=== PATIENT | female | born 1925 | race Caucasian/White ===

== ENCOUNTER 2016-08-31 22:40 | Inpatient (IN) | payer OTHER ==
--- NOTE | 2016-08-31 22:54 | PDOC ---
History of Present Illness - History of Present Illness Initial Comments: 08/31/16 23:36 Patient is an 89 year old female with significant medical hx of HTN who is presenting to the ED with garbled speech and transient confusion this evening. Patient was last known well at 9:45PM tonight when she suddenly began having garbled speech and became disoriented. This was witnessed by her who brought her into the ED, where she was seen by physician at 10:47PM. Upon arrival, the patient had difficulty with word search with some slight confusion which resolved a short while afterwards. Denies any headache, loss of consciousness, facial droop, weakness, numbness, or tingling. PMD: Kingsley Garcia MD Surgical Hx: Hysterectomy, laminectomy x 2 Sample Grader: Luisito Fuller MD <Jackie Hernández - Last Filed: 08/31/16 23:44> <Yuli Dockery - Last Filed: 09/01/16 02:21> - General Chief Complaint: CVA/TIA Stated Complaint: WEAKNESS Past History <Jackie Hernández - Last Filed: 08/31/16 23:44> - Past Medical History Cardiac Disorders: Yes HTN: Yes - Psycho/Social/Smoking Cessation Hx Suicidal Ideation: No Smoking History: Never smoked <Yuli Dockery - Last Filed: 09/01/16 02:21> - Past Medical History Allergies/Adverse Reactions: Allergies Allergy/AdvReac Type Severity Reaction Status Date / Time No Known Allergies Allergy Verified 08/31/16 22:43 Home Medications: Ambulatory Orders Aspirin [ASA -] 81 mg PO DAILY 08/31/16 Celecoxib [Celebrex] 200 mg PO DAILY 08/31/16 Cholecalciferol (Vitamin D3) [Vitamin D3] 50,000 unit PO WEEKLY 08/31/16 Diazepam [Valium] 10 mg PO HS PRN 08/31/16 Esomeprazole Magnesium [Nexium 24Hr] 40 mg PO ASDIR 08/31/16 Metoprolol Succinate [Toprol Xl -] 50 mg PO ASDIR 08/31/16 Metoprolol Succinate [Toprol Xl] 100 mg PO AM 08/31/16 Olmesartan/Amlodipin/Hcthiazid [Tribenzor 40-10-25 mg Tablet] 1 each PO DAILY Sennosides/Docusate Sodium [Senna Plus Tablet] 1 each PO HS 08/31/16 Simvastatin [Zocor -] 40 mg PO HS 08/31/16 Review of Systems - Review of Systems Comments:: 08/31/16 23:39 CONSTITUTIONAL: Absent: fever, chills, diaphoresis, generalized weakness, malaise, loss of appetite HEENT: Absent: rhinorrhea, nasal congestion, throat pain, throat swelling, difficulty swallowing, mouth swelling, ear pain, eye pain, visual changes CARDIOVASCULAR: Absent: chest pain, syncope, palpitations, irregular heart rate, lightheadedness , peripheral edema RESPIRATORY: Absent: cough, shortness of breath, dyspnea with exertion, orthopnea, wheezing, stridor, hemoptysis GASTROINTESTINAL: Absent: abdominal pain, abdominal distension, nausea, vomiting, diarrhea, constipation, melena, hematochezia GENITOURINARY: Absent: dysuria, frequency, urgency, hesitancy, hematuria, flank pain, genital pain MUSCULOSKELETAL: Absent: myalgia, arthralgia, joint swelling SKIN: Absent: rash, itching, pallor HEMATOLOGIC/IMMUNOLOGIC: Absent: easy bleeding, easy bruising, lymphadenopathy, frequent infections ENDOCRINE: Absent: unexplained weight gain, unexplained weight loss, heat intolerance, cold intolerance NEUROLOGIC: Present: confusion, garbled speech Absent: headache, focal weakness or paresthesia, dizziness, unsteady gait, seizure, bladder or bowel incontinence. PSYCHIATRIC: Absent: anxiety, depression, suicidal or homicidal ideation, hallucinations <Betty,Jackie - Last Filed: 08/31/16 23:44> *Physical Exam - Vital Signs Last Vital Signs Temp Pulse Resp BP Pulse Ox 98.4 F 114 H 20 127/71 95 08/31/16 22:44 08/31/16 22:44 08/31/16 22:44 08/31/16 22:44 08/31/16 22:44 - Physical Exam Comments: 08/31/16 23:40 GENERAL: Well developed, well nourished. Awake and alert. No acute distress. HEENT: Normocephalic, atraumatic. PERRLA, EOMI. No conjunctival pallor. Sclera are non- icteric. Moist mucous membranes. Oropharynx is clear. NECK: Supple. Full ROM. No JVD. Carotid pulses 2+ and symmetric, without bruits. No thyromegaly. No lymphadenopathy. CARDIOVASCULAR: Regular rate and rhythm. No murmurs, rubs, or gallops. Distal pulses are 2+ and symmetric. PULMONARY: No evidence of respiratory distress. Lungs clear to auscultation bilaterally. No wheezing, rales or rhonchi. ABDOMINAL: Soft. Non-tender. Non-distended. No rebound or guarding. No organomegaly. Normoactive bowel sounds. MUSCULOSKELETAL: Significant toes and fingers deformity due to advanced arthritis. No tenderness. No CVA tenderness. EXTREMITIES: No cyanosis. No clubbing. No edema. No calf tenderness. SKIN: Warm and dry. Normal capillary refill. No rashes. No jaundice. NEUROLOGICAL: AAOx3. Upon arrival, patient had difficulty with word search and slight confusion, all resolved now. No extremity weakness. No confusion at this time. Sensation is intact. No visual defects. PSYCHIATRIC: Cooperative. Good eye contact. Appropriate mood and affect. <Jackie Hernández - Last Filed: 08/31/16 23:44> - Vital Signs Last Vital Signs Temp Pulse Resp BP Pulse Ox 98.4 F 114 H 20 127/71 95 08/31/16 22:44 08/31/16 22:44 08/31/16 22:44 08/31/16 22:44 08/31/16 22:44 <Yuli Dockery - Last Filed: 09/01/16 02:21> NIH Stroke Scale - Last Known Well Date/Time & Onset Date Last Known Well: 08/31/16 Time Last Known Well: 21:45 - Initial Evaluation Level of consciousness: Alert Ask patient the month and their age: Answers both correctly Ask patient to open & close eyes; make fist and let go: Obeys both correctly Best gaze (horizontal eye movement): Normal Visual field testing: No visual field loss Facial paresis (Show teeth/raise eyebrows/close eyes tight): Normal symmetrical movement Motor Function: Left Arm: Normal Motor Function: Right Arm: Normal (extends arm 90 (or 45) degrees for 10 seconds without drift Motor Function: Left Leg: Normal (extends leg 30 degrees for 5 seconds without drift) Motor Function: Right Leg: Normal (extends leg 30 degrees for 5 seconds without drift) Limb Ataxia: No ataxia Sensory(Use pinprick test arms,legs,trunk,face/side to side): Normal Best language (Describe picture, name items, read sentences): No Aphasia Dysarthria (read several words): Normal articulation Extinction and Inattention: No abnormality - Total Score NIH Stroke Scale Score: 0 <Yuli Dockery - Last Filed: 09/01/16 02:21> tPA Exclusion Checklist 0-3hr - Time Elapsed Date last known well: 08/31/16 Time last known well: 21:45 Elaspsed time: Day(s) and 4 Hour(s) and 35 Minutes - Thrombolytic Therapy Candidate Is the patient eligible for Thrombolytic Therapy?: No - Exclusion Criteria 0-3hr SBP greater than 185 or DBP greater than 110mmHg despite tx: No Recent IC/spinal surgery,head trauma or stroke w/in last 3mo: No Hx of previous IC hemorrhage, IC neoplasm, AVM or aneurysm: No Active internal bleeding: No Blding diathesis(low plt ct, inc PTT,INR>1.7 or use of NOAC): No Symptoms suggest subarachnoid hemorrhage: No CT demonstrates multilobar infarct(>1/3 cerebral hemiphere): No Arterial puncture at noncompressible site in previous 7 days: No Blood glucose concentration less than 50mg/dL (2.7mmol/L): No - Relative Exclusion Criteria 0-3h Life expectancy <1yr/severe co-morbid illness/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: No : No Patient/family refused: No Rapid improvement: Yes Stroke severity too mild: Yes Recent acute VA (w/in previous 3 months): No Seizure at onset with postictal residual neuro impairments: No Major surgery or serious trauma w/in previous 14 days: No Recent GI or hemorrhage (w/in previous 21 days): No - Ineligibility reason(s) Reasons No tPA given: See reason(s) noted above (no symptoms currently) <Yuli Dockery - Last Filed: 09/01/16 02:21> Heart Score/ECG Review #1 08/31/16 23:41 Normal sinus rhythm at 63 bpm Cannot rule out Anterior infarct, age undetermined Abnormal ECG <Jackie Hernández - Last Filed: 08/31/16 23:44> Critical Care Time/MDM Note - Medical Decision Making Note: 08/31/16 22:55 89 yo female arrives stating that 1 hour ago she had confusion and difficulty speaking -pt is axox3 -moving all extremities -initially she had some confusion and "word salad' and this seemed to resolve NIHSS was zero PMH HTN PSH TAHSBO,laminectomy ct scan of brain negative for any acute intracranial pathology. Case discussed w neurology, Dr Wong and pt given 325mg aspirin. Pt admitted to telemetry 09/01/16 00:20 the pt has had some recurrent problems with her speech,using nonsensical words then her speech clears and she makes sense and is able to articulate words 09/01/16 02:20 <Yuli Dockery - Last Filed: 09/01/16 02:21> Discharge Disposition <BettyJackie - Last Filed: 08/31/16 23:44> - Discharge Dispostion Admit: Yes <Yuli Dockery - Last Filed: 09/01/16 02:21> - Diagnosis TIA (transient ischemic attack) Qualifiers: Transient cerebral ischemia type: unspecified Qualified Code(s): G45.9 - Transient cerebral ischemic attack, unspecified - Referrals ED Treatment Course - LABORATORY CBC & Chemistry Diagram: 08/31/16 22:50 08/31/16 22:50 - ADDITIONAL ORDERS Additional order review: Laboratory Results 08/31/16 22:50 Sodium Cancelled Potassium Cancelled Chloride Cancelled Carbon Dioxide Cancelled Anion Gap Cancelled BUN Cancelled Creatinine Cancelled Creat Clearance w eGFR Cancelled Random Glucose Cancelled Calcium Cancelled Total Bilirubin Cancelled AST Cancelled ALT Cancelled Alkaline Phosphatase Cancelled Creatine Kinase Cancelled Troponin I Cancelled Total Protein Cancelled Albumin Cancelled Triglycerides Cancelled Cholesterol Cancelled Total LDL Cholesterol Cancelled HDL Cholesterol Cancelled 08/31/16 22:50 RBC 4.23 MCV 93.1 MCHC 33.1 RDW 13.9 MPV 7.1 L Neutrophils % 53.3 Lymphocytes % 36.7 Monocytes % 7.1 Eosinophils % 1.9 Basophils % 1.0 - RADIOLOGY Radiograph Interpretation: 08/31/16 23:10 Siebel Architect: ([email or web address]) Report Date: 08/31/2016 22:57:00 Report Status: Preliminary Begin of Report Content Referring Physician: Yuli Dockery Patient Name: Maribell Hinojosa THIS IS A PRELIMINARYREPORT FROM [facility] SUPERVIS[facility] EXAM: CT brain without contrast IMAGES: 71 EXAM DATE AND TIME: 2016-08-31 22:57:45.0 REASON FOR EXAM: Slurred speech COMPARISON: No FINDINGS: The suspected infarct is not visible on CT at this time (infarcts less than 6 hours old main not be detectable on CT). No hemorrhage. No mass. No focus of edema, shift, or herniation. Osseous structures are intact. THIS DOCUMENT HAS BEEN ELECTRONICALLY SIGNED Chase Jain MD 08/31/2016 23:07 DENZEL MSean. Please call [facility] [phone] ([phone]) with questions. End of Report Content <Jackie Hernández - Last Filed: 08/31/16 23:44> - LABORATORY CBC & Chemistry Diagram: 08/31/16 22:50 08/31/16 23:15 <Yuli Dockery - Last Filed: 09/01/16 02:21> Attestations - Attestations 08/31/16 23:43 Documentation prepared by Jackie Hernández, acting as medical delivery driver for Yuli Dockery MD. <Jackie Hernández - Last Filed: 08/31/16 23:44>
[2016-08-31 23:03] LABS: EOSINOPHIL 1.9 % (0-4.5); MCH 30.8 pg (25.7-33.7); MCHC 33.1 g/dl (32.0-36.0); MEAN CELL VOLUME 93.1 fl (80-96); MEAN PLT VOLUME 7.1 fl (7.5-11.1); NEUTROPHILS 53.3 % (42.8-82.8); PLATELET COUNT 278 K/MM3 (134-434); RDW 13.9 % (11.6-15.6); WHITE BLOOD COUNT 8.8 K/mm3 (4.0-10.0)
[2016-08-31 23:09] LABS: INR 0.96 (0.82-1.09); PROTHROMBIN TIME (PATIENT) 10.5 SEC (9.98-11.88)
[2016-08-31] MEDS ORDERED: ASPIRIN 81 MG CHEWABLE TABLETS PO ONE (23:33)
[2016-08-31] MEDS: SODIUM CHLORIDE 1,000 ML IV SCH (23:40)
[2016-08-31 23:58] LABS: ALBUMIN 3.8 g/dl (3.4-5.0); ANION GAP 13 (8-16); BILIRUBIN,TOTAL 0.5 mg/dL (0.2-1.0); CALCIUM 9.4 mg/dL (8.5-10.1); CHOLESTEROL 198 mg/dL (50-200); CO2 25 mmol/L (21-32); COCKROFT - GAULT 43.3075; CREATININE 0.9 mg/dL (0.55-1.02); GLUCOSE,RANDOM 114 mg/dL (74-106); SGOT/AST 14 U/L (15-37); SGPT/ALT 22 U/L (12-78); TOT PROT 6.8 g/dl (6.4-8.2)
[2016-09-01 00:01] LABS: ALK PHOS 63 U/L (45-117); TROPONIN I < 0.02 ng/ml (0.00-0.05)
[2016-09-01] MEDS ORDERED: ASPIRIN 325 MG TABLET ONE (00:25)
--- NOTE | 2016-09-01 01:19 | HP ---
Admitting History and Physical - Primary Care Physician PCP: Kingsley Garcia - Admission Chief Complaint: garbled speech and confusion History of Present Illness: Mrs. Hinojosa is an 89 y/o lady with h/o HTN, HLP, GERD, and arthritis who who was brought by her due to episode of confusion and abnormal speech . was not at bed side and history was taken from her and ER MD. she was watching TV this evening , when she was noted to have abnormal speech and confusion . She denied any change in her vision , weakness, numbness, tingling, difficulty swallowing, or dizziness. she was brought to ER and upon arrival she had Nl speech , and NL neuro exam. later in ER, MD went to see her and she had a brief episode ( < 1 min ) of word salad and slight confusion, which resolved spontaneously . This never happened to her before. She denied palpitations, but she mentioned that her pulse was in 130s 2 days ago. she also mentioned she was going to get an echo as out pt . Her senior advisor is Dr. Fuller. she denies any fever or chills, CP ro SOB. She uses a walker to ambulate after her laminectomy , years ago. History Source: Patient - Past Medical History Cardiovascular: Yes: HTN, Hyperlipdemia Musculoskeletal: Yes: Osteoarthritis - Past Surgical History Past Surgical History: Yes: Laminectomy - Smoking History Smoking history: Never smoked - Alcohol/Substance Use Hx Alcohol Use: No History of Substance Use: reports: None - Social History ADL: Family Assistance Home Medications - Allergies Allergies/Adverse Reactions: Allergies Allergy/AdvReac Type Severity Reaction Status Date / Time No Known Allergies Allergy Verified 08/31/16 22:43 - Home Medications Home Medications: Ambulatory Orders Aspirin [ASA -] 81 mg PO DAILY 08/31/16 Celecoxib [Celebrex] 200 mg PO DAILY 08/31/16 Cholecalciferol (Vitamin D3) [Vitamin D3] 50,000 unit PO WEEKLY 08/31/16 Diazepam [Valium] 10 mg PO HS PRN 08/31/16 Esomeprazole Magnesium [Nexium 24Hr] 40 mg PO ASDIR 08/31/16 Metoprolol Succinate [Toprol Xl -] 50 mg PO ASDIR 08/31/16 Metoprolol Succinate [Toprol Xl] 100 mg PO AM 08/31/16 Olmesartan/Amlodipin/Hcthiazid [Tribenzor 40-10-25 mg Tablet] 1 each PO DAILY Sennosides/Docusate Sodium [Senna Plus Tablet] 1 each PO HS 08/31/16 Simvastatin [Zocor -] 40 mg PO HS 08/31/16 Family Disease History - Family Disease History Family History: Unable to Obtain Review of Systems - Review of Systems Constitutional: denies: Chills, Diaphoresis, Fever, Lethargy, Loss of Appetite, Malaise, Night Sweats Eyes: denies: Blind Spots, Blurred Vision, Double Vision, Eye Pain HENT: denies: Difficult Swallowing, Ear Discharge, Ear Pain Neck: denies: Decreased ROM, Lumps, Pain on Movement, Stiffness Cardiovascular: reports: Other (reported pulse of 130s 2 days ago). denies: Chest Pain, Edema, Palpitations Respiratory: denies: Cough, Hemoptysis, Orthopnea, Snoring, SOB, Wheezing Gastrointestinal: denies: Abdominal Pain, Bloating, Constipation, Diarrhea, Indigestion, Melena, Nausea Genitourinary: denies: Burning, Discharge, Dysuria, Flank Pain, Frequency, Incontinence Musculoskeletal: reports: Joint Pain. denies: Back Pain, Muscle Cramps, Muscle Weakness Neurological: reports: Change in Speech, Confusion. denies: Dizziness, Headache , Incoordination, Numbness, Parasthesia, Seizure, Syncope, Tremors Endocrine: denies: Excessive Sweating, Flushing, Increased Thirst Hematology/Lymphatic: denies: Easily Bruised, Excessive Bleeding Psychiatric: denies: Anxiety, Depression, Hallucinations, Panic Physical Examination Vital Signs: Vital Signs Temperature 98.4 F 08/31/16 22:44 Pulse Rate 56 L 09/01/16 00:32 Respiratory Rate 19 09/01/16 00:32 Blood Pressure 108/62 09/01/16 00:32 O2 Sat by Pulse Oximetry (%) 99 09/01/16 00:32 Constitutional: Yes: Well Nourished, No Distress, Calm. No: Anxious, Mild Distress Eyes: Yes: Conjunctiva Clear, EOM Intact, PERRL. No: Diplopia, Ptosis HENT: Yes: Atraumatic, Normocephalic. No: Drooling, Epistaxis, Hoarseness, Nasal Congestion, Pharyngeal Erythema, Rhinnorhea, Thrush Neck: Yes: Supple, Trachea Midline. No: Lymphadenopathy, Rigid, Tenderness Cardiovascular: Yes: Regular Rate and Rhythm, S1, S2. No: JVD, Gallop, Murmur, Rub Respiratory: Yes: Regular, CTA Bilaterally. No: Cough, Diminished, Poor Air Entry, Rales, Rhonchi Gastrointestinal: Yes: Normal Bowel Sounds, Soft. No: Distention, Hypoactive Bowel Sounds, Tenderness, Tenderness, Epigastrium, Tenderness, Rebound ...Rectal Exam: Yes: Deferred Renal/: No: Anuria, Bladder Distention, Javier Present Musculoskeletal: Yes: Other (ulnar deviation , both hands. hypertrophy and deformity of interphalangeal joints) Peripheral Pulses: Left Doralis Pedis: 1+, Right Dorsalis Pedis: 1+ Integumentary: No: Body Piercing Neurological: Yes: Alert, Oriented (AAOx3), Other (gait unobserved). No: Aphasia, Asterixis, Confusion (no facial droop, EOMI, round equal pupils , reactive to light . no nystagmus, nl facial sensation . tongue and uvula at mid line . Nl speech. strength 5/5 in upper and lower ext proximally and distally ( limited exam in hands due to joint deformity and pain ) reflexes 2+ knee jerk , and biceps , 1+ ankle jerk b/l. Nose to finger NL .), Facial Droop, Lethargy , Loss of Sensation Imaging - Results X-ray: Image Reviewed (poor inspiration , likely causing R hilar congestion . read is pending) Cat Scan: Report Reviewed (imaging talent development consultant report with no acute infarct) EKG: Image Reviewed (sinus rhythm,no ST or TW changes. possible L axis deviation ) Assessment/Plan Mrs. Hinojosa is an 89 y/o lady with h/o HTN, HLP, GERD, and arthritis who who was brought by her due to episode of confusion and abnormal speech . 1- Abnormal speech and transient confusion: likely due to TIA as her sx resolved. Her neuro exam is nL now. NIH score 0 . EKG with nl sinus rhythm, but she mentioned tachycardia to 130s 2 days ago. ? arrhythmias she has no signs of infection , or other metabolic causes to explain her presentation - check MRI of brain. - carotid US . - tele to r/o PAfib - received 325 of ASA in ER. - cont home ASA - order Echo - Neuro consult - check lipids ( goal LDL < 70). - hold home valium to avoid confusion 2- HTN: BP on lower side. hold BP meds , in case there is an infarct . can resume soon 3- Arthritis : with ulnar deviation and hands deformities. ? RA . OUt pt f/u dispo : PT eval observe Visit type - Emergency Visit Emergency Visit: Yes ED Registration Date: 08/31/16 Care time: The patient presented to the Emergency Department on the above date and was hospitalized for further evaluation of their emergent condition. - New Patient This patient is new to me today: Yes Date on this admission: 09/01/16 - Critical Care Critical Care patient: No
[2016-09-01] MEDS ORDERED: ACETAMINOPHEN 325 MG TABLET (FP) PO PRN (01:46)
[2016-09-01 03:11] LABS: LDL CHOLESTEROL (ONLY SJRH) 115 mg/dL (5-100)
[2016-09-01 05:33] VITALS: BMI 30.7
[2016-09-01] MEDS: HEPARIN NA (PORCINE) 5,000 UNITS/ML 1ML VIAL SQ SCH ×3 (06:46→21:35)
--- NOTE | 2016-09-01 07:52 | CON.NEURO ---
Consult Consult Specialty:: Neurology - History of Present Illness History of Present Illness: 89 year old female with significant medical hx of HTN who is presenting to the ED with garbled speech and transient confusion 08/31/16. Patient was last known well at 9:45PM when she suddenly began having garbled speech and became disoriented. This was witnessed by her who brought her into the ED, where she was seen by physician at 10:47PM. As per ER eval she imporved on arrival; did not qualify for TPA given NIH 0. CT HD no acute pathology. THis AM noted to have mixed aphasia and unable to elaborate further HX-- follows some basic steps, though receptive > expressive aphasia. - History Source History Provided By: Medical Record Limitations to Obtaining History: Other (aphasia) - Past Medical History Cardio/Vascular: Yes: HTN, Hyperlipdemia ...: No Musculoskeletal: Yes: Osteoarthritis - Past Surgical History Past Surgical History: Yes: Laminectomy - Alcohol/Substance Use Hx Alcohol Use: Yes (occaisional social drink) History of Substance Use: reports: None - Smoking History Smoking history: Never smoked Have you smoked in the past 12 months: No - Social History ADL: Family Assistance Home Medications - Allergies Allergies/Adverse Reactions: Allergies Allergy/AdvReac Type Severity Reaction Status Date / Time No Known Allergies Allergy Verified 08/31/16 22:43 - Home Medications Home Medications: Ambulatory Orders Aspirin [ASA -] 243 mg PO DAILY 08/31/16 Celecoxib [Celebrex] 200 mg PO DAILY 08/31/16 Cholecalciferol (Vitamin D3) [Vitamin D3] 50,000 unit PO WEEKLY 08/31/16 Diazepam [Valium] 5 mg PO HS PRN 08/31/16 Esomeprazole Magnesium [Nexium 24Hr] 40 mg PO ASDIR 08/31/16 Metoprolol Succinate [Toprol Xl -] 50 mg PO ASDIR 08/31/16 Metoprolol Succinate [Toprol Xl] 100 mg PO AM 08/31/16 Olmesartan/Amlodipin/Hcthiazid [Tribenzor 40-10-25 mg Tablet] 1 each PO DAILY Sennosides/Docusate Sodium [Senna Plus Tablet] 1 each PO HS 08/31/16 Simvastatin [Zocor -] 40 mg PO HS 08/31/16 Acetaminophen [Tylenol] 650 mg PO PRN MDD 650 mg 09/01/16 Docusate Sodium [Colace -] 100 mg PO HS 09/01/16 Review of Systems Unable to obtain ROS, reason: unable Physical Exam-Neuro Vital Signs: Vital Signs Temperature 97.7 F 09/01/16 05:50 Pulse Rate 58 L 09/01/16 05:50 Respiratory Rate 20 09/01/16 05:50 Blood Pressure 119/70 09/01/16 05:50 O2 Sat by Pulse Oximetry (%) 99 09/01/16 01:50 Constitutional: Yes: No Distress Neck: Yes: Supple Cardiovascular: Yes: Regular Rate and Rhythm Respiratory: Yes: CTA Bilaterally Gastrointestinal: Yes: Normal Bowel Sounds Labs: INR, PTT INR 0.96 (0.82-1.09) 08/31/16 22:50 CBCD WBC 8.8 K/mm3 (4.0-10.0) 08/31/16 22:50 RBC 4.23 M/mm3 (3.60-5.2) 08/31/16 22:50 Hgb 13.0 GM/dL (10.7-15.3) 08/31/16 22:50 Hct 39.3 % (32.4-45.2) 08/31/16 22:50 MCV 93.1 fl (80-96) 08/31/16 22:50 MCHC 33.1 g/dl (32.0-36.0) 08/31/16 22:50 RDW 13.9 % (11.6-15.6) 08/31/16 22:50 Plt Count 278 K/MM3 (134-434) 08/31/16 22:50 MPV 7.1 fl (7.5-11.1) L 08/31/16 22:50 CMP Sodium 139 mmol/L (136-145) 08/31/16 23:15 Potassium 4.0 mmol/L (3.5-5.1) 08/31/16 23:15 Chloride 101 mmol/L (98-107) 08/31/16 23:15 Carbon Dioxide 25 mmol/L (21-32) 08/31/16 23:15 Anion Gap 13 (8-16) 08/31/16 23:15 BUN 31 mg/dL (7-18) H 08/31/16 23:15 Creatinine 0.9 mg/dL (0.55-1.02) 08/31/16 23:15 Creat Clearance w eGFR 59.09 (>60) 08/31/16 23:15 Random Glucose 114 mg/dL (74-106) H 08/31/16 23:15 Calcium 9.4 mg/dL (8.5-10.1) 08/31/16 23:15 Total Bilirubin 0.5 mg/dL (0.2-1.0) 08/31/16 23:15 AST 14 U/L (15-37) L 08/31/16 23:15 ALT 22 U/L (12-78) 08/31/16 23:15 Alkaline Phosphatase 63 U/L (45-117) 08/31/16 23:15 Total Protein 6.8 g/dl (6.4-8.2) 08/31/16 23:15 Albumin 3.8 g/dl (3.4-5.0) 08/31/16 23:15 CARDIAC ENZYMES Creatine Kinase 106 IU/L (26-192) 08/31/16 23:15 Troponin I < 0.02 ng/ml (0.00-0.05) 08/31/16 23:15 - Neuro Exam Level Of Consciousness: Yes: Alert Eyes: Yes: DENG (awake and alert, though she has receptive aphasia> expressive aphasia, can close eyes, follows one steps, no naming, no repeat, language nonsensical, motor: no focal weakness, no facial, no clear drift, reflexes symmetric , planatrs down ) NIH Stroke Scale - Last Known Well Date/Time & Onset Symptom Onset Date: 08/31/16 Symptom Onset Time: 21:00 Date Last Known Well: 08/31/16 - Initial Evaluation Level of consciousness: Alert Ask patient the month & their age: Both Incorrect Ask Patient to open & close eyes; make fist and let go.: Obeys Both Correctly Best gaze (horizontal eye movement): Normal Visual Field Testing: No Visual Loss Facial Palsy(Show teeth or raise eyebrows & close eyes: Normal Symmetrical Movements. Motor Function - Left Arm: No Drift;extends limb 90 (or siting 45) degress & hold full 10 seconds Motor Function - Right Arm: No Drift;extends limb 90 (or siting 45) degress & hold full 10 seconds Motor Function - Left Leg: No Drift; leg holds 30 degree position for full 5 seconds. Motor Function - Right Leg: No Drift; leg holds 30 degree position for full 5 seconds. Limb Ataxia: Absent (also used for the pt who does not understand or paralyzed) Sensory (arms, legs, trunk, face): Normal; no sensory loss Best Language: Severe aphasia;all communication is through fragmentary expression Dysarthria/Articulation: Normal Extinction and Inattention: No abnormality - Total Score NIH Stroke Scale Score: 2 Imaging - Results Cat Scan: Image Reviewed (no acute pathology) Problem List - Problems (1) CVA (cerebral vascular accident) Code(s): I63.9 - CEREBRAL INFARCTION, UNSPECIFIED (2) Aphasia Code(s): R47.01 - APHASIA Assessment/Plan 89 year old female with significant medical hx of HTN who is presenting to the ED with garbled speech and transient confusion on 08/31/16--did not qualify for TPA as her symptoms noted to be resolving while in ED. Upon evaluation this AM she is noted to have a receptive > expressive aphasia which may have evolved since yesterday; suspect L acute temporal/parietal infarct-embolic. MRI BRAIN Dopplers ECHO HOLTER STATIN , ASAon board B12, TSH, A1c BP maintenance , keep between 140-160. REHAB /[facility] [place] Dr Baker [phone]
--- NOTE | 2016-09-01 09:52 | CONSULT ---
Admitting History and Physical - Primary Care Physician PCP: Krishna Nunez - Admission History of Present Illness: Per EMR: H and P: "Chief Complaint: garbled speech and confusion History of Present Illness: Mrs. Hinojosa is an 89 y/o lady with h/o HTN, HLP, GERD, and arthritis who who was brought by her due to episode of confusion and abnormal speech . was not at bed side and history was taken from her and ER MD. she was watching TV this evening , when she was noted to have abnormal speech and confusion . She denied any change in her vision , weakness, numbness, tingling, difficulty swallowing, or dizziness. she was brought to ER and upon arrival she had Nl speech , and NL neuro exam. later in ER, MD went to see her and she had a brief episode ( < 1 min ) of word salad and slight confusion, which resolved spontaneously . 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) - Past Medical History Cardiovascular: Yes: HTN, Hyperlipdemia ...: No Musculoskeletal: Yes: Osteoarthritis - Past Surgical History Past Surgical History: Yes: Laminectomy - Smoking History Smoking history: Never smoked Have you smoked in the past 12 months: No - Alcohol/Substance Use Hx Alcohol Use: Yes (occaisional social drink) History of Substance Use: reports: None - Social History ADL: Family Assistance History - Admission Reason For Visit: TIA - Diagnostics X-ray: Report Reviewed CT Scan: Report Reviewed - General Mental Status: Alert and Oriented (grossly suspected, although responses were inconsistent and unreliable secondary to language deficits.Pt was aware of h/o laminectomy, but could not retrieve the word.), Awake and Alert Attention: Intact Ability to Follow Directions: Poor (inconsistent on 1 stage command level. Benefits from pairing verbalizations with gesture.) Head/Neck Control: WFL - Hearing Hearing: Impaired Hearing Aide: No ([place]- has no hearing aides) Speech Evaluation - Communication Primary Language: [place] Communication: Yes: Aphasia Oral Expression Ability: Yes: Moderate Impairment, Severe Impairment - Speech Production Apraxia: No Able to Make Needs Known: Yes: Moderately Impaired, Severely Impaired - Speech Characteristics Voice Loudness: Normal Voice Pitch: Yes: Normal Voice Phonatory-based Quality: Yes: Normal Speech Pattern: Impaired Speech Clarity: < 25% Nasal Resonance: Normal Articulation: Yes: Precise Rate of Speech: Intact - Language/Auditory Comprehension Observation: Able to respond to yes/no queries: Yes (inconsistent), Yes/No Confusion: Yes (inconsistent and unreliable), Comprehends Conversational Speech : Yes (on very simple level), Benefits from Slow Speech: Yes, Benefits from Repetiton: Yes, Benefits from Increased Volume of Speech: Yes - Language/Verbal Expression Aphasia: Yes: Anomia, Impaired Repetition, Paraphrasic Errors, Neologisms, Sound Errors, Grammatic Errors Able to Respond to Simple Queries: Yes: Moderately Impaired, Severely Impaired Able to Communicate Wants and Needs: Yes: Moderately Impaired, Severely Impaired Functional Communication Status: Yes: Moderately Impaired, Severely Impaired Use of Gestures: No - Memory/Perception jail Memory: Yes: WNL (suspected to be intact) Short Term Memory: Yes: WNL (suspected to be intact) - Swallow Evaluation/Bedside Assessment Current Nutritional Intake: Regular, Thin Liquids Oral Secretions: Yes: WFL Dentition: Yes: Adequate Facial Symmetry at Rest: Symmetrical Facial Symmetry on Retraction: Symmetrical Facial Movement: Controlled Sensation: Normal Against Resistance Opening: Normal Against Resistance Closing: Normal Pucker Lips: Normal Smile: Normal Lingual Movement: Normal, Symmetric Lingual Speed of Movement: Normal Lingual Movement Strgth Against Opposition: Normal Lingual Movement Characteristics: Normal Velopharyngeal Movement: Normal Laryngeal Elevation: WFL Laryngeal Movement: Able to Palpate Rate of Intake: WFL Bolus Size: WFL Labial Seal: WFL Chewing: WFL Oral Prep Time: WFL A-P Transit: WFL Pocketing: None Timing of Swallow: WFL Coughing/Throat Clear: No Change in Voice: No Recommendations - Speech Evaluation, Impression/Plan Impression: Moderate to severe expressive Aphasia with Moderate receptive aphasia characterized by yes/no confusion, inconsistent ability to follow 1 stage commands,seems to comprehend more than she can demonstrate, becoming more aware of expressive aphasia/language errors. She does attempt to correct errors at times, often unsuccessfully, with continued running speech that is mod- severely limited in expressing content. Frequent neologisms and paraphasic errors in propositional speech, repetition and confrontation naming tasks. She seems oriented, but testing is limited due to Aphasia. Suspected to be a good historian. No dysarthria/dysphagia. Recommended Frequency for Therapy: 3-5 x Week - Disposition [facility] to: [facility] ([facility]LLENT candidate[facility] - Dysphagia Impressions/Plan Swallowing Skills: WFL Dysphagia Impressions: No Impairment *Silent aspiration: cannot be R/O at bedside - Recommendations Diet Consistency: Regular Medication Administration: Whole with water Liquids: Thin Liquids
[2016-09-01 10:15] LABS: URINE APPEARANCE CLEAR; URINE BILIRUBIN NEGATIVE (NEGATIVE); URINE BLOOD NEGATIVE (NEGATIVE); URINE COLOR STRAW; URINE GLUCOSE (UA) NEGATIVE (NEGATIVE); URINE KETONE NEGATIVE (NEGATIVE); URINE LEUK ESTERASE NEGATIVE (NEGATIVE); URINE NITRITE NEGATIVE (NEGATIVE); URINE PROTEIN NEGATIVE (NEGATIVE); URINE UROBILINOGEN NEGATIVE E.U./dl (0.2-1.0)
--- NOTE | 2016-09-01 10:16 | EKG ---
Test Reason : Blood Pressure : / mmHG Vent. Rate : 063 BPM Atrial Rate : 063 BPM P-R Int : 184 ms QRS Dur : 090 ms QT Int : 444 ms P-R-T Axes : 016 -01 026 degrees QTc Int : 454 ms NORMAL SINUS RHYTHM CANNOT RULE OUT ANTERIOR INFARCT , AGE UNDETERMINED ABNORMAL ECG WHEN COMPARED WITH ECG OF 25-APR-2008 14:03, NO SIGNIFICANT CHANGE WAS FOUND Confirmed by RIC TILLMAN MD ([id number]) on 09/01/2016 10:15:44 AM Referred By: Confirmed By:RIC TILLMAN MD
[2016-09-01] MEDS: ASPIRIN COATED 81 MG TABLET.EC PO SCH (10:24)
[2016-09-01] MEDS: DOCUSATE SODIUM 100 MG CAPSULE (FP) PO SCH ×2 (10:25→21:29)
--- NOTE | 2016-09-01 10:27 | PN ---
Teaching Attending Note Name of Resident: Heri Donahue ATTENDING PHYSICIAN STATEMENT I saw and evaluated the patient. I reviewed the resident's note and discussed the case with the resident. I agree with the resident's findings and plan as documented. SUBJECTIVE: She continues to have aphasia and is frustrated. She denies extremity and weakness. OBJECTIVE: Vitals noted Aphasia continues ASSESSMENT AND PLAN: Clinical signs of ischemic CVA Inpatient admission MRI, TTE, Carotid dobblers ASA Appreciate Neuro consult Full details per resident note
--- NOTE | 2016-09-01 10:51 | PN ---
Physical Exam: SUBJECTIVE: Patient seen and examined at bedside. Continues to have aphasia. Frustrated and nervous about clinical condition. No new complaints. Denies CP, MOSS, SOB, palpitations, N/V. OBJECTIVE: Vital Signs Period Temp Pulse Resp BP Sys/Mcwilliams Pulse Ox Last 24 Hr 97.7 F-98.9 F 58-65 16-20 108-140/57-72 99 GENERAL: The patient is awake, alert, and fully oriented, in no acute distress. HEAD: Normal with no signs of trauma. EYES: PERRL, extraocular movements intact, sclera anicteric, conjunctiva clear. No ptosis. ENT: Ears normal, nares patent, moist mucous membranes. NECK: Trachea midline, full range of motion, supple. LUNGS: Breath sounds equal, clear to auscultation bilaterally, no wheezes, no crackles, no accessory muscle use. HEART: Regular rate and rhythm, S1, S2 without murmur, rub or gallop. ABDOMEN: Soft, nontender, nondistended, normoactive bowel sounds, no guarding, no rebound, no hepatosplenomegaly, no masses. EXTREMITIES: 2+ pulses, warm, well-perfused, no edema. ulnar deviation , both hands. hypertrophy and deformity of interphalangeal joints. NEUROLOGICAL: Cranial nerves II through XII grossly intact. aphasic speech, gait not observed. PSYCH: anxious SKIN: Warm, dry, normal turgor, no rashes or lesions noted Laboratory Results - last 24 hr 09/01/16 08:00 Urine Color Straw Urine Appearance Clear Urine pH 6.0 Ur Specific [place] 1.010 Urine Protein Negative Urine Glucose (UA) Negative Urine Ketones Negative Urine Blood Negative Urine Nitrite Negative Urine Bilirubin Negative Urine Urobilinogen Negative Ur Leukocyte Esterase Negative Active Medications Generic Name Dose Route Start Last Admin Trade Name Freq PRN Reason Stop Dose Admin Acetaminophen 650 mg 09/01/16 01:46 Tylenol - PO Q6H PRN FEVER OR PAIN Aspirin 81 mg 09/01/16 10:00 09/01/16 10:24 Ecotrin - PO 81 mg DAILY DEVANTE Administration Atorvastatin Calcium 40 mg 09/01/16 22:00 Lipitor - PO HS DEVANTE Docusate Sodium 100 mg 09/01/16 10:00 09/01/16 10:25 Colace - PO 100 mg BID DEVANTE Administration Heparin Sodium (Porcine) 5,000 unit 09/01/16 06:00 09/01/16 06:46 Heparin - SQ 5,000 unit TID DEVANTE Administration Sodium Chloride 1,000 mls @ 42 mls/hr 08/31/16 23:00 08/31/16 23:40 Normal Saline - IV 42 mls/hr ASDIR DEVANTE Administration Senna 2 tab 09/01/16 22:00 Senna - PO HS DEVANTE IMAGING: * MRI/BRAIN MRI W/O CONTRAST Clinical history: Confusion speech abnormalities. 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 Ischemic changes in the norma and in the white matter of both cerebral hemispheres sequela most probably to long-standing hypertension or small vessel atherosclerosis. No evidence otherwise of midline shift. No evidence of hydrocephalus.. The cerebellopontine angles unremarkable. Reported By: Eligio Bradford MD 09/01/16 [id number] * ECHOCARDIOGRAPHY- normal LV size and function, no regional wall motion abnormal. mild LAE, mild MAC, mild MR, mod TR, RVSP 30-40, mod Pulm HTN_ ASSESSMENT/PLAN: 89 y/o F with PMHx of HTN, HLP, GERD, and arthritis who who was brought by her due to episode of confusion and abnormal speech. Most likely TIA. 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 * Speech and swallow eval. * No events of Afib on Tele- will continue to monitor * ASA and Heparin for anticoagulation. * Echo-results as above. * LDL- 115; will start Lipitor 40mg (goal <70) * Valium held to avoid confusion (2) HTN (hypertension) Assessment/Plan: * Permissive HTN do to possibility of ischemic stroke. * BP WNL - meds held for now * Will restart once appropriate. (3) Arthritis Assessment/Plan: * r/o RA as outpt. Visit type - Emergency Visit Emergency Visit: Yes ED Registration Date: 09/01/16 Care time: The patient presented to the Emergency Department on the above date and was hospitalized for further evaluation of their emergent condition. - New Patient This patient is new to me today: Yes Date on this admission: 09/01/16 - Critical Care Critical Care patient: No
[2016-09-01] MEDS ORDERED: ATORVASTATIN CA 40 MG TABLET (FP) PO ONE (10:57)
[2016-09-01] MEDS: SODIUM CHLORIDE 1,000 ML IV SCH ×2 (21:37→23:00)
[2016-09-01] MEDS ORDERED: ATORVASTATIN CA 40 MG TABLET (FP) PO SCH (22:00)
[2016-09-01] MEDS ORDERED: SENNOSIDES 8.6MG TABLET (FP) PO SCH (22:00)
[2016-09-02] MEDS: HEPARIN NA (PORCINE) 5,000 UNITS/ML 1ML VIAL SQ SCH (06:46)
[2016-09-02 08:11] LABS: THYROID STIMULATING HORMONE 1.87 uIU/ml (0.358-3.74); TROPONIN I < 0.02 ng/ml (0.00-0.05)
--- NOTE | 2016-09-02 09:24 | PN ---
Teaching Attending Note Name of Resident: Jan Markham ATTENDING PHYSICIAN STATEMENT I saw and evaluated the patient. I reviewed the resident's note and discussed the case with the resident. I agree with the resident's findings and plan as documented. SUBJECTIVE: Patient is no longer aphasic OBJECTIVE: Vital Signs Temperature 98.2 F 09/02/16 06:20 Pulse Rate 62 09/02/16 06:20 Respiratory Rate 18 09/02/16 06:20 Blood Pressure 116/60 09/02/16 06:20 O2 Sat by Pulse Oximetry (%) 95 09/01/16 22:00 CBCD WBC 8.8 K/mm3 (4.0-10.0) 08/31/16 22:50 RBC 4.23 M/mm3 (3.60-5.2) 08/31/16 22:50 Hgb 13.0 GM/dL (10.7-15.3) 08/31/16 22:50 Hct 39.3 % (32.4-45.2) 08/31/16 22:50 MCV 93.1 fl (80-96) 08/31/16 22:50 MCHC 33.1 g/dl (32.0-36.0) 08/31/16 22:50 RDW 13.9 % (11.6-15.6) 08/31/16 22:50 Plt Count 278 K/MM3 (134-434) 08/31/16 22:50 MPV 7.1 fl (7.5-11.1) L 08/31/16 22:50 CMP Sodium 139 mmol/L (136-145) 08/31/16 23:15 Potassium 4.0 mmol/L (3.5-5.1) 08/31/16 23:15 Chloride 101 mmol/L (98-107) 08/31/16 23:15 Carbon Dioxide 25 mmol/L (21-32) 08/31/16 23:15 Anion Gap 13 (8-16) 08/31/16 23:15 BUN 31 mg/dL (7-18) H 08/31/16 23:15 Creatinine 0.9 mg/dL (0.55-1.02) 08/31/16 23:15 Creat Clearance w eGFR 59.09 (>60) 08/31/16 23:15 Random Glucose 114 mg/dL (74-106) H 08/31/16 23:15 Calcium 9.4 mg/dL (8.5-10.1) 08/31/16 23:15 Total Bilirubin 0.5 mg/dL (0.2-1.0) 08/31/16 23:15 AST 14 U/L (15-37) L 08/31/16 23:15 ALT 22 U/L (12-78) 08/31/16 23:15 Alkaline Phosphatase 63 U/L (45-117) 08/31/16 23:15 Total Protein 6.8 g/dl (6.4-8.2) 08/31/16 23:15 Albumin 3.8 g/dl (3.4-5.0) 08/31/16 23:15 CARDIAC ENZYMES Creatine Kinase 106 IU/L (26-192) 08/31/16 23:15 Troponin I < 0.02 ng/ml (0.00-0.05) 09/02/16 05:35 Current Medications Generic Name Dose Route Start Last Admin Trade Name Freq PRN Reason Stop Dose Admin Acetaminophen 650 mg 09/01/16 01:46 Tylenol - PO Q6H PRN FEVER OR PAIN Aspirin 81 mg 09/01/16 10:00 09/01/16 10:24 Ecotrin - PO 81 mg DAILY [facility] Administration Atorvastatin Calcium 40 mg 09/01/16 22:00 09/01/16 21:36 Lipitor - PO Not Given HS [facility] Docusate Sodium 100 mg 09/01/16 10:00 09/01/16 21:29 Colace - PO 100 mg BID DEVANTE Administration Heparin Sodium (Porcine) 5,000 unit 09/01/16 06:00 09/02/16 06:46 Heparin - SQ 5,000 unit TID DEVANTE Administration Sodium Chloride 1,000 mls @ 42 mls/hr 08/31/16 23:00 09/01/16 23:00 Normal Saline - IV Not Given ASDIR DEVANTE Senna 2 tab 09/01/16 22:00 09/01/16 21:29 Senna - PO 2 tab HS [facility] Administration Home Medications Medication Instructions Recorded Celecoxib [Celebrex] 200 mg PO DAILY 08/31/16 Cholecalciferol (Vitamin D3) 50,000 unit PO WEEKLY 08/31/16 [Vitamin D3] Diazepam [Valium] 5 mg PO HS PRN 08/31/16 Esomeprazole Magnesium [Nexium 40 mg PO ASDIR 08/31/16 24Hr] Metoprolol Succinate [Toprol XL -] 50 mg PO bid 08/31/16 Metoprolol Succinate [Toprol Xl] 100 mg PO AM 08/31/16 Olmesartan/Amlodipin/Hcthiazid 1 each PO DAILY 08/31/16 [Tribenzor 40-10-25 mg Tablet] Sennosides/Docusate Sodium [Senna 1 each PO HS 08/31/16 Plus Tablet] Simvastatin [Zocor -] 40 mg PO HS 08/31/16 Acetaminophen [Tylenol] 650 mg PO PRN MDD 650 mg 09/01/16 Docusate Sodium [Colace -] 100 mg PO HS 09/01/16 Clopidogrel Bisulfate [Plavix -] 75 mg PO DAILY #30 tablet 09/02/16 Discharge plan: Patient had Left sided parietal stroke as per MRI, S/S completely resolved , patient is back to her baseline; Aspirin changed to Plavix 75mg daily since patient had stroke on Aspirin ;as per Neuro continue STatins, VNS, Appreciate Neuro consult TTE: Moderate tricuspid regurg. Left ventricles systolic function is normal Carotid dobblers: no acute pathology Full details per resident note
[2016-09-02] MEDS: ASPIRIN COATED 81 MG TABLET.EC PO SCH (10:05)
[2016-09-02] MEDS: DOCUSATE SODIUM 100 MG CAPSULE (FP) PO SCH (10:05)
[2016-09-02 10:06] VITALS: BP 125/66; PULSE 64; TEMP 97.9
--- NOTE | 2016-09-02 10:54 | PN ---
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 Pt is now able to produce propositional speech, without errors, giving me a recipe for Lasagne with good language organization, accurate word retrieval, etc. Pt following complex commands. Pt's feels she is back to baseline. Pt is tolerating diet well. MRI- (+) CVA IMP: Spontaneous recovery of Moderate to Severe Aphasia to good functional language status. Reviewed with Nursing/PT/CCC regarding d/c plan. Rehab placement still indicated for ambulation?
--- NOTE | 2016-09-02 11:01 | PN ---
Progress Note (short form) - Note Progress Note: HPI 09/01/16 89 year old female with significant medical hx of HTN who is presenting to the ED with garbled speech and transient confusion 08/31/16. Patient was last known well at 9:45PM when she suddenly began having garbled speech and became disoriented. This was witnessed by her who brought her into the ED, where she was seen by physician at 10:47PM. As per ER eval she imporved on arrival; did not qualify for TPA given NIH 0. CT HD no acute pathology. THis AM noted to have mixed aphasia and unable to elaborate further HX-- follows some basic steps, though receptive > expressive aphasia. FU : this AM, doing much better and aphasia has improved no new c/o, able to name and slight difficulty with repeating though able to communicate MRI reviewed DOppler (-) - History Source History Provided By: Medical Record Limitations to Obtaining History: Other (aphasia) - Past Medical History Cardio/Vascular: Yes: HTN, Hyperlipdemia ...: No Musculoskeletal: Yes: Osteoarthritis - Past Surgical History Past Surgical History: Yes: Laminectomy - Alcohol/Substance Use Hx Alcohol Use: Yes (occaisional social drink) History of Substance Use: reports: None - Smoking History Smoking history: Never smoked Have you smoked in the past 12 months: No - Social History ADL: Family Assistance Home Medications - Allergies Allergies/Adverse Reactions: Allergies Allergy/AdvReac Type Severity Reaction Status Date / Time No Known Allergies Allergy Verified 08/31/16 22:43 - Home Medications Home Medications: Ambulatory Orders Aspirin [ASA -] 243 mg PO DAILY 08/31/16 Celecoxib [Celebrex] 200 mg PO DAILY 08/31/16 Cholecalciferol (Vitamin D3) [Vitamin D3] 50,000 unit PO WEEKLY 08/31/16 Diazepam [Valium] 5 mg PO HS PRN 08/31/16 Esomeprazole Magnesium [Nexium 24Hr] 40 mg PO ASDIR 08/31/16 Metoprolol Succinate [Toprol Xl -] 50 mg PO ASDIR 08/31/16 Metoprolol Succinate [Toprol Xl] 100 mg PO AM 08/31/16 Olmesartan/Amlodipin/Hcthiazid [Tribenzor 40-10-25 mg Tablet] 1 each PO DAILY Sennosides/Docusate Sodium [Senna Plus Tablet] 1 each PO HS 08/31/16 Simvastatin [Zocor -] 40 mg PO HS 08/31/16 Acetaminophen [Tylenol] 650 mg PO PRN MDD 650 mg 09/01/16 Docusate Sodium [Colace -] 100 mg PO HS 09/01/16 Review of Systems Unable to obtain ROS, reason: unable Physical Exam-Neuro Vital Signs: Vital Signs Temperature 97.9 F 09/02/16 10:05 Pulse Rate 64 09/02/16 10:05 Respiratory Rate 20 09/02/16 10:05 Blood Pressure 125/66 09/02/16 10:05 O2 Sat by Pulse Oximetry (%) 95 09/01/16 22:00 Constitutional: Yes: No Distress Neck: Yes: Supple Cardiovascular: Yes: Regular Rate and Rhythm Respiratory: Yes: CTA Bilaterally Gastrointestinal: Yes: Normal Bowel Sounds Labs: CBCD WBC 8.8 K/mm3 (4.0-10.0) 08/31/16 22:50 RBC 4.23 M/mm3 (3.60-5.2) 08/31/16 22:50 Hgb 13.0 GM/dL (10.7-15.3) 08/31/16 22:50 Hct 39.3 % (32.4-45.2) 08/31/16 22:50 MCV 93.1 fl (80-96) 08/31/16 22:50 MCHC 33.1 g/dl (32.0-36.0) 08/31/16 22:50 RDW 13.9 % (11.6-15.6) 08/31/16 22:50 Plt Count 278 K/MM3 (134-434) 08/31/16 22:50 MPV 7.1 fl (7.5-11.1) L 08/31/16 22:50 CMP Sodium 139 mmol/L (136-145) 08/31/16 23:15 Potassium 4.0 mmol/L (3.5-5.1) 08/31/16 23:15 Chloride 101 mmol/L (98-107) 08/31/16 23:15 Carbon Dioxide 25 mmol/L (21-32) 08/31/16 23:15 Anion Gap 13 (8-16) 08/31/16 23:15 BUN 31 mg/dL (7-18) H 08/31/16 23:15 Creatinine 0.9 mg/dL (0.55-1.02) 08/31/16 23:15 Creat Clearance w eGFR 59.09 (>60) 08/31/16 23:15 Random Glucose 114 mg/dL (74-106) H 08/31/16 23:15 Calcium 9.4 mg/dL (8.5-10.1) 08/31/16 23:15 Total Bilirubin 0.5 mg/dL (0.2-1.0) 08/31/16 23:15 AST 14 U/L (15-37) L 08/31/16 23:15 ALT 22 U/L (12-78) 08/31/16 23:15 Alkaline Phosphatase 63 U/L (45-117) 08/31/16 23:15 Total Protein 6.8 g/dl (6.4-8.2) 08/31/16 23:15 Albumin 3.8 g/dl (3.4-5.0) 08/31/16 23:15 CARDIAC ENZYMES Creatine Kinase 106 IU/L (26-192) 08/31/16 23:15 Troponin I < 0.02 ng/ml (0.00-0.05) 09/02/16 05:35 - Neuro Exam Level Of Consciousness: Yes: Alert Eyes: 09/01/16 (awake and alert, though she has receptive aphasia> expressive aphasia, can close eyes, follows one steps, no naming, no repeat, language nonsensical, motor: no focal weakness, no facial, no clear drift, reflexes symmetric , planatrs down ) 09/02/16 -- awake and oriented , + naming and slight issue repeating, follows 3 steps, no focal weakness NIH Stroke Scale - Last Known Well Date/Time & Onset Symptom Onset Date: 08/31/16 Symptom Onset Time: 21:00 Date Last Known Well: 08/31/16 - Initial Evaluation Level of consciousness: Alert Ask patient the month & their age: Both Incorrect Ask Patient to open & close eyes; make fist and let go.: Obeys Both Correctly Best gaze (horizontal eye movement): Normal Visual Field Testing: No Visual Loss Facial Palsy(Show teeth or raise eyebrows & close eyes: Normal Symmetrical Movements. Motor Function - Left Arm: No Drift;extends limb 90 (or siting 45) degress & hold full 10 seconds Motor Function - Right Arm: No Drift;extends limb 90 (or siting 45) degress & hold full 10 seconds Motor Function - Left Leg: No Drift; leg holds 30 degree position for full 5 seconds. Motor Function - Right Leg: No Drift; leg holds 30 degree position for full 5 seconds. Limb Ataxia: Absent (also used for the pt who does not understand or paralyzed) Sensory (arms, legs, trunk, face): Normal; no sensory loss Best Language: Severe aphasia;all communication is through fragmentary expression Dysarthria/Articulation: Normal Extinction and Inattention: No abnormality - Total Score NIH Stroke Scale Score: 2 Imaging - Results Cat Scan: Image Reviewed (no acute pathology) Problem List - Problems (1) CVA (cerebral vascular accident) Code(s): I63.9 - CEREBRAL INFARCTION, UNSPECIFIED (2) Aphasia Code(s): R47.01 - APHASIA Assessment/Plan 89 year old female with significant medical hx of HTN who is presenting to the ED with garbled speech and transient confusion on 08/31/16--did not qualify for TPA as her symptoms noted to be resolving while in ED. Upon evaluation this AM she is noted to have a receptive > expressive aphasia which may have evolved since yesterday;+ L acute parietal infarct-suspect embolic. She has improved over the last 24 hours --and is close to baseline (stroke evolution) spoke to team, can change ASA to plavix, statin , BP control FU ECHO results would get prolonged [facility] and consider [facility] rehab though may not be necessary neuro stable Dr Baker [phone] Problem List - Problems (1) CVA (cerebral vascular accident) Code(s): I63.9 - CEREBRAL INFARCTION, UNSPECIFIED (2) Aphasia Code(s): R47.01 - APHASIA
[2016-09-02] MEDS ORDERED: CLOPIDOGREL BISULFATE 75 MG TABLET (FP) PO SCH (11:15)
--- NOTE | 2016-09-02 12:17 | DS ---
Physical Exam: SUBJECTIVE: Patient seen and examined at bedside no issues overnight no events on telemetry saphasia resolved OBJECTIVE: Vital Signs Period Temp Pulse Resp BP Sys/Mcwilliams Pulse Ox Last 24 Hr 97.5 F-98.2 F 59-64 16-20 107-127/49-66 95-99 PHYSICAL EXAM GENERAL: The patient is awake, alert, and fully oriented, in no acute distress. HEAD: Normal with no signs of trauma. EYES: PERRL, extraocular movements intact, sclera anicteric, conjunctiva clear. No ptosis. ENT: Ears normal, nares patent, moist mucous membranes. NECK: Trachea midline, full range of motion, supple. LUNGS: Breath sounds equal, clear to auscultation bilaterally, no wheezes, no crackles, no accessory muscle use. HEART: Regular rate and rhythm, S1, S2 without murmur, rub or gallop. ABDOMEN: Soft, nontender, nondistended, normoactive bowel sounds, no guarding, no rebound, no hepatosplenomegaly, no masses. EXTREMITIES: 2+ pulses, warm, well-perfused, no edema. ulnar deviation , both hands. hypertrophy and deformity of interphalangeal joints. NEUROLOGICAL: Cranial nerves II through XII grossly intact. RUE 4/5 strength otherwise global muscle strength 5/5 speech WNL LABS Laboratory Results - last 24 hr 09/02/16 09/02/16 05:35 05:35 Hemoglobin A1c % 5.8 Troponin I < 0.02 TSH 1.87 HOSPITAL COURSE: Date of Admission:09/01/16 Date of Discharge: 09/02/16 89F with history of HTN HLD on aspirin presents to the ED with aphasia had a head CT which was negative. admitted to telemetry which did not reveal any abnormalities. She then had an MRI which showed a left sided parietal stroke. patient seen by neurology and aspirin was stopped and patient was started on plavix since she had a stroke on aspirin. Seen by PT and patient will be discharged with VNS and home PT. Minutes to complete discharge: 45 Discharge Summary Reason For Visit: TIA Current Active Problems Aphasia (Acute) Arthritis (Acute) CVA (cerebral vascular accident) (Acute) HTN (hypertension) (Chronic) Condition: Stable - Instructions Diet, Activity, Other Instructions: eat a low sodium diet take all your medications as prescribed if you have symptoms like you did again go to the nearest emergency room check your blood pressure every day and before taking your medications. do not take your medications if your blood pressure is lower than 90/50 stop taking the aspirin you will now be taking plavix. follow up with the neurologist follow up with the bulk truck driver so you can have a holter monitor placed to evaluate your heart toll ticket clerk for any irregularities follow up with your primary care doctor it was a pleasure taking care of you Good [place] Referrals: Luisito Fuller MD [Staff Physician] - 1 Week Ovidio Baker DO [Staff Physician] - 1 Week Kingsley Garcia MD [Primary Care Provider] - 1 Week Disposition: VNS/HOME HEALTH CARE - Home Medications Comprehensive Discharge Medication List: Ambulatory Orders Celecoxib [Celebrex] 200 mg PO DAILY 08/31/16 Cholecalciferol (Vitamin D3) [Vitamin D3] 50,000 unit PO WEEKLY 08/31/16 Diazepam [Valium] 5 mg PO HS PRN 08/31/16 Esomeprazole Magnesium [Nexium 24Hr] 40 mg PO ASDIR 08/31/16 Metoprolol Succinate [Toprol XL -] 50 mg PO ASDIR 08/31/16 Metoprolol Succinate [Toprol Xl] 100 mg PO AM 08/31/16 Olmesartan/Amlodipin/Hcthiazid [Tribenzor 40-10-25 mg Tablet] 1 each PO DAILY Sennosides/Docusate Sodium [Senna Plus Tablet] 1 each PO HS 08/31/16 Simvastatin [Zocor -] 40 mg PO HS 08/31/16 Acetaminophen [Tylenol] 650 mg PO PRN MDD 650 mg 09/01/16 Docusate Sodium [Colace -] 100 mg PO HS 09/01/16 Clopidogrel Bisulfate [Plavix -] 75 mg PO DAILY #30 tablet 09/02/16 This patient is new to me today: Yes Date on this admission: 09/02/16 Emergency Visit: Yes ED Registration Date: 09/01/16 Care time: The patient presented to the Emergency Department on the above date and was hospitalized for further evaluation of their emergent condition. Critical Care patient: No - Discharge Referral Referred to [facility] Med P.C.: No
== END 2016-09-02 13:35 | disposition home or self-care (01) | DRG 66 ==
LOC: JER 22:40 → JERBED 23:33 → UNDOADMOB 23:33 → INTOOBSV 23:33 → J4S 09-01 01:44 → JERBED 09-01 01:44 → J4S 09-01 01:46 → JERBED 09-01 01:46 → OBSVTOIN 09-01 10:49
PROVIDERS: ADMIT Internal Medicine; ATTEND Internal Medicine
DX: I63.9 Cerebral infarction, unspecified (principal); R47.01 Aphasia; I10 Essential (primary) hypertension; E78.5 Hyperlipidemia, unspecified; M19.90 Unspecified osteoarthritis, unspecified site; R29.702 NIHSS score 2; K21.9 Gastro-esophageal reflux disease without esophagitis
CPT/HCPCS: 36415; 70450-TC; 70551-TC; 71010-TC; 80053; 81003; 82465; 82550; 83036; 83718; 83721; 84443; 84478; 84484; 85025; 85610; 86850; 86900; 86901; 93005; 93010; 93306-TC; 93880-TC; 97116-GP; 97161-GP; 99285-25; G0378; J1644

== ENCOUNTER 2016-10-13 23:33 | Inpatient (IN) | payer OTHER ==
[2016-10-14] MEDS ORDERED: LIDOCAINE HCL 1%, 10 MG/ML (20ML VIAL) IJ ONE
--- NOTE | 2016-10-14 00:20 | PDOC ---
History of Present Illness - General History Source: Patient Exam Limitations: No Limitations - History of Present Illness Initial Comments: 10/14/16 00:39 The patient is a 89 year old female with significant past medical history of hypertension, hyperlipidemia, and arthritis who presents to the ED for left leg pain prior to arrival. Patient reports she was walking up the stairs without any assistance (i.e walker or cane) when she suddenly developed pain from below the left knee to the top of the left foot. Patient states she normally uses assistance of some sort to ambulate. Denies any trauma to the area or falling. Denies lightheadedness, diaphoresis, chest pain, palpitations, or SOB. States her symptoms have improved since she has been in the ER. The patient denies fever, chills, and cough. The patient denies abdominal pain, nausea, vomiting, and diarrhea. Allergies: NKDA Social History: No alcohol, tobacco, or drug use reported. Past Surgical History: Laminectomy, hysterectomy PCP: Dr. Ez Lopez Cardiology: Dr. Luisito Fuller <Ingrid Roblero - Last Filed: 10/14/16 04:01> - General History Source: Patient <Antonio Pierson - Last Filed: 10/14/16 19:26> - General Stated Complaint: LEFT LEG PAIN Time Seen by Provider: 10/14/16 00:15 Past History <Ingrid Roblero - Last Filed: 10/14/16 04:01> - Past Medical History Cardiac Disorders: Yes HTN: Yes Hypercholesterolemia: Yes - Psycho/Social/Smoking Cessation Hx Suicidal Ideation: No Smoking History: Never smoked Have you smoked in the past 12 months: No Hx Alcohol Use: Yes (occaisional social drink) Drug/Substance Use Hx: No Substance Use Type: Alcohol Hx Substance Use Treatment: No <Antonio Pierson - Last Filed: 10/14/16 19:26> - Past Medical History Allergies/Adverse Reactions: Allergies Allergy/AdvReac Type Severity Reaction Status Date / Time No Known Allergies Allergy Verified 10/14/16 00:25 Home Medications: Ambulatory Orders Celecoxib [Celebrex] 200 mg PO DAILY 08/31/16 Cholecalciferol (Vitamin D3) [Vitamin D3] 50,000 unit PO WEEKLY 08/31/16 Diazepam [Valium] 5 mg PO HS PRN 08/31/16 Esomeprazole Magnesium [Nexium 24Hr] 40 mg PO ASDIR 08/31/16 Metoprolol Succinate [Toprol XL -] 50 mg PO ASDIR 08/31/16 Metoprolol Succinate [Toprol Xl] 100 mg PO AM 08/31/16 Olmesartan/Amlodipin/Hcthiazid [Tribenzor 40-10-25 mg Tablet] 1 each PO DAILY Sennosides/Docusate Sodium [Senna Plus Tablet] 1 each PO HS 08/31/16 Simvastatin [Zocor -] 40 mg PO HS 08/31/16 Acetaminophen [Tylenol] 650 mg PO PRN MDD 650 mg 09/01/16 Docusate Sodium [Colace -] 100 mg PO HS 09/01/16 Clopidogrel Bisulfate [Plavix -] 75 mg PO DAILY #30 tablet 09/02/16 Review of Systems - Review of Systems Able to Perform ROS?: Yes Comments:: 10/14/16 00:40 CONSTITUTIONAL: Absent: fever, no chills, no fatigue EYES: Absent: visual changes ENT: Absent: ear pain, no sore throat CARDIOVASCULAR: Absent: chest pain, no palpitations RESPIRATORY: Absent: cough, no SOB GI: Absent: abdominal pain, no nausea, no vomiting, no constipation, no diarrhea GENITOURINARY: Absent: dysuria, no frequency, no hematuria MUSCULOSKELETAL: +left leg pain Absent: back pain SKIN: Absent: rash NEURO: Absent: headache <Bharrat,Ingrid - Last Filed: 10/14/16 04:01> *Physical Exam - Vital Signs Last Vital Signs Temp Pulse Resp BP Pulse Ox 97.9 F 101 H 16 107/67 95 10/14/16 00:26 10/14/16 00:26 10/14/16 00:26 10/14/16 00:26 10/14/16 00:26 - Physical Exam Comments: 10/14/16 00:40 GENERAL: Well-appearing, well-nourished. No apparent distress. HEENT: Normocephalic, atraumatic. PERRL, EOM intact. CARDIOVASCULAR: Normal S1, S2. Regular rate and rhythm. PULMONARY: Clear to auscultation bilaterally. ABDOMEN: Soft, non-distended, non-tender. EXTREMITIES: Good ROM. No bony tenderness. No deformities. No calf tenderness SKIN: Warm, dry. No rash NEUROLOGICAL: No focal neurological deficits. <Ingrid Roblero - Last Filed: 10/14/16 04:01> Heart Score/ECG Review - ECG Impressions Comment:: 10/14/16 02:56 Atrial fibrillation with variable AV block @94bpm Cannot r/o anterior infarct, age undetermined Abnormal ECG <Ingrid Roblero - Last Filed: 10/14/16 04:01> ED Treatment Course - LABORATORY CBC & Chemistry Diagram: 10/14/16 02:43 10/14/16 02:43 - RADIOLOGY Radiograph Interpretation: 10/14/16 01:46 EXAM: VENOUS DUPLEX UNILATERAL Reviewed by Imaging forestry conservation worker: No evidence for DVT left lower extremity. EXAM: Arterial Duplex lower extremity, unilateral Reviewed by Imaging forestry conservation worker: No arterial flow detected in left lower extremity from common femoral artery through lower leg arteries, compatible with arterial occlusion. <Ingrid Roblero - Last Filed: 10/14/16 04:01> - LABORATORY CBC & Chemistry Diagram: 10/14/16 06:50 10/14/16 11:59 <Antonio Pierson - Last Filed: 10/14/16 19:26> Medical Decision Making - Medical Decision Making 10/14/16 01:[address] Al Durham (via answering service) who is covering for Dr. Ez Lopez at 1:47 and patient's case was discussed. Dr. Durham states patient has not been seen by Jessica yet and thus request that hospitalist takes the patient' s case for admission. 10/14/16 03:[address] Landen Bermudez (via answering service) at 3:57 Awaiting call back 10/14/16 03:59 Patient's case discussed with Dr. Bermudez (at 3:59) who agree to evaluate and see patient in the morning. <Ingrid Roblero - Last Filed: 10/14/16 04:01> - Medical Decision Making 10/14/16 19:26 Dr. Pierson: The scribe's documentation has been prepared under my direction and personally reviewed by me in its entirery. I confirm that the note above accurately reflects all work, treatment, procedures, and medical decision making performed by me. <Antonio Pierson - Last Filed: 10/14/16 19:26> *DC/Admit/Observation/Transfer - Attestations Scribe Attestion: 10/14/16 00:40 Documentation prepared by Ingrid Roblero, acting as emergency medical technician for Antonio Pierson MD/DO. <Ingrid Roblero - Last Filed: 10/14/16 04:01> - Discharge Dispostion Admit: Yes <Antonio Pierson - Last Filed: 10/14/16 19:26> Diagnosis at time of Disposition: Arterial occlusion, lower extremity - Referrals
[2016-10-14] MEDS ORDERED: HEPARIN NA (PORCINE) 5,000 UNITS/ML 1ML VIAL IVPUSH PRN ×6 (01:52→20:25)
[2016-10-14] MEDS ORDERED: HEPARIN - 25,000 UNIT in SODIUM CHLORIDE 495 ML IV SCH (02:00)
[2016-10-14] MEDS ORDERED: HEPARIN INFUSION - 500 ML IVPB ONE (02:24)
[2016-10-14 02:56] LABS: BASOPHIL 0.9 % (0-2.0); MCH 30.1 pg (25.7-33.7); MCHC 33.3 g/dl (32.0-36.0); MEAN CELL VOLUME 90.5 fl (80-96); MEAN PLT VOLUME 7.1 fl (7.5-11.1); NEUTROPHILS 72.5 % (42.8-82.8); PLATELET COUNT 305 K/MM3 (134-434); RDW 13.6 % (11.6-15.6); WHITE BLOOD COUNT 10.6 K/mm3 (4.0-10.0)
[2016-10-14 03:16] LABS: INR 0.95 (0.82-1.09); PROTHROMBIN TIME (PATIENT) 10.4 SEC (9.98-11.88)
[2016-10-14 03:29] LABS: ALBUMIN 3.5 g/dl (3.4-5.0); CALCIUM 8.9 mg/dL (8.5-10.1); COCKROFT - GAULT 22.9245; CREATININE 1.7 mg/dL (0.55-1.02)
[2016-10-14 03:31] LABS: BILIRUBIN,TOTAL 0.2 mg/dL (0.2-1.0); TOT PROT 6.8 g/dl (6.4-8.2)
--- NOTE | 2016-10-14 03:40 | PN ---
<Rylie Toure - Last Filed: 10/14/16 03:40> Teaching Attending Note Name of Resident: Kd Lilly ATTENDING PHYSICIAN STATEMENT I saw and evaluated the patient. I reviewed the resident's note and discussed the case with the resident. I agree with the resident's findings and plan as documented. SUBJECTIVE: OBJECTIVE: ASSESSMENT AND PLAN: <Cara Stuart - Last Filed: 10/14/16 04:13> Teaching Attending Note ATTENDING PHYSICIAN STATEMENT I saw and evaluated the patient. I reviewed the resident's note and discussed the case with the resident. I agree with the resident's findings and plan as documented. SUBJECTIVE: 89 yo F with a PMHx of HTN, HLD, GERD, arthritis who presents with L leg pain. Notes she was walking up the stairs when she suddenly felt L knee pain all the way from the knee to the top of the L foot. Pt was recently admitted in September for L parietal stroke. Patient rates the pain a 10/10 and describes it as pressure like. She notes the pain subsided after 1 hour s/p taking 2 tylenol. OBJECTIVE: Last Vital Signs Temp Pulse Resp BP Pulse Ox 97.9 F 101 H 16 107/67 95 10/14/16 00:26 10/14/16 00:26 10/14/16 00:26 10/14/16 00:26 10/14/16 00:26 GENERAL: Awake, alert, and fully oriented, in no acute distress HEENT: Atraumatic. PERRLA, EOMI. Moist mucosa. No JVD LUNGS: No distress, speaks full sentences, clear to auscultation bilaterally HEART: Tachycardia. normal S1 and S2, no murmurs, rubs or gallops, peripheral pulses normal and equal bilaterally. ABDOMEN: Soft, nontender, normoactive bowel sounds. No guarding, no rebound. No masses EXTREMITIES: Cool LLE DP pulse absent, no edema. No clubbing or Cyanosis. NEUROLOGICAL: Cranial nerves II through XII grossly intact. Normal speech, gait not assessed, no focal sensorimotor deficits SKIN: Warm, Dry, normal turgor, no rashes or lesions noted. CBCD WBC 10.6 K/mm3 (4.0-10.0) H 10/14/16 02:43 RBC 3.80 M/mm3 (3.60-5.2) 10/14/16 02:43 Hgb 11.5 GM/dL (10.7-15.3) D 10/14/16 02:43 Hct 34.4 % (32.4-45.2) 10/14/16 02:43 MCV 90.5 fl (80-96) 10/14/16 02:43 MCHC 33.3 g/dl (32.0-36.0) 10/14/16 02:43 RDW 13.6 % (11.6-15.6) 10/14/16 02:43 Plt Count 305 K/MM3 (134-434) 10/14/16 02:43 MPV 7.1 fl (7.5-11.1) L 10/14/16 02:43 CMP Sodium 138 mmol/L (136-145) 10/14/16 02:43 Potassium 4.5 mmol/L (3.5-5.1) 10/14/16 02:43 Chloride 105 mmol/L (98-107) 10/14/16 02:43 Carbon Dioxide 21 mmol/L (21-32) 10/14/16 02:43 Anion Gap 12 (8-16) 10/14/16 02:43 BUN 41 mg/dL (7-18) H D 10/14/16 02:43 Creatinine 1.7 mg/dL (0.55-1.02) H D 10/14/16 02:43 Creat Clearance w eGFR 28.36 (>60) 10/14/16 02:43 Calcium 8.9 mg/dL (8.5-10.1) 10/14/16 02:43 Total Bilirubin 0.2 mg/dL (0.2-1.0) D 10/14/16 02:43 AST 14 U/L (15-37) L 10/14/16 02:43 ALT 16 U/L (12-78) D 10/14/16 02:43 Alkaline Phosphatase 68 U/L (45-117) 10/14/16 02:43 Total Protein 6.8 g/dl (6.4-8.2) 10/14/16 02:43 Albumin 3.5 g/dl (3.4-5.0) 10/14/16 02:43 Echo 09/2016 EF of 72.5 Moderate TR Moderate pulmonary hypertension ECG Aflutter with variable AV block QTC 472 Vascular Surgery consulted and spoken to. 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 1.) L leg arterial occlusion -Heparin GTT -Vascular surgery consult -Coags and CBC -Type and screen -NPO -Echo done in September. Consider FREDERICK 2.) Atrial Flutter -Continue with beta chyao -CHADS2 VASC7 -Continue with Heparin -Cardiology consult -Trend troponin/ECG 3.) Acute Renal Failure -IVF -Urine lytes 4.) HLD -Continue home meds 5.) HTN -Continue home meds DVT ppx -Heparin GTT Place in Telemetry Documentation is prepared by Cara Stuart acting as medical transcription radiology for Rylie Toure D.O.
[2016-10-14] MEDS ORDERED: ACETAMINOPHEN 325 MG TABLET (FP) PO PRN ×2 (03:41→20:25)
[2016-10-14] MEDS ORDERED: ALPRAZolam 0.25 MG TABLET PO PRN (03:41)
[2016-10-14] MEDS ORDERED: SODIUM CHLORIDE 1,000 ML IV SCH ×2 (03:45→20:25)
[2016-10-14] MEDS ORDERED: morphine CARPU-JECT 2 MG/1 ML DISP.SYRIN IVPUSH ONE (03:52)
[2016-10-14] MEDS ORDERED: morphine CARPU-JECT 2 MG/1 ML DISP.SYRIN ONE (04:07)
[2016-10-14] MEDS ORDERED: ACETAMINOPHEN 325 MG TABLET (FP) PO SCH (04:30)
[2016-10-14] MEDS ORDERED: METOPROLOL SUCCINATE 50 MG TAB.SR.24H (FP) PO SCH ×3 (04:30→10:00)
--- NOTE | 2016-10-14 04:36 | HP ---
CHIEF COMPLAINT: PCP: Dr Lopez HISTORY OF PRESENT ILLNESS: Mrs. Hinojosa is an 89 y/o lady with h/o TIA 09/01/16, HTN, HLP, GERD, and arthritis who prests to ED for lower left leg pain. patient was in her normal state of health when walking up 41 steps when she suddenly felt a sharp pain in her lower left leg, from her knee down, pain was 10/10 constant, pressure like. pain lasted an hour than subsided after taking 2 Tylenol. Patient reports leg paresthesias, was unable to walk, unable to put wait on the leg, patient denies any she has had a recent admission for TIA 43days ago here at [facility]. The patient denies fever, chills, chest pain, palpiations, cough, hemoptysis, diaphoresis, shortness of breath, headache. The patient denies jaw/ back pain lower extremity pain/swelling. The patient denies recent travel, recent surgery , recent immobilization. this has never happened before. ER course was notable for: (1)Paged Dr. Landen Bermudez (via answering service) (2)EKG atreal flutter (3)left lower extremity from common femoral artery through lower leg arteries, compatible with arterial occlusion. Recent Travel: no - Past Medical History Cardiovascular: Yes: HTN, Hyperlipdemia Musculoskeletal: Yes: Osteoarthritis - Past Surgical History Past Surgical History: Yes: Laminectomy - Smoking History Smoking history: Never smoked - Alcohol/Substance Use Hx Alcohol Use: No History of Substance Use: reports: None - Social History ADL: Family Assistance Family History: Allergies No Known Allergies Allergy (Verified 10/14/16 00:25) HOME MEDICATIONS: Home Medications Medication Instructions Recorded Celecoxib [Celebrex] 200 mg PO DAILY 08/31/16 Cholecalciferol (Vitamin D3) 50,000 unit PO WEEKLY 08/31/16 [Vitamin D3] Diazepam [Valium] 5 mg PO HS PRN 08/31/16 Esomeprazole Magnesium [Nexium 40 mg PO ASDIR 08/31/16 24Hr] Metoprolol Succinate [Toprol XL -] 50 mg PO ASDIR 08/31/16 Metoprolol Succinate [Toprol Xl] 50 mg PO AM 08/31/16 Olmesartan/Amlodipin/Hcthiazid 1 each PO DAILY 08/31/16 [Tribenzor 40-10-25 mg Tablet] Sennosides/Docusate Sodium [Senna 1 each PO HS 08/31/16 Plus Tablet] Simvastatin [Zocor -] 40 mg PO HS 08/31/16 Acetaminophen [Tylenol] 650 mg PO PRN MDD 650 mg 09/01/16 Docusate Sodium [Colace -] 100 mg PO HS 09/01/16 Clopidogrel Bisulfate [Plavix -] 75 mg PO DAILY #30 tablet 09/02/16 REVIEW OF SYSTEMS CONSTITUTIONAL: Absent: fever, chills, diaphoresis, generalized weakness, malaise, loss of appetite, weight change HEENT: Absent: rhinorrhea, nasal congestion, throat pain, throat swelling, difficulty swallowing, mouth swelling, ear pain, eye pain, visual changes CARDIOVASCULAR: Absent: chest pain, syncope, palpitations, irregular heart rate, lightheadedness , peripheral edema RESPIRATORY: Absent: cough, shortness of breath, dyspnea with exertion, orthopnea, wheezing, stridor, hemoptysis GASTROINTESTINAL: Absent: abdominal pain, abdominal distension, nausea, vomiting, diarrhea, constipation, melena, hematochezia GENITOURINARY: Absent: dysuria, frequency, urgency, hesitancy, hematuria, flank pain, genital pain MUSCULOSKELETAL: Absent: myalgia, arthralgia, joint swelling, back pain, neck pain SKIN: Absent: rash, itching, pallor HEMATOLOGIC/IMMUNOLOGIC: Absent: easy bleeding, easy bruising, lymphadenopathy, frequent infections ENDOCRINE: Absent: unexplained weight gain, unexplained weight loss, heat intolerance, cold intolerance NEUROLOGIC: LLE paresthesias, Absent: headache, focal weakness or dizziness, unsteady gait, seizure, mental status changes, bladder or bowel incontinence PSYCHIATRIC: anxiety, Absent: depression, suicidal or homicidal ideation, hallucinations. PHYSICAL EXAMINATION GENERAL: Awake, alert, and fully oriented, in no acute distress. HEAD: Normal with no signs of trauma. EYES: Pupils equal, round and reactive to light, extraocular movements intact, sclera anicteric, conjunctiva clear. No lid lag. EARS, NOSE, THROAT: Ears normal, nares patent, oropharynx clear without exudates. Moist mucous membranes. NECK: Normal range of motion, supple without lymphadenopathy, JVD, or masses. LUNGS: Breath sounds equal, clear to auscultation bilaterally. No wheezes, and no crackles. No accessory muscle use. HEART: irregular irregular, normal S1 and S2 without murmur, rub or gallop. ABDOMEN: Soft, nontender, not distended, normoactive bowel sounds, no guarding, no rebound, no masses. No hepatomegaly or splenomegaly. MUSCULOSKELETAL: Normal range of motion at all joints. No bony deformities or tenderness. No CVA tenderness. LOWER EXTREMITIES: RLE :+ Pulse, warm to to touch nontender, well perused, sensation intact . LLE: no pedal pulse, pale cold to touch from middle thigh to foot, non tender, poor perused, sensation intact. No calf tenderness. No peripheral edema. same size of legs bilaterally NEUROLOGICAL: Cranial nerves II-XII intact. Normal speech. PSYCHIATRIC: Cooperative. Good eye contact. Appropriate mood and affect. SKIN: Warm, dry, normal turgor, no rashes or lesions noted, normal capillary refill. Laboratory Results - last 24 hr 10/14/16 10/14/16 10/14/16 02:43 02:43 02:43 WBC 10.6 H RBC 3.80 Hgb 11.5 D Hct 34.4 MCV 90.5 MCHC 33.3 RDW 13.6 Plt Count 305 MPV 7.1 L Neutrophils % 72.5 D Lymphocytes % 20.6 D Monocytes % 5.0 Eosinophils % 1.0 Basophils % 0.9 INR 0.95 Sodium 138 Potassium 4.5 Chloride 105 Carbon Dioxide 21 Anion Gap 12 BUN 41 H D Creatinine 1.7 H D Creat Clearance w eGFR 28.36 Random Glucose 150 H D Calcium 8.9 Total Bilirubin 0.2 D AST 14 L ALT 16 D Alkaline Phosphatase 68 Total Protein 6.8 Albumin 3.5 Active Medications Generic Name Dose Route Start Last Admin Trade Name Freq PRN Reason Stop Dose Admin Acetaminophen 650 mg 10/14/16 03:41 Tylenol - PO Q6H PRN FEVER OR PAIN Alprazolam 0.25 mg 10/14/16 03:41 Xanax - PO Q8H PRN ANXIETY Celecoxib 200 mg 10/14/16 10:00 Celebrex - PO DAILY DEVANTE Docusate Sodium 100 mg 10/14/16 22:00 Colace - PO HS DEVANTE Heparin Sodium (Porcine) 1,000 unit 10/14/16 01:52 Heparin - IVPUSH PRN PRN Heparin Heparin Sodium (Porcine) 5,000 unit 10/14/16 01:52 Heparin - IVPUSH PRN PRN Heparin Heparin Sodium (Porcine) 25, 500 mls @ 16 mls/hr 10/14/16 02:00 10/14/16 02:47 000 unit/ Sodium Chloride IV 16 mls/hr TITR DEVANTE Administration Protocol 800 UNIT/HR Sodium Chloride 1,000 mls @ 50 mls/hr 10/14/16 03:45 Normal Saline - IV 10/15/16 03:48 ASDIR DEVANTE Metoprolol Succinate 50 mg 10/14/16 07:00 Toprol Xl - PO AM DEVANTE Metoprolol Succinate 50 mg 10/14/16 04:30 Toprol Xl - PO ASDIR DEVANTE Non-Formulary Medication 50,000 unit 10/14/16 04:30 Cholecalciferol (Vitamin D3) [Vitamin D3] PO WEEKLY DEVANTE Non-Formulary Medication 1 each 10/14/16 10:00 Olmesartan/Amlodipin/Hcthiazid [Tribenzor 40-10-25 Mg Tablet] PO DAILY DEVANTE Non-Formulary Medication 80 mg 10/14/16 22:00 Simvastatin PO HS DEVANTE Senna/Docusate Sodium 1 tablet 10/14/16 22:00 Pericolace - PO HS DEVANTE Echo 09/2016 EF of 72.5 Moderate TR Moderate pulmonary hypertension ECG Aflutter with variable AV block QTC 472 Vascular Surgery consulted and spoken to. - RADIOLOGY Radiograph Interpretation: 10/14/16 01:46 EXAM: VENOUS DUPLEX UNILATERAL Reviewed by Imaging ornamental ironworker: No evidence for DVT left lower extremity. EXAM: Arterial Duplex lower extremity, unilateral Reviewed by Imaging ornamental ironworker: No arterial flow detected in left lower extremity from common femoral artery through lower leg arteries, compatible with arterial occlusion. <Ingrid Roblero - Last Filed: 10/14/16 04:03> ASSESSMENT/PLAN: 89 y/o lady with h/o TIA 09/01/16, HTN, HLP, GERD, and arthritis who prests to ED for lower left leg pain found to have a L arterial occlusion. L leg arterial occlusion -Echo done in September, Consider FREDERICK as patient has had recent TTE and history of recent clotts/TIA. Possibly Progressive atherosclerotic narrowing of the artery, with resultant low flow, stasis, and eventual thrombosis. r/o for thrombophilic conditions such as the malignancy and less likely antiphospholipid antibody syndrome. Vascular surgery Dr Bermudez consulted -Coags and CBC -Type and screen -NPO -Heparin GTT new onset Atrial Flutter-CHADS2 VASC7 -Continue with home Continue home Metoprolol Succinate -Continue with Heparin gtt -Cardiology consult Dr. William -Trend troponin/ECG - TSH Acute Renal Failure: 1.7 (base line 0.7) -IVF -Urine lytes -consider kidney U/S if not improve with hydration HLD -increased home Simvastatin to 80mg daily HTN -Continue home Olmesartan/Amlodipin/Hcthiazid DVT ppx -Heparin GTT No GI ppx indicated at thsi time FEN IV NS 75cc/hr replete electrolytes as needed NPO as patient may go for vascular surgery Dispo: admit to Telemetry Visit type - Emergency Visit Emergency Visit: Yes ED Registration Date: 10/14/16 Care time: The patient presented to the Emergency Department on the above date and was hospitalized for further evaluation of their emergent condition. - New Patient This patient is new to me today: Yes Date on this admission: 10/14/16 - Critical Care Critical Care patient: No
--- NOTE | 2016-10-14 06:08 | CONSULT ---
Consult Consult Specialty:: Vascular Surgery - History of Present Illness History of Present Illness: 89 year old female with recent left CVA with transient aphasia, HTN, arthritis developed sudden onset of left leg numbness while walking up stairs last night. This progressed to pain and she came to ER. Duplex scan showed no flow in left femoral artery and EKG has new Afib. SHe was started on IV Heparin. She states pain has resolved and she has sensation and movement in foot. No prior history of vascular disease. She uses walker or cane to walk due to spine disease. - History Source History Provided By: Patient Limitations to Obtaining History: No Limitations - Past Medical History Cardio/Vascular: Yes: HTN, Hyperlipdemia Musculoskeletal: Yes: Osteoarthritis - Past Surgical History Past Surgical History: Yes: Laminectomy - Alcohol/Substance Use Hx Alcohol Use: Yes (occaisional social drink) History of Substance Use: reports: None - Smoking History Smoking history: Never smoked Have you smoked in the past 12 months: No - Social History ADL: Family Assistance Home Medications - Allergies Allergies/Adverse Reactions: Allergies Allergy/AdvReac Type Severity Reaction Status Date / Time No Known Allergies Allergy Verified 10/14/16 00:25 - Home Medications Home Medications: Ambulatory Orders Celecoxib [Celebrex] 200 mg PO DAILY 08/31/16 Cholecalciferol (Vitamin D3) [Vitamin D3] 50,000 unit PO WEEKLY 08/31/16 Diazepam [Valium] 5 mg PO HS PRN 08/31/16 Esomeprazole Magnesium [Nexium 24Hr] 40 mg PO ASDIR 08/31/16 Metoprolol Succinate [Toprol XL -] 50 mg PO ASDIR 08/31/16 Metoprolol Succinate [Toprol Xl] 100 mg PO AM 08/31/16 Olmesartan/Amlodipin/Hcthiazid [Tribenzor 40-10-25 mg Tablet] 1 each PO DAILY Sennosides/Docusate Sodium [Senna Plus Tablet] 1 each PO HS 08/31/16 Simvastatin [Zocor -] 40 mg PO HS 08/31/16 Acetaminophen [Tylenol] 650 mg PO PRN MDD 650 mg 09/01/16 Docusate Sodium [Colace -] 100 mg PO HS 09/01/16 Clopidogrel Bisulfate [Plavix -] 75 mg PO DAILY #30 tablet 09/02/16 Physical Exam Vital Signs: Vital Signs Temperature 97.9 F 10/14/16 00:26 Pulse Rate 101 H 10/14/16 00:26 Respiratory Rate 16 10/14/16 00:26 Blood Pressure 107/67 10/14/16 00:26 O2 Sat by Pulse Oximetry (%) 96 10/14/16 01:10 Constitutional: Yes: No Distress Eyes: Yes: WNL HENT: Yes: WNL Neck: Yes: Supple Cardiovascular: Yes: Pulse Irregular Respiratory: Yes: CTA Bilaterally Gastrointestinal: Yes: Soft, Distention Extremities: Yes: Cold (Left foot), Pallor (Left foot) Edema: No Peripheral Pulses WNL: No (No palpable pulse left femoral or distal. 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 Currently there is normal motor and sensory exam and no pain in left foot. Elevated BUN and Cr will make it difficult to get any additional imaging. Continue Heparin drip. Cardiology evaluation pending. If medically stable I will proceed with femoral embolectomy this afternoon. Code(s): I74.3 - EMBOLISM AND THROMBOSIS OF ARTERIES OF THE LOWER EXTREMITIES (2) Atrial fibrillation Code(s): I48.91 - UNSPECIFIED ATRIAL FIBRILLATION
[2016-10-14 07:34] LABS: BASOPHIL 0.4 % (0-2.0); EOSINOPHIL 0.8 % (0-4.5); MCH 30.9 pg (25.7-33.7); MCHC 34.1 g/dl (32.0-36.0); MEAN CELL VOLUME 90.4 fl (80-96); MEAN PLT VOLUME 6.9 fl (7.5-11.1); NEUTROPHILS 72.3 % (42.8-82.8); PLATELET COUNT 289 K/MM3 (134-434); RDW 13.3 % (11.6-15.6); WHITE BLOOD COUNT 9.3 K/mm3 (4.0-10.0)
[2016-10-14 07:55] LABS: ALBUMIN 3.4 g/dl (3.4-5.0); CALCIUM 9.2 mg/dL (8.5-10.1); COCKROFT - GAULT 27.8375; CREATININE 1.4 mg/dL (0.55-1.02); MAGNESIUM 2.2 mg/dL (1.8-2.4); TOT PROT 6.5 g/dl (6.4-8.2)
[2016-10-14 07:59] LABS: BILIRUBIN,TOTAL 0.4 mg/dL (0.2-1.0)
--- NOTE | 2016-10-14 08:38 | HP ---
Admitting History and Physical - Admission History of Present Illness: 89 y/o lady with h/o TIA 09/01/16, HTN, HLP, GERD, and arthritis who prests to ED for lower left leg pain. patient was in her normal state of health when walking up 41 steps when she suddenly felt a sharp pain in her lower left leg, from her knee down, pain was 10/10 constant, pressure like. pain lasted an hour than subsided after taking 2 Tylenol. Patient reports leg paresthesias, was unable to walk, unable to put wait on the leg, patient denies any she has had a recent admission for TIA here at [facility]. PATIENT NOTED WITH ISCHEMIA OF LEFT LEG FOR VASCULARIZATION NO CP OR SOB - Past Medical History Cardiovascular: Yes: AFIB (new onset), HTN, Hyperlipdemia Musculoskeletal: Yes: Chronic low back pain (LAMINECTOMY), Osteoarthritis - Past Surgical History Past Surgical History: Yes: Laminectomy - Smoking History Smoking history: Never smoked Have you smoked in the past 12 months: No - Alcohol/Substance Use Hx Alcohol Use: Yes (occaisional social drink) History of Substance Use: reports: None - Social History ADL: Family Assistance Home Medications - Allergies Allergies/Adverse Reactions: Allergies Allergy/AdvReac Type Severity Reaction Status Date / Time No Known Allergies Allergy Verified 10/14/16 00:25 - Home Medications Home Medications: Ambulatory Orders Celecoxib [Celebrex] 200 mg PO DAILY 08/31/16 Cholecalciferol (Vitamin D3) [Vitamin D3] 50,000 unit PO WEEKLY 08/31/16 Diazepam [Valium] 5 mg PO HS PRN 08/31/16 Esomeprazole Magnesium [Nexium 24Hr] 40 mg PO ASDIR 08/31/16 Metoprolol Succinate [Toprol XL -] 50 mg PO ASDIR 08/31/16 Metoprolol Succinate [Toprol Xl] 100 mg PO AM 08/31/16 Olmesartan/Amlodipin/Hcthiazid [Tribenzor 40-10-25 mg Tablet] 1 each PO DAILY Sennosides/Docusate Sodium [Senna Plus Tablet] 1 each PO HS 08/31/16 Simvastatin [Zocor -] 40 mg PO HS 08/31/16 Acetaminophen [Tylenol] 650 mg PO PRN MDD 650 mg 09/01/16 Docusate Sodium [Colace -] 100 mg PO HS 09/01/16 Clopidogrel Bisulfate [Plavix -] 75 mg PO DAILY #30 tablet 09/02/16 Review of Systems - Review of Systems Cardiovascular: denies: Chest Pain Respiratory: denies: Orthopnea, SOB Gastrointestinal: denies: Abdominal Pain Musculoskeletal: reports: Extremity Pain (LEFT LEG) Physical Examination Vital Signs: Vital Signs Temperature 98.0 F 10/14/16 05:10 Pulse Rate 105 H 10/14/16 05:10 Respiratory Rate 16 10/14/16 05:10 Blood Pressure 111/60 10/14/16 05:10 O2 Sat by Pulse Oximetry (%) 100 10/14/16 05:10 Cardiovascular: Yes: Pulse Irregular, Murmur, S1, S2 Respiratory: Yes: Regular, CTA Bilaterally Gastrointestinal: Yes: Normal Bowel Sounds, Soft Extremities: Yes: Cool (LEFT LEG) Edema: LLE: Trace Peripheral Pulses WNL: No (DIMINISHED LEFT LEG) Labs: CBC, BMP 10/14/16 06:50 10/14/16 06:50 Problem List - Problems (1) Arterial occlusion, lower extremity Assessment/Plan: ON HEPARIN VASCULAR OB BOARD Code(s): I74.3 - EMBOLISM AND THROMBOSIS OF ARTERIES OF THE LOWER EXTREMITIES (2) Atrial fibrillation Assessment/Plan: ON HEPARIN WILL NEED MANAGER OF LOSS PREVENTION OPERATIONS AC Code(s): I48.91 - UNSPECIFIED ATRIAL FIBRILLATION Qualifiers: Atrial fibrillation type: persistent Qualified Code(s): I48.1 - Persistent atrial fibrillation (3) HTN (hypertension) Assessment/Plan: MONITOR ON CURRENT MEDS Code(s): I10 - ESSENTIAL (PRIMARY) HYPERTENSION Qualifiers: Hypertension type: essential hypertension Qualified Code(s): I10 - Essential (primary) hypertension
--- NOTE | 2016-10-14 09:26 | CON.CARD ---
Consult Consult Specialty:: Cardiology Referred by:: Dr. Durham Reason for Consultation:: Preop for LE embolectomy - History of Present Illness Chief Complaint: Left leg pain History of Present Illness: 89F HTN, Hyperlipidemia, history of PE 10 years ago, CVA early September 2016 here at [facility]. Inpatient work up was unremarkable showing normal LV fxn and mild carotid dz. No AF was detected while hospitalized. She was switched from ASA to Plavix. I saw her in the office about 2-3 weeks ago at which time her ECG showed AF, new to patient. Discussed AC at length with her and her , and decision made to continue Plavix because she reported unsteady gait with "30 falls" over the last 2-3 years. Now she presents to ER with pain in the LLE found to have an acutely ischemic LLE with no flow on Arterial Sono. Seen by Vascular surgery, started on Heparin. This AM she is comfortable with pain almost completely resolved. LLE is warm on my exam. She denies CP, SOB, palps, syncope. - History Source History Provided By: Patient, Medical Record - Past Medical History Cardio/Vascular: Yes: AFIB (new onset), HTN, Hyperlipdemia Musculoskeletal: Yes: Osteoarthritis - Past Surgical History Past Surgical History: Yes: Laminectomy - Alcohol/Substance Use Hx Alcohol Use: Yes (occaisional social drink) History of Substance Use: reports: None - Smoking History Smoking history: Never smoked Have you smoked in the past 12 months: No - Social History ADL: Family Assistance Home Medications - Allergies Allergies/Adverse Reactions: Allergies Allergy/AdvReac Type Severity Reaction Status Date / Time No Known Allergies Allergy Verified 10/14/16 00:25 - Home Medications Home Medications: Ambulatory Orders Celecoxib [Celebrex] 200 mg PO DAILY 08/31/16 Cholecalciferol (Vitamin D3) [Vitamin D3] 50,000 unit PO WEEKLY 08/31/16 Diazepam [Valium] 5 mg PO HS PRN 08/31/16 Esomeprazole Magnesium [Nexium 24Hr] 40 mg PO ASDIR 08/31/16 Metoprolol Succinate [Toprol XL -] 50 mg PO ASDIR 08/31/16 Metoprolol Succinate [Toprol Xl] 100 mg PO AM 08/31/16 Olmesartan/Amlodipin/Hcthiazid [Tribenzor 40-10-25 mg Tablet] 1 each PO DAILY Sennosides/Docusate Sodium [Senna Plus Tablet] 1 each PO HS 08/31/16 Simvastatin [Zocor -] 40 mg PO HS 08/31/16 Acetaminophen [Tylenol] 650 mg PO PRN MDD 650 mg 09/01/16 Docusate Sodium [Colace -] 100 mg PO HS 09/01/16 Clopidogrel Bisulfate [Plavix -] 75 mg PO DAILY #30 tablet 09/02/16 Family Disease History - Family Disease History Family History: Unremarkable (not pertinent to this presentation) Review of Systems Findings/Remarks: SEE HPI - Review of Systems Constitutional: reports: No Symptoms Cardiovascular: reports: No Symptoms Respiratory: reports: No Symptoms Gastrointestinal: reports: No Symptoms Genitourinary: reports: No Symptoms Breasts: reports: No Symptoms Reported Musculoskeletal: reports: Other (LLE Pain) - Risk Factors Known Risk Factors: Yes: Hypercholesterolemia, Hypertension, Prior DC /Emb Stroke Vital Signs: Vital Signs Temperature 98.0 F 10/14/16 05:10 Pulse Rate 105 H 10/14/16 05:10 Respiratory Rate 16 10/14/16 05:10 Blood Pressure 111/60 10/14/16 05:10 O2 Sat by Pulse Oximetry (%) 100 10/14/16 05:10 Constitutional: Yes: No Distress Eyes: Yes: Conjunctiva Clear Respiratory: Yes: CTA Bilaterally Gastrointestinal: Yes: Soft Cardiovascular: Yes: Pulse Irregular JVD: No Carotid Bruit: No PMI: Non-Displaced Heart Sounds: Yes: S1, S2 (irregular, no murmurs) Edema: No Peripheral Pulses WNL: No (L DP diminished) Neurological: Yes: Alert, Oriented ...Motor Strength: WNL - Other Data Labs, Other Data: CBC, BMP 10/14/16 06:50 10/14/16 06:50 INR, PTT INR 0.95 (0.82-1.09) 10/14/16 02:43 Laboratory Tests 10/14/16 10/14/16 10/14/16 02:43 06:50 06:50 WBC 9.3 Hgb 11.3 Plt Count 289 INR 0.95 Sodium 139 Potassium 4.2 BUN 35 H Creatinine 1.4 H Total Bilirubin 0.4 D AST 12 L ALT 15 Cholesterol 155 D Total LDL Cholesterol 80 Atrial flutter at 94bpm Echo: Report Reviewed Ejection Fraction %: LVEF > or = 40 % Imaging - Results Chest X-ray: Report Reviewed EKG: Image Reviewed Problem List - Problems (1) Arterial occlusion, lower extremity Code(s): I74.3 - EMBOLISM AND THROMBOSIS OF ARTERIES OF THE LOWER EXTREMITIES (2) Atrial fibrillation Code(s): I48.91 - UNSPECIFIED ATRIAL FIBRILLATION Qualifiers: Atrial fibrillation type: persistent Qualified Code(s): I48.1 - Persistent atrial fibrillation (3) CVA (cerebral vascular accident) Code(s): I63.9 - CEREBRAL INFARCTION, UNSPECIFIED Qualifiers: CVA mechanism: embolism Laterality of affected vessel: unspecified Assessment/Plan IMP: Acute ischemia LLE AF History of CVA REC: D/ W Dr. Bermudez. To continue heparin gtts. No cardiac contraindication to angiography and embolectomy, considered urgent. Discussed with patient- she will need AC moving forward. Although she has reported frequent falls, all efforts should be attempted to prevent further emboli. Should have PT evaluation prior to discharge to determine in short term SNF would be appropriate prior to discharge home.
[2016-10-14] MEDS ORDERED: VALSARTAN 160 MG TABLET (UD) PO SCH (10:00)
[2016-10-14] MEDS ORDERED: DOCUSATE SODIUM 100 MG CAPSULE (FP) PO SCH ×2 (10:00→22:00)
[2016-10-14] MEDS ORDERED: CELECOXIB 200 MG CAPSULE PO SCH (10:00)
[2016-10-14] MEDS ORDERED: PATIENT'S OWN MEDICATION (NON-FORMULARY) (Olmesartan/Amlodipin/Hcthiazid [Tribenzor 40-10- PO SCH (10:00)
[2016-10-14] MEDS ORDERED: amLODIPine BESYLATE 10 MG TABLET (FP) PO SCH (10:00)
[2016-10-14] MEDS ORDERED: HYDROCHLOROTHIAZIDE 25 MG TABLET (FP) PO SCH (10:00)
--- NOTE | 2016-10-14 10:50 | EKG ---
Test Reason : Blood Pressure : / mmHG Vent. Rate : 094 BPM Atrial Rate : 256 BPM P-R Int : 000 ms QRS Dur : 078 ms QT Int : 378 ms P-R-T Axes : 000 009 007 degrees QTc Int : 472 ms UNDETERMINED RHYTHM POSSIBLE ATRIAL FIBRILLATION VS. ATRIAL FLUTTER ANTERIOR INFARCT (CITED ON OR BEFORE 31-AUG-2016) LOW VOLTAGE QRS ABNORMAL ECG WHEN COMPARED WITH ECG OF 31-AUG-2016 23:21, POSSIBLE RHYTHM CHANGE VENT. RATE HAS INCREASED BY 31 BPM T WAVE VARIATION Confirmed by REGULO DICK MD ([id number]) on 10/14/2016 10:50:06 AM Referred By: Confirmed By:REGULO DICK MD
[2016-10-14 12:00] LABS: THYROID STIMULATING HORMONE 1.9 uIU/ml (0.358-3.74)
[2016-10-14 12:31] LABS: CALCIUM 8.7 mg/dL (8.5-10.1); COCKROFT - GAULT 29.9795; CREATININE 1.3 mg/dL (0.55-1.02)
--- NOTE | 2016-10-14 14:01 | PN ---
Progress Note (short form) - Note Progress Note: Patient resting comfortably with at bedside. States that the pain in her left foot almost completely resolved. Cardiology consult appreciated. Denies rest pain, pain with movement, CP or SOB. INR, PTT INR 0.95 (0.82-1.09) 10/14/16 02:43 PE: Gen: nad RLE unremarkable LLE: zone of transition begins around distal calf. Slightly cool to touch ( compared to right which is warm). No dopplerable PT or DP Problem List - Problems (1) Arterial occlusion, lower extremity Assessment/Plan: Repeat arterial duplex and compare to previous study (ordered) Cont Heparin drip Cardio cleared patient for embolectomy COnt npo / ivf GI ppx medical optimization Code(s): I74.3 - EMBOLISM AND THROMBOSIS OF ARTERIES OF THE LOWER EXTREMITIES (2) Atrial fibrillation Code(s): I48.91 - UNSPECIFIED ATRIAL FIBRILLATION Qualifiers: Atrial fibrillation type: persistent Qualified Code(s): I48.1 - Persistent atrial fibrillation
[2016-10-14] MEDS ORDERED: LIDOCAINE HCL 1%, 10 MG/ML (20ML VIAL) ONE (16:56)
[2016-10-14] MEDS ORDERED: HEPARIN NA (PORCINE) 5,000 UNITS/ML 1ML VIAL ONE (16:56)
[2016-10-14] MEDS ORDERED: MIDAZOLAM HCL 2 MG/2 ML SINGLE DOSE VIAL ONE (17:27)
[2016-10-14] MEDS ORDERED: PROPOFOL 20 ML ONE ×2 (17:29→19:29)
[2016-10-14] MEDS ORDERED: DEXAMETHASONE SOD PHOSPHATE 4 MG/1 ML VIAL ONE (17:42)
[2016-10-14] MEDS ORDERED: ceFAZolin SODIUM 1 GM VIAL IVPB ONE (17:50)
[2016-10-14] MEDS ORDERED: ceFAZolin SODIUM 1 GM VIAL ONE (17:51)
[2016-10-14] MEDS ORDERED: PHENYLEPHRINE HCL 10 MG/1 ML SINGLE DOSE VIAL ONE (17:53)
[2016-10-14] MEDS ORDERED: DESFLURANE GAS 240 ML BOTTLE IH ONE (18:20)
[2016-10-14] MEDS ORDERED: POVIDONE-IODINE OINTMENT 10% - 28.4 GM TUBE TP ONE (19:30)
[2016-10-14] MEDS ORDERED: POVIDONE-IODINE OINTMENT 10% - 28.4 GM TUBE ONE (19:38)
--- NOTE | 2016-10-14 19:45 | OP ---
Operative Note - Note: Operative Date: 10/14/16 Pre-Operative Diagnosis: Embolic occlusion left femoral artery Operation: Left femoral embolaectomy. Exploration left popliteal artery. 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 Post-Operative Diagnosis: Same as Pre-op Surgeon: Landen Bermudez Silver Brazer: Florence Niño Anesthesiologist/AGRONOMY [employer]: Toby Chris Anesthesia: General Specimens Removed: Thrombus Estimated Blood Loss (mls): 100
[2016-10-14] MEDS ORDERED: PROMETHAZINE HCL 25 MG/1 ML VIAL IVPUSH PRN (20:04)
[2016-10-14] MEDS ORDERED: ACETAMINOPHEN 1000 MG/100 ML VIAL (NON FORMULARY) IVPB ONE (20:04)
[2016-10-14] MEDS ORDERED: LACTATED RINGERS SOLUTION 1,000 ML IV SCH (20:15)
[2016-10-14] MEDS ORDERED: ATORVASTATIN CA 80 MG TABLET (FP) PO SCH (22:00)
[2016-10-14] MEDS ORDERED: ATORVASTATIN CA 40 MG TABLET (FP) PO SCH (22:00)
[2016-10-14] MEDS ORDERED: SENNOSIDES/DOCUSATE COMBO (SENNA PLUS) TABLET (UD) PO SCH (22:00)
[2016-10-15 00:12] VITALS: BMI 30.4
[2016-10-15] MEDS ORDERED: HEPARIN INFUSION - 500 ML IVPB ONE (00:14)
[2016-10-15] MEDS: DOCUSATE SODIUM 100 MG CAPSULE (FP) PO SCH ×2 (00:20→21:14)
[2016-10-15] MEDS: SENNOSIDES/DOCUSATE COMBO (SENNA PLUS) TABLET (UD) PO SCH ×2 (00:21→21:16)
[2016-10-15] MEDS: ATORVASTATIN CA 40 MG TABLET (FP) PO SCH ×2 (00:21→21:14)
--- NOTE | 2016-10-15 00:45 | CONSULT ---
Consult Consult Specialty:: Pulmonary/Critical Care Reason for Consultation:: s/p left femoral embolectomy - History of Present Illness Chief Complaint: "I had left leg pain suddenly when walking up the stairs." History of Present Illness: This is an 89-year-old female with a past medical history of HTN, HLD, arthritis , and left parietal stroke who presented to the ED today with left leg pain. Patient reports that as she was walking up the stairs she suddenly developed severe left leg pain that radiated from her knee through her foot. She took 2 tylenol and the pain subsided about an hour later. She denied any trauma or fall. She presented to the ED and arterial duplex was significant for lack of flow from the left common femoral artery through the lower leg. Vascular surgery was consulted. She was also found to be in new Afib/Flutter in the ED with a controlled rate for which Cardiology was consulted. Also of note, Cr in the ED 1.7 (baseline 0.9) which has since downtrended on repeat labs. She is now admitted to the ICU s/p left femoral embolectomy for further monitoring with plans for initiation of Heparin gtt. - History Source History Provided By: Patient, Medical Record Limitations to Obtaining History: No Limitations - Past Medical History KILN CLEANER: Yes: CVA, TIA Cardio/Vascular: Yes: AFIB (new onset), HTN, Hyperlipdemia Musculoskeletal: Yes: Chronic low back pain (LAMINECTOMY), Osteoarthritis - Past Surgical History Past Surgical History: Yes: Laminectomy - Alcohol/Substance Use Hx Alcohol Use: Yes (occasional social drink) History of Substance Use: reports: None - Smoking History Smoking history: Never smoked Have you smoked in the past 12 months: No - Social History ADL: Family Assistance Home Medications - Allergies Allergies/Adverse Reactions: Allergies Allergy/AdvReac Type Severity Reaction Status Date / Time No Known Allergies Allergy Verified 10/14/16 00:25 - Home Medications Home Medications: Ambulatory Orders Celecoxib [Celebrex] 200 mg PO DAILY 08/31/16 Cholecalciferol (Vitamin D3) [Vitamin D3] 50,000 unit PO WEEKLY 08/31/16 Diazepam [Valium] 5 mg PO HS PRN 08/31/16 Esomeprazole Magnesium [Nexium 24Hr] 40 mg PO ASDIR 08/31/16 Metoprolol Succinate [Toprol XL -] 50 mg PO ASDIR 08/31/16 Metoprolol Succinate [Toprol Xl] 100 mg PO AM 08/31/16 Olmesartan/Amlodipin/Hcthiazid [Tribenzor 40-10-25 mg Tablet] 1 each PO DAILY Sennosides/Docusate Sodium [Senna Plus Tablet] 1 each PO HS 08/31/16 Simvastatin [Zocor -] 40 mg PO HS 08/31/16 Acetaminophen [Tylenol] 650 mg PO PRN MDD 650 mg 09/01/16 Docusate Sodium [Colace -] 100 mg PO HS 09/01/16 Clopidogrel Bisulfate [Plavix -] 75 mg PO DAILY #30 tablet 09/02/16 Review of Systems - Review of Systems Constitutional: reports: No Symptoms. denies: Chills, Diaphoresis, Fever, Lethargy, Loss of Appetite, Malaise, Night Sweats, Unintentional Wgt. Loss, Weakness, Other Eyes: reports: No Symptoms. denies: Blind Spots, Blurred Vision, Double Vision , Eye Pain, Floaters, Photophobia, Recent Change in Vision, Other HENT: reports: No Symptoms. denies: Difficult Swallowing, Ear Discharge, Ear Pain, Epistaxis, Gingival Bleeding, Hearing Loss, Mouth Swelling, Nasal Congestion, Ocular Prosthesis, Throat Pain, Toothache, Ringing in Ears, Other Neck: reports: No Symptoms. denies: Decreased ROM, Lumps, Pain on Movement, Stiffness, Swollen Glands, Tenderness, Other Cardiovascular: denies: Chest Pain, Edema, Palpitations, Shortness of Breath Respiratory: denies: Cough, SOB, Wheezing Gastrointestinal: denies: Abdominal Pain, Constipation Genitourinary: reports: No Symptoms Musculoskeletal: reports: Extremity Pain (Mild left leg pain) Neurological: reports: No Symptoms Physical Exam Vital Signs: Vital Signs Temperature 97.8 F 10/14/16 23:25 Pulse Rate 85 10/14/16 23:25 Respiratory Rate 18 10/14/16 23:25 Blood Pressure 94/75 10/14/16 23:25 O2 Sat by Pulse Oximetry (%) 98 10/14/16 23:25 Home Medication List Medication Instructions Recorded Confirmed Type Celecoxib [Celebrex] 200 mg PO DAILY 08/31/16 10/14/16 History Cholecalciferol (Vitamin D3) 50,000 unit PO WEEKLY 08/31/16 10/14/16 History [Vitamin D3] Diazepam [Valium] 5 mg PO HS PRN 08/31/16 10/14/16 History Esomeprazole Magnesium [Nexium 40 mg PO ASDIR 08/31/16 10/14/16 History 24Hr] Metoprolol Succinate [Toprol XL -] 50 mg PO ASDIR 08/31/16 10/14/16 History Metoprolol Succinate [Toprol Xl] 100 mg PO AM 08/31/16 10/14/16 History Olmesartan/Amlodipin/Hcthiazid 1 each PO DAILY 08/31/16 10/14/16 History [Tribenzor 40-10-25 mg Tablet] Sennosides/Docusate Sodium [Senna 1 each PO HS 08/31/16 10/14/16 History Plus Tablet] Simvastatin [Zocor -] 40 mg PO HS 08/31/16 10/14/16 History Acetaminophen [Tylenol] 650 mg PO PRN MDD 650 mg 09/01/16 10/14/16 History Docusate Sodium [Colace -] 100 mg PO HS 09/01/16 10/14/16 History Active Medications Generic Name Dose Route Start Last Admin Trade Name Freq PRN Reason Stop Dose Admin Acetaminophen 650 mg 10/14/16 20:25 Tylenol - PO Q6H PRN FEVER OR PAIN Alprazolam 0.25 mg 10/14/16 20:25 Xanax - PO Q8H PRN ANXIETY Amlodipine Besylate 10 mg 10/15/16 10:00 Norvasc - PO DAILY [facility] Atorvastatin Calcium 40 mg 10/14/16 22:00 10/15/16 00:21 Lipitor - PO Not Given HS [facility] Celecoxib 200 mg 10/15/16 10:00 Celebrex - PO DAILY [facility] Docusate Sodium 100 mg 10/14/16 22:00 10/15/16 00:20 Colace - PO Not Given HS [facility] Ergocalciferol 50,000 unit 10/16/16 10:00 Drisdol - PO Th@10 DEVANTE Fentanyl 25 mcg 10/14/16 20:04 10/14/16 22:05 Sublimaze Injection - IVPUSH 10/17/16 20:05 25 mcg [id number] PRN Administration PAIN Heparin Sodium (Porcine) 1,000 unit 10/14/16 20:25 Heparin - IVPUSH PRN PRN Heparin Heparin Sodium (Porcine) 5,000 unit 10/14/16 20:25 Heparin - IVPUSH PRN PRN Heparin Hydrochlorothiazide 25 mg 10/15/16 10:00 Hctz - PO DAILY [facility] Heparin Sodium (Porcine) 25, 500 mls @ 16 mls/hr 10/14/16 20:25 10/15/16 00:00 000 unit/ Sodium Chloride IV 16 mls/hr TITR DEVANTE Administration Protocol 800 UNIT/HR Sodium Chloride 1,000 mls @ 50 mls/hr 10/14/16 20:25 10/14/16 23:30 Normal Saline - IV 10/15/16 03:48 50 mls/hr ASDIR [facility] Administration Metoprolol Succinate 50 mg 10/15/16 07:00 Toprol Xl - PO AM [facility] Morphine Sulfate 2 mg 10/14/16 20:03 Morphine Injection - IVPUSH Q4H PRN PAIN LEVEL 6-10 Oxycodone HCl 5 mg 10/14/16 20:03 Roxicodone - PO Q4H PRN PAIN LEVEL 1-5 Promethazine HCl 12.5 mg 10/14/16 20:04 Phenergan Injection - IVPUSH 10/15/16 02:05 Q6H PRN NAUSEA Senna/Docusate Sodium 1 tablet 10/14/16 22:00 10/15/16 00:21 Pericolace - PO Not Given [facility] Valsartan 320 mg 10/15/16 10:00 Diovan - PO DAILY [facility] Constitutional: Yes: Well Nourished, No Distress, Calm Eyes: Yes: Conjunctiva Clear, EOM Intact, PERRL HENT: Yes: Atraumatic, Normocephalic Neck: Yes: Supple, Trachea Midline Cardiovascular: Yes: WNL, Regular Rate and Rhythm Respiratory: Yes: Regular, CTA Bilaterally Gastrointestinal: Yes: Normal Bowel Sounds, Soft Extremities: Yes: Other (Left lower extremity warm with dopllerable pulses. Dressing C/D/I. No bleeding. No hematoma. RLE WWP.) Edema: No Wound/Incision: Yes: Clean/Dry Neurological: Yes: WNL, Alert, Oriented ...Motor Strength: WNL Labs: CBC, BMP 10/14/16 06:50 10/14/16 11:59 Imaging - Results Chest X-ray: Report Reviewed, Image Reviewed Ultrasound: Report Reviewed EKG: Pending Problem List - Problems (1) Arterial occlusion, lower extremity Code(s): I74.3 - EMBOLISM AND THROMBOSIS OF ARTERIES OF THE LOWER EXTREMITIES (2) HTN (hypertension) Code(s): I10 - ESSENTIAL (PRIMARY) HYPERTENSION Qualifiers: Hypertension type: essential hypertension Qualified Code(s): I10 - Essential (primary) hypertension (3) Atrial fibrillation Code(s): I48.91 - UNSPECIFIED ATRIAL FIBRILLATION Qualifiers: Atrial fibrillation type: persistent Qualified Code(s): I48.1 - Persistent atrial fibrillation Assessment/Plan A/P: This is an 89-year-old female with a past medical history of HTN, HLD, arthritis, L parietal stroke who presented to the ED with left leg pain found to have occlusion of the left femoral artery with course also c/b new onset AFib /AFlutter and KAIDEN now s/p L femoral embolectomy being admitted to the ICU for further monitoring. -Vascular surgery following -Cardiology following -Heparin gtt for AC -Q1 hour neurovascular checks of left LE -Trend Trop/ECG -Repeat arterial duplex pending -Continue beta chayo -Continue home anti-HTNs -Percocet for pain PRN -Trend Cr and urine output, check urine lytes if creatinine rising -Consider TTE FULL CODE YULIANA Castillo Total CC Time: 35 mins
[2016-10-15] MEDS: morphine CARPU-JECT 2 MG/1 ML DISP.SYRIN IVPUSH PRN ×3 (05:49→14:49)
--- NOTE | 2016-10-15 07:14 | PN ---
Physical Exam: SUBJECTIVE: Patient seen and examined. c/o constipation, has not had a bowel movement in several days has poor appetite today. she is feeling down due to brother's today and recent loss of brother-in -law last week, crying the bed. denies chest pain, sob, abdominal pain, headache, pain in lower leg OBJECTIVE: Vital Signs Period Temp Pulse Resp BP Sys/Mcwilliams Pulse Ox Last 24 Hr 97.6 F-98.3 F 75-98 11-21 87-125/56-86 97-100 GENERAL: The patient is awake, alert, and fully oriented, in no acute distress. HEAD: Normal with no signs of trauma. EYES: PERRL, extraocular movements intact, sclera anicteric, conjunctiva clear. No ptosis. ENT: oropharynx clear without exudates, dry mucous membranes. NECK: Trachea midline, full range of motion, supple. LUNGS: Breath sounds equal, clear to auscultation bilaterally, no wheezes, no crackles, no accessory muscle use. HEART: afib, S1, S2 without murmur, rub or gallop. ABDOMEN: Soft, nontender, nondistended, normoactive bowel sounds, no guarding EXTREMITIES: Upper: 2+ b/l radial pulses, warm, well-perfused, no edema. Lower: 1+ b/l dp and pt pulses, warm , well-perfused, no calf tenderness, dressing in place CDI. NEUROLOGICAL: Cranial nerves II through XII grossly intact. Normal speech. facial symmetry, 4/5 hand physical therapist technician strength, 4/5 at biceps and triceps extension/ flexion. Laboratory Results - last 24 hr 10/14/16 10/14/16 10/14/16 06:50 06:50 06:50 WBC 9.3 RBC 3.67 Hgb 11.3 Hct 33.2 MCV 90.4 MCHC 34.1 RDW 13.3 Plt Count 289 MPV 6.9 L Neutrophils % 72.3 Lymphocytes % 21.5 Monocytes % 5.0 Eosinophils % 0.8 Basophils % 0.4 PTT (Actin FS) Sodium 139 Potassium 4.2 Chloride 105 Carbon Dioxide 23 Anion Gap 11 BUN 35 H Creatinine 1.4 H Creat Clearance w eGFR 35.49 Random Glucose 124 H Hemoglobin A1c % 6.8 H D Calcium 9.2 Phosphorus 4.0 Magnesium 2.2 Total Bilirubin 0.4 D AST 12 L ALT 15 Alkaline Phosphatase 66 Total Protein 6.5 Albumin 3.4 Triglycerides 66 D Cholesterol 155 D Total LDL Cholesterol 80 HDL Cholesterol 58 TSH 1.90 D 10/14/16 10/14/16 10/14/16 06:50 11:59 11:59 WBC RBC Hgb Hct MCV MCHC RDW Plt Count MPV Neutrophils % Lymphocytes % Monocytes % Eosinophils % Basophils % PTT (Actin FS) 49.1 H Sodium 139 Potassium 4.1 Chloride 105 Carbon Dioxide 23 Anion Gap 11 BUN 32 H Creatinine 1.3 H Creat Clearance w eGFR Random Glucose 107 H Hemoglobin A1c % Calcium 8.7 Phosphorus Magnesium Total Bilirubin AST ALT Alkaline Phosphatase Total Protein Albumin Triglycerides Cholesterol Total LDL Cholesterol HDL Cholesterol TSH Cancelled 10/15/16 05:15 WBC RBC Hgb Hct MCV MCHC RDW Plt Count MPV Neutrophils % Lymphocytes % Monocytes % Eosinophils % Basophils % PTT (Actin FS) 65.3 H D Sodium Potassium Chloride Carbon Dioxide Anion Gap BUN Creatinine Creat Clearance w eGFR Random Glucose Hemoglobin A1c % Calcium Phosphorus Magnesium Total Bilirubin AST ALT Alkaline Phosphatase Total Protein Albumin Triglycerides Cholesterol Total LDL Cholesterol HDL Cholesterol TSH Active Medications Active Medications Acetaminophen (Tylenol -) 650 mg PO Q6H PRN PRN Reason: FEVER OR PAIN Alprazolam (Xanax -) 0.25 mg PO Q8H PRN PRN Reason: ANXIETY Last Admin: 10/15/16 09:48 Dose: 0.25 mg Amlodipine Besylate (Norvasc -) 10 mg PO DAILY [facility] Last Admin: 10/15/16 09:36 Dose: 10 mg Atorvastatin Calcium (Lipitor -) 40 mg PO HS [facility] Last Admin: 10/15/16 00:21 Dose: Not Given Celecoxib (Celebrex -) 200 mg PO DAILY [facility] Last Admin: 10/15/16 13:36 Dose: 200 mg Docusate Sodium (Colace -) 100 mg PO HS [facility] Last Admin: 10/15/16 00:20 Dose: Not Given Ergocalciferol (Drisdol -) 50,000 unit PO Th@10 [facility] Fentanyl (Sublimaze Injection -) 25 mcg IVPUSH [id number] PRN PRN Reason: PAIN Stop: 10/17/16 20:05 Last Admin: 10/14/16 22:05 Dose: 25 mcg Heparin Sodium (Porcine) (Heparin -) 1,000 unit IVPUSH PRN PRN PRN Reason: Heparin Heparin Sodium (Porcine) (Heparin -) 5,000 unit IVPUSH PRN PRN PRN Reason: Heparin Hydrochlorothiazide (Hctz -) 25 mg PO DAILY [facility] Last Admin: 10/15/16 09:36 Dose: 25 mg Heparin Sodium (Porcine) 25, (000 unit/ Sodium Chloride) 500 mls @ 16 mls/hr IV TITR DEVANTE; 800 UNIT/HR PRN Reason: Protocol Last Admin: 10/15/16 07:30 Dose: 16 mls/hr Sodium Chloride (Normal Saline -) 1,000 mls @ 50 mls/hr IV ASDIR [facility] Stop: 10/16/16 10:55 Last Admin: 10/15/16 11:00 Dose: 50 mls/hr Metoprolol Succinate (Toprol Xl -) 50 mg PO AM [facility] Last Admin: 10/15/16 08:00 Dose: 50 mg Morphine Sulfate (Morphine Injection -) 2 mg IVPUSH Q4H PRN PRN Reason: PAIN LEVEL 6-10 Last Admin: 10/15/16 11:03 Dose: 2 mg Oxycodone HCl (Roxicodone -) 5 mg PO Q4H PRN PRN Reason: PAIN LEVEL 1-5 Last Admin: 10/15/16 14:05 Dose: 5 mg Senna/Docusate Sodium (Pericolace -) 1 tablet PO HS [facility] Last Admin: 10/15/16 00:21 Dose: Not Given Valsartan (Diovan -) 320 mg PO DAILY [facility] Last Admin: 10/15/16 09:36 Dose: 320 mg ASSESSMENT/PLAN: 89 yr old woman with recent TIA (43 days ago) HTN, HLD, GERD, admitted to ICU s/ p open thrombectomy of left femoral artery, found to be in Afib. Cardiovascular POD #1 from open thrombectomy (thrombus in left external iliac, common, deep/ superficial femoral artery) - pulse monitoring, continous bedrest for today pain control with morphine/oxycodone/tylenol/celebrex - heparin drip protocol, goal PTT 50-70 - consult Dr. Espino Afib - new onset, rate controlled with toprol - heparin drip, continue until discussed with dr. espino for transition to oral cardiology note appreciated, Dr. Ginelli, plan for warfarin when able as pt has a hx of falls HTN - controlled diovan 320 mg po daily metoprolol XL 50mg po daily norvasc 10mg po daily HCTZ 25 mg po daily CAD - lipitor po 40mg po HS GI constipation pericolace, will consider adding miralax tomorrow if pt does not have BM Renal KAIDEN, elevated Cr and BUN, in setting of diuretic use and likely poor po intake in elderly woman in pain - improving with IVF NS @50ml/hr - continue fluid until taking adequate po hydration Psych likely grieving, pt has xanax prn for anxiety, support provided by nursing and my self. Pulmonary encourage incentive spirometry while continuous bedrest DVT; pt on heparin drip Diet: diabetic low sodium diet Visit type - Emergency Visit Emergency Visit: No - New Patient This patient is new to me today: Yes Date on this admission: 10/15/16 - Critical Care Critical Care patient: Yes Total Critical Care Time (in minutes): 37 Critical Care Statement: The care of this patient involved high complexity decision making to prevent further life threatening deterioration of the patient 's condition and/or to evalute & treat vital organ system(s) failure or risk of failure.
[2016-10-15] MEDS: HEPARIN - 25,000 UNIT in SODIUM CHLORIDE 495 ML IV SCH ×2 (07:30)
--- NOTE | 2016-10-15 07:56 | PN ---
Progress Note, Physician History of Present Illness: FEELS BETTER NO PAIN - Current Medication List Current Medications: Active Medications Acetaminophen (Tylenol -) 650 mg PO Q6H PRN PRN Reason: FEVER OR PAIN Alprazolam (Xanax -) 0.25 mg PO Q8H PRN PRN Reason: ANXIETY Amlodipine Besylate (Norvasc -) 10 mg PO DAILY [facility] Atorvastatin Calcium (Lipitor -) 40 mg PO HS [facility] Last Admin: 10/15/16 00:21 Dose: Not Given Celecoxib (Celebrex -) 200 mg PO DAILY [facility] Docusate Sodium (Colace -) 100 mg PO HS [facility] Last Admin: 10/15/16 00:20 Dose: Not Given Ergocalciferol (Drisdol -) 50,000 unit PO Th@10 [facility] Fentanyl (Sublimaze Injection -) 25 mcg IVPUSH [id number] PRN PRN Reason: PAIN Stop: 10/17/16 20:05 Last Admin: 10/14/16 22:05 Dose: 25 mcg Heparin Sodium (Porcine) (Heparin -) 1,000 unit IVPUSH PRN PRN PRN Reason: Heparin Heparin Sodium (Porcine) (Heparin -) 5,000 unit IVPUSH PRN PRN PRN Reason: Heparin Hydrochlorothiazide (Hctz -) 25 mg PO DAILY [facility] Heparin Sodium (Porcine) 25, (000 unit/ Sodium Chloride) 500 mls @ 16 mls/hr IV TITR DEVANTE; 800 UNIT/HR PRN Reason: Protocol Last Admin: 10/15/16 00:00 Dose: 16 mls/hr Metoprolol Succinate (Toprol Xl -) 50 mg PO AM [facility] Morphine Sulfate (Morphine Injection -) 2 mg IVPUSH Q4H PRN PRN Reason: PAIN LEVEL 6-10 Last Admin: 10/15/16 05:49 Dose: 2 mg Oxycodone HCl (Roxicodone -) 5 mg PO Q4H PRN PRN Reason: PAIN LEVEL 1-5 Senna/Docusate Sodium (Pericolace -) 1 tablet PO HS [facility] Last Admin: 10/15/16 00:21 Dose: Not Given Valsartan (Diovan -) 320 mg PO DAILY [facility] - Objective Vital Signs: Vital Signs Temperature 98 F 10/15/16 06:00 Pulse Rate 92 H 10/15/16 06:00 Respiratory Rate 14 10/15/16 06:00 Blood Pressure 104/86 10/15/16 06:00 O2 Sat by Pulse Oximetry (%) 97 10/14/16 23:30 Cardiovascular: Yes: Regular Rate and Rhythm Respiratory: Yes: Regular, CTA Bilaterally Gastrointestinal: Yes: Normal Bowel Sounds, Soft Extremities: Yes: Other (WARM PULSES +) Peripheral Pulses WNL: No Labs: CBC, BMP 10/14/16 06:50 10/14/16 11:59 INR, PTT INR 0.95 (0.82-1.09) 10/14/16 02:43 Problem List - Problems (1) Arterial occlusion, lower extremity Assessment/Plan: ON HEPARIN VASCULAR OB BOARD Operative Date: 10/14/16 Pre-Operative Diagnosis: Embolic occlusion left femoral artery Operation: Left femoral embolaectomy. Exploration left popliteal artery. 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 Code(s): I74.3 - EMBOLISM AND THROMBOSIS OF ARTERIES OF THE LOWER EXTREMITIES (2) Atrial fibrillation Assessment/Plan: ON HEPARIN WILL NEED PENITENTIARY AC Code(s): I48.91 - UNSPECIFIED ATRIAL FIBRILLATION Qualifiers: Atrial fibrillation type: persistent Qualified Code(s): I48.1 - Persistent atrial fibrillation (3) HTN (hypertension) Assessment/Plan: MONITOR ON CURRENT MEDS Code(s): I10 - ESSENTIAL (PRIMARY) HYPERTENSION Qualifiers: Hypertension type: essential hypertension Qualified Code(s): I10 - Essential (primary) hypertension
[2016-10-15] MEDS: METOPROLOL SUCCINATE 50 MG TAB.SR.24H (FP) PO SCH (08:00)
[2016-10-15 08:14] LABS: MCH 30.4 pg (25.7-33.7); MCHC 33.2 g/dl (32.0-36.0); MEAN CELL VOLUME 91.6 fl (80-96); MEAN PLT VOLUME 6.8 fl (7.5-11.1); PLATELET COUNT 251 K/MM3 (134-434); RDW 13.3 % (11.6-15.6); WHITE BLOOD COUNT 12.1 K/mm3 (4.0-10.0)
[2016-10-15 08:38] LABS: CALCIUM 8.3 mg/dL (8.5-10.1); COCKROFT - GAULT 30.175; CREATININE 1.3 mg/dL (0.55-1.02); PHOSPHOROUS 4.1 mg/dL (2.5-4.9)
--- NOTE | 2016-10-15 08:59 | PN ---
Progress Note, Physician Chief Complaint: awake and alert in ICU s/p L. femoral embolectomy On tele: rate controlled AF - Current Medication List Current Medications: Active Medications Acetaminophen (Tylenol -) 650 mg PO Q6H PRN PRN Reason: FEVER OR PAIN Alprazolam (Xanax -) 0.25 mg PO Q8H PRN PRN Reason: ANXIETY Amlodipine Besylate (Norvasc -) 10 mg PO DAILY [facility] Atorvastatin Calcium (Lipitor -) 40 mg PO HS [facility] Last Admin: 10/15/16 00:21 Dose: Not Given Celecoxib (Celebrex -) 200 mg PO DAILY [facility] Docusate Sodium (Colace -) 100 mg PO HS [facility] Last Admin: 10/15/16 00:20 Dose: Not Given Ergocalciferol (Drisdol -) 50,000 unit PO Th@10 [facility] Fentanyl (Sublimaze Injection -) 25 mcg IVPUSH [id number] PRN PRN Reason: PAIN Stop: 10/17/16 20:05 Last Admin: 10/14/16 22:05 Dose: 25 mcg Heparin Sodium (Porcine) (Heparin -) 1,000 unit IVPUSH PRN PRN PRN Reason: Heparin Heparin Sodium (Porcine) (Heparin -) 5,000 unit IVPUSH PRN PRN PRN Reason: Heparin Hydrochlorothiazide (Hctz -) 25 mg PO DAILY [facility] Heparin Sodium (Porcine) 25, (000 unit/ Sodium Chloride) 500 mls @ 16 mls/hr IV TITR DEVANTE; 800 UNIT/HR PRN Reason: Protocol Last Admin: 10/15/16 00:00 Dose: 16 mls/hr Metoprolol Succinate (Toprol Xl -) 50 mg PO AM [facility] Last Admin: 10/15/16 08:00 Dose: 50 mg Morphine Sulfate (Morphine Injection -) 2 mg IVPUSH Q4H PRN PRN Reason: PAIN LEVEL 6-10 Last Admin: 10/15/16 05:49 Dose: 2 mg Oxycodone HCl (Roxicodone -) 5 mg PO Q4H PRN PRN Reason: PAIN LEVEL 1-5 Senna/Docusate Sodium (Pericolace -) 1 tablet PO HS [facility] Last Admin: 10/15/16 00:21 Dose: Not Given Valsartan (Diovan -) 320 mg PO DAILY [facility] - Objective Vital Signs: Vital Signs Temperature 98.7 F 06/14/17 08:00 Pulse Rate 98 H 10/15/16 08:00 Respiratory Rate 18 10/15/16 08:00 Blood Pressure 114/71 10/15/16 08:00 O2 Sat by Pulse Oximetry (%) 97 10/14/16 23:30 Constitutional: Yes: Calm Cardiovascular: Yes: Pulse Irregular Respiratory: Yes: CTA Bilaterally Gastrointestinal: Yes: Soft Edema: No Peripheral Pulses: Left Doralis Pedis: 1+ (warm), Right Dorsalis Pedis: 2+ Neurological: Yes: Alert, Oriented Labs: CBC, BMP 10/15/16 07:55 10/15/16 07:55 INR, PTT INR 0.95 (0.82-1.09) 10/14/16 02:43 Laboratory Tests 10/15/16 10/15/16 10/15/16 05:15 07:55 07:55 WBC 12.1 H D Hgb 9.4 L D Plt Count 251 PTT (Actin FS) 65.3 H D Sodium 137 Potassium 4.5 Creatinine 1.3 H Magnesium 2.0 - ....Imaging EKG: Image Reviewed Problem List - Problems (1) Arterial occlusion, lower extremity Code(s): I74.3 - EMBOLISM AND THROMBOSIS OF ARTERIES OF THE LOWER EXTREMITIES (2) Atrial fibrillation Code(s): I48.91 - UNSPECIFIED ATRIAL FIBRILLATION Qualifiers: Atrial fibrillation type: persistent Qualified Code(s): I48.1 - Persistent atrial fibrillation (3) CVA (cerebral vascular accident) Code(s): I63.9 - CEREBRAL INFARCTION, UNSPECIFIED Qualifiers: CVA mechanism: embolism Laterality of affected vessel: unspecified Assessment/Plan IMP: Acute ischemia LLE s/p left femoral embolectomy Permanent AF History of CVA REC: Continue heparin gtts for now, would transition to oral AC when ok with vascular surgery. In light of her prior history of falls, coumadin would probably be best choice as it can be monitored and easily reversed if need be. If she tolerates coumadin well for a period of time, can then consider transition to NOAC. Rates are well controlled on current dose of Toprol.
[2016-10-15 09:01] LABS: URINE APPEARANCE CLEAR; URINE BILIRUBIN NEGATIVE (NEGATIVE); URINE BLOOD NEGATIVE (NEGATIVE); URINE COLOR LTYELLOW; URINE GLUCOSE (UA) NEGATIVE (NEGATIVE); URINE KETONE NEGATIVE (NEGATIVE); URINE LEUK ESTERASE NEGATIVE (NEGATIVE); URINE NITRITE NEGATIVE (NEGATIVE); URINE PROTEIN NEGATIVE (NEGATIVE); URINE UROBILINOGEN NEGATIVE E.U./dl (0.2-1.0)
--- NOTE | 2016-10-15 09:20 | PN ---
Progress Note (short form) - Note Progress Note: POD #1 Alert. resting comfortably. States she fells much better. Significant improvement compared to when I met patient yesterday in ER. Prior to surgery last night, patient's DP and PT pulses were absent and her foot was cool to touch. On heparin gtt. Denies n/v/f/c, CP, SOB, rest pain, pain with movement of her toes. Last Vital Signs Temp Pulse Resp BP Pulse Ox 98.7 F 98 H 18 114/71 98 10/15/16 08:00 10/15/16 08:00 10/15/16 08:00 10/15/16 08:00 10/15/16 08:00 CBC, BMP 10/15/16 07:55 10/15/16 07:55 Blood Type Blood Type A POSITIVE 10/14/16 02:43 Gen: alert. LLE: groin and calf incisions intact. No hematoma. Foot warm. Dopplerable PT and DP. RLE: unremarkable. Problem List - Problems (1) Arterial occlusion, lower extremity Assessment/Plan: POD #1 s/p Left femoral embolaectomy. Exploration left popliteal artery. Angiogram left leg Cont heparin gtt Monitor INR/PT/PTT Dressing change in AM Diet as tolerated OOB to chair Downgrade to floor at ICU discretion Code(s): I74.3 - EMBOLISM AND THROMBOSIS OF ARTERIES OF THE LOWER EXTREMITIES (2) Atrial fibrillation Assessment/Plan: Cardio following patient Will need AC as out-patient Code(s): I48.91 - UNSPECIFIED ATRIAL FIBRILLATION Qualifiers: Atrial fibrillation type: persistent Qualified Code(s): I48.1 - Persistent atrial fibrillation
[2016-10-15] MEDS ORDERED: PT OWN MED DRAWER 7, Y5N ONE (09:34)
[2016-10-15] MEDS: amLODIPine BESYLATE 10 MG TABLET (FP) PO SCH (09:36)
[2016-10-15] MEDS: VALSARTAN 160 MG TABLET (UD) PO SCH (09:36)
[2016-10-15] MEDS: HYDROCHLOROTHIAZIDE 25 MG TABLET (FP) PO SCH (09:36)
[2016-10-15] MEDS: ALPRAZolam 0.25 MG TABLET PO PRN (09:48)
--- NOTE | 2016-10-15 10:15 | PN ---
Progress Note (short form) - Note Progress Note: ANESTHESIOLOGY POST-OP CHECK 89F s/p LLE femoral embolectomy and exploration of popliteal aneurysm under general anesthesia, POD #1. No acutec omplaints. Denies pain, N/V. Not yet OOB, mejia in place. Tolerating PO. Vital Signs Temperature 98.6 F 10/15/16 10:00 Pulse Rate 96 H 10/15/16 10:00 Respiratory Rate 18 10/15/16 10:00 Blood Pressure 112/75 10/15/16 10:00 O2 Sat by Pulse Oximetry (%) 98 10/15/16 08:00 Active Medications Acetaminophen (Tylenol -) 650 mg PO Q6H PRN PRN Reason: FEVER OR PAIN Alprazolam (Xanax -) 0.25 mg PO Q8H PRN PRN Reason: ANXIETY Last Admin: 10/15/16 09:48 Dose: 0.25 mg Amlodipine Besylate (Norvasc -) 10 mg PO DAILY [facility] Last Admin: 10/15/16 09:36 Dose: 10 mg Atorvastatin Calcium (Lipitor -) 40 mg PO HS [facility] Last Admin: 10/15/16 00:21 Dose: Not Given Celecoxib (Celebrex -) 200 mg PO DAILY [facility] Docusate Sodium (Colace -) 100 mg PO HS [facility] Last Admin: 10/15/16 00:20 Dose: Not Given Ergocalciferol (Drisdol -) 50,000 unit PO Th@10 [facility] Fentanyl (Sublimaze Injection -) 25 mcg IVPUSH [id number] PRN PRN Reason: PAIN Stop: 10/17/16 20:05 Last Admin: 10/14/16 22:05 Dose: 25 mcg Heparin Sodium (Porcine) (Heparin -) 1,000 unit IVPUSH PRN PRN PRN Reason: Heparin Heparin Sodium (Porcine) (Heparin -) 5,000 unit IVPUSH PRN PRN PRN Reason: Heparin Hydrochlorothiazide (Hctz -) 25 mg PO DAILY [facility] Last Admin: 10/15/16 09:36 Dose: 25 mg Heparin Sodium (Porcine) 25, (000 unit/ Sodium Chloride) 500 mls @ 16 mls/hr IV TITR DEVANTE; 800 UNIT/HR PRN Reason: Protocol Last Admin: 10/15/16 07:30 Dose: 16 mls/hr Metoprolol Succinate (Toprol Xl -) 50 mg PO AM [facility] Last Admin: 10/15/16 08:00 Dose: 50 mg Morphine Sulfate (Morphine Injection -) 2 mg IVPUSH Q4H PRN PRN Reason: PAIN LEVEL 6-10 Last Admin: 10/15/16 05:49 Dose: 2 mg Oxycodone HCl (Roxicodone -) 5 mg PO Q4H PRN PRN Reason: PAIN LEVEL 1-5 Senna/Docusate Sodium (Pericolace -) 1 tablet PO HS [facility] Last Admin: 10/15/16 00:21 Dose: Not Given Valsartan (Diovan -) 320 mg PO DAILY [facility] Last Admin: 10/15/16 09:36 Dose: 320 mg Gen; Awake, alert No apprent anesthesia complications. Pain well controlled. Continue management as per primary team
[2016-10-15] MEDS: SODIUM CHLORIDE 1,000 ML IV SCH (11:00)
[2016-10-15] MEDS: CELECOXIB 200 MG CAPSULE PO SCH (13:36)
[2016-10-15] MEDS: oxyCODONE HCL 5 MG TABLET PO PRN ×2 (14:05→19:56)
[2016-10-15] MEDS ORDERED: BACLOFEN 10 MG TABLET (FP) PO ONE (16:41)
--- NOTE | 2016-10-15 19:43 | PN ---
Progress Note (short form) - Note Progress Note: Complaining of left lower leg spasms with severe pain. Left foot is warm with doppler DP and PT. Calf wound is dry but there is moderate swelling which is not tense. Groin wound dry. I would hold Heparin for 12 hours in case there is bleeding into calf. Leg is elevated. Ice packs. Problem List - Problems (1) Arterial occlusion, lower extremity Code(s): I74.3 - EMBOLISM AND THROMBOSIS OF ARTERIES OF THE LOWER EXTREMITIES (2) Atrial fibrillation Code(s): I48.91 - UNSPECIFIED ATRIAL FIBRILLATION Qualifiers: Atrial fibrillation type: persistent Qualified Code(s): I48.1 - Persistent atrial fibrillation
[2016-10-16] MEDS ORDERED: SODIUM CHLORIDE 1,000 ML IV STA (04:30)
[2016-10-16] MEDS: SODIUM CHLORIDE 1,000 ML IV SCH (06:19)
[2016-10-16] MEDS: METOPROLOL SUCCINATE 50 MG TAB.SR.24H (FP) PO SCH (06:19)
[2016-10-16 06:39] LABS: MCH 30.2 pg (25.7-33.7); MCHC 33.2 g/dl (32.0-36.0); MEAN CELL VOLUME 90.9 fl (80-96); PLATELET COUNT 235 K/MM3 (134-434); RDW 13.4 % (11.6-15.6); WHITE BLOOD COUNT 9.3 K/mm3 (4.0-10.0)
--- NOTE | 2016-10-16 07:08 | PN ---
Physical Exam: SUBJECTIVE: Patient seen and examined. feeling better, no repeat episodes of muscle spasms. denies chest pain, sob, palpitations. concerned that she has not had a bowel movement in few days. OBJECTIVE: Vital Signs Period Temp Pulse Resp BP Sys/Mcwilliams Pulse Ox Last 24 Hr 96.8 F-98.9 F 65-106 10-18 76-125/51-81 98-98 GENERAL: The patient is awake, alert, and fully oriented, in no acute distress. EYES: PERRL, extraocular movements intact ENT: oropharynx clear without exudates, moist mucous membranes. LUNGS: Breath sounds equal, clear to auscultation bilaterally, no wheezes, no crackles, no accessory muscle use. HEART: afib, S1, S2 without murmur, rub or gallop. ABDOMEN: Soft, nontender, nondistended, normoactive bowel sounds, no guarding EXTREMITIES: Upper: 2+ b/l radial pulses, warm, well-perfused, no edema. Lower: 1+ b/l dp and pt pulses, warm , well-perfused, no calf tenderness, dressing in place CDI on medial left thigh, dressing in left groin with some dried blood, no surrounding erythema around sites. NEUROLOGICAL: extension and flexion intact at hip/knees/ankles b/l, sensation intact throughout legs. Laboratory Results - last 24 hr 10/15/16 10/15/16 10/15/16 02:00 02:00 07:55 WBC 12.1 H D RBC 3.10 L Hgb 9.4 L D Hct 28.3 L MCV 91.6 MCHC 33.2 RDW 13.3 Plt Count 251 MPV 6.8 L PTT (Actin FS) Sodium Potassium Chloride Carbon Dioxide Anion Gap BUN Creatinine Random Glucose Calcium Phosphorus Magnesium Urine Color Ltyellow Urine Appearance Clear Urine pH 5.0 Ur Specific [place] 1.020 Urine Protein Negative Urine Glucose (UA) Negative Urine Ketones Negative Urine Blood Negative Urine Nitrite Negative Urine Bilirubin Negative Urine Urobilinogen Negative Ur Leukocyte Esterase Negative Ur Random Sodium 96 Ur Random Potassium 45.5 Ur Random Chloride 132 10/15/16 10/16/16 10/16/16 07:55 05:45 05:45 WBC 9.3 RBC 2.64 L Hgb 8.0 L D Hct 24.0 L D MCV 90.9 MCHC 33.2 RDW 13.4 Plt Count 235 MPV 7.0 L PTT (Actin FS) 24.4 L D Sodium 137 Potassium 4.5 Chloride 105 Carbon Dioxide 21 Anion Gap 11 BUN 28 H Creatinine 1.3 H Random Glucose 144 H D Calcium 8.3 L Phosphorus 4.1 Magnesium 2.0 Urine Color Urine Appearance Urine pH Ur Specific [place] Urine Protein Urine Glucose (UA) Urine Ketones Urine Blood Urine Nitrite Urine Bilirubin Urine Urobilinogen Ur Leukocyte Esterase Ur Random Sodium Ur Random Potassium Ur Random Chloride Active Medications Generic Name Dose Route Start Last Admin Trade Name Freq PRN Reason Stop Dose Admin Acetaminophen 650 mg 10/14/16 20:25 Tylenol - PO Q6H PRN FEVER OR PAIN Alprazolam 0.25 mg 10/14/16 20:25 10/15/16 09:48 Xanax - PO 0.25 mg Q8H PRN Administration ANXIETY Amlodipine Besylate 10 mg 10/15/16 10:00 10/15/16 09:36 Norvasc - PO 10 mg DAILY DEVANTE Administration Atorvastatin Calcium 40 mg 10/14/16 22:00 10/15/16 21:14 Lipitor - PO 40 mg HS DEVANTE Administration Celecoxib 200 mg 10/15/16 10:00 10/15/16 13:36 Celebrex - PO 200 mg DAILY DEVANTE Administration Docusate Sodium 100 mg 10/14/16 22:00 10/15/16 21:14 Colace - PO 100 mg HS DEVANTE Administration Ergocalciferol 50,000 unit 10/16/16 10:00 Drisdol - PO Th@10 DEVANTE Fentanyl 25 mcg 10/14/16 20:04 10/14/16 22:05 Sublimaze Injection - IVPUSH 10/17/16 20:05 25 mcg [id number] PRN Administration PAIN Heparin Sodium (Porcine) 1,000 unit 10/14/16 20:25 Heparin - IVPUSH PRN PRN Heparin Heparin Sodium (Porcine) 5,000 unit 10/14/16 20:25 Heparin - IVPUSH PRN PRN Heparin Hydrochlorothiazide 25 mg 10/15/16 10:00 10/15/16 09:36 Hctz - PO 25 mg DAILY DEVANTE Administration Heparin Sodium (Porcine) 25, 500 mls @ 16 mls/hr 10/14/16 20:25 10/15/16 07:30 000 unit/ Sodium Chloride IV 16 mls/hr TITR DEVANTE Administration Protocol 800 UNIT/HR Sodium Chloride 1,000 mls @ 50 mls/hr 10/15/16 11:00 10/16/16 06:19 Normal Saline - IV 10/16/16 10:55 50 mls/hr ASDIR DEVANTE Administration Metoprolol Succinate 50 mg 10/15/16 07:00 10/16/16 06:19 Toprol Xl - PO 50 mg AM DEVANTE Administration Morphine Sulfate 2 mg 10/14/16 20:03 10/15/16 14:49 Morphine Injection - IVPUSH 2 mg Q4H PRN Administration PAIN LEVEL 6-10 Oxycodone HCl 5 mg 10/14/16 20:03 10/15/16 19:56 Roxicodone - PO 5 mg Q4H PRN Administration PAIN LEVEL 1-5 Senna/Docusate Sodium 1 tablet 10/14/16 22:00 10/15/16 21:16 Pericolace - PO 1 tablet HS DEVANTE Administration Valsartan 320 mg 10/15/16 10:00 10/15/16 09:36 Diovan - PO 320 mg DAILY DEVANTE Administration ASSESSMENT/PLAN: 89 yr old woman with recent TIA (43 days ago) HTN, HLD, GERD, admitted to ICU s/ p open thrombectomy of left femoral artery, found to be in Afib. Cardiovascular POD #from open thrombectomy (thrombus in left external iliac, common, deep/ superficial femoral artery) - pulse monitoring, OOB to chair today pain control with morphine/oxycodone/tylenol/celebrex, pain controlled, required 1 dose of baclofen yesterday due to muscle spasms last evening. - heparin drip protocol, goal PTT 50-70, was held for 12 hours due to concern for bleeding into calf due to pain - consult Dr. Espino Afib - new onset, rate controlled with toprol - heparin drip, eliquis to be started tomorrow morning HTN - controlled diovan 320 mg po daily metoprolol XL 50mg po daily norvasc 10mg po daily HCTZ 25 mg po daily CAD - lipitor po 40mg po HS GI constipation pericolace + miralax BID Renal KAIDEN, elevated Cr and BUN, in setting of diuretic use and likely poor po intake in elderly woman in pain - improving with IVF NS @50ml/hr - continue fluid until taking adequate po hydration Psych mood improved today Pulmonary encourage incentive spirometry DVT; pt on heparin drip Diet: diabetic low sodium diet Dispo: patient can be monitored on Telemetry. Visit type - Emergency Visit Emergency Visit: No - New Patient This patient is new to me today: No - Critical Care Critical Care patient: Yes Total Critical Care Time (in minutes): 37 Critical Care Statement: The care of this patient involved high complexity decision making to prevent further life threatening deterioration of the patient 's condition and/or to evalute & treat vital organ system(s) failure or risk of failure.
[2016-10-16 07:17] LABS: CALCIUM 7.9 mg/dL (8.5-10.1); COCKROFT - GAULT 30.175; CREATININE 1.3 mg/dL (0.55-1.02); MAGNESIUM 1.9 mg/dL (1.8-2.4); PHOSPHOROUS 2.9 mg/dL (2.5-4.9)
--- NOTE | 2016-10-16 07:59 | PN ---
Progress Note, Physician History of Present Illness: FEELS BETTER NO PAIN - Current Medication List Current Medications: Active Medications Acetaminophen (Tylenol -) 650 mg PO Q6H PRN PRN Reason: FEVER OR PAIN Alprazolam (Xanax -) 0.25 mg PO Q8H PRN PRN Reason: ANXIETY Last Admin: 10/15/16 09:48 Dose: 0.25 mg Amlodipine Besylate (Norvasc -) 10 mg PO DAILY [facility] Last Admin: 10/15/16 09:36 Dose: 10 mg Atorvastatin Calcium (Lipitor -) 40 mg PO HS [facility] Last Admin: 10/15/16 21:14 Dose: 40 mg Celecoxib (Celebrex -) 200 mg PO DAILY [facility] Last Admin: 10/15/16 13:36 Dose: 200 mg Docusate Sodium (Colace -) 100 mg PO HS [facility] Last Admin: 10/15/16 21:14 Dose: 100 mg Ergocalciferol (Drisdol -) 50,000 unit PO Th@10 DEVANTE Fentanyl (Sublimaze Injection -) 25 mcg IVPUSH [id number] PRN PRN Reason: PAIN Stop: 10/17/16 20:05 Last Admin: 10/14/16 22:05 Dose: 25 mcg Heparin Sodium (Porcine) (Heparin -) 1,000 unit IVPUSH PRN PRN PRN Reason: Heparin Heparin Sodium (Porcine) (Heparin -) 5,000 unit IVPUSH PRN PRN PRN Reason: Heparin Hydrochlorothiazide (Hctz -) 25 mg PO DAILY [facility] Last Admin: 10/15/16 09:36 Dose: 25 mg Heparin Sodium (Porcine) 25, (000 unit/ Sodium Chloride) 500 mls @ 16 mls/hr IV TITR DEVANTE; 800 UNIT/HR PRN Reason: Protocol Last Admin: 10/15/16 07:30 Dose: 16 mls/hr Sodium Chloride (Normal Saline -) 1,000 mls @ 50 mls/hr IV ASDIR [facility] Stop: 10/16/16 10:55 Last Admin: 10/16/16 06:19 Dose: 50 mls/hr Metoprolol Succinate (Toprol Xl -) 50 mg PO AM [facility] Last Admin: 10/16/16 06:19 Dose: 50 mg Morphine Sulfate (Morphine Injection -) 2 mg IVPUSH Q4H PRN PRN Reason: PAIN LEVEL 6-10 Last Admin: 10/15/16 14:49 Dose: 2 mg Oxycodone HCl (Roxicodone -) 5 mg PO Q4H PRN PRN Reason: PAIN LEVEL 1-5 Last Admin: 10/15/16 19:56 Dose: 5 mg Polyethylene Glycol (Miralax (For Daily Use) -) 17 gm PO BID [facility] Senna/Docusate Sodium (Pericolace -) 1 tablet PO HS [facility] Last Admin: 10/15/16 21:16 Dose: 1 tablet Valsartan (Diovan -) 320 mg PO DAILY [facility] Last Admin: 10/15/16 09:36 Dose: 320 mg - Objective Vital Signs: Vital Signs Temperature 98.9 F 10/16/16 06:00 Pulse Rate 91 H 10/16/16 06:00 Respiratory Rate 15 10/16/16 06:00 Blood Pressure 102/79 10/16/16 06:00 O2 Sat by Pulse Oximetry (%) 98 10/15/16 22:00 Cardiovascular: Yes: S1, S2 Respiratory: Yes: Regular, CTA Bilaterally Gastrointestinal: Yes: Normal Bowel Sounds, Soft Extremities: Yes: Other (LEFT FOOT WARM) Edema: Yes (LEFT THIGH SWOLLEN ) Neurological: Yes: Alert, Oriented Labs: CBC, BMP 10/16/16 05:45 10/16/16 05:45 INR, PTT INR 0.95 (0.82-1.09) 10/14/16 02:43 Problem List - Problems (1) Arterial occlusion, lower extremity Assessment/Plan: HEPARIN PER VASULar VASCULAR OB BOARD Operative Date: 10/14/16 Pre-Operative Diagnosis: Embolic occlusion left femoral artery Operation: Left femoral embolaectomy. Exploration left popliteal artery. 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 Code(s): I74.3 - EMBOLISM AND THROMBOSIS OF ARTERIES OF THE LOWER EXTREMITIES (2) Atrial fibrillation Assessment/Plan: ON HEPARIN WILL NEED ALF AC Code(s): I48.91 - UNSPECIFIED ATRIAL FIBRILLATION Qualifiers: Atrial fibrillation type: persistent Qualified Code(s): I48.1 - Persistent atrial fibrillation (3) HTN (hypertension) Assessment/Plan: MONITOR ON CURRENT MEDS Code(s): I10 - ESSENTIAL (PRIMARY) HYPERTENSION Qualifiers: Hypertension type: essential hypertension Qualified Code(s): I10 - Essential (primary) hypertension (4) Edema Assessment/Plan: per vascular Code(s): R60.9 - EDEMA, UNSPECIFIED
--- NOTE | 2016-10-16 08:26 | PN ---
Progress Note, Physician Chief Complaint: alert and oriented TELE: AF rate controlled History of Present Illness: Vascular input noted, heparin was held for 12 hours. To be resumed this AM - Current Medication List Current Medications: Active Medications Acetaminophen (Tylenol -) 650 mg PO Q6H PRN PRN Reason: FEVER OR PAIN Alprazolam (Xanax -) 0.25 mg PO Q8H PRN PRN Reason: ANXIETY Last Admin: 10/15/16 09:48 Dose: 0.25 mg Amlodipine Besylate (Norvasc -) 10 mg PO DAILY [facility] Last Admin: 10/15/16 09:36 Dose: 10 mg Atorvastatin Calcium (Lipitor -) 40 mg PO HS [facility] Last Admin: 10/15/16 21:14 Dose: 40 mg Celecoxib (Celebrex -) 200 mg PO DAILY [facility] Last Admin: 10/15/16 13:36 Dose: 200 mg Docusate Sodium (Colace -) 100 mg PO HS [facility] Last Admin: 10/15/16 21:14 Dose: 100 mg Ergocalciferol (Drisdol -) 50,000 unit PO Th@10 [facility] Fentanyl (Sublimaze Injection -) 25 mcg IVPUSH [id number] PRN PRN Reason: PAIN Stop: 10/17/16 20:05 Last Admin: 10/14/16 22:05 Dose: 25 mcg Heparin Sodium (Porcine) (Heparin -) 1,000 unit IVPUSH PRN PRN PRN Reason: Heparin Heparin Sodium (Porcine) (Heparin -) 5,000 unit IVPUSH PRN PRN PRN Reason: Heparin Hydrochlorothiazide (Hctz -) 25 mg PO DAILY [facility] Last Admin: 10/15/16 09:36 Dose: 25 mg Heparin Sodium (Porcine) 25, (000 unit/ Sodium Chloride) 500 mls @ 16 mls/hr IV TITR DEVANTE; 800 UNIT/HR PRN Reason: Protocol Last Admin: 10/15/16 07:30 Dose: 16 mls/hr Sodium Chloride (Normal Saline -) 1,000 mls @ 50 mls/hr IV ASDIR [facility] Stop: 10/16/16 10:55 Last Admin: 10/16/16 06:19 Dose: 50 mls/hr Metoprolol Succinate (Toprol Xl -) 50 mg PO AM [facility] Last Admin: 10/16/16 06:19 Dose: 50 mg Morphine Sulfate (Morphine Injection -) 2 mg IVPUSH Q4H PRN PRN Reason: PAIN LEVEL 6-10 Last Admin: 10/15/16 14:49 Dose: 2 mg Oxycodone HCl (Roxicodone -) 5 mg PO Q4H PRN PRN Reason: PAIN LEVEL 1-5 Last Admin: 10/15/16 19:56 Dose: 5 mg Polyethylene Glycol (Miralax (For Daily Use) -) 17 gm PO BID [facility] Senna/Docusate Sodium (Pericolace -) 1 tablet PO HS [facility] Last Admin: 10/15/16 21:16 Dose: 1 tablet Valsartan (Diovan -) 320 mg PO DAILY [facility] Last Admin: 10/15/16 09:36 Dose: 320 mg - Objective Vital Signs: Vital Signs Temperature 98.9 F 10/16/16 06:00 Pulse Rate 91 H 10/16/16 06:00 Respiratory Rate 15 10/16/16 06:00 Blood Pressure 102/79 10/16/16 06:00 O2 Sat by Pulse Oximetry (%) 98 10/15/16 22:00 Constitutional: Yes: No Distress Eyes: Yes: Conjunctiva Clear Cardiovascular: Yes: Pulse Irregular Respiratory: Yes: CTA Bilaterally Gastrointestinal: Yes: Soft (nontender) Edema: No Peripheral Pulses: Left Doralis Pedis: 1+ (left leg warm), Right Dorsalis Pedis : 2+ Neurological: Yes: Alert Labs: CBC, BMP 10/16/16 05:45 10/16/16 05:45 INR, PTT INR 0.95 (0.82-1.09) 10/14/16 02:43 Laboratory Tests 10/15/16 10/16/16 10/16/16 05:15 05:45 05:45 WBC 9.3 Hgb 8.0 L D Plt Count 235 PTT (Actin FS) 65.3 H D 24.4 L D Sodium Potassium BUN Creatinine Magnesium 10/16/16 05:45 WBC Hgb Plt Count PTT (Actin FS) Sodium 139 Potassium 4.4 BUN 29 H Creatinine 1.3 H Magnesium 1.9 - ....Imaging EKG: Image Reviewed Problem List - Problems (1) Arterial occlusion, lower extremity Code(s): I74.3 - EMBOLISM AND THROMBOSIS OF ARTERIES OF THE LOWER EXTREMITIES (2) Atrial fibrillation Code(s): I48.91 - UNSPECIFIED ATRIAL FIBRILLATION Qualifiers: Atrial fibrillation type: persistent Qualified Code(s): I48.1 - Persistent atrial fibrillation (3) CVA (cerebral vascular accident) Code(s): I63.9 - CEREBRAL INFARCTION, UNSPECIFIED Qualifiers: CVA mechanism: embolism Laterality of affected vessel: unspecified Assessment/Plan Assessment/Plan IMP: Acute ischemia LLE s/p left femoral embolectomy Permanent AF History of CVA REC: Resume heparin gtts. Transition to oral AC when ok with vascular surgery. In light of her prior history of falls, coumadin would probably be best choice as it can be monitored and easily reversed if need be. If she tolerates coumadin well for a period of time, can then consider transition to NOAC. Rates remain well controlled on current dose of Metoprolol.
[2016-10-16] MEDS ORDERED: PT OWN MED DRAWER 7, Y5N ONE (09:13)
[2016-10-16] MEDS: amLODIPine BESYLATE 10 MG TABLET (FP) PO SCH (09:19)
[2016-10-16] MEDS: HYDROCHLOROTHIAZIDE 25 MG TABLET (FP) PO SCH (09:19)
[2016-10-16] MEDS: VALSARTAN 160 MG TABLET (UD) PO SCH (09:19)
[2016-10-16] MEDS: CELECOXIB 200 MG CAPSULE PO SCH (09:19)
[2016-10-16] MEDS: POLYETHYLENE GLYCOL 3350 119 GM BTL PO SCH ×3 (09:20→21:42)
[2016-10-16] MEDS ORDERED: ERGOCALCIFEROL (VITAMIN D2) 50,000 UNIT CAPSULE (FP) PO SCH ×2 (10:00)
[2016-10-16] MEDS: ALPRAZolam 0.25 MG TABLET PO PRN (10:57)
--- NOTE | 2016-10-16 11:58 | PN ---
Teaching Attending Note Name of Resident: Lian Manriquez ATTENDING PHYSICIAN STATEMENT I saw and evaluated the patient. I reviewed the resident's note and discussed the case with the resident. I agree with the resident's findings and plan as documented. SUBJECTIVE: Pt seen and examined in the ICU. Events yesterday reviewed. Now without leg pain. Pulses intact. Denies shortness of breath or chest pain. OBJECTIVE: Last Vital Signs Temp Pulse Resp BP Pulse Ox 98.3 F 75 12 111/75 98 10/16/16 10:00 10/16/16 10:00 10/16/16 10:00 10/16/16 10:00 10/16/16 09:00 Intake & Output 10/13/16 10/14/16 10/15/16 10/16/16 23:59 23:59 23:59 23:59 Intake Total 1700 2054 1040 Output Total 800 600 100 Balance 900 1454 940 Weight 140 lb 14.4 oz Gen: NAD at rest Heart: irregular Lung: decreased breath sounds at the bases Abd: soft, nontender Ext: dressings dry, +distal pulses CBC, BMP 10/16/16 05:45 10/16/16 05:45 Active Medications Acetaminophen (Tylenol -) 650 mg PO Q6H PRN PRN Reason: FEVER OR PAIN Alprazolam (Xanax -) 0.25 mg PO Q8H PRN PRN Reason: ANXIETY Last Admin: 10/16/16 10:57 Dose: 0.25 mg Amlodipine Besylate (Norvasc -) 10 mg PO DAILY [facility] Last Admin: 10/16/16 09:19 Dose: 10 mg Atorvastatin Calcium (Lipitor -) 40 mg PO HS [facility] Last Admin: 10/15/16 21:14 Dose: 40 mg Celecoxib (Celebrex -) 200 mg PO DAILY [facility] Last Admin: 10/16/16 09:19 Dose: 200 mg Docusate Sodium (Colace -) 100 mg PO HS [facility] Last Admin: 10/15/16 21:14 Dose: 100 mg Ergocalciferol (Drisdol -) 50,000 unit PO Th@10 [facility] Last Admin: 10/16/16 09:19 Dose: 50,000 unit Fentanyl (Sublimaze Injection -) 25 mcg IVPUSH [id number] PRN PRN Reason: PAIN Stop: 10/17/16 20:05 Last Admin: 10/14/16 22:05 Dose: 25 mcg Heparin Sodium (Porcine) (Heparin -) 1,000 unit IVPUSH PRN PRN PRN Reason: Heparin Heparin Sodium (Porcine) (Heparin -) 5,000 unit IVPUSH PRN PRN PRN Reason: Heparin Hydrochlorothiazide (Hctz -) 25 mg PO DAILY [facility] Last Admin: 10/16/16 09:19 Dose: 25 mg Heparin Sodium (Porcine) 25, (000 unit/ Sodium Chloride) 500 mls @ 16 mls/hr IV TITR DEVANTE; 800 UNIT/HR PRN Reason: Protocol Last Admin: 10/15/16 07:30 Dose: 16 mls/hr Metoprolol Succinate (Toprol Xl -) 50 mg PO AM [facility] Last Admin: 10/16/16 06:19 Dose: 50 mg Morphine Sulfate (Morphine Injection -) 2 mg IVPUSH Q4H PRN PRN Reason: PAIN LEVEL 6-10 Last Admin: 10/15/16 14:49 Dose: 2 mg Oxycodone HCl (Roxicodone -) 5 mg PO Q4H PRN PRN Reason: PAIN LEVEL 1-5 Last Admin: 10/15/16 19:56 Dose: 5 mg Polyethylene Glycol (Miralax (For Daily Use) -) 17 gm PO BID [facility] Last Admin: 10/16/16 09:21 Dose: 17 gm Senna/Docusate Sodium (Pericolace -) 1 tablet PO HS [facility] Last Admin: 10/15/16 21:16 Dose: 1 tablet Valsartan (Diovan -) 320 mg PO DAILY [facility] Last Admin: 10/16/16 09:19 Dose: 320 mg ASSESSMENT AND PLAN: Left Iliac/Femoral Artery Occlusion s/p Left femoral embolectomy/angiogram New onset Atrial Fibrillation Acute Kidney Injury h/o CVA HTN Hyperlipidemia - pulse checks - pain control - monitor H/H - monitor urine output, creatinine - continue anticoagulation - rate controlled - OOB when ok with surgery - can monitor on telemetry when ok with surgery
--- NOTE | 2016-10-16 12:37 | EKG ---
Test Reason : Blood Pressure : / mmHG Vent. Rate : 094 BPM Atrial Rate : 115 BPM P-R Int : 000 ms QRS Dur : 084 ms QT Int : 386 ms P-R-T Axes : 000 006 038 degrees QTc Int : 482 ms ATRIAL FIBRILLATION WITH PREMATURE VENTRICULAR OR ABERRANTLY CONDUCTED COMPLEXES LOW VOLTAGE QRS ABNORMAL ECG WHEN COMPARED WITH ECG OF 14-OCT-2016 02:16, PREVIOUS ECG HAS UNDETERMINED RHYTHM, NEEDS REVIEW NONSPECIFIC T WAVE ABNORMALITY NO LONGER EVIDENT IN INFERIOR LEADS NONSPECIFIC T WAVE ABNORMALITY NO LONGER EVIDENT IN ANTERIOR LEADS Confirmed by ENA BETANCOURT MD ([id number]) on 10/16/2016 12:37:27 PM Referred By: Emerald AVALOS Confirmed By:ENA BETANCOURT MD
[2016-10-16 14:07] LABS: MCH 30.5 pg (25.7-33.7); MCHC 33.5 g/dl (32.0-36.0); MEAN CELL VOLUME 91.1 fl (80-96); MEAN PLT VOLUME 6.7 fl (7.5-11.1); PLATELET COUNT 220 K/MM3 (134-434); RDW 13.5 % (11.6-15.6); WHITE BLOOD COUNT 10.1 K/mm3 (4.0-10.0)
[2016-10-16] MEDS: oxyCODONE HCL 5 MG TABLET PO PRN (14:59)
[2016-10-16] MEDS ORDERED: HEPARIN INFUSION - 500 ML IVPB ONE (17:36)
[2016-10-16] MEDS: HEPARIN - 25,000 UNIT in SODIUM CHLORIDE 495 ML IV SCH (20:00)
[2016-10-16] MEDS: SENNOSIDES/DOCUSATE COMBO (SENNA PLUS) TABLET (UD) PO SCH (21:41)
[2016-10-16] MEDS: ATORVASTATIN CA 40 MG TABLET (FP) PO SCH (21:41)
[2016-10-16] MEDS: DOCUSATE SODIUM 100 MG CAPSULE (FP) PO SCH (21:41)
[2016-10-17] MEDS: METOPROLOL SUCCINATE 50 MG TAB.SR.24H (FP) PO SCH ×2 (06:18→21:37)
[2016-10-17 06:34] LABS: MCH 30.2 pg (25.7-33.7); MEAN CELL VOLUME 91.5 fl (80-96); MEAN PLT VOLUME 7.2 fl (7.5-11.1); PLATELET COUNT 217 K/MM3 (134-434); RDW 13.5 % (11.6-15.6); WHITE BLOOD COUNT 9.6 K/mm3 (4.0-10.0)
--- NOTE | 2016-10-17 08:10 | PN ---
Progress Note, Physician - Current Medication List Current Medications: Active Medications Acetaminophen (Tylenol -) 650 mg PO Q6H PRN PRN Reason: FEVER OR PAIN Alprazolam (Xanax -) 0.25 mg PO Q8H PRN PRN Reason: ANXIETY Last Admin: 10/16/16 10:57 Dose: 0.25 mg Amlodipine Besylate (Norvasc -) 10 mg PO DAILY [facility] [place] Last Admin: 10/16/16 09:19 Dose: 10 mg Apixaban (Eliquis -) 5 mg PO BID [facility] [place] Atorvastatin Calcium (Lipitor -) 40 mg PO HS [facility] [place] Last Admin: 10/16/16 21:41 Dose: 40 mg Celecoxib (Celebrex -) 200 mg PO DAILY [facility] [place] Last Admin: 10/16/16 09:19 Dose: 200 mg Docusate Sodium (Colace -) 100 mg PO HS [facility] [place] Last Admin: 10/16/16 21:41 Dose: 100 mg Ergocalciferol (Drisdol -) 50,000 unit PO Th@10 [facility] [place] Last Admin: 10/16/16 09:19 Dose: 50,000 unit Fentanyl (Sublimaze Injection -) 25 mcg IVPUSH [id number] PRN PRN Reason: PAIN Stop: 10/17/16 20:05 Last Admin: 10/14/16 22:05 Dose: 25 mcg Heparin Sodium (Porcine) (Heparin -) 1,000 unit IVPUSH PRN PRN PRN Reason: Heparin Heparin Sodium (Porcine) (Heparin -) 5,000 unit IVPUSH PRN PRN PRN Reason: Heparin Hydrochlorothiazide (Hctz -) 25 mg PO DAILY [facility] [place] Last Admin: 10/16/16 09:19 Dose: 25 mg Heparin Sodium (Porcine) 25, (000 unit/ Sodium Chloride) 500 mls @ 16 mls/hr IV TITR DEVANTE; 800 UNIT/HR PRN Reason: Protocol Stop: 10/17/16 12:00 Last Admin: 10/16/16 20:00 Dose: 20 mls/hr Metoprolol Succinate (Toprol Xl -) 50 mg PO AM [facility] [place] Last Admin: 10/17/16 06:18 Dose: Not Given Morphine Sulfate (Morphine Injection -) 2 mg IVPUSH Q4H PRN PRN Reason: PAIN LEVEL 6-10 Last Admin: 10/15/16 14:49 Dose: 2 mg Oxycodone HCl (Roxicodone -) 5 mg PO Q4H PRN PRN Reason: PAIN LEVEL 1-5 Last Admin: 10/16/16 14:59 Dose: 5 mg Polyethylene Glycol (Miralax (For Daily Use) -) 17 gm PO BID [facility] [place] Last Admin: 10/16/16 21:42 Dose: 17 gm Senna/Docusate Sodium (Pericolace -) 1 tablet PO HS [facility] Last Admin: 10/16/16 21:41 Dose: 1 tablet Valsartan (Diovan -) 320 mg PO DAILY [facility] [place] Last Admin: 10/16/16 09:19 Dose: 320 mg - Objective Vital Signs: Vital Signs Temperature 97.7 F 10/17/16 04:00 Pulse Rate 73 10/17/16 06:00 Respiratory Rate 13 10/17/16 06:00 Blood Pressure 109/73 10/17/16 06:00 O2 Sat by Pulse Oximetry (%) 96 10/16/16 20:00 Labs: CBC, BMP 10/17/16 05:10 10/16/16 05:45 INR, PTT INR 0.95 (0.82-1.09) 10/14/16 02:43 Problem List - Problems (1) Arterial occlusion, lower extremity Code(s): I74.3 - EMBOLISM AND THROMBOSIS OF ARTERIES OF THE LOWER EXTREMITIES (2) Atrial fibrillation Code(s): I48.91 - UNSPECIFIED ATRIAL FIBRILLATION Qualifiers: Qualified Code(s): I48.1 - Persistent atrial fibrillation (3) HTN (hypertension) Code(s): I10 - ESSENTIAL (PRIMARY) HYPERTENSION Qualifiers: Qualified Code(s): I10 - Essential (primary) hypertension (4) Edema Code(s): R60.9 - EDEMA, UNSPECIFIED
--- NOTE | 2016-10-17 08:20 | PN ---
Progress Note, Physician Chief Complaint: no complaints Hb drifting - Current Medication List Current Medications: Active Medications Acetaminophen (Tylenol -) 650 mg PO Q6H PRN PRN Reason: FEVER OR PAIN Alprazolam (Xanax -) 0.25 mg PO Q8H PRN PRN Reason: ANXIETY Last Admin: 10/16/16 10:57 Dose: 0.25 mg Amlodipine Besylate (Norvasc -) 10 mg PO DAILY [facility] Last Admin: 10/16/16 09:19 Dose: 10 mg Apixaban (Eliquis -) 5 mg PO BID [facility] Atorvastatin Calcium (Lipitor -) 40 mg PO HS [facility] Last Admin: 10/16/16 21:41 Dose: 40 mg Celecoxib (Celebrex -) 200 mg PO DAILY [facility] Last Admin: 10/16/16 09:19 Dose: 200 mg Docusate Sodium (Colace -) 100 mg PO HS [facility] Last Admin: 10/16/16 21:41 Dose: 100 mg Ergocalciferol (Drisdol -) 50,000 unit PO Th@10 [facility] Last Admin: 10/16/16 09:19 Dose: 50,000 unit Fentanyl (Sublimaze Injection -) 25 mcg IVPUSH [id number] PRN PRN Reason: PAIN Stop: 10/17/16 20:05 Last Admin: 10/14/16 22:05 Dose: 25 mcg Heparin Sodium (Porcine) (Heparin -) 1,000 unit IVPUSH PRN PRN PRN Reason: Heparin Heparin Sodium (Porcine) (Heparin -) 5,000 unit IVPUSH PRN PRN PRN Reason: Heparin Hydrochlorothiazide (Hctz -) 25 mg PO DAILY [facility] Last Admin: 10/16/16 09:19 Dose: 25 mg Heparin Sodium (Porcine) 25, (000 unit/ Sodium Chloride) 500 mls @ 16 mls/hr IV TITR DEVANTE; 800 UNIT/HR PRN Reason: Protocol Stop: 10/17/16 12:00 Last Admin: 10/16/16 20:00 Dose: 20 mls/hr Metoprolol Succinate (Toprol Xl -) 50 mg PO AM [facility] Last Admin: 10/17/16 06:18 Dose: Not Given Morphine Sulfate (Morphine Injection -) 2 mg IVPUSH Q4H PRN PRN Reason: PAIN LEVEL 6-10 Last Admin: 10/15/16 14:49 Dose: 2 mg Oxycodone HCl (Roxicodone -) 5 mg PO Q4H PRN PRN Reason: PAIN LEVEL 1-5 Last Admin: 10/16/16 14:59 Dose: 5 mg Polyethylene Glycol (Miralax (For Daily Use) -) 17 gm PO BID [facility] Last Admin: 10/16/16 21:42 Dose: 17 gm Senna/Docusate Sodium (Pericolace -) 1 tablet PO HS [facility] Last Admin: 10/16/16 21:41 Dose: 1 tablet Valsartan (Diovan -) 320 mg PO DAILY [facility] Last Admin: 10/16/16 09:19 Dose: 320 mg - Objective Vital Signs: Vital Signs Temperature 97.7 F 10/17/16 04:00 Pulse Rate 73 10/17/16 06:00 Respiratory Rate 13 10/17/16 06:00 Blood Pressure 109/73 10/17/16 06:00 O2 Sat by Pulse Oximetry (%) 96 10/16/16 20:00 Constitutional: Yes: Calm Cardiovascular: Yes: Pulse Irregular Respiratory: Yes: CTA Bilaterally Gastrointestinal: Yes: Soft Labs: CBC, BMP 10/17/16 05:10 10/16/16 05:45 INR, PTT INR 0.95 (0.82-1.09) 10/14/16 02:43 Laboratory Tests 10/16/16 10/17/16 10/17/16 05:45 05:10 05:10 WBC 9.6 Hgb 7.5 L Plt Count 217 PTT (Actin FS) 75.7 H D Potassium 4.4 Creatinine 1.3 H Magnesium 1.9 - ....Imaging EKG: Image Reviewed (TELE: AF in 100-115) Problem List - Problems (1) Arterial occlusion, lower extremity Code(s): I74.3 - EMBOLISM AND THROMBOSIS OF ARTERIES OF THE LOWER EXTREMITIES (2) Atrial fibrillation Code(s): I48.91 - UNSPECIFIED ATRIAL FIBRILLATION Qualifiers: Qualified Code(s): I48.1 - Persistent atrial fibrillation (3) CVA (cerebral vascular accident) Code(s): I63.9 - CEREBRAL INFARCTION, UNSPECIFIED Assessment/Plan IMP: Acute ischemia LLE s/p left femoral embolectomy Permanent AF History of CVA REC: H/H drifting. Will transfuse, hold Eliquis. Continue heparin. No obvious source of blood loss. Will follow H/H.
[2016-10-17] MEDS ORDERED: PT OWN MED DRAWER 7, Y5N ONE (08:50)
--- NOTE | 2016-10-17 08:56 | PN ---
Progress Note (short form) - Note Progress Note: No pain VSS Left foot is warm with doppler DP and PT. Calf wound is dry but there is moderate swelling which is not tense. Groin wound dry. Hgb 7.5 Transfuse 1U PRBC OOB PT Continue Heparin, hold ELiquis until tomorrow. Problem List - Problems (1) Arterial occlusion, lower extremity Code(s): I74.3 - EMBOLISM AND THROMBOSIS OF ARTERIES OF THE LOWER EXTREMITIES (2) Atrial fibrillation Code(s): I48.91 - UNSPECIFIED ATRIAL FIBRILLATION Qualifiers: Qualified Code(s): I48.1 - Persistent atrial fibrillation
[2016-10-17] MEDS ORDERED: APIXABAN 5 MG TABLET PO SCH (10:00)
[2016-10-17] MEDS: ALPRAZolam 0.25 MG TABLET PO PRN (10:45)
[2016-10-17] MEDS: HYDROCHLOROTHIAZIDE 25 MG TABLET (FP) PO SCH (10:50)
[2016-10-17] MEDS: VALSARTAN 160 MG TABLET (UD) PO SCH (10:50)
[2016-10-17] MEDS: amLODIPine BESYLATE 10 MG TABLET (FP) PO SCH (10:50)
[2016-10-17] MEDS: POLYETHYLENE GLYCOL 3350 119 GM BTL PO SCH ×2 (10:51→21:52)
--- NOTE | 2016-10-17 14:15 | PN ---
Teaching Attending Note Name of Resident: Lian Manriquez ATTENDING PHYSICIAN STATEMENT I saw and evaluated the patient. I reviewed the resident's note and discussed the case with the resident. I agree with the resident's findings and plan as documented. SUBJECTIVE: Patient seen and examined in the ICU. Awake and alert. Denies pain in the LLE. Pulses intact. Denies shortness of breath or chest pain. OBJECTIVE: Intake & Output 10/14/16 10/15/16 10/16/16 10/17/16 23:59 23:59 23:59 23:59 Intake Total 1700 2054 3070 796 Output Total 117 931 5935 400 Balance 900 1454 1570 396 Weight 140 lb 14.4 oz Last Vital Signs Temp Pulse Resp BP Pulse Ox 97.9 F 108 H 20 99/67 96 10/17/16 10:00 10/17/16 10:00 10/17/16 10:00 10/17/16 10:00 10/16/16 20:00 Active Medications Acetaminophen (Tylenol -) 650 mg PO Q6H PRN PRN Reason: FEVER OR PAIN Alprazolam (Xanax -) 0.25 mg PO Q8H PRN PRN Reason: ANXIETY Last Admin: 10/17/16 10:45 Dose: 0.25 mg Amlodipine Besylate (Norvasc -) 10 mg PO DAILY [facility] Last Admin: 10/17/16 10:50 Dose: 10 mg Atorvastatin Calcium (Lipitor -) 40 mg PO HS [facility] Last Admin: 10/16/16 21:41 Dose: 40 mg Docusate Sodium (Colace -) 100 mg PO [facility] Last Admin: 10/16/16 21:41 Dose: 100 mg Ergocalciferol (Drisdol -) 50,000 unit PO Th@10 [facility] Last Admin: 10/16/16 09:19 Dose: 50,000 unit Fentanyl (Sublimaze Injection -) 25 mcg IVPUSH [id number] PRN PRN Reason: PAIN Stop: 10/17/16 20:05 Last Admin: 10/14/16 22:05 Dose: 25 mcg Heparin Sodium (Porcine) (Heparin -) 1,000 unit IVPUSH PRN PRN PRN Reason: Heparin Heparin Sodium (Porcine) (Heparin -) 5,000 unit IVPUSH PRN PRN PRN Reason: Heparin Hydrochlorothiazide (Hctz -) 25 mg PO DAILY [facility] Last Admin: 10/17/16 10:50 Dose: 25 mg Metoprolol Succinate (Toprol Xl -) 50 mg PO AM [facility] Last Admin: 10/17/16 06:18 Dose: Not Given Morphine Sulfate (Morphine Injection -) 2 mg IVPUSH Q4H PRN PRN Reason: PAIN LEVEL 6-10 Last Admin: 10/15/16 14:49 Dose: 2 mg Oxycodone HCl (Roxicodone -) 5 mg PO Q4H PRN PRN Reason: PAIN LEVEL 1-5 Last Admin: 10/16/16 14:59 Dose: 5 mg Polyethylene Glycol (Miralax (For Daily Use) -) 17 gm PO BID [facility] Last Admin: 10/17/16 10:51 Dose: 17 gm Senna/Docusate Sodium (Pericolace -) 1 tablet PO HS [facility] Last Admin: 10/16/16 21:41 Dose: 1 tablet Valsartan (Diovan -) 320 mg PO DAILY [facility] Last Admin: 10/17/16 10:50 Dose: 320 mg Gen: NAD at rest Heart: irregular Lung: decreased breath sounds at the bases Abd: soft, nontender Ext: dressings dry, +distal pulses Laboratory Results - last 24 hr 10/16/16 10/16/16 10/17/16 13:45 13:45 05:10 WBC 10.1 H 9.6 RBC 2.72 L 2.49 L Hgb 8.3 L 7.5 L Hct 24.8 L 22.7 L MCV 91.1 91.5 MCHC 33.5 33.0 RDW 13.5 13.5 Plt Count 220 217 MPV 6.7 L 7.2 L PTT (Actin FS) 52.4 H D Blood Type Antibody Screen Crossmatch 10/17/16 10/17/16 05:10 09:12 WBC RBC Hgb Hct MCV MCHC RDW Plt Count MPV PTT (Actin FS) 75.7 H D Blood Type A POSITIVE Antibody Screen Negative Crossmatch See Detail ASSESSMENT AND PLAN: Left Iliac/Femoral Artery Occlusion s/p Left femoral embolectomy/angiogram New onset Atrial Fibrillation Acute Kidney Injury h/o CVA HTN Hyperlipidemia - pulse checks - pain control - monitor H/H : normal transfusion thresholds - monitor urine output, creatinine - IV Heparin : NOAC when OK with surgery - rate controlled - OOB to chair - Incentive Spirometry Dr Layton critical care time spent in reviewing chart, evaluating patient and formulating plan 40 min
[2016-10-17] MEDS ORDERED: HEPARIN NA (PORCINE) 5,000 UNITS/ML 1ML VIAL IVPUSH PRN ×2 (18:42)
[2016-10-17] MEDS ORDERED: HEPARIN - 25,000 UNIT in SODIUM CHLORIDE 495 ML IV SCH (18:45)
[2016-10-17 19:04] LABS: MCHC 33.5 g/dl (32.0-36.0); MEAN CELL VOLUME 89.5 fl (80-96); MEAN PLT VOLUME 7.1 fl (7.5-11.1); PLATELET COUNT 224 K/MM3 (134-434); RDW 13.8 % (11.6-15.6)
--- NOTE | 2016-10-17 20:49 | PN ---
Physical Exam: SUBJECTIVE: Patient seen and examined denies chest pain, sob, abdominal pain. had a nonbloody bowel movement this afternoon. tolerated OOB well. OBJECTIVE: Vital Signs Period Temp Pulse Resp BP Sys/Mcwilliams Pulse Ox Last 24 Hr 97.7 F-99.3 F 73-115 13-24 74-115/53-78 94-95 GENERAL: The patient is awake, alert, and fully oriented, in no acute distress. EYES: PERRL, extraocular movements intact ENT: oropharynx clear without exudates, moist mucous membranes. LUNGS: CTAB, no wheezes, no crackles, no accessory muscle use. HEART: afib, S1, S2 without murmur, rub or gallop. ABDOMEN: Soft, nontender, nondistended, normoactive bowel sounds, no guarding EXTREMITIES: Upper: 2+ b/l radial pulses, warm, well-perfused, no edema. Lower: 1+ b/l dp and pt pulses, warm , well-perfused, no calf tenderness, dressing in place CDI on medial left thigh with nontense-nonpitting swelling Laboratory Results - last 24 hr 10/17/16 10/17/16 10/17/16 05:10 05:10 09:12 WBC 9.6 RBC 2.49 L Hgb 7.5 L Hct 22.7 L MCV 91.5 MCHC 33.0 RDW 13.5 Plt Count 217 MPV 7.2 L PTT (Actin FS) 75.7 H D Stool Occult Blood Blood Type A POSITIVE Antibody Screen Negative Crossmatch See Detail 10/17/16 10/17/16 18:54 18:55 WBC 12.0 H RBC 3.18 L D Hgb 9.5 L D Hct 28.5 L D MCV 89.5 MCHC 33.5 RDW 13.8 Plt Count 224 MPV 7.1 L PTT (Actin FS) Stool Occult Blood Negative Blood Type Antibody Screen Crossmatch Active Medications Generic Name Dose Route Start Last Admin Trade Name Freq PRN Reason Stop Dose Admin Acetaminophen 650 mg 10/14/16 20:25 Tylenol - PO Q6H PRN FEVER OR PAIN Amlodipine Besylate 10 mg 10/15/16 10:00 10/17/16 10:50 Norvasc - PO 10 mg DAILY DEVANTE Administration Atorvastatin Calcium 40 mg 10/14/16 22:00 10/16/16 21:41 Lipitor - PO 40 mg HS DEVANTE Administration Docusate Sodium 100 mg 10/14/16 22:00 10/16/16 21:41 Colace - PO 100 mg HS DEVANTE Administration Ergocalciferol 50,000 unit 10/16/16 10:00 10/16/16 09:19 Drisdol - PO 50,000 unit Th@10 DEVANTE Administration Heparin Sodium (Porcine) 1,000 unit 10/17/16 18:42 Heparin - IVPUSH PRN PRN Heparin Heparin Sodium (Porcine) 5,000 unit 10/17/16 18:42 Heparin - IVPUSH PRN PRN Heparin Hydrochlorothiazide 25 mg 10/15/16 10:00 10/17/16 10:50 Hctz - PO 25 mg DAILY DEVANTE Administration Heparin Sodium (Porcine) 25, 500 mls @ 16 mls/hr 10/17/16 18:45 10/17/16 20:01 000 unit/ Sodium Chloride IV 10/18/16 10:00 Not Given TITR DEVANTE Protocol 800 UNIT/HR Metoprolol Succinate 50 mg 10/15/16 07:00 10/17/16 06:18 Toprol Xl - PO Not Given AM DEVANTE Polyethylene Glycol 17 gm 10/16/16 08:00 10/17/16 10:51 Miralax (For Daily Use) - PO 17 gm BID DEVANTE Administration Senna/Docusate Sodium 1 tablet 10/14/16 22:00 10/16/16 21:41 Pericolace - PO 1 tablet HS DEVANTE Administration Valsartan 320 mg 10/15/16 10:00 10/17/16 10:50 Diovan - PO 320 mg DAILY DEVANTE Administration ASSESSMENT/PLAN: 89 yr old woman with recent TIA (43 days ago) HTN, HLD, GERD, admitted to ICU s/ p open thrombectomy of left femoral artery, found to be in Afib. Hematological drop in h/h - stool occult neg, unlikely she had GIB. concern that patient may have bleed into calf, no bleeding at incision site. she was transfused this morning with adequate response, trend H/H. - continue heparin drip and start eliquis in the morning as per Dr. Espino Cardiovascular POD #3 from open thrombectomy (thrombus in left external iliac, common, deep/ superficial femoral artery) - pulse monitoring, OOB to chair today - pain control - heparin drip protocol, continued until tomorrow, will start NOAC in the morning - consult Dr. Espino, Dr. Fuller Afib - new onset, rate controlled with toprol - heparin drip, eliquis to be started tomorrow morning HTN - controlled diovan 320 mg po daily metoprolol XL 50mg po daily norvasc 10mg po daily HCTZ 25 mg po daily CAD - lipitor po 40mg po HS GI constipation pericolace + miralax BID Renal KAIDEN, elevated Cr and BUN, in setting of diuretic use and likely poor po intake in elderly woman in pain - improving with IVF NS @50ml/hr - continue fluid until taking adequate po hydration Psych mood improved today Pulmonary encourage incentive spirometry DVT; pt on heparin drip Diet: diabetic low sodium diet Dispo: patient can be monitored on Telemetry. Visit type - Emergency Visit Emergency Visit: No - New Patient This patient is new to me today: No - Critical Care Critical Care patient: Yes Total Critical Care Time (in minutes): 37 Critical Care Statement: The care of this patient involved high complexity decision making to prevent further life threatening deterioration of the patient 's condition and/or to evalute & treat vital organ system(s) failure or risk of failure.
[2016-10-17] MEDS: DOCUSATE SODIUM 100 MG CAPSULE (FP) PO SCH (21:52)
[2016-10-17] MEDS: SENNOSIDES/DOCUSATE COMBO (SENNA PLUS) TABLET (UD) PO SCH (21:52)
[2016-10-17] MEDS: ATORVASTATIN CA 40 MG TABLET (FP) PO SCH (21:53)
[2016-10-18 07:30] LABS: ALBUMIN 2.6 g/dl (3.4-5.0); ANION GAP 11 (8-16); CALCIUM 8.4 mg/dL (8.5-10.1); CO2 22 mmol/L (21-32); GLUCOSE,RANDOM 108 mg/dL (74-106); SGOT/AST 9 U/L (15-37); SGPT/ALT 11 U/L (12-78)
[2016-10-18 07:31] LABS: ALK PHOS 58 U/L (45-117)
--- NOTE | 2016-10-18 09:11 | PN ---
Progress Note, Physician Chief Complaint: no distress Hb bumped nicely after one unit PRBCs TELE: AF overall rate controlled She has no complaints. - Current Medication List Current Medications: Active Medications Acetaminophen (Tylenol -) 650 mg PO Q6H PRN PRN Reason: FEVER OR PAIN Amlodipine Besylate (Norvasc -) 10 mg PO DAILY [facility] Atorvastatin Calcium (Lipitor -) 40 mg PO HS DEVANTE Docusate Sodium (Colace -) 100 mg PO HS [facility] Ergocalciferol (Drisdol -) 50,000 unit PO Th@10 [facility]AN[facility] Heparin Sodium (Porcine) (Heparin -) 1,000 unit IVPUSH PRN PRN PRN Reason: Heparin Heparin Sodium (Porcine) (Heparin -) 5,000 unit IVPUSH PRN PRN PRN Reason: Heparin Hydrochlorothiazide (Hctz -) 25 mg PO DAILY [facility] Heparin Sodium (Porcine) 25, (000 unit/ Sodium Chloride) 500 mls @ 16 mls/hr IV TITR DEVANTE; 800 UNIT/HR PRN Reason: Protocol Stop: 10/18/16 10:00 Last Admin: 10/17/16 20:01 Dose: Not Given Metoprolol Succinate (Toprol Xl -) 50 mg PO AM [facility] Polyethylene Glycol (Miralax (For Daily Use) -) 17 gm PO BID [facility] Senna/Docusate Sodium (Pericolace -) 1 tablet PO HS [facility] Valsartan (Diovan -) 320 mg PO DAILY [facility] - Objective Vital Signs: Vital Signs Temperature 97.9 F 10/18/16 08:08 Pulse Rate 95 H 10/18/16 08:08 Respiratory Rate 20 10/18/16 08:08 Blood Pressure 119/79 10/18/16 08:08 O2 Sat by Pulse Oximetry (%) 95 10/17/16 20:49 Constitutional: Yes: No Distress Eyes: Yes: Conjunctiva Clear Cardiovascular: Yes: Pulse Irregular Respiratory: Yes: Other (bibasilar rales 1/3 left with mild expiratory wheezing) Gastrointestinal: Yes: Soft Edema: No Neurological: Yes: Alert, Oriented Labs: CBC, BMP 10/17/16 18:54 10/18/16 05:20 INR, PTT INR 0.95 (0.82-1.09) 10/14/16 02:43 Laboratory Tests 10/17/16 10/18/16 18:54 05:20 WBC 12.0 H Hgb 9.5 L D Plt Count 224 Potassium 4.3 BUN 19 H D Creatinine 1.0 D - ....Imaging EKG: Image Reviewed Problem List - Problems (1) Arterial occlusion, lower extremity Code(s): I74.3 - EMBOLISM AND THROMBOSIS OF ARTERIES OF THE LOWER EXTREMITIES (2) Atrial fibrillation Code(s): I48.91 - UNSPECIFIED ATRIAL FIBRILLATION Qualifiers: Qualified Code(s): I48.1 - Persistent atrial fibrillation (3) CVA (cerebral vascular accident) Code(s): I63.9 - CEREBRAL INFARCTION, UNSPECIFIED Assessment/Plan Assessment/Plan IMP: Acute ischemia LLE s/p left femoral embolectomy Permanent AF History of CVA REC: Hold Eliquis. Continue heparin gtts and can try resume oral AC when Hb stable No obvious source of blood loss. Will follow H/H daily Lasix 40mg PO daily, for several days. Mild volume overload after transfusion.
[2016-10-18] MEDS: VALSARTAN 160 MG TABLET (UD) PO SCH (09:34)
[2016-10-18] MEDS: FUROSEMIDE 40 MG TABLET (FP) PO SCH (09:35)
[2016-10-18] MEDS: amLODIPine BESYLATE 10 MG TABLET (FP) PO SCH (09:35)
[2016-10-18] MEDS: METOPROLOL SUCCINATE 50 MG TAB.SR.24H (FP) PO SCH (09:36)
[2016-10-18] MEDS: POLYETHYLENE GLYCOL 3350 119 GM BTL PO SCH ×2 (09:36→21:24)
[2016-10-18] MEDS ORDERED: HYDROCHLOROTHIAZIDE 25 MG TABLET (FP) PO SCH (10:00)
--- NOTE | 2016-10-18 13:15 | PN ---
Progress Note (short form) - Note Progress Note: No pain VSS Left foot is warm with doppler DP and PT. Calf wound has a small amount of serous drainage, less swelling. Groin wound dry. Hgb 9 Doing well. OOB PT Anticoagulation as per Dr. Fuller Problem List - Problems (1) Arterial occlusion, lower extremity Code(s): I74.3 - EMBOLISM AND THROMBOSIS OF ARTERIES OF THE LOWER EXTREMITIES (2) Atrial fibrillation Code(s): I48.91 - UNSPECIFIED ATRIAL FIBRILLATION Qualifiers: Qualified Code(s): I48.1 - Persistent atrial fibrillation
--- NOTE | 2016-10-18 14:25 | OP ---
DATE OF OPERATION: 10/14/2016 SURGEON: Landen Bermudez MD TURNSTILE COLLECTOR: BRIDGET Gastelum PROCEDURE: 1. Left femoral embolectomy. 2. Exploration of left popliteal artery 3. Angiogram, left leg. PREOPERATIVE DIAGNOSIS: Embolic occlusion of left femoral artery. POSTOPERATIVE DIAGNOSIS: Embolic occlusion of left femoral artery. ANESTHESIA: General. ANESTHESIOLOGIST: Toby Chris MD OPERATIVE FINDINGS: There was thrombus and embolic material within the left external iliac common and deep femoral arteries. There was clot in the superficial femoral artery. Angiography revealed occlusion of the popliteal artery. 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 Completion angiogram showed reconstitution of flow in the tibial arteries with runoff to the foot. OPERATIVE PROCEDURE: Following routine patient identification, a side and site verification, general anesthesia was induced. The left leg and groin were prepped with ChloraPrep. A skin incision was made in the left groin and carried down to subcutaneous tissues. Cautery was used for hemostasis. Crossing vessels were ligated and divided with silk ties. The common femoral artery was identified and was mobilized from the inguinal ligament to its bifurcation. Common, deep, and superficial femoral branches were secured with vessel loops. Small side branches were ligated and divided. The patient was given a bolus of heparin. A transverse incision was then made in the common femoral artery just proximal to the bifurcation. A No. 4 Ernesto catheter was passed proximally and withdrawn with removal of thrombus and gnosticism of arterial inflow. The proximal femoral artery was filled with heparin solution, was occluded with a vascular clamp. Thrombectomy at the deep femoral artery removed a small amount of thrombus and restored arterial back-bleeding. The vessel was flushed with heparin saline solution, was occluded with the vessel loop. Thrombectomy of the superficial femoral artery returned moderate amounts of thrombus and restored arterial back-bleeding. A 7-Tajik sheath was placed into the superficial femoral artery and angiography was performed with the above noted findings. A No. 3 Ernesto catheter was then passed distally and withdrawn with additional small amounts of thrombus. Another pass with the 3-mm balloon was complicated by inability to remove the balloon even after deflation. It appeared to be in a small branch near the skin of the upper calf. Due to inability to clear the popliteal artery, incision was made to explore the vessel. A skin incision was made along the anterior border of the tibia and carried down to subcutaneous tissues into the popliteal fossa. The popliteal artery was identified. It had no pulse. It was somewhat small and thickened. The artery was mobilized and secured proximally and distally with vessel loops. A transverse incision was made in the vessel, and no lumen was identified. On the embolectomy balloon, I allowed it to be freed and removed from the femoral arteriotomy. Due to the chronic occlusion of the popliteal artery, no further thrombectomy was necessary. Therefore, the femoral incision and the artery were closed with a running suture of 6-0 Prolene. The flow was then restored down the superficial femoral artery. The incision in the popliteal artery was closed with running sutures of 6-0 Prolene. An 18-gauge Angiocath was then placed into the common femoral artery, and a completion angiogram performed showing flow down the superficial femoral artery and reconstitution of the tibial vessels with runoff to the foot. The catheter was removed and bleeding controlled with a pursestring suture of 6-0 Prolene. Surgicel was applied to the suture lines, and then the wounds were irrigated and closed with interrupted suture of 3-0 Vicryl on subcutaneous tissues, and skin felipe on the skin. Sterile dressings were applied, and the patient was taken to the recovery room in stable condition. Roni [id number]
[2016-10-18] MEDS ORDERED: APIXABAN 5 MG TABLET PO ONE (17:42)
[2016-10-18] MEDS ORDERED: METOPROLOL TARTRATE 25 MG TABLET (FP) PO ONE (18:30)
--- NOTE | 2016-10-18 20:18 | PN ---
Progress Note, Physician Chief Complaint: DVT LLE History of Present Illness: COMFORTABLE IN BED, NAD, IN MILD PAIN, WAS TAKING CELEBREX OUTPATIENT. - Current Medication List Current Medications: Active Medications Acetaminophen (Tylenol -) 650 mg PO Q6H PRN PRN Reason: FEVER OR PAIN Amlodipine Besylate (Norvasc -) 10 mg PO DAILY [facility] Last Admin: 10/18/16 09:35 Dose: 10 mg Apixaban (Eliquis -) 5 mg PO BID [facility] Atorvastatin Calcium (Lipitor -) 40 mg PO HS [facility]ANTE Docusate Sodium (Colace -) 100 mg PO HS [facility] Ergocalciferol (Drisdol -) 50,000 unit PO Th@10 [facility] Furosemide (Lasix -) 40 mg PO DAILY [facility] Last Admin: 10/18/16 09:35 Dose: 40 mg Metoprolol Succinate (Toprol Xl -) 50 mg PO AM [facility] Last Admin: 10/18/16 09:36 Dose: Not Given Polyethylene Glycol (Miralax (For Daily Use) -) 17 gm PO BID [facility] Last Admin: 10/18/16 09:36 Dose: Not Given Senna/Docusate Sodium (Pericolace -) 1 tablet PO HS [facility] Valsartan (Diovan -) 320 mg PO DAILY [facility] Last Admin: 10/18/16 09:34 Dose: 320 mg - Objective Vital Signs: Vital Signs Temperature 98.4 F 10/18/16 18:00 Pulse Rate 118 H 10/18/16 18:00 Respiratory Rate 20 10/18/16 18:00 Blood Pressure 118/75 10/18/16 18:00 O2 Sat by Pulse Oximetry (%) 97 10/18/16 09:00 Constitutional: Yes: Well Nourished, No Distress, Calm Cardiovascular: Yes: Regular Rate and Rhythm Respiratory: Yes: Regular Musculoskeletal: Yes: Muscle Pain (LLE) Extremities: Yes: Other (LLE WARM TO TOUCH) Edema: Yes Edema: LLE: Trace Peripheral Pulses WNL: Yes Neurological: Yes: Alert, Oriented Labs: CBC, BMP 10/17/16 18:54 10/18/16 05:20 INR, PTT INR 0.95 (0.82-1.09) 10/14/16 02:43 Assessment/Plan MONITOR H/H ON ELIQUIS WBC HIGH, RESPONSE TO PROCEDURE, [id number], MONITOR FOR NOW.
[2016-10-18] MEDS: DOCUSATE SODIUM 100 MG CAPSULE (FP) PO SCH (21:20)
[2016-10-18] MEDS: ATORVASTATIN CA 40 MG TABLET (FP) PO SCH (21:21)
[2016-10-18] MEDS: SENNOSIDES/DOCUSATE COMBO (SENNA PLUS) TABLET (UD) PO SCH (21:21)
[2016-10-18] MEDS: ACETAMINOPHEN 325 MG TABLET (FP) PO PRN (21:21)
[2016-10-18] MEDS: diazePAM 5 MG TABLET PO PRN (21:22)
[2016-10-19] MEDS: METOPROLOL SUCCINATE 50 MG TAB.SR.24H (FP) PO SCH (06:13)
[2016-10-19 07:48] LABS: ALBUMIN 2.7 g/dl (3.4-5.0); ANION GAP 8 (8-16); CALCIUM 8.5 mg/dL (8.5-10.1); CO2 28 mmol/L (21-32); CREATININE 1.1 mg/dL (0.55-1.02); GLUCOSE,RANDOM 94 mg/dL (74-106); SGOT/AST 11 U/L (15-37); SGPT/ALT 13 U/L (12-78)
[2016-10-19 07:50] LABS: ALK PHOS 71 U/L (45-117); BILIRUBIN,TOTAL 1.1 mg/dL (0.2-1.0); TOT PROT 5.6 g/dl (6.4-8.2)
[2016-10-19 08:05] LABS: BASOPHIL 0.6 % (0-2.0); EOSINOPHIL 2.1 % (0-4.5); MCH 30.8 pg (25.7-33.7); MCHC 34.3 g/dl (32.0-36.0); MEAN CELL VOLUME 89.8 fl (80-96); MEAN PLT VOLUME 7.2 fl (7.5-11.1); NEUTROPHILS 63.9 % (42.8-82.8); PLATELET COUNT 257 K/MM3 (134-434); RDW 13.5 % (11.6-15.6); WHITE BLOOD COUNT 8.9 K/mm3 (4.0-10.0)
[2016-10-19] MEDS: FUROSEMIDE 40 MG TABLET (FP) PO SCH (09:23)
[2016-10-19] MEDS: APIXABAN 5 MG TABLET PO SCH ×2 (09:23→21:20)
[2016-10-19] MEDS: POLYETHYLENE GLYCOL 3350 119 GM BTL PO SCH ×2 (09:28→21:20)
--- NOTE | 2016-10-19 09:31 | PN ---
Progress Note, Physician Chief Complaint: Slightly tachy yesterday afternoon, required extra dose metoprolol tartrate This AM feels well TELE reviewed: AF with no pauses. History of Present Illness: BP running on low end, gave verbal to hold Diovan and Norvasc - Current Medication List Current Medications: Active Medications Acetaminophen (Tylenol -) 650 mg PO Q6H PRN PRN Reason: FEVER OR PAIN Last Admin: 10/18/16 21:21 Dose: 650 mg Amlodipine Besylate (Norvasc -) 10 mg PO DAILY [facility] Last Admin: 10/18/16 09:35 Dose: 10 mg Apixaban (Eliquis -) 5 mg PO BID [facility] Last Admin: 10/19/16 09:23 Dose: 5 mg Atorvastatin Calcium (Lipitor -) 40 mg PO HS [facility] Last Admin: 10/18/16 21:21 Dose: 40 mg Diazepam (Valium -) 5 mg PO HS PRN PRN Reason: ANXIETY Last Admin: 10/18/16 21:22 Dose: 5 mg Docusate Sodium (Colace -) 100 mg PO HS [facility] Last Admin: 10/18/16 21:20 Dose: 100 mg Ergocalciferol (Drisdol -) 50,000 unit PO Th@10 [facility] Furosemide (Lasix -) 40 mg PO DAILY [facility] Last Admin: 10/19/16 09:23 Dose: 40 mg Metoprolol Succinate (Toprol Xl -) 50 mg PO AM [facility] Last Admin: 10/19/16 06:13 Dose: 50 mg Polyethylene Glycol (Miralax (For Daily Use) -) 17 gm PO BID [facility] Last Admin: 10/19/16 09:28 Dose: 17 gm Senna/Docusate Sodium (Pericolace -) 1 tablet PO HS [facility] Last Admin: 10/18/16 21:21 Dose: 1 tablet Valsartan (Diovan -) 320 mg PO DAILY [facility] Last Admin: 10/18/16 09:34 Dose: 320 mg - Objective Vital Signs: Vital Signs Temperature 97.7 F 10/19/16 05:00 Pulse Rate 103 H 10/19/16 05:00 Respiratory Rate 20 10/19/16 05:00 Blood Pressure 131/85 10/19/16 05:00 O2 Sat by Pulse Oximetry (%) 97 10/18/16 21:00 Constitutional: Yes: Calm Cardiovascular: Yes: Pulse Irregular Respiratory: Yes: Other (rales left base.) Gastrointestinal: Yes: Soft Edema: No (legs are warm) Neurological: Yes: Alert, Oriented Labs: CBC, BMP 10/19/16 05:35 10/19/16 05:35 INR, PTT INR 0.95 (0.82-1.09) 10/14/16 02:43 Laboratory Tests 10/19/16 10/19/16 05:35 05:35 WBC 8.9 Hgb 10.4 L Plt Count 257 Sodium 138 Potassium 4.2 - ....Imaging EKG: Image Reviewed Problem List - Problems (1) Arterial occlusion, lower extremity Code(s): I74.3 - EMBOLISM AND THROMBOSIS OF ARTERIES OF THE LOWER EXTREMITIES (2) Atrial fibrillation Code(s): I48.91 - UNSPECIFIED ATRIAL FIBRILLATION Qualifiers: Qualified Code(s): I48.1 - Persistent atrial fibrillation (3) CVA (cerebral vascular accident) Code(s): I63.9 - CEREBRAL INFARCTION, UNSPECIFIED Assessment/Plan IMP: Acute ischemia LLE s/p left femoral embolectomy Permanent AF History of CVA REC: Back on Eliquis. Continue PO Lasix. Continue Toprol 50, if rates are elevated again this afternoon will need to increase standing dose to 75mg daily. Hold Amlodipine and Valsartan today- reassess need for these agents over next 24 -48 hours.
[2016-10-19] MEDS: diazePAM 5 MG TABLET PO PRN (15:31)
[2016-10-19] MEDS: ATORVASTATIN CA 40 MG TABLET (FP) PO SCH (21:20)
[2016-10-19] MEDS: DOCUSATE SODIUM 100 MG CAPSULE (FP) PO SCH (21:20)
[2016-10-19] MEDS: SENNOSIDES/DOCUSATE COMBO (SENNA PLUS) TABLET (UD) PO SCH (21:21)
--- NOTE | 2016-10-19 22:39 | PN ---
Progress Note, Physician Chief Complaint: DVT LLE History of Present Illness: COMFORTABLE IN BED, NAD, IN MILD PAIN, WAS TAKING CELEBREX OUTPATIENT. VALSARTAN AND AMLODIPINE HELD FOR LOW BP - Current Medication List Current Medications: Active Medications Acetaminophen (Tylenol -) 650 mg PO Q6H PRN PRN Reason: FEVER OR PAIN Last Admin: 10/18/16 21:21 Dose: 650 mg Amlodipine Besylate (Norvasc -) 10 mg PO DAILY [facility] Last Admin: 10/18/16 09:35 Dose: 10 mg Apixaban (Eliquis -) 5 mg PO BID [facility] Last Admin: 10/19/16 21:20 Dose: 5 mg Atorvastatin Calcium (Lipitor -) 40 mg PO HS [facility] Last Admin: 10/19/16 21:20 Dose: 40 mg Diazepam (Valium -) 5 mg PO HS PRN PRN Reason: ANXIETY Last Admin: 10/19/16 15:31 Dose: 5 mg Docusate Sodium (Colace -) 100 mg PO HS [facility] Last Admin: 10/19/16 21:20 Dose: 100 mg Ergocalciferol (Drisdol -) 50,000 unit PO Th@10 [facility] Furosemide (Lasix -) 40 mg PO DAILY [facility] Last Admin: 10/19/16 09:23 Dose: 40 mg Metoprolol Succinate (Toprol Xl -) 50 mg PO AM [facility] Last Admin: 10/19/16 06:13 Dose: 50 mg Polyethylene Glycol (Miralax (For Daily Use) -) 17 gm PO BID [facility] Last Admin: 10/19/16 21:20 Dose: Not Given Senna/Docusate Sodium (Pericolace -) 1 tablet PO HS [facility] Last Admin: 10/19/16 21:21 Dose: 1 tablet Valsartan (Diovan -) 320 mg PO DAILY [facility] Last Admin: 10/18/16 09:34 Dose: 320 mg - Objective Vital Signs: Vital Signs Temperature 98.2 F 10/19/16 20:01 Pulse Rate 100 H 10/19/16 20:01 Respiratory Rate 18 10/19/16 21:00 Blood Pressure 114/70 10/19/16 20:01 O2 Sat by Pulse Oximetry (%) 99 10/19/16 21:00 Constitutional: Yes: Well Nourished, No Distress, Calm Cardiovascular: Yes: Regular Rate and Rhythm Respiratory: Yes: Regular Gastrointestinal: Yes: Normal Bowel Sounds Extremities: Yes: Calf Tenderness (LEFT), Other (LLE WARM TO TOUCH) Edema: No Peripheral Pulses WNL: Yes Neurological: Yes: Alert Labs: CBC, BMP 10/19/16 05:35 10/19/16 05:35 INR, PTT INR 0.95 (0.82-1.09) 10/14/16 02:43 Assessment/Plan PROBLEMS: 1. LEFT LOWER EXTREMITY ARTERIAL OCCLUSION 2. HTN 3. ATRIAL FIB ASSESSMENT/PLAN: LLE SWELLING MONITOR H/H ON ELIQUIS WBC HIGH, RESPONSE TO PROCEDURE, AFEBRILW, MONITOR FOR NOW.
[2016-10-20] MEDS: METOPROLOL SUCCINATE 50 MG TAB.SR.24H (FP) PO SCH (06:13)
[2016-10-20 07:42] LABS: BASOPHIL 0.3 % (0-2.0); EOSINOPHIL 1.5 % (0-4.5); MCH 30.7 pg (25.7-33.7); MCHC 34.2 g/dl (32.0-36.0); MEAN CELL VOLUME 89.7 fl (80-96); MEAN PLT VOLUME 6.9 fl (7.5-11.1); NEUTROPHILS 72.5 % (42.8-82.8); PLATELET COUNT 293 K/MM3 (134-434); RDW 13.6 % (11.6-15.6); WHITE BLOOD COUNT 11.8 K/mm3 (4.0-10.0)
[2016-10-20 08:02] LABS: ALBUMIN 2.8 g/dl (3.4-5.0); ANION GAP 10 (8-16); CALCIUM 8.8 mg/dL (8.5-10.1); CO2 28 mmol/L (21-32); CREATININE 1.1 mg/dL (0.55-1.02); GLUCOSE,RANDOM 106 mg/dL (74-106); SGOT/AST 10 U/L (15-37); SGPT/ALT 14 U/L (12-78)
[2016-10-20 08:04] LABS: ALK PHOS 75 U/L (45-117); BILIRUBIN,TOTAL 1.2 mg/dL (0.2-1.0); TOT PROT 5.8 g/dl (6.4-8.2)
[2016-10-20] MEDS: FUROSEMIDE 40 MG TABLET (FP) PO SCH (09:33)
[2016-10-20] MEDS: POLYETHYLENE GLYCOL 3350 119 GM BTL PO SCH ×2 (09:33→21:52)
[2016-10-20] MEDS: APIXABAN 5 MG TABLET PO SCH ×2 (09:33→21:50)
--- NOTE | 2016-10-20 09:38 | PN ---
Progress Note, Physician History of Present Illness: seen and examined today in nad. no overnight events. no new complaints. - Current Medication List Current Medications: Active Medications Acetaminophen (Tylenol -) 650 mg PO Q6H PRN PRN Reason: FEVER OR PAIN Last Admin: 10/18/16 21:21 Dose: 650 mg Amlodipine Besylate (Norvasc -) 10 mg PO DAILY [facility] Last Admin: 10/18/16 09:35 Dose: 10 mg Apixaban (Eliquis -) 5 mg PO BID [facility] Last Admin: 10/19/16 21:20 Dose: 5 mg Atorvastatin Calcium (Lipitor -) 40 mg PO HS [facility] Last Admin: 10/19/16 21:20 Dose: 40 mg Diazepam (Valium -) 5 mg PO HS PRN PRN Reason: ANXIETY Last Admin: 10/19/16 15:31 Dose: 5 mg Docusate Sodium (Colace -) 100 mg PO HS [facility] Last Admin: 10/19/16 21:20 Dose: 100 mg Ergocalciferol (Drisdol -) 50,000 unit PO Th@10 [facility] Furosemide (Lasix -) 40 mg PO DAILY [facility] Last Admin: 10/19/16 09:23 Dose: 40 mg Metoprolol Succinate (Toprol Xl -) 50 mg PO AM [facility] Last Admin: 10/20/16 06:13 Dose: 50 mg Polyethylene Glycol (Miralax (For Daily Use) -) 17 gm PO BID [facility] Last Admin: 10/19/16 21:20 Dose: Not Given Senna/Docusate Sodium (Pericolace -) 1 tablet PO HS [facility] Last Admin: 10/19/16 21:21 Dose: 1 tablet Valsartan (Diovan -) 320 mg PO DAILY [facility] Last Admin: 10/18/16 09:34 Dose: 320 mg - Objective Vital Signs: Vital Signs Temperature 97.5 F L 10/20/16 06:00 Pulse Rate 101 H 10/20/16 06:00 Respiratory Rate 20 10/20/16 06:00 Blood Pressure 116/69 10/20/16 06:00 O2 Sat by Pulse Oximetry (%) 99 10/19/16 21:00 Constitutional: Yes: Well Nourished, No Distress, Calm Eyes: Yes: WNL, Conjunctiva Clear, EOM Intact, PERRL HENT: Yes: WNL, Atraumatic, Normocephalic Neck: Yes: WNL, Supple, Trachea Midline Cardiovascular: Yes: Pulse Irregular, S1, S2. No: Regular Rate and Rhythm, Bradycardia, Tachycardia, Bruit, JVD, Gallop, Murmur, Rub, S3, S4, Varicosities Respiratory: Yes: Regular, On Nasal O2, Rales, Rhonchi. No: SOB, Wheezes Gastrointestinal: Yes: Normal Bowel Sounds, Soft. No: Distention, Tenderness Extremities: Yes: WNL Edema: No Peripheral Pulses WNL: No Neurological: Yes: Alert, Oriented Psychiatric: Yes: Alert, Oriented Labs: CBC, BMP 10/20/16 05:35 10/20/16 05:35 INR, PTT INR 0.95 (0.82-1.09) 10/14/16 02:43 - ....Imaging Chest X-ray: Report Reviewed, Image Reviewed EKG: Report Reviewed, Image Reviewed Other: Report Reviewed, Image Reviewed (tele-AFib, HR currently controlled but above goal at times, occ PVC) Assessment/Plan IMP: Acute ischemia LLE s/p left femoral embolectomy Permanent AF History of CVA REC: Eliquis resumed yesterday, cont at current dose HR trend is still overall above goal, currently adequate Agree with holding norvasc and diovan to allow sufficient BP room for uptitration of Toprol as needed for additional rate control Increase Toprol XL to 75mg daily today and monitor BP trend, will consider splitting Toprol to BID dosing B/l Rhonchi/rales on exam, Cxr 10/18 read as clear Will repeat Cxr today Cont Lasix 40mg po daily for now, if pulm edema seen on Cxr will uptitrate lasix
[2016-10-20] MEDS ORDERED: METOPROLOL SUCCINATE 25 MG TAB.SR.24H (FP) PO SCH (09:39)
--- NOTE | 2016-10-20 12:48 | PN ---
Progress Note (short form) - Note Progress Note: No pain VSS On Eliquis Left foot is warm with doppler DP and PT. Calf and groin wounds dry. Hgb 10 Doing well. OOB PT Transfer to Rehab? Problem List - Problems (1) Arterial occlusion, lower extremity Code(s): I74.3 - EMBOLISM AND THROMBOSIS OF ARTERIES OF THE LOWER EXTREMITIES (2) Atrial fibrillation Code(s): I48.91 - UNSPECIFIED ATRIAL FIBRILLATION Qualifiers: Qualified Code(s): I48.1 - Persistent atrial fibrillation
--- NOTE | 2016-10-20 18:53 | PN ---
Progress Note, Physician Chief Complaint: AWAKE ALERT BEDSIDE NAD - Current Medication List Current Medications: Active Medications Acetaminophen (Tylenol -) 650 mg PO Q6H PRN PRN Reason: FEVER OR PAIN Last Admin: 10/18/16 21:21 Dose: 650 mg Amlodipine Besylate (Norvasc -) 10 mg PO DAILY [facility] Last Admin: 10/18/16 09:35 Dose: 10 mg Apixaban (Eliquis -) 5 mg PO BID [facility] Last Admin: 10/20/16 09:33 Dose: 5 mg Atorvastatin Calcium (Lipitor -) 40 mg PO HS [facility] Last Admin: 10/19/16 21:20 Dose: 40 mg Diazepam (Valium -) 5 mg PO HS PRN PRN Reason: ANXIETY Last Admin: 10/19/16 15:31 Dose: 5 mg Docusate Sodium (Colace -) 100 mg PO HS [facility] Last Admin: 10/19/16 21:20 Dose: 100 mg Ergocalciferol (Drisdol -) 50,000 unit PO Th@10 [facility] Furosemide (Lasix -) 40 mg PO DAILY [facility] Last Admin: 10/20/16 09:33 Dose: 40 mg Metoprolol Succinate (Toprol Xl -) 75 mg PO AM [facility] Polyethylene Glycol (Miralax (For Daily Use) -) 17 gm PO BID [facility] Last Admin: 10/20/16 09:33 Dose: 17 gm Senna/Docusate Sodium (Pericolace -) 1 tablet PO [facility] Last Admin: 10/19/16 21:21 Dose: 1 tablet Valsartan (Diovan -) 320 mg PO DAILY [facility] Last Admin: 10/18/16 09:34 Dose: 320 mg - Objective Vital Signs: Vital Signs Temperature 98.6 F 10/20/16 14:55 Pulse Rate 98 H 10/20/16 14:55 Respiratory Rate 18 10/20/16 14:55 Blood Pressure 108/61 10/20/16 14:55 O2 Sat by Pulse Oximetry (%) 99 10/20/16 09:00 Constitutional: Yes: No Distress Eyes: Yes: WNL HENT: Yes: WNL Neck: Yes: WNL Cardiovascular: Yes: WNL Respiratory: Yes: WNL Gastrointestinal: Yes: WNL Musculoskeletal: Yes: WNL Extremities: Yes: WNL Edema: No Peripheral Pulses WNL: Yes Integumentary: Yes: WNL Wound/Incision: Yes: Clean/Dry Neurological: Yes: WNL ...Motor Strength: WNL Psychiatric: Yes: WNL Labs: CBC, BMP 10/20/16 05:35 10/20/16 05:35 INR, PTT INR 0.95 (0.82-1.09) 10/14/16 02:43 Assessment/Plan MONITORING ON TELEMETRY TACHYCARDIA AT 104/MIN HEPARIN IV PER VASC SX CARIO F/U PT EVAL SNF
[2016-10-20] MEDS: DOCUSATE SODIUM 100 MG CAPSULE (FP) PO SCH (21:49)
[2016-10-20] MEDS: ATORVASTATIN CA 40 MG TABLET (FP) PO SCH (21:50)
[2016-10-20] MEDS: SENNOSIDES/DOCUSATE COMBO (SENNA PLUS) TABLET (UD) PO SCH (21:50)
[2016-10-20] MEDS: diazePAM 5 MG TABLET PO PRN (21:51)
[2016-10-20] MEDS: ACETAMINOPHEN 325 MG TABLET (FP) PO PRN (21:51)
[2016-10-21] MEDS: ACETAMINOPHEN 325 MG TABLET (FP) PO PRN ×2 (06:40→22:33)
[2016-10-21 07:43] LABS: MCH 30.5 pg (25.7-33.7); MCHC 33.9 g/dl (32.0-36.0); MEAN CELL VOLUME 89.7 fl (80-96); MEAN PLT VOLUME 6.8 fl (7.5-11.1); PLATELET COUNT 295 K/MM3 (134-434); RDW 13.7 % (11.6-15.6); WHITE BLOOD COUNT 10.6 K/mm3 (4.0-10.0)
--- NOTE | 2016-10-21 08:56 | PN ---
Progress Note, Physician History of Present Illness: seen and examined today in nad. states she is feeling much better today. states her sob is improved. no overnight events. no new complaints. - Current Medication List Current Medications: Active Medications Acetaminophen (Tylenol -) 650 mg PO Q6H PRN PRN Reason: FEVER OR PAIN Last Admin: 10/21/16 06:40 Dose: 650 mg Amlodipine Besylate (Norvasc -) 10 mg PO DAILY [facility] Last Admin: 10/18/16 09:35 Dose: 10 mg Apixaban (Eliquis -) 5 mg PO BID [facility] Last Admin: 10/20/16 21:50 Dose: 5 mg Atorvastatin Calcium (Lipitor -) 40 mg PO HS [facility] Last Admin: 10/20/16 21:50 Dose: 40 mg Diazepam (Valium -) 5 mg PO HS PRN PRN Reason: ANXIETY Last Admin: 10/20/16 21:51 Dose: 5 mg Docusate Sodium (Colace -) 100 mg PO HS [facility] Last Admin: 10/20/16 21:49 Dose: 100 mg Ergocalciferol (Drisdol -) 50,000 unit PO Th@10 [facility] Furosemide (Lasix -) 40 mg PO DAILY [facility] Last Admin: 10/20/16 09:33 Dose: 40 mg Metoprolol Succinate (Toprol Xl -) 75 mg PO AM [facility] Last Admin: 10/21/16 06:40 Dose: 75 mg Polyethylene Glycol (Miralax (For Daily Use) -) 17 gm PO BID [facility] Last Admin: 10/20/16 21:52 Dose: Not Given Senna/Docusate Sodium (Pericolace -) 1 tablet PO HS [facility] Last Admin: 10/20/16 21:50 Dose: 1 tablet Valsartan (Diovan -) 320 mg PO DAILY [facility] Last Admin: 10/18/16 09:34 Dose: 320 mg - Objective Vital Signs: Vital Signs Temperature 97.4 F L 10/21/16 05:39 Pulse Rate 114 H 10/21/16 05:39 Respiratory Rate 20 10/21/16 05:39 Blood Pressure 118/67 10/21/16 05:39 O2 Sat by Pulse Oximetry (%) 100 10/20/16 21:00 Constitutional: Yes: Well Nourished, No Distress, Calm Eyes: Yes: WNL, Conjunctiva Clear, EOM Intact, PERRL HENT: Yes: WNL, Atraumatic, Normocephalic Neck: Yes: WNL, Supple, Trachea Midline Cardiovascular: Yes: Pulse Irregular, S1, S2. No: Bradycardia, Tachycardia, Bruit, JVD, Gallop, Murmur, Rub, S3, S4, Varicosities Respiratory: Yes: Regular, Rhonchi. No: Rales, SOB, Wheezes Gastrointestinal: Yes: Normal Bowel Sounds, Soft. No: Distention, Tenderness Musculoskeletal: Yes: WNL Extremities: Yes: WNL Edema: No Peripheral Pulses WNL: No Neurological: Yes: Alert, Oriented, Cran Nerves II-XII Intact Psychiatric: Yes: Alert, Oriented Labs: CBC, BMP 10/21/16 05:40 10/20/16 05:35 INR, PTT INR 0.95 (0.82-1.09) 10/14/16 02:43 - ....Imaging Chest X-ray: Report Reviewed, Image Reviewed EKG: Report Reviewed, Image Reviewed Other: Report Reviewed, Image Reviewed (tele-afib, HR currently adequately controlled, trend is above goal) Assessment/Plan IMP: Acute ischemia LLE s/p left femoral embolectomy Permanent AF History of CVA REC: Cont eliquis Re-evaluate HR control on increased dose of Toprol Xl 75mg daily if still above goal uptitrate to bid Toprol Hold norvasc and diovan to allow sufficient BP room for uptitration of Toprol as needed for additional rate control Mild B/l Rhonchi/rales on exam, Cxr 10/18 and 10/20 read as clear Cont Lasix 40mg po daily If HR is adequately controlled today, pt would be acceptable for discharge from a cardiac standpoint with a plan for close outpatient follow up to ensure HR remains adequately controlled
[2016-10-21] MEDS: VALSARTAN 160 MG TABLET (UD) PO SCH (09:56)
[2016-10-21] MEDS: FUROSEMIDE 40 MG TABLET (FP) PO SCH (09:56)
[2016-10-21] MEDS: POLYETHYLENE GLYCOL 3350 119 GM BTL PO SCH ×2 (09:57→22:29)
[2016-10-21] MEDS: amLODIPine BESYLATE 10 MG TABLET (FP) PO SCH (09:57)
[2016-10-21] MEDS: APIXABAN 5 MG TABLET PO SCH ×2 (09:57→22:33)
--- NOTE | 2016-10-21 14:22 | SURG ---
Surgery Gore Inserter Note Gore Inserter: Florence Niño PA-C Date of Service: 10/14/16 Diagnosis: Embolic occlusion left femoral artery Procedure: Left femoral embolectomy. Exploration left popliteal artery. Angiogram left leg I was present for the entirety of the operative procedure. For further detail, please refer to operative report. Visit type - Case Type Case Type: ED Admission - Emergency Emergency Visit: Yes ED Registration Date: 10/14/16 Care time: The patient presented to the Emergency Department on the above date and was hospitalized for further evaluation of their emergent condition. - New patient This patient is new to me today: Yes Date on this admission: 10/14/16 - Critical Care Critical Care patient: No
--- NOTE | 2016-10-21 16:36 | DS ---
Physical Examination Vital Signs: Vital Signs Temperature 98 F 10/21/16 14:44 Pulse Rate 102 H 10/21/16 14:44 Respiratory Rate 18 10/21/16 14:44 Blood Pressure 92/69 10/21/16 14:44 O2 Sat by Pulse Oximetry (%) 100 10/20/16 21:00 Constitutional: Yes: No Distress Eyes: Yes: WNL HENT: Yes: WNL Neck: Yes: WNL Cardiovascular: Yes: WNL Respiratory: Yes: WNL Gastrointestinal: Yes: WNL Renal/: Yes: WNL Musculoskeletal: Yes: Muscle Weakness Extremities: Yes: Other Edema: Yes Edema: LLE: Trace, RLE: Trace Peripheral Pulses WNL: Yes Integumentary: Yes: Bruising Wound/Incision: Yes: Dressing Dry and Intact Neurological: Yes: Pre-Existing Deficit, Unsteady Gait, Weakness ...Motor Strength: LLE, RLE Psychiatric: Yes: WNL Labs: CBC, BMP 10/21/16 05:40 10/20/16 05:35 Discharge Summary Reason For Visit: ARTERIAL OCCLUSION LOWER EXTREMITY Current Active Problems Aphasia (Acute) Arterial occlusion, lower extremity (Acute) Arthritis (Acute) Atrial fibrillation (Acute) CVA (cerebral vascular accident) (Acute) Edema (Acute) HTN (hypertension) (Chronic) Procedures: Principal: ANGIO LOWER EXTREMITY Other Procedures: LABS Hospital Course: ADMITTED PAD LOWER EXTREMITY OCCLUSION/LEG PAIN, ANGIO DONE BY VASDomingo FLORES, ON ELIQUIS NOW CAN DC TO SNF F/U OUTPATIENT Condition: Improved - Instructions Diet, Activity, Other Instructions: SEE DR VENITA ATWOOD AFTER DISCHARGE FROM REHAB LOW SALT Referrals: Ez Lopez MD [Primary Care Provider] - Disposition: LONGTERM FACILITY - Home Medications Comprehensive Discharge Medication List: Ambulatory Orders Cholecalciferol (Vitamin D3) [Vitamin D3] 50,000 unit PO WEEKLY 08/31/16 Diazepam [Valium] 5 mg PO HS PRN 08/31/16 Esomeprazole Magnesium [Nexium 24Hr] 40 mg PO ASDIR 08/31/16 Sennosides/Docusate Sodium [Senna Plus Tablet] 1 each PO HS 08/31/16 Simvastatin [Zocor -] 40 mg PO HS 08/31/16 Acetaminophen [Tylenol] 650 mg PO PRN MDD 650 mg 09/01/16 Docusate Sodium [Colace -] 100 mg PO HS 09/01/16 Acetaminophen [Tylenol .Regular Strength -] 650 mg PO Q6H PRN #0 tablet Apixaban [Eliquis -] 5 mg PO BID tablet 10/21/16 Diazepam [Valium] 5 mg PO HS PRN #0 tablet MDD 1 10/21/16 Furosemide [Lasix -] 40 mg PO DAILY tablet 10/21/16 Metoprolol Succinate [Toprol XL -] 50 mg PO BID tab 10/21/16
[2016-10-21] MEDS: DOCUSATE SODIUM 100 MG CAPSULE (FP) PO SCH (22:29)
[2016-10-21] MEDS: SENNOSIDES/DOCUSATE COMBO (SENNA PLUS) TABLET (UD) PO SCH (22:29)
[2016-10-21] MEDS: ATORVASTATIN CA 40 MG TABLET (FP) PO SCH (22:33)
[2016-10-21] MEDS: diazePAM 5 MG TABLET PO PRN (22:33)
[2016-10-22 07:31] LABS: MCH 30.9 pg (25.7-33.7); MCHC 34.4 g/dl (32.0-36.0); MEAN PLT VOLUME 6.9 fl (7.5-11.1); PLATELET COUNT 342 K/MM3 (134-434); RDW 13.5 % (11.6-15.6); WHITE BLOOD COUNT 10.1 K/mm3 (4.0-10.0)
--- NOTE | 2016-10-22 08:49 | PN ---
Progress Note, Physician History of Present Illness: seen and examined today in [facility]. no overnight events. no new complaints. states she is feeling better overall. - Current Medication List Current Medications: Active Medications Acetaminophen (Tylenol -) 650 mg PO Q6H PRN PRN Reason: FEVER OR PAIN Last Admin: 10/21/16 22:33 Dose: 650 mg Apixaban (Eliquis -) 5 mg PO BID [facility]S [facility] Last Admin: 10/21/16 22:33 Dose: 5 mg Atorvastatin Calcium (Lipitor -) 40 mg PO HS [facility] 234 BEDS [facility] Last Admin: 10/21/16 22:33 Dose: 40 mg Diazepam (Valium -) 5 mg PO HS PRN PRN Reason: ANXIETY Last Admin: 10/21/16 22:33 Dose: 5 mg Digoxin (Lanoxin -) 0.25 mg PO Q4H [facility]S [facility]CLUDE 234 BEDS AT [facility] Stop: 10/22/16 12:46 Digoxin (Lanoxin -) 0.125 mg PO DAILY [facility] 234 BEDS AT [facility] Docusate Sodium (Colace -) 100 mg PO HS [facility] 234 B[facility]S [facility] Last Admin: 10/21/16 22:29 Dose: Not Given Ergocalciferol (Drisdol -) 50,000 unit PO Th@10 [facility] 234 BEDS AT [facility] Furosemide (Lasix -) 40 mg PO DAILY [facility] 234 [facility]S [facility] Last Admin: 10/21/16 09:56 Dose: 40 mg Metoprolol Succinate (Toprol Xl -) 50 mg PO BID [facility] 234 BEDS AT [facility] Polyethylene Glycol (Miralax (For Daily Use) -) 17 gm PO BID [facility] 234 BEDS [facility] Last Admin: 10/21/16 22:29 Dose: Not Given Senna/Docusate Sodium (Pericolace -) 1 tablet PO [facility] Last Admin: 10/21/16 22:29 Dose: Not Given - Objective Vital Signs: Vital Signs Temperature 97.8 F 10/22/16 05:36 Pulse Rate 112 H 10/22/16 05:36 Respiratory Rate 20 10/22/16 05:36 Blood Pressure 106/56 10/22/16 05:36 O2 Sat by Pulse Oximetry (%) 93 L 10/21/16 20:12 Constitutional: Yes: Well Nourished, No Distress, Calm Eyes: Yes: Conjunctiva Clear, EOM Intact HENT: Yes: Atraumatic, Normocephalic Neck: Yes: Supple, Trachea Midline Cardiovascular: Yes: Pulse Irregular, S1, S2. No: Bradycardia, Tachycardia, Bruit, JVD, Gallop, Murmur, Rub, S3, S4, Varicosities Respiratory: Yes: Regular, Diminished, Rhonchi. No: Rales, SOB, Wheezes Gastrointestinal: Yes: Normal Bowel Sounds, Soft. No: Distention, Tenderness Edema: No Peripheral Pulses WNL: No Neurological: Yes: Alert, Oriented Psychiatric: Yes: Alert, Oriented Labs: CBC, BMP 10/22/16 05:45 10/20/16 05:35 INR, PTT INR 0.95 (0.82-1.09) 10/14/16 02:43 - ....Imaging Chest X-ray: Report Reviewed, Image Reviewed EKG: Report Reviewed, Image Reviewed Other: Report Reviewed, Image Reviewed (tele-Afib, Hr currently controlled, but still trend is above goal overall) Assessment/Plan IMP: Acute ischemia LLE s/p left femoral embolectomy Permanent AF History of CVA REC: Cont eliquis Stopped norvasc and diovan to allow sufficient BP room for uptitration of Toprol as needed for additional rate control Cont toprol XL 50mg po bid Add digoxin for additional HR control given BP not tolerating further uptitration of toprol Cont Lasix 40mg po daily Further adjustment of HR control meds can be done as outpatient Outpatient follow up in the office after discharge from rehab
--- NOTE | 2016-10-22 08:58 | PN ---
Progress Note (short form) - Note Progress Note: AWAKE ALERT NAD PAPERWORK COMPLETED DC TO [facility]
[2016-10-22] MEDS: DIGOXIN 0.25 MG TABLET (FP) PO SCH ×2 (09:28→13:08)
[2016-10-22] MEDS: FUROSEMIDE 40 MG TABLET (FP) PO SCH (09:29)
[2016-10-22] MEDS: APIXABAN 5 MG TABLET PO SCH (09:29)
[2016-10-22] MEDS: POLYETHYLENE GLYCOL 3350 119 GM BTL PO SCH (09:29)
[2016-10-22] MEDS: ACETAMINOPHEN 325 MG TABLET (FP) PO PRN (09:33)
[2016-10-22] MEDS ORDERED: METOPROLOL SUCCINATE 50 MG TAB.SR.24H (FP) PO SCH (10:00)
[2016-10-22 11:57] VITALS: BP 110/58; TEMP 97.9
[2016-10-22 13:46] VITALS: PULSE 75
[2016-10-23] MEDS ORDERED: ERGOCALCIFEROL (VITAMIN D2) 50,000 UNIT CAPSULE (FP) PO SCH (10:00)
[2016-10-23] MEDS ORDERED: DIGOXIN 0.125 MG TABLET (FP) PO SCH (10:00)
== END 2016-10-22 14:29 | DRG 253 ==
LOC: JER 23:33 → JERBED 10-14 01:49 → JICU 10-14 23:43 → J4W 10-18 08:00
PROVIDERS: ADMIT Family Medicine; ATTEND Family Medicine
PROC: 04JY0ZZ Inspection of Lower Artery, Open Approach (ICD-10-PCS; 2016-10-14)
PROC: 3E030GC Introduction of Other Therapeutic Substance into Peripheral Vein, Open Approach (ICD-10-PCS; 2016-10-14)
PROC: B40G1ZZ Plain Radiography of Left Lower Extremity Arteries using Low Osmolar Contrast (ICD-10-PCS; 2016-10-14)
PROC: 04CL0ZZ Extirpation of Matter from Left Femoral Artery, Open Approach (ICD-10-PCS; principal; 2016-10-14 18:00)
PROC: 30233N1 Transfusion of Nonautologous Red Blood Cells into Peripheral Vein, Percutaneous Approach (ICD-10-PCS; 2016-10-17)
DX: I74.3 Embolism and thrombosis of arteries of the lower extremities (principal); N17.9 Acute kidney failure, unspecified; R20.9 Unspecified disturbances of skin sensation; I74.8 Embolism and thrombosis of other arteries; R71.0 Precipitous drop in hematocrit; Z86.73 Personal history of transient ischemic attack (TIA), and cerebral infarction without residual deficits; M47.9 Spondylosis, unspecified; M54.5 Low back pain; K59.00 Constipation, unspecified; R00.0 Tachycardia, unspecified
CPT/HCPCS: 36415; 36430; 36511; 71010-TC; 76000-TC; 80048; 80053; 80061; 81003; 82272; 82436; 83036; 83721; 83735; 84100; 84133; 84300; 84443; 85025; 85027; 85610; 85730; 86850; 86900; 86901; 86922; 93005; 93010; 93926-TC; 93971-TC; 94760; 97116-GP; 97161-GP; 99285-25; J0475; J1644; P9038; P9058

== ENCOUNTER 2016-12-30 13:01 | Inpatient (IN) | payer OTHER ==
[2016-12-30] MEDS ORDERED: ASPIRIN 81 MG CHEWABLE TABLETS PO ONE (13:48)
--- NOTE | 2016-12-30 13:49 | PDOC ---
History of Present Illness <Leopoldo Valencia - Last Filed: 12/30/16 15:46> - General History Source: Patient Exam Limitations: No Limitations - History of Present Illness Initial Comments: 12/30/16 13:59 The patient is a 89 year old female, with significant past medical history of Afib, hypertension, hyperlipidemia, TIA (approximately 3 months ago), left femoral embolectomy, who presents to the emergency department via ambulance complaining of a couple of days of dyspnea on exertion, and 1 episode of chest pain that began this morning and lasted approximately half an hour. She explains that she became lightheaded in the bathroom today after urinating. She walked to her bedroom to lay down, but the pain would not resolve. She describes the chest pain as a pressure across her chest that radiates between her shoulder blades. She notes that over the past week she has been feeling more short of breath when walking. She does not have any chest pain at this moment. She notes that her left leg has been more swollen than the right leg since the femoral embolectomy on 10/17/16. Denies palpitations. Denies fever, chills, nausea, vomiting. Denies LOC. Allergies: none reported PCP: Dr. Durham Dollyman: Dr. Fuller <Jessa Mead - Last Filed: 12/30/16 16:05> - General Chief Complaint: Chest Pain Stated Complaint: CHEST PAIN Time Seen by Provider: 12/30/16 13:07 Past History - Past Medical History Cardiac Disorders: Yes (DVT: 12/2016) HTN: Yes Hypercholesterolemia: Yes Other medical history: ARTHRITIS. - Surgical History Orthopedic Surgery: (laminectomy) - Psycho/Social/Smoking Cessation Hx Anxiety: No Suicidal Ideation: No Smoking History: Never smoked Have you smoked in the past 12 months: No Hx Alcohol Use: No Drug/Substance Use Hx: No Substance Use Type: None Hx Substance Use Treatment: No <Leopoldo Valencia - Last Filed: 12/30/16 15:46> <Jessa Mead - Last Filed: 12/30/16 16:05> - Past Medical History Allergies/Adverse Reactions: Allergies Allergy/AdvReac Type Severity Reaction Status Date / Time No Known Allergies Allergy Verified 12/30/16 13:06 Home Medications: Ambulatory Orders Cholecalciferol (Vitamin D3) [Vitamin D3] 50,000 unit PO WEEKLY 08/31/16 Sennosides/Docusate Sodium [Senna Plus Tablet] 1 each PO HS 08/31/16 Simvastatin [Zocor -] 40 mg PO HS 08/31/16 Acetaminophen [Tylenol] 650 mg PO PRN MDD 650 mg 09/01/16 Docusate Sodium [Colace -] 100 mg PO HS 09/01/16 Apixaban [Eliquis -] 5 mg PO BID tablet 10/21/16 Metoprolol Succinate [Toprol XL -] 50 mg PO BID tab 10/21/16 Digoxin [Lanoxin -] 0.125 mg PO DAILY #30 tablet 10/22/16 Cetirizine HCl [Zyrtec -] 10 mg PO DAILY 12/30/16 Furosemide [Lasix -] 20 mg PO DAILY 12/30/16 Review of Systems - Review of Systems Constitutional: No: Chills, Fever Respiratory: Yes: Shortness of Breath, SOB with Exertion. No: Cough Cardiac (ROS): Yes: Chest Pain, Lightheadedness. No: Edema, Syncope ABD/GI: No: Nausea, Vomiting Neurological: No: Headache All Other Systems: Reviewed and Negative <Leopoldo Valencia - Last Filed: 12/30/16 15:46> *Physical Exam - Vital Signs Last Vital Signs Temp Pulse Resp BP Pulse Ox 98.3 F 78 18 177/95 96 12/30/16 13:06 12/30/16 13:06 12/30/16 13:06 12/30/16 13:06 12/30/16 13:06 <Leopoldo Valencia - Last Filed: 12/30/16 15:46> - Vital Signs Last Vital Signs Temp Pulse Resp BP Pulse Ox 98.3 F 78 18 177/95 96 12/30/16 13:06 12/30/16 13:06 12/30/16 13:06 12/30/16 13:06 12/30/16 13:06 - Physical Exam Comments: 12/30/16 13:59 GENERAL: The patient is awake, alert, and fully oriented, in no acute distress. HEAD: Normal with no signs of trauma. EYES: Pupils equal, round and reactive to light, extraocular movements intact, sclera anicteric, conjunctiva clear with no pallor. LUNGS: +slight crackles at the right base otherwise clear. HEART: +irregular bradycardia. normal S1 and S2 without murmur or rub. ABDOMEN: Soft/nontender/nondistended. BS wnl. No guarding or rebound. No palpable masses. No hepatosplenomegaly. EXTREMITIES: +healed surgical scar on the left lower extremity. The left lower extremity is larger than the right. There is pitting edema to the left ankle. Good perfusion distally. NEUROLOGICAL: Cranial nerves II through XII grossly intact. Normal speech, normal gait. PSYCH: Normal mood, normal affect. SKIN: Warm, Dry, normal turgor, no rashes or lesions noted. <Jessa Mead - Last Filed: 12/30/16 16:05> Heart Score/ECG Review - History History: Moderately suspicious - Electrocardiogram EKG: Non specific repolarization disturbance - Age Age: >/= 65 - Risk Factors Based on the list above the patient has:: 1-2 risk factors - Troponin Troponin: </= normal limit - Score Heart Score - Total: 5 #1 ECG reviewed & interpreted by me at: 13:49 12/30/16 13:55 afib at 68. nonspecific T wave flattening, no ST changes. qtc 391 <Leopoldo Valencia - Last Filed: 12/30/16 15:46> #1 Compared to previous ECG there are: No significant change <Jessa Mead - Last Filed: 12/30/16 16:05> ED Treatment Course - LABORATORY CBC & Chemistry Diagram: 12/30/16 14:12 12/30/16 14:12 - RADIOLOGY Radiology Studies Ordered: Category Date Time Status CHEST X-RAY PORTABLE* [RAD] Stat Radiology 12/30/16 13:48 Ordered DUPLEX VASCUL US-1 LEG [US] Stat Ultrasound 12/30/16 13:48 Ordered <Leopoldo Valencia - Last Filed: 12/30/16 15:46> - LABORATORY CBC & Chemistry Diagram: 12/30/16 14:12 12/30/16 14:12 - RADIOLOGY Radiograph Interpretation: 12/30/16 16:04 EXAM#: TYPE/EXAM: RESULT: [id number] US/DUPLEX VASCUL US-1 LEG Left leg pain. Rule out DVT Left leg Doppler ultrasound. Grayscale, pulsed Doppler and color Doppler interrogation of the left lower extremity deep venous system was performed. The left common femoral vein, superficial femoral vein, popliteal and posterior tibial vein were identified with a normal phasic wave form, adequate compressibility and adequate response to augmentation. Visualized portion of the greater saphenous and deep femoral vein are patent. No Lovett's cyst is identified within the popliteal fossa Impression: There is no evidence of deep venous thrombosis in the left lower extremity. Reported By: Suly Garcia MD 12/30/16 1559 12/30/16 16:05 EXAM#: TYPE/EXAM: RESULT: [id number] RAD/CHEST X-RAY PORTABLE* Chest pain. Rule out infiltrate. Single portable chest x-ray. Comparison study October 20, 2016. Cardiomegaly. Uncoiled thoracic aorta. No evidence of pneumonia, CHF, pleural effusion or pneumothorax. Status post anterior fusion lower cervical, upper thoracic spine Impression. No evidence of active pulmonary disease. Reported By: Karthik Covarrubias MD 12/30/16 1429 <Jessa Mead - Last Filed: 12/30/16 16:05> Medical Decision Making - Medical Decision Making 12/30/16 13:51 A portion of this note was documented by scribe services under my direction. I have reviewed the details of the note, within reason, and agree with the documentation with the following case summary and management plan written by me. 89-year-old female with history of atrial fibrillation, hypertension, high cholesterol, peripheral vascular disease status post left lower extremity revascularization procedure currently on Eliquis presents with a few days of worsening shortness of breath on exertion and today chest pressure with lightheadedness that lasted about 30 minutes. Currently asymptomatic, no history of chest pain. Last stress test was years ago. Vital signs as noted and within normal limits. Well-appearing Exam as noted with slight right basilar crackles, slightly larger left lower extremity, otherwise Norvasc intact 89-year-old female with atrial fibrillation and ACS risk factors with a few days of dyspnea on exertion and now chest pain with lightheadedness, resolved. Presentation is most concerning for ACS, question rapid intrafibrillation, PE is also on the differential given recent surgery/LLE swelling/CP+SOB. labs, ua ekg, cxr LLE doppler, consider CTA chest Admission 12/30/16 15:02 CBC within normal limits, chemistries are also within normal limits with creatinine at baseline of 1.2, negative troponin, elevated BNP but no baseline available. CXR negative. Remains chest pain free, currently at Doppler. Accepted for inpatient telemetry by Dr. Durham. Dr. Fuller, patient's primary consulting psychologist, consulted. <Leopoldo Valencia - Last Filed: 12/30/16 15:46> *DC/Admit/Observation/Transfer - Discharge Dispostion Admit: Yes <Leopoldo Valencia - Last Filed: 12/30/16 15:46> - Attestations Scribe Attestion: 12/30/16 13:59 Documentation prepared by ARAVIND Larson, acting as medical coordinator pesticide use for Leopoldo Valencia MD. <Jessa Mead - Last Filed: 12/30/16 16:05> Diagnosis at time of Disposition: Precordial chest pain Atrial fibrillation Qualifiers: Atrial fibrillation type: chronic Qualified Code(s): I48.2 - Chronic atrial fibrillation - Discharge Dispostion Condition at time of disposition: Fair - Referrals
[2016-12-30] MEDS ORDERED: ASPIRIN 81 MG CHEWABLE TABLETS ONE (14:10)
[2016-12-30 14:25] LABS: BASOPHIL 0.7 % (0-2.0); EOSINOPHIL 0.6 % (0-4.5); MCH 30.3 pg (25.7-33.7); MEAN CELL VOLUME 91.9 fl (80-96); MEAN PLT VOLUME 7.1 fl (7.5-11.1); NEUTROPHILS 74.9 % (42.8-82.8); PLATELET COUNT 292 K/MM3 (134-434); RDW 15.4 % (11.6-15.6); WHITE BLOOD COUNT 10.1 K/mm3 (4.0-10.0)
[2016-12-30 14:26] LABS: URINE APPEARANCE CLEAR; URINE BILIRUBIN NEGATIVE (NEGATIVE); URINE BLOOD 1+ (NEGATIVE); URINE COLOR STRAW; URINE GLUCOSE (UA) NEGATIVE (NEGATIVE); URINE KETONE NEGATIVE (NEGATIVE); URINE LEUK ESTERASE NEGATIVE (NEGATIVE); URINE NITRITE NEGATIVE (NEGATIVE); URINE UROBILINOGEN NEGATIVE mg/dL (0.2-1.0)
[2016-12-30 14:29] LABS: URINE PROTEIN 1+ (NEGATIVE)
[2016-12-30 14:48] LABS: ALBUMIN 3.8 g/dl (3.4-5.0); ANION GAP 8 (8-16); BILIRUBIN,TOTAL 0.9 mg/dL (0.2-1.0); CALCIUM 8.7 mg/dL (8.5-10.1); CO2 28 mmol/L (21-32); CREATININE 1.2 mg/dL (0.55-1.02); GLUCOSE,RANDOM 113 mg/dL (74-106); MAGNESIUM 2.1 mg/dL (1.8-2.4); SGOT/AST 18 U/L (15-37); SGPT/ALT 27 U/L (12-78); TOT PROT 6.9 g/dl (6.4-8.2)
[2016-12-30 14:51] LABS: ALK PHOS 94 U/L (45-117); CPK 63 IU/L (26-192); TROPONIN I 0.02 ng/ml (0.00-0.05)
[2016-12-30 14:54] LABS: URINE MUCUS RARE; URINE RBC 3 /hpf (0-3); URINE WBC <1 /hpf (3-5)
[2016-12-30 14:59] LABS: PROTHROMBIN TIME (PATIENT) 22.3 SEC (9.98-11.88)
[2016-12-30] MEDS ORDERED: ENALAPRILAT DIHYDRATE 1.25 MG/1 ML VIAL IVPB ONE (15:13)
[2016-12-30] MEDS ORDERED: ENALAPRILAT DIHYDRATE 2.5 MG/2 ML VIAL IVPB ONE (15:16)
--- NOTE | 2016-12-30 16:48 | EKG ---
Test Reason : Blood Pressure : / mmHG Vent. Rate : 068 BPM Atrial Rate : 234 BPM P-R Int : 000 ms QRS Dur : 086 ms QT Int : 368 ms P-R-T Axes : 000 015 -59 degrees QTc Int : 391 ms ATRIAL FIBRILLATION WITH MODERATE VENTRICULAR RESPONSE NONSPECIFIC T WAVE ABNORMALITY INCOMPLETE RBBB. ABNORMAL ECG WHEN COMPARED WITH ECG OF 15-OCT-2016 15:11, NONSPECIFIC T WAVE ABNORMALITY NOW EVIDENT IN INFERIOR LEADS NONSPECIFIC T WAVE ABNORMALITY NOW EVIDENT IN ANTEROLATERAL LEADS QT HAS SHORTENED REPEAT EKG IF CLINICALLY INDICATED Confirmed by TAZ STRATTON MD ([id number]) on 12/30/2016 4:47:32 PM Referred By: Confirmed By:TAZ STRATTON MD
[2016-12-30] MEDS: FUROSEMIDE 40 MG/4 ML INJECTABLE VIAL IVPUSH SCH (17:35)
--- NOTE | 2016-12-30 17:47 | HP ---
Admitting History and Physical - Primary Care Physician PCP: Al Durham - Admission Chief Complaint: SYNCOPE/SHORTNESS OF BREATH History of Present Illness: The patient is a 89 year old female, with significant past medical history of Afib, hypertension, hyperlipidemia, TIA (approximately 3 months ago), left femoral embolectomy, who presents to the emergency department via ambulance complaining of a couple of days of dyspnea on exertion, and 1 episode of chest pain that began this morning and lasted approximately half an hour. She explains that she became lightheaded in the bathroom today after urinating. She walked to her bedroom to lay down, but the pain would not resolve. She describes the chest pain as a pressure across her chest that radiates between her shoulder blades. She notes that over the past week she has been feeling more short of breath when walking. She does not have any chest pain at this moment. She notes that her left leg has been more swollen than the right leg since the femoral embolectomy on 10/17/16. 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 Cardiovascular: Yes: AFIB (new onset), HTN, Hyperlipdemia Musculoskeletal: Yes: Chronic low back pain (LAMINECTOMY), Osteoarthritis - Past Surgical History Past Surgical History: Yes: Laminectomy - Smoking History Smoking history: Never smoked Have you smoked in the past 12 months: No - Alcohol/Substance Use Hx Alcohol Use: No History of Substance Use: reports: None - Social History ADL: Family Assistance Home Medications - Allergies Allergies/Adverse Reactions: Allergies Allergy/AdvReac Type Severity Reaction Status Date / Time No Known Allergies Allergy Verified 12/30/16 13:06 - Home Medications Home Medications: Ambulatory Orders Cholecalciferol (Vitamin D3) [Vitamin D3] 50,000 unit PO WEEKLY 08/31/16 Sennosides/Docusate Sodium [Senna Plus Tablet] 1 each PO HS 08/31/16 Simvastatin [Zocor -] 40 mg PO HS 08/31/16 Acetaminophen [Tylenol] 650 mg PO PRN MDD 650 mg 09/01/16 Docusate Sodium [Colace -] 100 mg PO HS 09/01/16 Apixaban [Eliquis -] 5 mg PO BID tablet 10/21/16 Metoprolol Succinate [Toprol XL -] 50 mg PO BID tab 10/21/16 Digoxin [Lanoxin -] 0.125 mg PO DAILY #30 tablet 10/22/16 Cetirizine HCl [Zyrtec -] 10 mg PO DAILY 12/30/16 Furosemide [Lasix -] 20 mg PO DAILY 12/30/16 Review of Systems - Review of Systems Constitutional: reports: Loss of Appetite, Weakness Eyes: reports: No Symptoms HENT: reports: No Symptoms Neck: reports: No Symptoms Cardiovascular: reports: Shortness of Breath Respiratory: reports: SOB Gastrointestinal: reports: No Symptoms Genitourinary: reports: Incontinence Musculoskeletal: reports: Joint Pain, Muscle Weakness Integumentary: reports: No Symptoms Neurological: reports: Pre-Existing Deficit Endocrine: reports: No Symptoms Hematology/Lymphatic: reports: No Symptoms Psychiatric: reports: No Symptoms Physical Examination Vital Signs: Vital Signs Temperature 98.3 F 12/30/16 13:06 Pulse Rate 78 12/30/16 13:06 Respiratory Rate 18 12/30/16 13:06 Blood Pressure 177/95 12/30/16 13:06 O2 Sat by Pulse Oximetry (%) 95 12/30/16 14:12 Constitutional: Yes: Mild Distress Eyes: Yes: WNL HENT: Yes: WNL, Thrush Cardiovascular: Yes: Pulse Irregular, Murmur Respiratory: Yes: Diminished, On Nasal O2 Gastrointestinal: Yes: WNL Renal/: Yes: WNL Musculoskeletal: Yes: Muscle Weakness Extremities: Yes: WNL Edema: Yes Edema: LLE: 2+, RLE: 2+ Peripheral Pulses WNL: Yes Integumentary: Yes: WNL Wound/Incision: Yes: Clean/Dry Neurological: Yes: Pre-Existing Deficit ...Motor Strength: LLE, RLE Psychiatric: Yes: WNL Imaging - Results Chest X-ray: Report Reviewed Problem List - Problems (1) Arthritis Code(s): M19.90 - UNSPECIFIED OSTEOARTHRITIS, UNSPECIFIED SITE (2) Atrial fibrillation Code(s): I48.91 - UNSPECIFIED ATRIAL FIBRILLATION Qualifiers: Atrial fibrillation type: chronic Qualified Code(s): I48.2 - Chronic atrial fibrillation (3) CVA (cerebral vascular accident) Code(s): I63.9 - CEREBRAL INFARCTION, UNSPECIFIED (4) HTN (hypertension) Code(s): I10 - ESSENTIAL (PRIMARY) HYPERTENSION Qualifiers: (5) TIA (transient ischemic attack) Code(s): G45.9 - TRANSIENT CEREBRAL ISCHEMIC ATTACK, UNSPECIFIED (6) Edema Code(s): R60.9 - EDEMA, UNSPECIFIED (7) Syncope Code(s): R55 - SYNCOPE AND COLLAPSE Assessment/Plan IV LASIX NEBS 02 SUPPORT CARDIO AND PULM EVAL CRI, RENAL EVAL PT EVAL FALL PRECAUTIONS MONITOR ON TELEMETRY
[2016-12-30 21:06] LABS: TROPONIN I 0.03 ng/ml (0.00-0.05)
[2016-12-30] MEDS: ATORVASTATIN CA 10 MG TABLET (FP) PO SCH (22:41)
[2016-12-30] MEDS: METOPROLOL SUCCINATE 50 MG TAB.SR.24H (FP) PO SCH (22:41)
[2016-12-30] MEDS: APIXABAN 5 MG TABLET PO SCH (22:41)
[2016-12-30] MEDS: ARFORMOTEROL TARTRATE 15 MCG/2 ML VIAL NEB SCH (23:10)
[2016-12-31 06:55] LABS: ANION GAP 11 (8-16); CALCIUM 8.1 mg/dL (8.5-10.1); CO2 30 mmol/L (21-32); CREATININE 1.1 mg/dL (0.55-1.02); GLUCOSE,RANDOM 93 mg/dL (74-106)
--- NOTE | 2016-12-31 08:02 | PN ---
Progress Note (short form) - Note Progress Note: IMP: Acute on chronic diastolic CHF Permanent AF PAD s/p LE embolectomy REC: IV Lasix and supplimental O2 with daily electrolyte panel Echo Continue AC, heart rate is well controlled averaging 60 bpm on telemetry.
--- NOTE | 2016-12-31 08:22 | CONS ---
DATE OF CONSULTATION: 12/31/2016 REQUESTING PHYSICIAN: Al Durham MD REASON FOR CONSULTATION: Congestive heart failure. HISTORY OF PRESENT ILLNESS: The patient is an 89-year-old female with permanent atrial fibrillation on anticoagulation, history of lower extremity embolism, status post embolectomy, chronic hypertension, who presented to the emergency room yesterday with mild shortness of breath, generalized weakness, and lightheadedness. She was found to have a markedly elevated BNP consistent with decompensated congestive heart failure. She denies chest pain, syncope. She has had some difficulty lying flat at night. She denies fevers, chills, or cough. PAST MEDICAL HISTORY: As outlined above and also includes hyperlipidemia, seasonal allergies. MEDICATIONS: Currently include Tylenol 650 p.o. q.6 p.r.n., Eliquis 5 mg p.o. b.i.d. which she is also on at home, Brovana, Lipitor 10 mg at bedtime, digoxin 0.125 mg daily, Colace 100 mg p.o. b.i.d. p.r.n., Lasix 40 mg IV daily (at home was on 20 mg p.o. daily), and Toprol XL 50 mg p.o. b.i.d. ALLERGIES: None. FAMILY HISTORY: Noncontributory. SOCIAL HISTORY: Lives at home with her . Nonsmoker. Primarily relegated to a wheelchair now but has been participating in rehabilitation. PHYSICAL EXAMINATION: General: Seen and examined in the ICU. In no acute distress. Vital Signs: Afebrile, temperature 97.2. Telemetry shows atrial fibrillation with an average rate of 60 beats per minute. Blood pressure 150/74. Of note, blood pressure on admission 177/95. O2 saturation 96% on 2 L. HEENT: She is anicteric. Neck: There is elevation of the jugular venous pulsation to about 9 cm. Heart: S1, 2 irregular. No murmurs. Chest: Bibasilar rales [address] Abdomen: Soft. Extremities: No edema. ELECTROCARDIOGRAM: EKG showed atrial fibrillation at 68 beats per minute with nonspecific ST changes, possibly secondary to digoxin effect. LABORATORIES: CBC: White count 10.1, hematocrit 36.7, platelets 292. Sodium 141, potassium 3.2, creatinine 1.1. BNP 1388. CK and troponin are negative x2 sets. ASSESSMENT: 1. Acute on chronic decompensated diastolic congestive heart failure, likely secondary to hypertension. 2. Permanent atrial fibrillation, on anticoagulation. 3. Peripheral arterial disease, status post embolectomy. PLAN: 1. Telemetry. 2. IV Lasix daily with daily electrolyte panel to follow potassium, magnesium, and renal function. 3. Repeat echocardiogram. 4. Check digoxin level. 5. Continue anticoagulation, continue home rate control medications as heart rate is well controlled, averaging 60 beats per minute on telemetry. Thank you for the consultation. MIGUEL A WALLACE M.D. [id number]
[2016-12-31 09:39] LABS: DIGOXIN LEVEL 1.2407 ng/ml (0.8-2.0)
[2016-12-31] MEDS: KCL 10 MEQ IVPB 100 ML IVPB SCH ×2 (10:10→11:32)
[2016-12-31] MEDS: ARFORMOTEROL TARTRATE 15 MCG/2 ML VIAL NEB SCH ×2 (10:32→22:52)
[2016-12-31] MEDS ORDERED: PT OWN MED DRAWER 7, Y5N ONE ×3 (10:33→13:46)
[2016-12-31] MEDS: METOPROLOL SUCCINATE 50 MG TAB.SR.24H (FP) PO SCH ×2 (10:36→22:54)
[2016-12-31] MEDS: FUROSEMIDE 40 MG/4 ML INJECTABLE VIAL IVPUSH SCH (10:36)
--- NOTE | 2016-12-31 11:03 | PN ---
Progress Note, Physician Chief Complaint: AWAKE ALERT FEELS TIRED STILL SOB - Current Medication List Current Medications: Active Medications Acetaminophen (Tylenol -) 650 mg PO Q6H PRN PRN Reason: FEVER OR PAIN Apixaban (Eliquis -) 5 mg PO BID [facility] Last Admin: 12/30/16 22:41 Dose: 5 mg Arformoterol Tartrate (Brovana (Restricted To Pulmonology/Resp) -) 1 amp NEB BID [facility] Last Admin: 12/31/16 10:32 Dose: 1 amp Atorvastatin Calcium (Lipitor -) 10 mg PO HS [facility] Last Admin: 12/30/16 22:41 Dose: 10 mg Digoxin (Lanoxin -) 0.125 mg PO DAILY [facility] Docusate Sodium (Colace -) 100 mg PO BID PRN PRN Reason: CONSTIPATION Furosemide (Lasix Injection -) 40 mg IVPUSH DAILY [facility] Last Admin: 12/31/16 10:36 Dose: 40 mg Metoprolol Succinate (Toprol Xl -) 50 mg PO BID [facility] Last Admin: 12/31/16 10:36 Dose: 50 mg Potassium Chloride (Potassium Chloride Oral Liquid) 20 meq PO DAILY [facility] - Objective Vital Signs: Vital Signs Temperature 97.9 F 12/31/16 08:00 Pulse Rate 53 L 12/31/16 08:00 Respiratory Rate 19 12/31/16 08:00 Blood Pressure 157/68 12/31/16 08:00 O2 Sat by Pulse Oximetry (%) 96 12/30/16 23:03 Constitutional: Yes: Mild Distress Eyes: Yes: WNL HENT: Yes: WNL Neck: Yes: WNL Cardiovascular: Yes: Pulse Irregular Respiratory: Yes: On Nasal O2, SOB, Other Gastrointestinal: Yes: WNL Genitourinary: Yes: WNL Musculoskeletal: Yes: Muscle Weakness Extremities: Yes: Erythema, Other Edema: Yes Edema: LLE: 1+, RLE: 1+ Peripheral Pulses WNL: Yes Integumentary: Yes: Erythema Wound/Incision: Yes: Dressing Dry and Intact Neurological: Yes: Pre-Existing Deficit, Unsteady Gait, Weakness ...Motor Strength: LLE, RLE Psychiatric: Yes: WNL Labs: CBC, BMP 12/31/16 05:20 INR, PTT INR 2.00 (0.82-1.09) H D 12/30/16 14:12 Problem List - Problems (1) Arthritis Code(s): M19.90 - UNSPECIFIED OSTEOARTHRITIS, UNSPECIFIED SITE (2) Atrial fibrillation Code(s): I48.91 - UNSPECIFIED ATRIAL FIBRILLATION Qualifiers: Atrial fibrillation type: chronic Qualified Code(s): I48.2 - Chronic atrial fibrillation (3) CVA (cerebral vascular accident) Code(s): I63.9 - CEREBRAL INFARCTION, UNSPECIFIED (4) HTN (hypertension) Code(s): I10 - ESSENTIAL (PRIMARY) HYPERTENSION Qualifiers: (5) TIA (transient ischemic attack) Code(s): G45.9 - TRANSIENT CEREBRAL ISCHEMIC ATTACK, UNSPECIFIED (6) Edema Code(s): R60.9 - EDEMA, UNSPECIFIED (7) Syncope Code(s): R55 - SYNCOPE AND COLLAPSE (8) Acute on chronic diastolic (congestive) heart failure Code(s): I50.33 - ACUTE ON CHRONIC DIASTOLIC (CONGESTIVE) HEART FAILURE Assessment/Plan IV LASIX IV KCL REPLETED LM GUY PULDestin CONSULT LABS REVIEWED PT EDITH
[2016-12-31] MEDS: DIGOXIN 0.125 MG TABLET (FP) PO SCH (11:30)
--- NOTE | 2016-12-31 12:41 | CON.PULM ---
Consult Consult Specialty:: PULMONARY Referred by:: Dr. Durham Reason for Consultation:: shortness of breath - History of Present Illness Chief Complaint: shortness of breath History of Present Illness: 89yo female with h/o HTN, hyperlipidemia, atrial fibrillation, h/o TIA, recent left femoral embolectomy who was admitted with worsening shortness of breath x 3 -4 days. Does report some chest discomfort across her chest and to the back. Reports some nonproductive cough and wheezing as well. No fevers, chills or sweats. Reports increased left leg swelling that started since her embolectomy. Sleeps on 1 pillow. Denies awaking at night short of breath. Denies history of asthma or COPD. 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 Cardio/Vascular: Yes: AFIB (new onset), HTN, Hyperlipdemia Musculoskeletal: Yes: Chronic low back pain (LAMINECTOMY), Osteoarthritis - Past Surgical History Past Surgical History: Yes: Laminectomy - Alcohol/Substance Use Hx Alcohol Use: No History of Substance Use: reports: None - Smoking History Smoking history: Never smoked Have you smoked in the past 12 months: No - Social History ADL: Family Assistance Home Medications - Allergies Allergies/Adverse Reactions: Allergies Allergy/AdvReac Type Severity Reaction Status Date / Time No Known Allergies Allergy Verified 12/30/16 13:06 - Home Medications Home Medications: Ambulatory Orders Cholecalciferol (Vitamin D3) [Vitamin D3] 50,000 unit PO WEEKLY 08/31/16 Sennosides/Docusate Sodium [Senna Plus Tablet] 1 each PO HS 08/31/16 Simvastatin [Zocor -] 40 mg PO HS 08/31/16 Acetaminophen [Tylenol] 650 mg PO PRN MDD 650 mg 09/01/16 Docusate Sodium [Colace -] 100 mg PO HS 09/01/16 Apixaban [Eliquis -] 5 mg PO BID tablet 10/21/16 Metoprolol Succinate [Toprol XL -] 50 mg PO BID tab 10/21/16 Digoxin [Lanoxin -] 0.125 mg PO DAILY #30 tablet 10/22/16 Cetirizine HCl [Zyrtec -] 10 mg PO DAILY 12/30/16 Furosemide [Lasix -] 20 mg PO DAILY 12/30/16 Review of Systems - Review of Systems Constitutional: denies: Chills, Fever Eyes: denies: Recent Change in Vision HENT: denies: Nasal Congestion, Throat Pain Neck: denies: Stiffness, Tenderness Cardiovascular: reports: Chest Pain, Edema, Shortness of Breath. denies: Palpitations Respiratory: reports: Cough, Exercise Intolerance, SOB on Exertion, Wheezing. denies: Hemoptysis Gastrointestinal: denies: Abdominal Pain, Nausea, Vomiting Genitourinary: denies: Dysuria, Hematuria Neurological: reports: Dizziness. denies: Headache Physical Exam Vital Sings: Vital Signs Temperature 97.9 F 12/31/16 08:00 Pulse Rate 66 12/31/16 11:30 Respiratory Rate 19 12/31/16 08:00 Blood Pressure 157/68 12/31/16 08:00 O2 Sat by Pulse Oximetry (%) 96 12/30/16 23:03 Constitutional: Yes: Calm Eyes: Yes: Conjunctiva Clear, EOM Intact HENT: Yes: Atraumatic, Normocephalic Neck: Yes: Supple, Trachea Midline Cardiovascular: Yes: Pulse Irregular Respiratory: Yes: Diminished (decreased breath sounds at the bases) ...Clubbing: No Gastrointestinal: Yes: Normal Bowel Sounds, Soft. No: Tenderness Edema: Yes Neurological: Yes: Alert, Oriented Labs: CBC, BMP 12/31/16 05:20 Imaging - Results Chest X-ray: Report Reviewed, Image Reviewed (no infiltrates) Problem List - Problems (1) Acute on chronic diastolic (congestive) heart failure Code(s): I50.33 - ACUTE ON CHRONIC DIASTOLIC (CONGESTIVE) HEART FAILURE (2) Mitral regurgitation Code(s): I34.0 - NONRHEUMATIC MITRAL (VALVE) INSUFFICIENCY (3) Pulmonary hypertension Code(s): I27.2 - OTHER SECONDARY PULMONARY HYPERTENSION (4) Tricuspid regurgitation Code(s): I07.1 - RHEUMATIC TRICUSPID INSUFFICIENCY Qualifiers: Cardiac valve disease etiology: nonrheumatic Qualified Code(s): I36.1 - Nonrheumatic tricuspid (valve) insufficiency (5) Atrial fibrillation Code(s): I48.91 - UNSPECIFIED ATRIAL FIBRILLATION Qualifiers: Atrial fibrillation type: chronic Qualified Code(s): I48.2 - Chronic atrial fibrillation (6) HTN (hypertension) Code(s): I10 - ESSENTIAL (PRIMARY) HYPERTENSION Qualifiers: Assessment/Plan Acute on Chronic Diastolic Heart Failure Mod-Severe Mitral Regurgitatioon Pulmonary HTN/Tricuspid Regurgitation Atrial Fibrillation HTN Hyperlipidemia - continue IV lasix - monitor urine output, creatinine - replete lytes - beta chayo - YAKELIN-I/ARB - O2 to keep SpO2 >90% - inhaled bronchodilators as needed - rate controlled - continue anticoagulation Thank you for this consult Armando Cartagena MD
[2016-12-31] MEDS: APIXABAN 5 MG TABLET PO SCH ×2 (14:41→22:53)
--- NOTE | 2016-12-31 18:24 | CONSULT ---
Consult Consult Specialty:: Nephrology Reason for Consultation:: CKD and hypokalemia - History of Present Illness Chief Complaint: shortness of breath History of Present Illness: Pt is an 89 year old female with pmhx of a-fib, HTN, TIA, left femoral ebolectomy, and chol who presents to the ER with shortness of breath that has been getting worse. She also had chest pain. She was found to have elevated creatinine and I was called to evaluate her. She denies history of CKD although she has had abnormal creatinine values in the past. She denies dysuria or hematuria. She denies nsaid use. She complains of lower extremity edema. She denies palpitations. 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 Cardio/Vascular: Yes: AFIB (new onset), HTN, Hyperlipdemia Renal/: Yes: Renal Inusuff Musculoskeletal: Yes: Chronic low back pain (LAMINECTOMY), Osteoarthritis - Past Surgical History Past Surgical History: Yes: Laminectomy - Alcohol/Substance Use Hx Alcohol Use: No History of Substance Use: reports: None - Smoking History Smoking history: Never smoked Have you smoked in the past 12 months: No - Social History ADL: Family Assistance Home Medications - Allergies Allergies/Adverse Reactions: Allergies Allergy/AdvReac Type Severity Reaction Status Date / Time No Known Allergies Allergy Verified 12/30/16 13:06 - Home Medications Home Medications: Ambulatory Orders Cholecalciferol (Vitamin D3) [Vitamin D3] 50,000 unit PO WEEKLY 08/31/16 Sennosides/Docusate Sodium [Senna Plus Tablet] 1 each PO HS 08/31/16 Simvastatin [Zocor -] 40 mg PO HS 08/31/16 Acetaminophen [Tylenol] 650 mg PO PRN MDD 650 mg 09/01/16 Docusate Sodium [Colace -] 100 mg PO HS 09/01/16 Apixaban [Eliquis -] 5 mg PO BID tablet 10/21/16 Metoprolol Succinate [Toprol XL -] 50 mg PO BID tab 10/21/16 Digoxin [Lanoxin -] 0.125 mg PO DAILY #30 tablet 10/22/16 Cetirizine HCl [Zyrtec -] 10 mg PO DAILY 12/30/16 Furosemide [Lasix -] 20 mg PO DAILY 12/30/16 Family Disease History - Family Disease History Family History: Denies Review of Systems - Review of Systems Constitutional: reports: No Symptoms Eyes: reports: No Symptoms HENT: reports: No Symptoms Neck: reports: No Symptoms Cardiovascular: reports: Edema, Shortness of Breath Respiratory: reports: SOB, SOB on Exertion Genitourinary: reports: No Symptoms Musculoskeletal: reports: No Symptoms Integumentary: reports: No Symptoms Neurological: reports: No Symptoms Endocrine: reports: No Symptoms Hematology/Lymphatic: reports: No Symptoms Physical Exam Vital Signs: Vital Signs Temperature 98.9 F 12/31/16 18:00 Pulse Rate 65 12/31/16 18:00 Respiratory Rate 19 12/31/16 18:00 Blood Pressure 144/83 12/31/16 18:00 O2 Sat by Pulse Oximetry (%) 98 12/31/16 09:00 Constitutional: Yes: Calm Eyes: Yes: Conjunctiva Clear HENT: Yes: Atraumatic Neck: Yes: Supple Cardiovascular: Yes: S1, S2 Respiratory: Yes: CTA Bilaterally Gastrointestinal: Yes: Soft Renal/: Yes: WNL Musculoskeletal: Yes: WNL Neurological: Yes: Oriented Psychiatric: Yes: Oriented Labs: CBC, BMP 12/31/16 05:20 Laboratory Tests 10/15/16 10/20/16 12/30/16 07:55 05:35 14:12 WBC 10.1 H Sodium Potassium Creatinine 1.3 H 1.1 H Magnesium B-Natriuretic Peptide 12/30/16 12/31/16 12/31/16 14:12 05:20 08:27 WBC Sodium 141 Potassium 4.0 3.2 L Creatinine 1.1 H Magnesium 2.0 B-Natriuretic Peptide 88812.82 H Imaging - Results Chest X-ray: Report Reviewed Ultrasound: Report Reviewed (neg dvt) Problem List - Problems (1) Acute on chronic diastolic (congestive) heart failure Code(s): I50.33 - ACUTE ON CHRONIC DIASTOLIC (CONGESTIVE) HEART FAILURE (2) Atrial fibrillation Code(s): I48.91 - UNSPECIFIED ATRIAL FIBRILLATION Qualifiers: Atrial fibrillation type: chronic Qualified Code(s): I48.2 - Chronic atrial fibrillation (3) CVA (cerebral vascular accident) Code(s): I63.9 - CEREBRAL INFARCTION, UNSPECIFIED (4) HTN (hypertension) Code(s): I10 - ESSENTIAL (PRIMARY) HYPERTENSION Qualifiers: (5) CKD (chronic kidney disease) Code(s): N18.9 - CHRONIC KIDNEY DISEASE, UNSPECIFIED Assessment/Plan Current Medications Generic Name Dose Route Start Last Admin Trade Name Freq PRN Reason Stop Dose Admin Acetaminophen 650 mg 12/30/16 17:36 Tylenol - PO Q6H PRN FEVER OR PAIN Apixaban 5 mg 12/30/16 22:00 12/31/16 14:41 Eliquis - PO 5 mg BID DEVANTE Administration Arformoterol Tartrate 1 amp 12/30/16 22:00 12/31/16 10:32 Brovana (Restricted To Pulmonology/Resp) - NEB 1 amp BID DEVANTE Administration Atorvastatin Calcium 10 mg 12/30/16 22:00 12/30/16 22:41 Lipitor - PO 10 mg HS DEVANTE Administration Digoxin 0.125 mg 12/31/16 10:00 12/31/16 11:30 Lanoxin - PO 0.125 mg DAILY DEVANTE Administration Docusate Sodium 100 mg 12/30/16 17:36 Colace - PO BID PRN CONSTIPATION Furosemide 40 mg 12/30/16 16:45 12/31/16 10:36 Lasix Injection - IVPUSH 40 mg DAILY DEVANTE Administration Losartan Potassium 25 mg 01/01/17 10:00 Cozaar - PO DAILY DEVANTE Metoprolol Succinate 50 mg 12/30/16 22:00 12/31/16 10:36 Toprol Xl - PO 50 mg BID DEVANTE Administration Potassium Chloride 20 meq 01/01/17 10:00 Potassium Chloride Oral Liquid PO DAILY DEVANTE Impression 1. CKD 2. hypokalemia 3. chol 4. TIA 5. a-fib 6. HTN Plan - check ua - send urine prt to chicken sexer ratio - check ultrasound kidneys and bladder - can have renal workup as outpt - cont lasix - replace potassium - monitor mag Dr Bhatia
--- NOTE | 2016-12-31 20:07 | CON.NEURO ---
Consult Consult Specialty:: NEUROLOGY-[facility] Reason for Consultation:: Dizziness - History of Present Illness Chief Complaint: Dizziness History of Present Illness: The patient is a 89 year old female, with significant past medical history of Afib, hypertension, hyperlipidemia, TIA (approximately 3 months ago), left femoral embolectomy, who presents to the emergency department via ambulance complaining of a couple of days of dyspnea on exertion, and 1 episode of chest pain that began this morning and lasted approximately half an hour. She explains that she became lightheaded in the bathroom today after urinating. She walked to her bedroom to lay down, but the pain would not resolve. She describes the chest pain as a pressure across her chest that radiates between her shoulder blades. She notes that over the past week she has been feeling more short of breath when walking. She does not have any chest pain at this moment. She notes that her left leg has been more swollen than the right leg since the femoral embolectomy on 10/17/16. She reports having had a 'mini-stroke ' a few months ago but did not have residual signs. Ambulant with a walker since embolectomy.. 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 of cervical laminectomy and ?? fusion a few years ago. She has urinary incontinence for past few years.) Cardio/Vascular: Yes: AFIB (new onset), HTN, Hyperlipdemia Musculoskeletal: Yes: Chronic low back pain (LAMINECTOMY), Osteoarthritis - Past Surgical History Past Surgical History: Yes: Laminectomy - Alcohol/Substance Use Hx Alcohol Use: No History of Substance Use: reports: None - Smoking History Smoking history: Never smoked Have you smoked in the past 12 months: No - Social History ADL: Family Assistance Home Medications - Allergies Allergies/Adverse Reactions: Allergies Allergy/AdvReac Type Severity Reaction Status Date / Time No Known Allergies Allergy Verified 12/30/16 13:06 - Home Medications Home Medications: Ambulatory Orders Cholecalciferol (Vitamin D3) [Vitamin D3] 50,000 unit PO WEEKLY 08/31/16 Sennosides/Docusate Sodium [Senna Plus Tablet] 1 each PO HS 08/31/16 Simvastatin [Zocor -] 40 mg PO HS 08/31/16 Acetaminophen [Tylenol] 650 mg PO PRN MDD 650 mg 09/01/16 Docusate Sodium [Colace -] 100 mg PO HS 09/01/16 Apixaban [Eliquis -] 5 mg PO BID tablet 10/21/16 Metoprolol Succinate [Toprol XL -] 50 mg PO BID tab 10/21/16 Digoxin [Lanoxin -] 0.125 mg PO DAILY #30 tablet 10/22/16 Cetirizine HCl [Zyrtec -] 10 mg PO DAILY 12/30/16 Furosemide [Lasix -] 20 mg PO DAILY 12/30/16 Physical Exam-Neuro Vital Signs: Vital Signs Temperature 98.9 F 12/31/16 18:00 Pulse Rate 65 12/31/16 18:00 Respiratory Rate 19 12/31/16 18:00 Blood Pressure 144/83 12/31/16 18:00 O2 Sat by Pulse Oximetry (%) 98 12/31/16 09:00 Labs: CBC, BMP 12/31/16 05:20 INR, PTT INR 2.00 (0.82-1.09) H D 12/30/16 14:12 - Neuro Exam Dominant Hand: Right Mini Mental Exam: Intact memory/attention/concenteration DTR's: 0 Left Achilles, 0 Right Achilles, 1+ Left Brachioradialis, 1+ Right Brachioradialis, 2+ Left Bicep, 2+ Right Bicep, 2+ Left Tricep, 2+ Right Tricep Babinski: Present (bilat. upgoing toes) Motor Strength: 5/5: Left Arm, Right Arm, Left Leg, Right Leg Gait: Deferred Problem List - Problems (1) Dizziness Code(s): R42 - DIZZINESS AND GIDDINESS Assessment/Plan Pt. admitted with dizziness and light headedness due to Acute on Chronic Diastolic Heart Failure, has Mod-Severe Mitral Regurgitation, Pulmonary HTN/ Tricuspid Regurgitation, Atrial Fibrillation ,HTN, Hyperlipidemia. Given non- focal neurologic examination and likely hypoxia being the cause of dizziness doubt cerebrovascular ischemic event. would cont. ASA. Thank you, Phani Wong MD
[2016-12-31] MEDS: ATORVASTATIN CA 10 MG TABLET (FP) PO SCH (22:53)
[2017-01-01 07:26] LABS: ALBUMIN 3.3 g/dl (3.4-5.0); ANION GAP 8 (8-16); BILIRUBIN,TOTAL 1.1 mg/dL (0.2-1.0); CALCIUM 8.6 mg/dL (8.5-10.1); CO2 31 mmol/L (21-32); CREATININE 1.2 mg/dL (0.55-1.02); GLUCOSE,RANDOM 101 mg/dL (74-106); SGOT/AST 10 U/L (15-37); SGPT/ALT 19 U/L (12-78); TOT PROT 5.9 g/dl (6.4-8.2)
[2017-01-01 07:27] LABS: ALK PHOS 83 U/L (45-117)
--- NOTE | 2017-01-01 08:09 | PN ---
Progress Note, Physician Chief Complaint: complaining of arthritis in left hand BP elevated TELE: AF, controlled rate. History of Present Illness: weights likely inaccurate - Current Medication List Current Medications: Active Medications Acetaminophen (Tylenol -) 650 mg PO Q6H PRN PRN Reason: FEVER OR PAIN Apixaban (Eliquis -) 5 mg PO BID [facility] Last Admin: 12/31/16 22:53 Dose: 5 mg Arformoterol Tartrate (Brovana (Restricted To Pulmonology/Resp) -) 1 amp NEB BID [facility] Last Admin: 12/31/16 22:52 Dose: 1 amp Atorvastatin Calcium (Lipitor -) 10 mg PO HS [facility] Last Admin: 12/31/16 22:53 Dose: 10 mg Digoxin (Lanoxin -) 0.125 mg PO DAILY [facility] Last Admin: 12/31/16 11:30 Dose: 0.125 mg Docusate Sodium (Colace -) 100 mg PO BID PRN PRN Reason: CONSTIPATION Furosemide (Lasix Injection -) 40 mg IVPUSH DAILY [facility] Last Admin: 12/31/16 10:36 Dose: 40 mg Losartan Potassium (Cozaar -) 25 mg PO DAILY [facility] Metoprolol Succinate (Toprol Xl -) 50 mg PO BID [facility] Last Admin: 12/31/16 22:54 Dose: 50 mg Potassium Chloride (Potassium Chloride Oral Liquid) 20 meq PO DAILY [facility] - Objective Vital Signs: Vital Signs Temperature 98.1 F 01/01/17 06:00 Pulse Rate 62 01/01/17 06:00 Respiratory Rate 18 01/01/17 06:00 Blood Pressure 181/79 01/01/17 06:00 O2 Sat by Pulse Oximetry (%) 98 12/31/16 21:00 Constitutional: Yes: No Distress, Calm Cardiovascular: Yes: Pulse Irregular Respiratory: Yes: Other (bibasilar rales) Gastrointestinal: Yes: Soft Edema: Yes Edema: LLE: 1+, RLE: 1+ Neurological: Yes: Alert, Oriented Labs: CBC, BMP 01/01/17 05:20 INR, PTT INR 2.00 (0.82-1.09) H D 12/30/16 14:12 - ....Imaging EKG: Image Reviewed Assessment/Plan Acute on chronic diastolic CHF Permanent AF PAD s/p LE embolectomy 1. CHF: -Likely due to chronic HTN with concomitant moderate to severe MR -Will begin Losartan 25mg daily for BP control and afterload reduction -Continue IV Lasix with daily BMP to follow renal fxn closely -Maintain K+ 3.5-4 and Mg2+ 2.0 2. Permanent AF: -Continue Eliquis -Rates are well controlled on Toprol and Dig 3. CKD: -Will likely need to accept creat of 1.4-1.5 to maintain euvolemia.
[2017-01-01] MEDS: ACETAMINOPHEN 325 MG TABLET (FP) PO PRN (08:21)
[2017-01-01] MEDS ORDERED: PT OWN MED DRAWER 7, Y5N ONE (09:11)
[2017-01-01] MEDS: FUROSEMIDE 40 MG/4 ML INJECTABLE VIAL IVPUSH SCH (09:20)
[2017-01-01] MEDS: LOSARTAN POTASSIUM 25 MG TABLET PO SCH (09:22)
[2017-01-01] MEDS: DOCUSATE SODIUM 100 MG CAPSULE (FP) PO PRN (09:22)
[2017-01-01] MEDS: DIGOXIN 0.125 MG TABLET (FP) PO SCH (09:22)
[2017-01-01] MEDS: APIXABAN 5 MG TABLET PO SCH ×2 (09:23→22:01)
[2017-01-01] MEDS: METOPROLOL SUCCINATE 50 MG TAB.SR.24H (FP) PO SCH ×2 (09:23→22:00)
--- NOTE | 2017-01-01 09:32 | PN ---
Progress Note (short form) - Note Progress Note: 89 year old female, with significant past medical history of Afib, hypertension , hyperlipidemia, TIA (approximately 3 months ago), left femoral embolectomy, who presents to the emergency department via ambulance complaining of a couple of days of dyspnea on exertion, and 1 episode of chest pain that began this morning and lasted approximately half an hour. She explains that she became lightheaded in the bathroom today after urinating. She walked to her bedroom to lay down, but the pain would not resolve. She describes the chest pain as a pressure across her chest that radiates between her shoulder blades. She notes that over the past week she has been feeling more short of breath when walking. She does not have any chest pain at this moment. She notes that her left leg has been more swollen than the right leg since the femoral embolectomy on . She reports having had a 'mini-stroke' a few months ago but did not have residual signs. Ambulant with a walker since embolectomy.. 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 of cervical laminectomy and ?? fusion a few years ago. She has urinary incontinence for past few years.) Cardio/Vascular: Yes: AFIB (new onset), HTN, Hyperlipdemia Musculoskeletal: Yes: Chronic low back pain (LAMINECTOMY), Osteoarthritis - Past Surgical History Past Surgical History: Yes: Laminectomy - Alcohol/Substance Use Hx Alcohol Use: No History of Substance Use: reports: None - Smoking History Smoking history: Never smoked Have you smoked in the past 12 months: No - Social History ADL: Family Assistance Home Medications - Allergies Allergies/Adverse Reactions: Allergies Allergy/AdvReac Type Severity Reaction Status Date / Time No Known Allergies Allergy Verified 12/30/16 13:06 - Home Medications Home Medications: Ambulatory Orders Cholecalciferol (Vitamin D3) [Vitamin D3] 50,000 unit PO WEEKLY 08/31/16 Sennosides/Docusate Sodium [Senna Plus Tablet] 1 each PO HS 08/31/16 Simvastatin [Zocor -] 40 mg PO HS 08/31/16 Acetaminophen [Tylenol] 650 mg PO PRN MDD 650 mg 09/01/16 Docusate Sodium [Colace -] 100 mg PO HS 09/01/16 Apixaban [Eliquis -] 5 mg PO BID tablet 10/21/16 Metoprolol Succinate [Toprol XL -] 50 mg PO BID tab 10/21/16 Digoxin [Lanoxin -] 0.125 mg PO DAILY #30 tablet 10/22/16 Cetirizine HCl [Zyrtec -] 10 mg PO DAILY 12/30/16 Furosemide [Lasix -] 20 mg PO DAILY 12/30/16 Physical Exam-Neuro Vital Signs: Vital Signs Temperature 98 F 01/01/17 09:00 Pulse Rate 74 01/01/17 09:00 Respiratory Rate 22 01/01/17 09:00 Blood Pressure 144/74 01/01/17 09:00 O2 Sat by Pulse Oximetry (%) 98 12/31/16 21:00 Labs: 12/30/16 14:12 01/01/17 05:20 - Neuro Exam Dominant Hand: Right Mini Mental Exam: Intact memory/attention/concenteration DTR's: 0 Left Achilles, 0 Right Achilles, 1+ Left Brachioradialis, 1+ Right Brachioradialis, 2+ Left Bicep, 2+ Right Bicep, 2+ Left Tricep, 2+ Right Tricep Babinski: Present (bilat. upgoing toes) Motor Strength: 5/5: Left Arm, Right Arm, Left Leg, Right Leg Gait: Deferred Problem List - Problems (1) Dizziness Code(s): R42 - DIZZINESS AND GIDDINESS Assessment/Plan Pt. admitted with dizziness and light headedness due to Acute on Chronic Diastolic Heart Failure, has Mod-Severe Mitral Regurgitation, Pulmonary HTN/ Tricuspid Regurgitation, Atrial Fibrillation ,HTN, Hyperlipidemia. Given non- focal neurologic examination and likely hypoxia being the cause of dizziness doubt cerebrovascular ischemic event. would cont. ELIQUIS/statin, no clear evidence of a TIA consider calling [facility] for arthrtitic pains Dr Baker
--- NOTE | 2017-01-01 09:55 | PN ---
Progress Note, Physician Chief Complaint: C/O ARTHRITIC PAIN NO CP, +SOB - Current Medication List Current Medications: Active Medications Acetaminophen (Tylenol -) 650 mg PO Q6H PRN PRN Reason: FEVER OR PAIN Last Admin: 01/01/17 08:21 Dose: 650 mg Apixaban (Eliquis -) 5 mg PO BID [facility] Last Admin: 01/01/17 09:23 Dose: 5 mg Arformoterol Tartrate (Brovana (Restricted To Pulmonology/Resp) -) 1 amp NEB BID [facility] Last Admin: 12/31/16 22:52 Dose: 1 amp Atorvastatin Calcium (Lipitor -) 10 mg PO HS [facility] Last Admin: 12/31/16 22:53 Dose: 10 mg Digoxin (Lanoxin -) 0.125 mg PO DAILY [facility] Last Admin: 01/01/17 09:22 Dose: 0.125 mg Docusate Sodium (Colace -) 100 mg PO BID PRN PRN Reason: CONSTIPATION Last Admin: 01/01/17 09:22 Dose: 100 mg Furosemide (Lasix Injection -) 40 mg IVPUSH DAILY [facility] Last Admin: 01/01/17 09:20 Dose: 40 mg Loratadine (Claritin -) 10 mg PO DAILY [facility] Losartan Potassium (Cozaar -) 25 mg PO DAILY [facility] Last Admin: 01/01/17 09:22 Dose: 25 mg Metoprolol Succinate (Toprol Xl -) 50 mg PO BID [facility] Last Admin: 01/01/17 09:23 Dose: 50 mg Potassium Chloride (Potassium Chloride Oral Liquid) 20 meq PO DAILY [facility] Last Admin: 01/01/17 09:20 Dose: 20 meq - Objective Vital Signs: Vital Signs Temperature 98 F 01/01/17 09:00 Pulse Rate 68 01/01/17 09:22 Respiratory Rate 22 01/01/17 09:00 Blood Pressure 144/74 01/01/17 09:00 O2 Sat by Pulse Oximetry (%) 98 12/31/16 21:00 Constitutional: Yes: Mild Distress Eyes: Yes: WNL HENT: Yes: WNL Neck: Yes: WNL Cardiovascular: Yes: Pulse Irregular Respiratory: Yes: On Nasal O2 Gastrointestinal: Yes: WNL Genitourinary: Yes: Incontinence Musculoskeletal: Yes: Back Pain, Joint Stiffness, Muscle Pain, Muscle Weakness Extremities: Yes: Deformity Edema: Yes Edema: LLE: 1+, RLE: 1+ Peripheral Pulses WNL: Yes Integumentary: Yes: WNL Wound/Incision: Yes: Clean/Dry Neurological: Yes: Unsteady Gait ...Motor Strength: LLE, RLE Psychiatric: Yes: WNL Labs: CBC, BMP 01/01/17 05:20 INR, PTT INR 2.00 (0.82-1.09) H D 12/30/16 14:12 Problem List - Problems (1) Arthritis Code(s): M19.90 - UNSPECIFIED OSTEOARTHRITIS, UNSPECIFIED SITE (2) Atrial fibrillation Code(s): I48.91 - UNSPECIFIED ATRIAL FIBRILLATION Qualifiers: Atrial fibrillation type: chronic Qualified Code(s): I48.2 - Chronic atrial fibrillation (3) CVA (cerebral vascular accident) Code(s): I63.9 - CEREBRAL INFARCTION, UNSPECIFIED (4) HTN (hypertension) Code(s): I10 - ESSENTIAL (PRIMARY) HYPERTENSION Qualifiers: (5) TIA (transient ischemic attack) Code(s): G45.9 - TRANSIENT CEREBRAL ISCHEMIC ATTACK, UNSPECIFIED (6) Edema Code(s): R60.9 - EDEMA, UNSPECIFIED (7) Syncope Code(s): R55 - SYNCOPE AND COLLAPSE (8) Acute on chronic diastolic (congestive) heart failure Code(s): I50.33 - ACUTE ON CHRONIC DIASTOLIC (CONGESTIVE) HEART FAILURE Assessment/Plan [facility] STARTED FOR HEART FAILURE AND VALVE DISEASE MONITOR RENAL FUNCTION DISCUSSED WITH CARDIOLOGY LAST NIGHT [facility] CONSULT DR MCCLENDON FOR CHRONIC PAIN/HISTORY OF RA AND OSTEOARTHRITIS. 02 SUPPORT LASIX IV FOR DIURESIS
[2017-01-01] MEDS ORDERED: POTASSIUM CHLORIDE ORAL LIQUID 20 MEQ/15 ML PO SCH (10:00)
[2017-01-01] MEDS ORDERED: traMADol HCL 50 MG TABLET PO PRN (10:00)
[2017-01-01] MEDS: ARFORMOTEROL TARTRATE 15 MCG/2 ML VIAL NEB SCH ×2 (10:48→22:19)
--- NOTE | 2017-01-01 10:57 | PN ---
Progress Note, Physician History of Present Illness: PULMONARY ALERT,FEELING BETTER,LESS DYSPNEIC,-CP,LESS COUGH - Current Medication List Current Medications: Active Medications Acetaminophen (Tylenol -) 650 mg PO Q6H PRN PRN Reason: FEVER OR PAIN Last Admin: 01/01/17 08:21 Dose: 650 mg Apixaban (Eliquis -) 5 mg PO BID [facility] Last Admin: 01/01/17 09:23 Dose: 5 mg Arformoterol Tartrate (Brovana (Restricted To Pulmonology/Resp) -) 1 amp NEB BID [facility] Last Admin: 01/01/17 10:48 Dose: 1 amp Atorvastatin Calcium (Lipitor -) 10 mg PO HS [facility] Last Admin: 12/31/16 22:53 Dose: 10 mg Digoxin (Lanoxin -) 0.125 mg PO DAILY [facility] Last Admin: 01/01/17 09:22 Dose: 0.125 mg Docusate Sodium (Colace -) 100 mg PO BID PRN PRN Reason: CONSTIPATION Last Admin: 01/01/17 09:22 Dose: 100 mg Furosemide (Lasix Injection -) 40 mg IVPUSH DAILY [facility] Last Admin: 01/01/17 09:20 Dose: 40 mg Loratadine (Claritin -) 10 mg PO DAILY [facility] Losartan Potassium (Cozaar -) 25 mg PO DAILY [facility] Last Admin: 01/01/17 09:22 Dose: 25 mg Metoprolol Succinate (Toprol Xl -) 50 mg PO BID [facility] Last Admin: 01/01/17 09:23 Dose: 50 mg Potassium Chloride (Potassium Chloride Oral Liquid) 20 meq PO DAILY [facility] Last Admin: 01/01/17 09:20 Dose: 20 meq Tramadol HCl (Ultram -) 50 mg PO Q8H PRN PRN Reason: PAIN - Objective Vital Signs: Vital Signs Temperature 98 F 01/01/17 09:00 Pulse Rate 68 01/01/17 10:48 Respiratory Rate 22 01/01/17 09:00 Blood Pressure 144/74 01/01/17 09:00 O2 Sat by Pulse Oximetry (%) 98 01/01/17 10:48 Constitutional: Yes: Well Nourished, Calm Eyes: Yes: WNL HENT: Yes: WNL Neck: Yes: WNL Cardiovascular: Yes: Pulse Irregular, S1, S2 Respiratory: Yes: Rales (BIBASILAR RALES) Gastrointestinal: Yes: Normal Bowel Sounds, Soft Extremities: Yes: WNL Edema: No Labs: CBC, BMP 01/01/17 05:20 INR, PTT INR 2.00 (0.82-1.09) H D 12/30/16 14:12 Assessment/Plan Problem List - Problems (1) Acute on chronic diastolic (congestive) heart failure Code(s): I50.33 - ACUTE ON CHRONIC DIASTOLIC (CONGESTIVE) HEART FAILURE (2) Mitral regurgitation Code(s): I34.0 - NONRHEUMATIC MITRAL (VALVE) INSUFFICIENCY (3) Pulmonary hypertension Code(s): I27.2 - OTHER SECONDARY PULMONARY HYPERTENSION (4) Tricuspid regurgitation Code(s): I07.1 - RHEUMATIC TRICUSPID INSUFFICIENCY Qualifiers: Cardiac valve disease etiology: nonrheumatic Qualified Code(s): I36.1 - Nonrheumatic tricuspid (valve) insufficiency (5) Atrial fibrillation Code(s): I48.91 - UNSPECIFIED ATRIAL FIBRILLATION Qualifiers: Atrial fibrillation type: chronic Qualified Code(s): I48.2 - Chronic atrial fibrillation (6) HTN (hypertension) Code(s): I10 - ESSENTIAL (PRIMARY) HYPERTENSION Qualifiers: Assessment/Plan Acute on Chronic Diastolic Heart Failure improving Mod-Severe Mitral Regurgitatioon Pulmonary HTN/Tricuspid Regurgitation Atrial Fibrillation HTN Hyperlipidemia - continue IV lasix - monitor urine output - replete lytes - beta chayo - YAKELIN-I/ARB - O2 to keep SpO2 >90% - inhaled bronchodilators as needed - rate control - anticoagulation Dr Bowen
[2017-01-01] MEDS: LORATADINE 10 MG TABLET PO SCH (11:08)
--- NOTE | 2017-01-01 15:26 | PN ---
Progress Note, Physician History of Present Illness: Pt seen and examined at bedside. She is awake and alert. She feels that her breathing is improved. - Current Medication List Current Medications: Active Medications Acetaminophen (Tylenol -) 650 mg PO Q6H PRN PRN Reason: FEVER OR PAIN Last Admin: 01/01/17 08:21 Dose: 650 mg Apixaban (Eliquis -) 5 mg PO BID [facility] Last Admin: 01/01/17 09:23 Dose: 5 mg Arformoterol Tartrate (Brovana (Restricted To Pulmonology/Resp) -) 1 amp NEB BID [facility] Last Admin: 01/01/17 10:48 Dose: 1 amp Atorvastatin Calcium (Lipitor -) 10 mg PO HS [facility] Last Admin: 12/31/16 22:53 Dose: 10 mg Digoxin (Lanoxin -) 0.125 mg PO DAILY [facility] Last Admin: 01/01/17 09:22 Dose: 0.125 mg Docusate Sodium (Colace -) 100 mg PO BID PRN PRN Reason: CONSTIPATION Last Admin: 01/01/17 09:22 Dose: 100 mg Furosemide (Lasix Injection -) 40 mg IVPUSH DAILY [facility] Last Admin: 01/01/17 09:20 Dose: 40 mg Loratadine (Claritin -) 10 mg PO DAILY [facility] Last Admin: 01/01/17 11:08 Dose: 10 mg Losartan Potassium (Cozaar -) 25 mg PO DAILY [facility] Last Admin: 01/01/17 09:22 Dose: 25 mg Metoprolol Succinate (Toprol Xl -) 50 mg PO BID [facility] Last Admin: 01/01/17 09:23 Dose: 50 mg Potassium Chloride (Potassium Chloride Oral Liquid) 20 meq PO DAILY [facility] Last Admin: 01/01/17 09:20 Dose: 20 meq Tramadol HCl (Ultram -) 50 mg PO Q8H PRN PRN Reason: PAIN Last Admin: 01/01/17 11:07 Dose: 50 mg - Objective Vital Signs: Vital Signs Temperature 98.6 F 01/01/17 14:00 Pulse Rate 76 01/01/17 14:00 Respiratory Rate 16 01/01/17 14:00 Blood Pressure 151/75 01/01/17 14:00 O2 Sat by Pulse Oximetry (%) 98 01/01/17 10:48 Constitutional: Yes: Calm Eyes: Yes: Conjunctiva Clear HENT: Yes: Atraumatic Cardiovascular: Yes: S1, S2 Respiratory: Yes: CTA Bilaterally Gastrointestinal: Yes: Soft Genitourinary: Yes: WNL Extremities: Yes: WNL Edema: No Neurological: Yes: Oriented Psychiatric: Yes: Oriented Labs: CBC, BMP 01/01/17 05:20 INR, PTT INR 2.00 (0.82-1.09) H D 12/30/16 14:12 Problem List - Problems (1) Acute on chronic diastolic (congestive) heart failure Code(s): I50.33 - ACUTE ON CHRONIC DIASTOLIC (CONGESTIVE) HEART FAILURE (2) Atrial fibrillation Code(s): I48.91 - UNSPECIFIED ATRIAL FIBRILLATION Qualifiers: Atrial fibrillation type: chronic Qualified Code(s): I48.2 - Chronic atrial fibrillation (3) CVA (cerebral vascular accident) Code(s): I63.9 - CEREBRAL INFARCTION, UNSPECIFIED (4) HTN (hypertension) Code(s): I10 - ESSENTIAL (PRIMARY) HYPERTENSION Qualifiers: (5) CKD (chronic kidney disease) Code(s): N18.9 - CHRONIC KIDNEY DISEASE, UNSPECIFIED Assessment/Plan Current Medications Generic Name Dose Route Start Last Admin Trade Name Freq PRN Reason Stop Dose Admin Acetaminophen 650 mg 12/30/16 17:36 01/01/17 08:21 Tylenol - PO 650 mg Q6H PRN Administration FEVER OR PAIN Apixaban 5 mg 12/30/16 22:00 01/01/17 09:23 Eliquis - PO 5 mg BID [facility] Administration Arformoterol Tartrate 1 amp 12/30/16 22:00 01/01/17 10:48 Brovana (Restricted To Pulmonology/Resp) - NEB 1 amp BID [facility] Administration Atorvastatin Calcium 10 mg 12/30/16 22:00 12/31/16 22:53 Lipitor - PO 10 mg HS [facility] Administration Digoxin 0.125 mg 12/31/16 10:00 01/01/17 09:22 Lanoxin - PO 0.125 mg DAILY [facility] Administration Docusate Sodium 100 mg 12/30/16 17:36 01/01/17 09:22 Colace - PO 100 mg BID PRN Administration CONSTIPATION Furosemide 40 mg 12/30/16 16:45 01/01/17 09:20 Lasix Injection - IVPUSH 40 mg DAILY [facility] Administration Loratadine 10 mg 01/01/17 10:00 01/01/17 11:08 Claritin - PO 10 mg DAILY [facility] Administration Losartan Potassium 25 mg 01/01/17 10:00 01/01/17 09:22 Cozaar - PO 25 mg DAILY [facility] Administration Metoprolol Succinate 50 mg 12/30/16 22:00 01/01/17 09:23 Toprol Xl - PO 50 mg BID [facility] Administration Potassium Chloride 20 meq 01/01/17 10:00 01/01/17 09:20 Potassium Chloride Oral Liquid PO 20 meq DAILY [facility] Administration Tramadol HCl 50 mg 01/01/17 10:00 01/01/17 11:07 Ultram - PO 50 mg Q8H PRN Administration PAIN Laboratory Tests 12/30/16 14:12 Urine Protein 1+ H Urine Blood 1+ H Impression 1. CKD 2. hypokalemia 3. chol 4. TIA 5. a-fib 6. HTN Plan - monitor renal function - follow up renal ultrasound - urine studies reviewed - outpt ckd workup - cont losartan Dr Bhatia
[2017-01-01 20:40] LABS: URINE APPEARANCE CLOUDY; URINE BILIRUBIN NEGATIVE (NEGATIVE); URINE BLOOD 2+ (NEGATIVE); URINE COLOR YELLOW; URINE GLUCOSE (UA) NEGATIVE (NEGATIVE); URINE KETONE NEGATIVE (NEGATIVE); URINE NITRITE NEGATIVE (NEGATIVE); URINE UROBILINOGEN NEGATIVE mg/dL (0.2-1.0)
[2017-01-01 21:02] LABS: URINE LEUK ESTERASE 3+ (NEGATIVE); URINE PROTEIN 1+ (NEGATIVE)
[2017-01-01 21:03] LABS: URINE BACTERIA RARE /hpf (NONE SEEN); URINE HYALINE CAST 1 /lpf; URINE MUCUS RARE; URINE RBC 4 /hpf (0-3); URINE WBC 416 /hpf (3-5)
[2017-01-01 21:11] LABS: URINE CREATININE 71.7 mg/dL (20-320)
[2017-01-01] MEDS: ATORVASTATIN CA 10 MG TABLET (FP) PO SCH (22:00)
[2017-01-02 06:43] LABS: ANION GAP 8 (8-16); CALCIUM 8.8 mg/dL (8.5-10.1); CO2 33 mmol/L (21-32); CREATININE 1.2 mg/dL (0.55-1.02); GLUCOSE,RANDOM 107 mg/dL (74-106); MAGNESIUM 1.9 mg/dL (1.8-2.4)
--- NOTE | 2017-01-02 08:34 | PN ---
Progress Note, Physician Chief Complaint: feeling better TELE: controlled AF BP trend improved Is/Os and weights not reliable - Current Medication List Current Medications: Active Medications Acetaminophen (Tylenol -) 650 mg PO Q6H PRN PRN Reason: FEVER OR PAIN Last Admin: 01/01/17 08:21 Dose: 650 mg Apixaban (Eliquis -) 5 mg PO BID [facility] Last Admin: 01/01/17 22:01 Dose: 5 mg Arformoterol Tartrate (Brovana (Restricted To Pulmonology/Resp) -) 1 amp NEB BID [facility] Last Admin: 01/01/17 22:19 Dose: 1 amp Atorvastatin Calcium (Lipitor -) 10 mg PO HS [facility] Last Admin: 01/01/17 22:00 Dose: 10 mg Digoxin (Lanoxin -) 0.125 mg PO DAILY [facility] Last Admin: 01/01/17 09:22 Dose: 0.125 mg Docusate Sodium (Colace -) 100 mg PO BID PRN PRN Reason: CONSTIPATION Last Admin: 01/01/17 09:22 Dose: 100 mg Furosemide (Lasix Injection -) 40 mg IVPUSH DAILY [facility] Last Admin: 01/01/17 09:20 Dose: 40 mg Loratadine (Claritin -) 10 mg PO DAILY [facility] Last Admin: 01/01/17 11:08 Dose: 10 mg Losartan Potassium (Cozaar -) 25 mg PO DAILY [facility] Last Admin: 01/01/17 09:22 Dose: 25 mg Metoprolol Succinate (Toprol Xl -) 50 mg PO BID [facility] Last Admin: 01/01/17 22:00 Dose: 50 mg Potassium Chloride (Potassium Chloride Oral Liquid) 20 meq PO DAILY [facility] Last Admin: 01/01/17 09:20 Dose: 20 meq Tramadol HCl (Ultram -) 50 mg PO Q8H PRN PRN Reason: PAIN Last Admin: 01/01/17 11:07 Dose: 50 mg - Objective Vital Signs: Vital Signs Temperature 99 F 01/02/17 06:00 Pulse Rate 80 01/02/17 06:00 Respiratory Rate 16 01/02/17 06:00 Blood Pressure 134/99 01/02/17 06:00 O2 Sat by Pulse Oximetry (%) 98 01/01/17 21:00 Constitutional: Yes: No Distress Cardiovascular: Yes: Pulse Irregular Respiratory: Yes: Other (improved rales bases.) Gastrointestinal: Yes: Soft Edema: No Neurological: Yes: Alert Labs: CBC, BMP 01/02/17 05:20 INR, PTT INR 2.00 (0.82-1.09) H D 12/30/16 14:12 Laboratory Tests 01/01/17 01/02/17 05:20 05:20 Sodium 138 135 L Potassium 3.4 L 3.8 Creatinine 1.2 H 1.2 H Magnesium 1.9 - ....Imaging EKG: Image Reviewed Assessment/Plan Assessment/Plan Acute on chronic diastolic CHF Permanent AF PAD s/p LE embolectomy 1. CHF: -Likely due to chronic HTN with concomitant moderate to severe MR, BP now improved. -Continue Losartan 25mg daily for BP control and afterload reduction- creatinine stable. -Continue IV Lasix today, switch to 40mg PO daily tomorrow. -Maintain K+ 3.5-4 and Mg2+ 2.0. Stop standing K+ suppliment. 2. Permanent AF: -Continue Eliquis -Rates are well controlled on Toprol and Dig
[2017-01-02] MEDS ORDERED: PT OWN MED DRAWER 7, Y5N ONE (09:38)
[2017-01-02] MEDS: APIXABAN 5 MG TABLET PO SCH ×2 (09:38→22:01)
[2017-01-02] MEDS: FUROSEMIDE 40 MG/4 ML INJECTABLE VIAL IVPUSH SCH (09:39)
[2017-01-02] MEDS: LORATADINE 10 MG TABLET PO SCH (09:39)
[2017-01-02] MEDS: METOPROLOL SUCCINATE 50 MG TAB.SR.24H (FP) PO SCH ×2 (09:39→22:01)
[2017-01-02] MEDS: LOSARTAN POTASSIUM 25 MG TABLET PO SCH (09:39)
[2017-01-02] MEDS: DIGOXIN 0.125 MG TABLET (FP) PO SCH (09:39)
[2017-01-02] MEDS: ACETAMINOPHEN 325 MG TABLET (FP) PO PRN (09:50)
[2017-01-02] MEDS: ARFORMOTEROL TARTRATE 15 MCG/2 ML VIAL NEB SCH ×2 (10:24→22:44)
--- NOTE | 2017-01-02 11:22 | PN ---
Progress Note, Physician Chief Complaint: AWAKE, BEDSIDE C/O PAIN IN JOINTS - Current Medication List Current Medications: Active Medications Acetaminophen (Tylenol -) 650 mg PO Q6H PRN PRN Reason: FEVER OR PAIN Last Admin: 01/02/17 09:50 Dose: 650 mg Apixaban (Eliquis -) 5 mg PO BID [facility] Last Admin: 01/02/17 09:38 Dose: 5 mg Arformoterol Tartrate (Brovana (Restricted To Pulmonology/Resp) -) 1 amp NEB BID [facility] Last Admin: 01/02/17 10:24 Dose: 1 amp Atorvastatin Calcium (Lipitor -) 10 mg PO HS [facility] Last Admin: 01/01/17 22:00 Dose: 10 mg Digoxin (Lanoxin -) 0.125 mg PO DAILY [facility] Last Admin: 01/02/17 09:39 Dose: 0.125 mg Docusate Sodium (Colace -) 100 mg PO BID PRN PRN Reason: CONSTIPATION Last Admin: 01/01/17 09:22 Dose: 100 mg Furosemide (Lasix Injection -) 40 mg IVPUSH DAILY [facility] Last Admin: 01/02/17 09:39 Dose: 40 mg Loratadine (Claritin -) 10 mg PO DAILY [facility] Last Admin: 01/02/17 09:39 Dose: 10 mg Losartan Potassium (Cozaar -) 25 mg PO DAILY [facility] Last Admin: 01/02/17 09:39 Dose: 25 mg Metoprolol Succinate (Toprol Xl -) 50 mg PO BID [facility] Last Admin: 01/02/17 09:39 Dose: 50 mg Tramadol HCl (Ultram -) 50 mg PO Q8H PRN PRN Reason: PAIN Last Admin: 01/01/17 11:07 Dose: 50 mg - Objective Vital Signs: Vital Signs Temperature 99 F 01/02/17 06:00 Pulse Rate 79 01/02/17 10:23 Respiratory Rate 16 01/02/17 06:00 Blood Pressure 134/99 01/02/17 06:00 O2 Sat by Pulse Oximetry (%) 99 01/02/17 10:23 Constitutional: Yes: Mild Distress Eyes: Yes: WNL HENT: Yes: WNL Neck: Yes: WNL Cardiovascular: Yes: Pulse Irregular Respiratory: Yes: WNL Gastrointestinal: Yes: WNL Genitourinary: Yes: Incontinence Musculoskeletal: Yes: Joint Stiffness, Joint Swelling, Muscle Pain, Muscle Weakness Extremities: Yes: Other Edema: Yes Edema: LLE: 1+, RLE: 1+ Peripheral Pulses WNL: Yes Integumentary: Yes: WNL Wound/Incision: Yes: Clean/Dry Neurological: Yes: Pre-Existing Deficit, Unsteady Gait, Weakness ...Motor Strength: LLE, RLE Psychiatric: Yes: Agitated, Other Labs: CBC, BMP 01/02/17 05:20 INR, PTT INR 2.00 (0.82-1.09) H D 12/30/16 14:12 Problem List - Problems (1) Arthritis Code(s): M19.90 - UNSPECIFIED OSTEOARTHRITIS, UNSPECIFIED SITE (2) Atrial fibrillation Code(s): I48.91 - UNSPECIFIED ATRIAL FIBRILLATION Qualifiers: Atrial fibrillation type: chronic Qualified Code(s): I48.2 - Chronic atrial fibrillation (3) CVA (cerebral vascular accident) Code(s): I63.9 - CEREBRAL INFARCTION, UNSPECIFIED (4) HTN (hypertension) Code(s): I10 - ESSENTIAL (PRIMARY) HYPERTENSION Qualifiers: (5) TIA (transient ischemic attack) Code(s): G45.9 - TRANSIENT CEREBRAL ISCHEMIC ATTACK, UNSPECIFIED (6) Edema Code(s): R60.9 - EDEMA, UNSPECIFIED (7) Syncope Code(s): R55 - SYNCOPE AND COLLAPSE (8) Acute on chronic diastolic (congestive) heart failure Code(s): I50.33 - ACUTE ON CHRONIC DIASTOLIC (CONGESTIVE) HEART FAILURE Assessment/Plan RHEUM CONSULT APPRECIATED PAIN MEDS BP REPEATED LABS REVIEWED OOB TO CHAIR PT EVAL SNF?
--- NOTE | 2017-01-02 11:45 | PN ---
Progress Note, Physician History of Present Illness: pulmonary alert,feeling better,-sob,-cp - Current Medication List Current Medications: Active Medications Acetaminophen (Tylenol -) 650 mg PO Q6H PRN PRN Reason: FEVER OR PAIN Last Admin: 01/02/17 09:50 Dose: 650 mg Apixaban (Eliquis -) 5 mg PO BID [facility] Last Admin: 01/02/17 09:38 Dose: 5 mg Arformoterol Tartrate (Brovana (Restricted To Pulmonology/Resp) -) 1 amp NEB BID [facility] Last Admin: 01/02/17 10:24 Dose: 1 amp Atorvastatin Calcium (Lipitor -) 10 mg PO HS [facility] Last Admin: 01/01/17 22:00 Dose: 10 mg Digoxin (Lanoxin -) 0.125 mg PO DAILY [facility] Last Admin: 01/02/17 09:39 Dose: 0.125 mg Docusate Sodium (Colace -) 100 mg PO BID PRN PRN Reason: CONSTIPATION Last Admin: 01/01/17 09:22 Dose: 100 mg Furosemide (Lasix Injection -) 40 mg IVPUSH DAILY [facility] Last Admin: 01/02/17 09:39 Dose: 40 mg Loratadine (Claritin -) 10 mg PO DAILY [facility] Last Admin: 01/02/17 09:39 Dose: 10 mg Losartan Potassium (Cozaar -) 25 mg PO DAILY [facility] Last Admin: 01/02/17 09:39 Dose: 25 mg Metoprolol Succinate (Toprol Xl -) 50 mg PO BID [facility] Last Admin: 01/02/17 09:39 Dose: 50 mg Tramadol HCl (Ultram -) 50 mg PO Q8H PRN PRN Reason: PAIN Last Admin: 01/01/17 11:07 Dose: 50 mg - Objective Vital Signs: Vital Signs Temperature 99 F 01/02/17 06:00 Pulse Rate 79 01/02/17 10:23 Respiratory Rate 16 01/02/17 06:00 Blood Pressure 134/99 01/02/17 06:00 O2 Sat by Pulse Oximetry (%) 99 01/02/17 10:23 Constitutional: Yes: Well Nourished, Calm Eyes: Yes: WNL HENT: Yes: WNL Neck: Yes: WNL Cardiovascular: Yes: Pulse Irregular, S1, S2 Respiratory: Yes: Diminished Gastrointestinal: Yes: Normal Bowel Sounds, Soft Extremities: Yes: WNL Edema: No Labs: CBC, BMP 01/02/17 05:20 INR, PTT INR 2.00 (0.82-1.09) H D 12/30/16 14:12 Assessment/Plan Problem List - Problems (1) Acute on chronic diastolic (congestive) heart failure Code(s): I50.33 - ACUTE ON CHRONIC DIASTOLIC (CONGESTIVE) HEART FAILURE (2) Mitral regurgitation Code(s): I34.0 - NONRHEUMATIC MITRAL (VALVE) INSUFFICIENCY (3) Pulmonary hypertension Code(s): I27.2 - OTHER SECONDARY PULMONARY HYPERTENSION (4) Tricuspid regurgitation Code(s): I07.1 - RHEUMATIC TRICUSPID INSUFFICIENCY Qualifiers: Cardiac valve disease etiology: nonrheumatic Qualified Code(s): I36.1 - Nonrheumatic tricuspid (valve) insufficiency (5) Atrial fibrillation Code(s): I48.91 - UNSPECIFIED ATRIAL FIBRILLATION Qualifiers: Atrial fibrillation type: chronic Qualified Code(s): I48.2 - Chronic atrial fibrillation (6) HTN (hypertension) Code(s): I10 - ESSENTIAL (PRIMARY) HYPERTENSION Qualifiers: Assessment/Plan Acute on Chronic Diastolic Heart Failure improving Mod-Severe Mitral Regurgitatioon Pulmonary HTN/Tricuspid Regurgitation Atrial Fibrillation HTN Hyperlipidemia - continue IV lasix - monitor urine output - replete lytes - beta chayo - YAKELIN-I/ARB - O2 to keep SpO2 >90% - inhaled bronchodilators - rate control - anticoagulation DR CRABTREE
--- NOTE | 2017-01-02 14:33 | PN ---
Progress Note (short form) - Note Progress Note: Current Medications Acetaminophen (Tylenol -) 650 mg PO Q6H PRN PRN Reason: FEVER OR PAIN Last Admin: 01/02/17 09:50 Dose: 650 mg Apixaban (Eliquis -) 5 mg PO BID [facility] [place] Last Admin: 01/02/17 09:38 Dose: 5 mg Arformoterol Tartrate (Brovana (Restricted To Pulmonology/Resp) -) 1 amp NEB BID [facility] Last Admin: 01/02/17 10:24 Dose: 1 amp Atorvastatin Calcium (Lipitor -) 10 mg PO HS [facility] [place] Last Admin: 01/01/17 22:00 Dose: 10 mg Digoxin (Lanoxin -) 0.125 mg PO DAILY [facility] Last Admin: 01/02/17 09:39 Dose: 0.125 mg Docusate Sodium (Colace -) 100 mg PO BID PRN PRN Reason: CONSTIPATION Last Admin: 01/01/17 09:22 Dose: 100 mg Furosemide (Lasix Injection -) 40 mg IVPUSH DAILY [facility] Last Admin: 01/02/17 09:39 Dose: 40 mg Loratadine (Claritin -) 10 mg PO DAILY [facility] Last Admin: 01/02/17 09:39 Dose: 10 mg Losartan Potassium (Cozaar -) 25 mg PO DAILY [facility] [place] Last Admin: 01/02/17 09:39 Dose: 25 mg Metoprolol Succinate (Toprol Xl -) 50 mg PO BID [facility] [place] Last Admin: 01/02/17 09:39 Dose: 50 mg Tramadol HCl (Ultram -) 50 mg PO Q8H PRN PRN Reason: PAIN Last Admin: 01/01/17 11:07 Dose: 50 mg Last Vital Signs Temp Pulse Resp BP Pulse Ox 98.6 F 79 20 121/61 99 01/02/17 10:00 01/02/17 10:23 01/02/17 10:00 01/02/17 10:00 01/02/17 10:23 sleepy, arousable Lungs clear heart s1s1 abd soft ext no edema CBC, BMP 12/30/16 14:12 01/02/17 05:20 IMP- prerenal azotemia renal and bladder sono- no sig PVR left renal cortical cyst- LK 10 cmincidental finding smaller right kidney 7.7 cm Probably CKD atherosclerotic vasc disease stable creat so far Plan- continue to monitor renal function
--- NOTE | 2017-01-02 15:58 | CONSULT ---
Consult Consult Specialty:: Rheumatology - History of Present Illness History of Present Illness: 89 year old female, with significant past medical history of Afib, hypertension , hyperlipidemia, S/P TIA,(approximately 3 months ago), left femoral embolectomy , admitted with decompensated CHF and history of joint pain. HPI. The patient reports she has had pain in hands since she was a young adult. The pain is worse in the morning and it is accompanied by morning stiffness lasting several hours. Apparently her activities of daily living are essentially normal, she has never been seen by a pediatric np and she does not take analgesics. Since the embolectomy she can only walk with a walker. 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: Yes: CVA, TIA Cardio/Vascular: Yes: AFIB (new onset), HTN, Hyperlipdemia Renal/: Yes: Renal Inusuff Musculoskeletal: Yes: Chronic low back pain (LAMINECTOMY), Osteoarthritis Rheumatology: Yes: Other - Past Surgical History Past Surgical History: Yes: Laminectomy - Alcohol/Substance Use Hx Alcohol Use: No History of Substance Use: reports: None - Smoking History Smoking history: Never smoked Have you smoked in the past 12 months: No - Social History ADL: Family Assistance Home Medications - Allergies Allergies/Adverse Reactions: Allergies Allergy/AdvReac Type Severity Reaction Status Date / Time No Known Allergies Allergy Verified 12/30/16 13:06 - Home Medications Home Medications: Ambulatory Orders Cholecalciferol (Vitamin D3) [Vitamin D3] 50,000 unit PO WEEKLY 08/31/16 Sennosides/Docusate Sodium [Senna Plus Tablet] 1 each PO HS 08/31/16 Simvastatin [Zocor -] 40 mg PO HS 08/31/16 Acetaminophen [Tylenol] 650 mg PO PRN MDD 650 mg 09/01/16 Docusate Sodium [Colace -] 100 mg PO HS 09/01/16 Apixaban [Eliquis -] 5 mg PO BID tablet 10/21/16 Metoprolol Succinate [Toprol XL -] 50 mg PO BID tab 10/21/16 Digoxin [Lanoxin -] 0.125 mg PO DAILY #30 tablet 10/22/16 Cetirizine HCl [Zyrtec -] 10 mg PO DAILY 12/30/16 Furosemide [Lasix -] 20 mg PO DAILY 12/30/16 Review of Systems - Review of Systems Constitutional: reports: Malaise Eyes: reports: No Symptoms HENT: reports: No Symptoms Neck: reports: No Symptoms Cardiovascular: reports: Shortness of Breath Respiratory: reports: SOB Gastrointestinal: reports: No Symptoms Musculoskeletal: reports: Other (See HPI) Integumentary: reports: No Symptoms Physical Exam Vital Signs: Vital Signs Temperature 98.6 F 01/02/17 10:00 Pulse Rate 79 01/02/17 10:23 Respiratory Rate 20 01/02/17 10:00 Blood Pressure 121/61 01/02/17 10:00 O2 Sat by Pulse Oximetry (%) 99 01/02/17 10:23 Constitutional: Yes: Mild Distress Eyes: Yes: WNL HENT: Yes: WNL Neck: Yes: WNL Cardiovascular: Yes: WNL Respiratory: Yes: Other (Few crackles in bases.) Gastrointestinal: Yes: WNL Musculoskeletal: Yes: Other (Swelling of wrists, MCPs and PIPs in both hands. Subluxation of MCPs) Labs: CBC, BMP 01/02/17 05:20 Laboratory Tests 12/30/16 01/01/17 01/01/17 20:18 05:20 16:00 Sodium Potassium Chloride Carbon Dioxide Anion Gap BUN Creatinine Creat Clearance w eGFR 42.30 Random Glucose Calcium Magnesium Total Bilirubin 1.1 H D AST 10 L D ALT 19 D Alkaline Phosphatase 83 Creatine Kinase 42 Urine Color Yellow Urine Appearance Cloudy Urine pH 5.0 Ur Specific Saffell 1.020 Urine Protein 1+ H Urine Glucose (UA) Negative Urine Ketones Negative Urine Blood 2+ H Urine Nitrite Negative Urine Bilirubin Negative Urine Urobilinogen Negative Ur Leukocyte Esterase 3+ H Urine RBC 4 Urine WBC 416 Ur Epithelial Cells Rare Urine Bacteria Rare Hyaline Casts 1 Urine Mucus Rare 01/02/17 05:20 Sodium 135 L Potassium 3.8 Chloride 94 L Carbon Dioxide 33 H Anion Gap 8 BUN 20 H Creatinine 1.2 H Creat Clearance w eGFR Random Glucose 107 H Calcium 8.8 Magnesium 1.9 Total Bilirubin AST ALT Alkaline Phosphatase Creatine Kinase Urine Color Urine Appearance Urine pH Ur Specific Saffell Urine Protein Urine Glucose (UA) Urine Ketones Urine Blood Urine Nitrite Urine Bilirubin Urine Urobilinogen Ur Leukocyte Esterase Urine RBC Urine WBC Ur Epithelial Cells Urine Bacteria Hyaline Casts Urine Mucus Problem List - Problems (1) Rheumatoid arthritis Assessment/Plan: Rule out rheumatoid arthritis,. Plan: I requested RF, CCP and X rays of hands. Based on results I can start DMARD. I will have to follow-up as outpatient. Code(s): M06.9 - RHEUMATOID ARTHRITIS, UNSPECIFIED
[2017-01-02] MEDS: cefTRIAXone 1 GM/50 ML BAG (PRE-DOCKED) IVPB SCH (18:55)
--- NOTE | 2017-01-02 19:09 | PN ---
Progress Note (short form) - Note Progress Note: 89 year old female, with significant past medical history of Afib, hypertension , hyperlipidemia, TIA (approximately 3 months ago), left femoral embolectomy, who presents to the emergency department via ambulance complaining of a couple of days of dyspnea on exertion, and 1 episode of chest pain that began this morning and lasted approximately half an hour. She explains that she became lightheaded in the bathroom today after urinating. She walked to her bedroom to lay down, but the pain would not resolve. She describes the chest pain as a pressure across her chest that radiates between her shoulder blades. She notes that over the past week she has been feeling more short of breath when walking. She does not have any chest pain at this moment. She notes that her left leg has been more swollen than the right leg since the femoral embolectomy on . She reports having had a 'mini-stroke' a few months ago but did not have residual signs. Ambulant with a walker since embolectomy.. FU : as of yesterday she was coherent, now wuth nonsensicla speech, appaers to have receptive apashia, flunet though incoherent time of onset unknown, as per nurse was confused since AM seen by rheum CT HD 01/02/17 Moderate atrophy and chronic microvascular ischemic changes. Interval focal lucency/encephalomalacia in the left frontal lobe, anteriorly. No mass lesion, gross acute infarct or intracranial hemorrhage are identified. 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 of cervical laminectomy and ?? fusion a few years ago. She has urinary incontinence for past few years.) Cardio/Vascular: Yes: AFIB (new onset), HTN, Hyperlipdemia Musculoskeletal: Yes: Chronic low back pain (LAMINECTOMY), Osteoarthritis - Past Surgical History Past Surgical History: Yes: Laminectomy - Alcohol/Substance Use Hx Alcohol Use: No History of Substance Use: reports: None - Smoking History Smoking history: Never smoked Have you smoked in the past 12 months: No - Social History ADL: Family Assistance Home Medications - Allergies Allergies/Adverse Reactions: Allergies Allergy/AdvReac Type Severity Reaction Status Date / Time No Known Allergies Allergy Verified 12/30/16 13:06 - Home Medications Home Medications: Ambulatory Orders Cholecalciferol (Vitamin D3) [Vitamin D3] 50,000 unit PO WEEKLY 08/31/16 Sennosides/Docusate Sodium [Senna Plus Tablet] 1 each PO HS 08/31/16 Simvastatin [Zocor -] 40 mg PO HS 08/31/16 Acetaminophen [Tylenol] 650 mg PO PRN MDD 650 mg 09/01/16 Docusate Sodium [Colace -] 100 mg PO HS 09/01/16 Apixaban [Eliquis -] 5 mg PO BID tablet 10/21/16 Metoprolol Succinate [Toprol XL -] 50 mg PO BID tab 10/21/16 Digoxin [Lanoxin -] 0.125 mg PO DAILY #30 tablet 10/22/16 Cetirizine HCl [Zyrtec -] 10 mg PO DAILY 12/30/16 Furosemide [Lasix -] 20 mg PO DAILY 12/30/16 Physical Exam-Neuro Vital Signs: Vital Signs Temperature 98.8 F 01/02/17 15:51 Pulse Rate 86 01/02/17 15:51 Respiratory Rate 20 01/02/17 15:51 Blood Pressure 141/90 01/02/17 15:51 O2 Sat by Pulse Oximetry (%) 99 01/02/17 10:23 Labs: CBCD WBC 10.1 K/mm3 (4.0-10.0) H 12/30/16 14:12 RBC 3.99 M/mm3 (3.60-5.2) 12/30/16 14:12 Hgb 12.1 GM/dL (10.7-15.3) D 12/30/16 14:12 Hct 36.7 % (32.4-45.2) D 12/30/16 14:12 MCV 91.9 fl (80-96) 12/30/16 14:12 MCHC 33.0 g/dl (32.0-36.0) 12/30/16 14:12 RDW 15.4 % (11.6-15.6) D 12/30/16 14:12 Plt Count 292 K/MM3 (134-434) 12/30/16 14:12 MPV 7.1 fl (7.5-11.1) L 12/30/16 14:12 CMP Sodium 135 mmol/L (136-145) L 01/02/17 05:20 Potassium 3.8 mmol/L (3.5-5.1) 01/02/17 05:20 Chloride 94 mmol/L (98-107) L 01/02/17 05:20 Carbon Dioxide 33 mmol/L (21-32) H 01/02/17 05:20 Anion Gap 8 (8-16) 01/02/17 05:20 BUN 20 mg/dL (7-18) H 01/02/17 05:20 Creatinine 1.2 mg/dL (0.55-1.02) H 01/02/17 05:20 Creat Clearance w eGFR 42.30 (>60) 01/01/17 05:20 Calcium 8.8 mg/dL (8.5-10.1) 01/02/17 05:20 Total Bilirubin 1.1 mg/dL (0.2-1.0) H D 01/01/17 05:20 AST 10 U/L (15-37) L D 01/01/17 05:20 ALT 19 U/L (12-78) D 01/01/17 05:20 Alkaline Phosphatase 83 U/L (45-117) 01/01/17 05:20 Total Protein 5.9 g/dl (6.4-8.2) L 01/01/17 05:20 Albumin 3.3 g/dl (3.4-5.0) L 01/01/17 05:20 - Neuro Exam Dominant Hand: Right Mini Mental Exam: fluent, nonsensical speech, no naming or repeat, limited following requests DTR's: 0 Left Achilles, 0 Right Achilles, 1+ Left Brachioradialis, 1+ Right Brachioradialis, 2+ Left Bicep, 2+ Right Bicep, 2+ Left Tricep, 2+ Right Tricep Babinski: Present (bilat. upgoing toes) Motor Strength: 5/5: Left Arm, Right Arm, Left Leg, Right Leg Gait: Deferred Problem List - Problems (1) Dizziness Code(s): R42 - DIZZINESS AND GIDDINESS Assessment/Plan Pt. admitted with dizziness and light headedness due to Acute on Chronic Diastolic Heart Failure, has Mod-Severe Mitral Regurgitation, Pulmonary HTN/ Tricuspid Regurgitation, Atrial Fibrillation ,HTN, Hyperlipidemia. no with receptive aphasia--suspect new L frontal/temporal stroke MRI BRAIN , MRA BRAIN , NECK already on eliquis, may continue for now Dr Baker
[2017-01-02] MEDS ORDERED: ALPRAZolam 0.25 MG TABLET PO ONE (21:00)
[2017-01-02] MEDS: ATORVASTATIN CA 10 MG TABLET (FP) PO SCH (22:01)
[2017-01-03 06:49] LABS: BASOPHIL 0.2 % (0-2.0); EOSINOPHIL 0.2 % (0-4.5); MCH 29.7 pg (25.7-33.7); MCHC 32.7 g/dl (32.0-36.0); MEAN CELL VOLUME 90.9 fl (80-96); MEAN PLT VOLUME 7.1 fl (7.5-11.1); NEUTROPHILS 77.4 % (42.8-82.8); PLATELET COUNT 306 K/MM3 (134-434); RDW 14.9 % (11.6-15.6); WHITE BLOOD COUNT 13.7 K/mm3 (4.0-10.0)
[2017-01-03 07:14] LABS: ANION GAP 10 (8-16); CALCIUM 8.7 mg/dL (8.5-10.1); CO2 31 mmol/L (21-32); CREATININE 1.2 mg/dL (0.55-1.02); GLUCOSE,RANDOM 101 mg/dL (74-106); MAGNESIUM 2.1 mg/dL (1.8-2.4); SGOT/AST 7 U/L (15-37); SGPT/ALT 13 U/L (12-78)
[2017-01-03 07:16] LABS: ALK PHOS 76 U/L (45-117)
[2017-01-03] MEDS ORDERED: PT OWN MED DRAWER 7, Y5N ONE (09:15)
[2017-01-03] MEDS: METOPROLOL SUCCINATE 50 MG TAB.SR.24H (FP) PO SCH ×2 (09:25→23:12)
[2017-01-03] MEDS: LOSARTAN POTASSIUM 25 MG TABLET PO SCH (09:25)
[2017-01-03] MEDS: DIGOXIN 0.125 MG TABLET (FP) PO SCH (09:25)
[2017-01-03] MEDS: MAGNESIUM OXIDE 400 MG TABLET (FP) PO SCH (09:26)
[2017-01-03] MEDS: LORATADINE 10 MG TABLET PO SCH (09:26)
[2017-01-03] MEDS: FUROSEMIDE 40 MG/4 ML INJECTABLE VIAL IVPUSH SCH (09:27)
[2017-01-03] MEDS: APIXABAN 5 MG TABLET PO SCH ×2 (09:27→23:12)
[2017-01-03] MEDS: cefTRIAXone 1 GM/50 ML BAG (PRE-DOCKED) IVPB SCH (09:27)
[2017-01-03] MEDS: ARFORMOTEROL TARTRATE 15 MCG/2 ML VIAL NEB SCH ×2 (10:04→22:55)
--- NOTE | 2017-01-03 10:32 | PN ---
Progress Note (short form) - Note Progress Note: PULMONARY Denies shortness of breath or chest pain. No cough or wheezing. Last Vital Signs Temp Pulse Resp BP Pulse Ox 97.6 F 72 24 124/65 98 01/03/17 03:39 01/03/17 10:03 01/03/17 02:00 01/03/17 02:00 01/03/17 10:03 Intake & Output 12/31/16 01/01/17 01/02/17 01/03/17 23:59 23:59 23:59 23:59 Intake Total 640 470 200 Balance 640 470 200 Gen: NAD at rest Heart: RRR Lung: decreased breath sounds at the bases Abd: soft, nontender Ext: no edema CBC, BMP 01/03/17 05:38 01/03/17 05:38 Active Medications Acetaminophen (Tylenol -) 650 mg PO Q6H PRN PRN Reason: FEVER OR PAIN Last Admin: 01/02/17 09:50 Dose: 650 mg Alprazolam (Xanax -) 0.25 mg PO ONCE ONE Stop: 01/02/17 21:01 Apixaban (Eliquis -) 5 mg PO BID [facility] Last Admin: 01/03/17 09:27 Dose: 5 mg Arformoterol Tartrate (Brovana (Restricted To Pulmonology/Resp) -) 1 amp NEB BID [facility] Last Admin: 01/03/17 10:04 Dose: 1 amp Atorvastatin Calcium (Lipitor -) 10 mg PO HS [facility] Last Admin: 01/02/17 22:01 Dose: 10 mg Ceftriaxone Sodium (Rocephin 1gm Ivpb (Pre-Docked)) 1 gm IVPB DAILY [facility] Last Admin: 01/03/17 09:27 Dose: 1 gm Digoxin (Lanoxin -) 0.125 mg PO DAILY [facility] Last Admin: 01/03/17 09:25 Dose: 0.125 mg Docusate Sodium (Colace -) 100 mg PO BID PRN PRN Reason: CONSTIPATION Last Admin: 01/01/17 09:22 Dose: 100 mg Furosemide (Lasix Injection -) 40 mg IVPUSH DAILY [facility] Last Admin: 01/03/17 09:27 Dose: 40 mg Loratadine (Claritin -) 10 mg PO DAILY [facility] Last Admin: 01/03/17 09:26 Dose: 10 mg Losartan Potassium (Cozaar -) 25 mg PO DAILY [facility] Last Admin: 01/03/17 09:25 Dose: 25 mg Magnesium Oxide (Mag-Ox -) 400 mg PO DAILY [facility] Last Admin: 01/03/17 09:26 Dose: 400 mg Metoprolol Succinate (Toprol Xl -) 50 mg PO BID [facility] Last Admin: 01/03/17 09:25 Dose: 50 mg Tramadol HCl (Ultram -) 50 mg PO Q8H PRN PRN Reason: PAIN Last Admin: 01/01/17 11:07 Dose: 50 mg A/P Acute on Chronic Diastolic Heart Failure improving Mod-Severe Mitral Regurgitatioon Pulmonary HTN/Tricuspid Regurgitation Atrial Fibrillation HTN Hyperlipidemia - continue lasix - monitor urine output, creatinine - replete lytes - beta chayo - YAKELIN-I/ARB - O2 to keep SpO2 >90% - inhaled bronchodilators as needed - rate controlled - continue anticoagulation Problem List - Problems (1) Acute on chronic diastolic (congestive) heart failure Code(s): I50.33 - ACUTE ON CHRONIC DIASTOLIC (CONGESTIVE) HEART FAILURE (2) Mitral regurgitation Code(s): I34.0 - NONRHEUMATIC MITRAL (VALVE) INSUFFICIENCY (3) Pulmonary hypertension Code(s): I27.2 - OTHER SECONDARY PULMONARY HYPERTENSION (4) Tricuspid regurgitation Code(s): I07.1 - RHEUMATIC TRICUSPID INSUFFICIENCY Qualifiers: Cardiac valve disease etiology: nonrheumatic Qualified Code(s): I36.1 - Nonrheumatic tricuspid (valve) insufficiency (5) Atrial fibrillation Code(s): I48.91 - UNSPECIFIED ATRIAL FIBRILLATION Qualifiers: Atrial fibrillation type: chronic Qualified Code(s): I48.2 - Chronic atrial fibrillation (6) HTN (hypertension) Code(s): I10 - ESSENTIAL (PRIMARY) HYPERTENSION Qualifiers:
--- NOTE | 2017-01-03 11:07 | PN ---
Progress Note (short form) - Note Progress Note: 89 year old female, with significant past medical history of Afib, hypertension , hyperlipidemia, TIA (approximately 3 months ago), left femoral embolectomy, who presents to the emergency department via ambulance complaining of a couple of days of dyspnea on exertion, and 1 episode of chest pain that began this morning and lasted approximately half an hour. She explains that she became lightheaded in the bathroom today after urinating. She walked to her bedroom to lay down, but the pain would not resolve. She describes the chest pain as a pressure across her chest that radiates between her shoulder blades. She notes that over the past week she has been feeling more short of breath when walking. She does not have any chest pain at this moment. She notes that her left leg has been more swollen than the right leg since the femoral embolectomy on . She reports having had a 'mini-stroke' a few months ago but did not have residual signs. Ambulant with a walker since embolectomy.. FU : with nonsensical speech/confusion on 01/02/17, appears to have had receptive aphasia, (fluent though incoherent); this AM slight paraphasic errors but better and more coherent, recognizes family and speaks incomplete sentences, +naming, repetition errors seen by rheum CT HD 01/02/17 Moderate atrophy and chronic microvascular ischemic changes. Interval focal lucency/encephalomalacia in the left frontal lobe, anteriorly. No mass lesion, gross acute infarct or intracranial hemorrhage are identified. 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 of cervical laminectomy and ?? fusion a few years ago. She has urinary incontinence for past few years.) Cardio/Vascular: Yes: AFIB (new onset), HTN, Hyperlipdemia Musculoskeletal: Yes: Chronic low back pain (LAMINECTOMY), Osteoarthritis - Past Surgical History Past Surgical History: Yes: Laminectomy - Alcohol/Substance Use Hx Alcohol Use: No History of Substance Use: reports: None - Smoking History Smoking history: Never smoked Have you smoked in the past 12 months: No - Social History ADL: Family Assistance Home Medications - Allergies Allergies/Adverse Reactions: Allergies Allergy/AdvReac Type Severity Reaction Status Date / Time No Known Allergies Allergy Verified 12/30/16 13:06 - Home Medications Home Medications: Ambulatory Orders Cholecalciferol (Vitamin D3) [Vitamin D3] 50,000 unit PO WEEKLY 08/31/16 Sennosides/Docusate Sodium [Senna Plus Tablet] 1 each PO HS 08/31/16 Simvastatin [Zocor -] 40 mg PO HS 08/31/16 Acetaminophen [Tylenol] 650 mg PO PRN MDD 650 mg 09/01/16 Docusate Sodium [Colace -] 100 mg PO HS 09/01/16 Apixaban [Eliquis -] 5 mg PO BID tablet 10/21/16 Metoprolol Succinate [Toprol XL -] 50 mg PO BID tab 10/21/16 Digoxin [Lanoxin -] 0.125 mg PO DAILY #30 tablet 10/22/16 Cetirizine HCl [Zyrtec -] 10 mg PO DAILY 12/30/16 Furosemide [Lasix -] 20 mg PO DAILY 12/30/16 Physical Exam-Neuro Vital Signs: Vital Signs Temperature 97.6 F 01/03/17 03:39 Pulse Rate 72 01/03/17 10:03 Respiratory Rate 24 01/03/17 02:00 Blood Pressure 124/65 01/03/17 02:00 O2 Sat by Pulse Oximetry (%) 98 01/03/17 10:03 Labs: Vital Signs Temperature 97.6 F 01/03/17 03:39 Pulse Rate 72 01/03/17 10:03 Respiratory Rate 24 01/03/17 02:00 Blood Pressure 124/65 01/03/17 02:00 O2 Sat by Pulse Oximetry (%) 98 01/03/17 10:03 - Neuro Exam Dominant Hand: Right Mini Mental Exam: fluent, nonsensical speech, no naming or repeat, limited following requests 01/02--see above DTR's: 0 Left Achilles, 0 Right Achilles, 1+ Left Brachioradialis, 1+ Right Brachioradialis, 2+ Left Bicep, 2+ Right Bicep, 2+ Left Tricep, 2+ Right Tricep Babinski: Present (bilat. upgoing toes) Motor Strength: 5/5: Left Arm, Right Arm, Left Leg, Right Leg Gait: Deferred Problem List - Problems (1) Dizziness Code(s): R42 - DIZZINESS AND GIDDINESS Assessment/Plan Pt. admitted with dizziness and light headedness due to Acute on Chronic Diastolic Heart Failure, has Mod-Severe Mitral Regurgitation, Pulmonary HTN/ Tricuspid Regurgitation, Atrial Fibrillation ,HTN, Hyperlipidemia. transient receptive aphasia--suspect new L frontal/temporal stroke , CT shows new ischemia left frontal lobe ? breakthrough on AC/afib vs large vessel atherosclerosis- would add ASA but await MRI first MRI BRAIN , MRA BRAIN , NECK --P Dr Baker
--- NOTE | 2017-01-03 15:05 | PN ---
Progress Note, Physician Chief Complaint: Pt A&Ox3; denies chest pain, palpitations, dizziness, or dyspnea. History of Present Illness: The patient is a 89 year old female, with significant past medical history of Afib, hypertension, hyperlipidemia, TIA (approximately 3 months ago), left femoral embolectomy 10/17/2016, who presents to the emergency department via ambulance complaining of a couple of days of dyspnea on exertion, and 1 episode of chest pain that began this morning and lasted approximately half an hour. She explains that she became lightheaded in the bathroom today after urinating. She walked to her bedroom to lay down, but the pain would not resolve. She describes the chest pain as a pressure across her chest that radiates between her shoulder blades. She notes that over the past week she has been feeling more short of breath when walking. She does not have any chest pain at this moment. She notes that her left leg has been more swollen than the right leg since the femoral embolectomy. Denies palpitations. Denies fever, chills, nausea, vomiting. Denies LOC. Allergies: none reported PCP: Dr. Durham Mica Plate Layer: Dr. Fuller - Current Medication List Current Medications: Active Medications Acetaminophen (Tylenol -) 650 mg PO Q6H PRN PRN Reason: FEVER OR PAIN Last Admin: 01/02/17 09:50 Dose: 650 mg Alprazolam (Xanax -) 0.25 mg PO ONCE ONE Stop: 01/02/17 21:01 Apixaban (Eliquis -) 5 mg PO BID [facility] Last Admin: 01/03/17 09:27 Dose: 5 mg Arformoterol Tartrate (Brovana (Restricted To Pulmonology/Resp) -) 1 amp NEB BID [facility] Last Admin: 01/03/17 10:04 Dose: 1 amp Atorvastatin Calcium (Lipitor -) 10 mg PO HS [facility] Last Admin: 01/02/17 22:01 Dose: 10 mg Ceftriaxone Sodium (Rocephin 1gm Ivpb (Pre-Docked)) 1 gm IVPB DAILY [facility] Last Admin: 01/03/17 09:27 Dose: 1 gm Digoxin (Lanoxin -) 0.125 mg PO DAILY [facility] Last Admin: 01/03/17 09:25 Dose: 0.125 mg Docusate Sodium (Colace -) 100 mg PO BID PRN PRN Reason: CONSTIPATION Last Admin: 01/01/17 09:22 Dose: 100 mg Furosemide (Lasix Injection -) 40 mg IVPUSH DAILY [facility] Last Admin: 01/03/17 09:27 Dose: 40 mg Loratadine (Claritin -) 10 mg PO DAILY [facility] Last Admin: 01/03/17 09:26 Dose: 10 mg Losartan Potassium (Cozaar -) 25 mg PO DAILY [facility] Last Admin: 01/03/17 09:25 Dose: 25 mg Magnesium Oxide (Mag-Ox -) 400 mg PO DAILY [facility] Last Admin: 01/03/17 09:26 Dose: 400 mg Metoprolol Succinate (Toprol Xl -) 50 mg PO BID [facility] Last Admin: 01/03/17 09:25 Dose: 50 mg Tramadol HCl (Ultram -) 50 mg PO Q8H PRN PRN Reason: PAIN Last Admin: 01/01/17 11:07 Dose: 50 mg - Objective Vital Signs: Vital Signs Temperature 97.6 F 01/03/17 03:39 Pulse Rate 72 01/03/17 10:03 Respiratory Rate 24 01/03/17 02:00 Blood Pressure 124/65 01/03/17 02:00 O2 Sat by Pulse Oximetry (%) 98 01/03/17 10:03 Constitutional: Yes: Calm Eyes: Yes: WNL HENT: Yes: WNL Neck: Yes: WNL Cardiovascular: Yes: Pulse Irregular Respiratory: Yes: Regular Gastrointestinal: Yes: Soft ...Rectal Exam: Yes: Deferred Genitourinary: No: Anuria Breast(s): Yes: WNL Musculoskeletal: Yes: Muscle Weakness Extremities: Yes: Cool, Deformity (bilateral hands (arthritic)) Edema: No Peripheral Pulses WNL: Yes Integumentary: Yes: WNL Neurological: Yes: Alert, Oriented, Weakness Psychiatric: Yes: WNL Labs: CBC, BMP 01/03/17 05:38 01/03/17 05:38 INR, PTT INR 2.00 (0.82-1.09) H D 12/30/16 14:12 Abnormal Lab Results 01/03/17 01/03/17 01/03/17 05:38 05:38 05:38 WBC 13.7 H D MPV 7.1 L Monocytes % 10.7 H ESR 47 H Chloride 96 L BUN 26 H D Creatinine 1.2 H AST 7 L D Total Protein 6.0 L Albumin 3.0 L - ....Imaging Other: Image Reviewed (telemetry: AF with controlled VR) Problem List - Problems (1) Acute on chronic diastolic (congestive) heart failure Code(s): I50.33 - ACUTE ON CHRONIC DIASTOLIC (CONGESTIVE) HEART FAILURE (2) Aphasia Assessment/Plan: for brain MRI today to r/o CVA. Code(s): R47.01 - APHASIA (3) Arthritis Code(s): M19.90 - UNSPECIFIED OSTEOARTHRITIS, UNSPECIFIED SITE (4) Atrial fibrillation Assessment/Plan: On metoprolol and digoxin for HR control. If digoxin is to be continued, recommend keeping level 0.5-1.0. On apixaban for anticoagulation. Code(s): I48.91 - UNSPECIFIED ATRIAL FIBRILLATION Qualifiers: Atrial fibrillation type: chronic Qualified Code(s): I48.2 - Chronic atrial fibrillation (5) Dizziness Code(s): R42 - DIZZINESS AND GIDDINESS (6) HTN (hypertension) Assessment/Plan: on metoprolol, losartan. Code(s): I10 - ESSENTIAL (PRIMARY) HYPERTENSION Qualifiers: (7) Hyperlipidemia Assessment/Plan: on statin; keep LDL < 70 mg/dL. Code(s): E78.5 - HYPERLIPIDEMIA, UNSPECIFIED
[2017-01-03] MEDS ORDERED: DIGOXIN 0.125 MG TABLET (FP) PO SCH ×2 (19:15→20:20)
--- NOTE | 2017-01-03 20:18 | PN ---
Progress Note, Physician Chief Complaint: SOB CHF dizziness History of Present Illness: NAD, in bed, resting. - Current Medication List Current Medications: Active Medications Acetaminophen (Tylenol -) 650 mg PO Q6H PRN PRN Reason: FEVER OR PAIN Last Admin: 01/02/17 09:50 Dose: 650 mg Alprazolam (Xanax -) 0.25 mg PO ONCE ONE Stop: 01/02/17 21:01 Apixaban (Eliquis -) 5 mg PO BID [facility] Last Admin: 01/03/17 09:27 Dose: 5 mg Arformoterol Tartrate (Brovana (Restricted To Pulmonology/Resp) -) 1 amp NEB BID [facility] Last Admin: 01/03/17 10:04 Dose: 1 amp Atorvastatin Calcium (Lipitor -) 10 mg PO HS [facility] Last Admin: 01/02/17 22:01 Dose: 10 mg Ceftriaxone Sodium (Rocephin 1gm Ivpb (Pre-Docked)) 1 gm IVPB DAILY [facility] Last Admin: 01/03/17 09:27 Dose: 1 gm Digoxin (Lanoxin -) 0.125 mg PO Q48H [facility] Docusate Sodium (Colace -) 100 mg PO BID PRN PRN Reason: CONSTIPATION Last Admin: 01/01/17 09:22 Dose: 100 mg Furosemide (Lasix Injection -) 40 mg IVPUSH DAILY [facility] Last Admin: 01/03/17 09:27 Dose: 40 mg Loratadine (Claritin -) 10 mg PO DAILY [facility] Last Admin: 01/03/17 09:26 Dose: 10 mg Losartan Potassium (Cozaar -) 25 mg PO DAILY [facility] Last Admin: 01/03/17 09:25 Dose: 25 mg Magnesium Oxide (Mag-Ox -) 400 mg PO DAILY [facility] Last Admin: 01/03/17 09:26 Dose: 400 mg Metoprolol Succinate (Toprol Xl -) 50 mg PO BID [facility] Last Admin: 01/03/17 09:25 Dose: 50 mg Tramadol HCl (Ultram -) 50 mg PO Q8H PRN PRN Reason: PAIN Last Admin: 01/01/17 11:07 Dose: 50 mg - Objective Vital Signs: Vital Signs Temperature 98.4 F 01/03/17 15:00 Pulse Rate 82 01/03/17 19:00 Respiratory Rate 25 H 01/03/17 19:00 Blood Pressure 144/66 01/03/17 19:00 O2 Sat by Pulse Oximetry (%) 98 01/03/17 10:03 Constitutional: Yes: Well Nourished, No Distress, Calm Cardiovascular: Yes: Pulse Irregular Respiratory: Yes: Regular Gastrointestinal: Yes: Normal Bowel Sounds Labs: CBC, BMP 01/03/17 05:38 01/03/17 05:38 INR, PTT INR 2.00 (0.82-1.09) H D 12/30/16 14:12 Problem List - Problems (1) Acute on chronic diastolic (congestive) heart failure Code(s): I50.33 - ACUTE ON CHRONIC DIASTOLIC (CONGESTIVE) HEART FAILURE (2) Atrial fibrillation Code(s): I48.91 - UNSPECIFIED ATRIAL FIBRILLATION Qualifiers: Atrial fibrillation type: chronic Qualified Code(s): I48.2 - Chronic atrial fibrillation (3) Dizziness Code(s): R42 - DIZZINESS AND GIDDINESS (4) Mitral regurgitation Code(s): I34.0 - NONRHEUMATIC MITRAL (VALVE) INSUFFICIENCY (5) Tricuspid regurgitation Code(s): I07.1 - RHEUMATIC TRICUSPID INSUFFICIENCY Qualifiers: Cardiac valve disease etiology: nonrheumatic Qualified Code(s): I36.1 - Nonrheumatic tricuspid (valve) insufficiency (6) HTN (hypertension) Code(s): I10 - ESSENTIAL (PRIMARY) HYPERTENSION Qualifiers: (7) Leukocytosis Assessment/Plan: -UC pending -on IV abx Code(s): D72.829 - ELEVATED WHITE BLOOD CELL COUNT, UNSPECIFIED (8) Arthritis Assessment/Plan: -pain management -seen by rheumatology Code(s): M19.90 - UNSPECIFIED OSTEOARTHRITIS, UNSPECIFIED SITE Assessment/Plan -diruesis -monitor urine output, BUN/Cr -repeat labs in AM -Cardiology and pulmonary consult appreciated, on beta chayo and ARB -nasal o2 as needed -neb tx -on AC- Eliquis -seen by neurology for dizziness -MRI/MRA brain/neck negative -UC pending -IV abx -pain management for arthritis
--- NOTE | 2017-01-03 22:13 | PN ---
Progress Note (short form) - Note Progress Note: mild azotemia ckd Current Medications Acetaminophen (Tylenol -) 650 mg PO Q6H PRN PRN Reason: FEVER OR PAIN Last Admin: 01/02/17 09:50 Dose: 650 mg Alprazolam (Xanax -) 0.25 mg PO ONCE ONE Stop: 01/02/17 21:01 Apixaban (Eliquis -) 5 mg PO BID [facility] Last Admin: 01/03/17 09:27 Dose: 5 mg Arformoterol Tartrate (Brovana (Restricted To Pulmonology/Resp) -) 1 amp NEB BID [facility] Last Admin: 01/03/17 10:04 Dose: 1 amp Atorvastatin Calcium (Lipitor -) 10 mg PO HS [facility] Last Admin: 01/02/17 22:01 Dose: 10 mg Ceftriaxone Sodium (Rocephin 1gm Ivpb (Pre-Docked)) 1 gm IVPB DAILY [facility] Last Admin: 01/03/17 09:27 Dose: 1 gm Digoxin (Lanoxin -) 0.125 mg PO Q2D [facility] Docusate Sodium (Colace -) 100 mg PO BID PRN PRN Reason: CONSTIPATION Last Admin: 01/01/17 09:22 Dose: 100 mg Furosemide (Lasix Injection -) 40 mg IVPUSH DAILY [facility] Last Admin: 01/03/17 09:27 Dose: 40 mg Loratadine (Claritin -) 10 mg PO DAILY [facility] Last Admin: 01/03/17 09:26 Dose: 10 mg Losartan Potassium (Cozaar -) 25 mg PO DAILY [facility] Last Admin: 01/03/17 09:25 Dose: 25 mg Magnesium Oxide (Mag-Ox -) 400 mg PO DAILY [facility] Last Admin: 01/03/17 09:26 Dose: 400 mg Metoprolol Succinate (Toprol Xl -) 50 mg PO BID [facility] Last Admin: 01/03/17 09:25 Dose: 50 mg Tramadol HCl (Ultram -) 50 mg PO Q8H PRN PRN Reason: PAIN Last Admin: 01/01/17 11:07 Dose: 50 mg Last Vital Signs Temp Pulse Resp BP Pulse Ox 98.4 F 82 25 H 144/66 98 01/03/17 15:00 01/03/17 19:00 01/03/17 19:00 01/03/17 19:00 01/03/17 10:03 lungs clear Heart reg abd soft nontender ext no edema CBC, BMP 01/03/17 05:38 01/03/17 05:38 IMP- prerenal azotemia renal and bladder sono- no sig PVR left renal cortical cyst- LK 10 cmincidental finding smaller right kidney 7.7 cm Probably CKD atherosclerotic vasc disease stable creat so far Plan- continue to monitor renal function
[2017-01-03] MEDS: ATORVASTATIN CA 10 MG TABLET (FP) PO SCH (23:12)
--- NOTE | 2017-01-04 08:19 | PN ---
Progress Note (short form) - Note Progress Note: ID Full note dictated Resting comfortably Denies chest pain NO fever Ceftriaxone day 2 therapy Selected Entries 01/04/17 06:18 Temperature 98 F Pulse Rate 83 Respiratory 20 Rate Blood Pressure 127/77 Lung Clear Cor S1 S2 RR Abd Nontender Microbiology Laboratory Tests 01/01/17 01/03/17 01/03/17 16:00 05:38 05:38 WBC 13.7 H D Hgb Hct Plt Count 306 ESR Creat Clearance w eGFR 42.30 Ur Leukocyte Esterase 3+ H Urine RBC 4 Urine WBC 416 01/03/17 01/04/17 05:38 05:40 WBC Pending Hgb Pending Hct Pending Plt Count Pending ESR 47 H Creat Clearance w eGFR Ur Leukocyte Esterase Urine RBC Urine WBC Assessment Mild WBC elevation possibly related to UTI Plan Continue Ceftriaxone pending c/s Tariq DEVI Problem List - Problems (1) Leukocytosis Code(s): D72.829 - ELEVATED WHITE BLOOD CELL COUNT, UNSPECIFIED (2) UTI (urinary tract infection) Code(s): N39.0 - URINARY TRACT INFECTION, SITE NOT SPECIFIED
[2017-01-04 08:27] LABS: BASOPHIL 0.6 % (0-2.0); EOSINOPHIL 0.5 % (0-4.5); MCH 29.7 pg (25.7-33.7); MCHC 32.7 g/dl (32.0-36.0); MEAN CELL VOLUME 90.6 fl (80-96); MEAN PLT VOLUME 7.5 fl (7.5-11.1); NEUTROPHILS 71.4 % (42.8-82.8); PLATELET COUNT 335 K/MM3 (134-434); RDW 14.6 % (11.6-15.6); WHITE BLOOD COUNT 11.3 K/mm3 (4.0-10.0)
[2017-01-04 08:52] LABS: ALBUMIN 2.9 g/dl (3.4-5.0); ALK PHOS 80 U/L (45-117); ANION GAP 10 (8-16); BILIRUBIN,TOTAL 1.1 mg/dL (0.2-1.0); CALCIUM 8.8 mg/dL (8.5-10.1); CO2 32 mmol/L (21-32); CREATININE 1.3 mg/dL (0.55-1.02); GLUCOSE,RANDOM 102 mg/dL (74-106); SGOT/AST 12 U/L (15-37); SGPT/ALT 18 U/L (12-78); TOT PROT 5.9 g/dl (6.4-8.2)
[2017-01-04] MEDS: METOPROLOL SUCCINATE 50 MG TAB.SR.24H (FP) PO SCH ×2 (09:08→21:35)
[2017-01-04] MEDS: FUROSEMIDE 40 MG/4 ML INJECTABLE VIAL IVPUSH SCH (09:08)
[2017-01-04] MEDS: APIXABAN 5 MG TABLET PO SCH ×2 (09:08→21:35)
[2017-01-04] MEDS: LOSARTAN POTASSIUM 25 MG TABLET PO SCH (09:08)
[2017-01-04] MEDS: MAGNESIUM OXIDE 400 MG TABLET (FP) PO SCH (09:08)
[2017-01-04] MEDS: LORATADINE 10 MG TABLET PO SCH (09:08)
[2017-01-04] MEDS ORDERED: PT OWN MED DRAWER 7, Y5N ONE (09:17)
--- NOTE | 2017-01-04 09:17 | CONS ---
DATE OF CONSULTATION: DATE OF DICTATION: 01/04/2017 INFECTIOUS DISEASE CONSULTATION HISTORY OF PRESENT ILLNESS: This is an 89-year-old female on the telemetry unit, whom I am asked to see for a mild WBC elevation. The patient has a history of atrial fibrillation (on anticoagulation), lower extremity embolism (status post embolectomy) and chronic hypertension, who came to the emergency room as per Dr. 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 The patient says that she also was experiencing some chest pain at least during the course of her admission here on telemetry. Her urinalysis was abnormal, showing many white cells, and Dr. Durham placed her on ceftriaxone on January 02. A urine culture is currently pending. Currently she has no chest pain and denies any urinary complaints. She has been afebrile. PAST MEDICAL HISTORY: As noted above. MEDICATIONS: Eliquis, Lipitor, Colace, Lasix, Toprol, Brovana (all home medications) and ceftriaxone. ALLERGIES: None. FAMILY HISTORY: Reviewed and noncontributory. SOCIAL HISTORY: Lives at home with her . Non-smoker. Wheelchair bound at home. No recent travel. REVIEW OF SYSTEMS: All systems reviewed and noncontributory. PHYSICAL EXAMINATION: General: She was an elderly woman lying in bed in no acute distress. Vital Signs: Temperature 98, pulse 83, blood pressure 127/77, respirations 20. Neck: Supple. Lungs: Clear to percussion and auscultation. Heart: S1, S2. Regular rhythm, without audible murmur. Abdomen: Soft, nontender, without hepatosplenomegaly. Extremities: Without clubbing, cyanosis or edema. DIAGNOSTIC STUDIES: White count 10.1 on admission and 13.7 yesterday. ESR 47. BUN 26, creatinine 1.2. Urinalysis with 3+ leukocyte esterase, 4 RBCs, 400 WBCs. Urine culture obtained January 02, currently pending. ASSESSMENT: An 89-year-old female admitted to telemetry for cardiac monitoring, with atrial fibrillation and decompensated congestive heart failure, now with mild white blood cell elevation possibly on the basis of urinary tract infection. She is not febrile nor does she appear acutely ill. RECOMMENDATIONS: I will keep her on ceftriaxone, at least for another day, pending repeat CBC and results of her urine culture. BIPIN BAE M.D. [id number]
[2017-01-04] MEDS: ARFORMOTEROL TARTRATE 15 MCG/2 ML VIAL NEB SCH ×2 (10:10→22:21)
[2017-01-04] MEDS ORDERED: cefTRIAXone SODIUM 1 GM VIAL ONE (11:12)
[2017-01-04] MEDS ORDERED: DEXTROSE 5%-WATER - 50 ML IVPB ONE (11:12)
[2017-01-04] MEDS: CEFTRIAXONE 1 GM in DEXTROSE 5%-WATER - 50 ML IVPB SCH (12:02)
--- NOTE | 2017-01-04 12:36 | PN ---
Progress Note (short form) - Note Progress Note: PULMONARY Denies shortness of breath or chest pain. No cough or wheezing. Last Vital Signs Temp Pulse Resp BP Pulse Ox 98.5 F 86 18 137/77 96 01/04/17 10:00 01/04/17 10:00 01/04/17 10:00 01/04/17 10:00 01/04/17 09:00 Gen: NAD at rest Heart: RRR Lung: decreased breath sounds at the bases Abd: soft, nontender Ext: no edema CBC, BMP 01/04/17 05:40 01/04/17 05:40 Active Medications Acetaminophen (Tylenol -) 650 mg PO Q6H PRN PRN Reason: FEVER OR PAIN Last Admin: 01/02/17 09:50 Dose: 650 mg Alprazolam (Xanax -) 0.25 mg PO ONCE ONE Stop: 01/02/17 21:01 Apixaban (Eliquis -) 5 mg PO BID [facility] Last Admin: 01/04/17 09:08 Dose: 5 mg Arformoterol Tartrate (Brovana (Restricted To Pulmonology/Resp) -) 1 amp NEB BID [facility] Last Admin: 01/04/17 10:10 Dose: 1 amp Atorvastatin Calcium (Lipitor -) 10 mg PO HS [facility] Last Admin: 01/03/17 23:12 Dose: 10 mg Digoxin (Lanoxin -) 0.125 mg PO Q2D [facility] Docusate Sodium (Colace -) 100 mg PO BID PRN PRN Reason: CONSTIPATION Last Admin: 01/01/17 09:22 Dose: 100 mg Furosemide (Lasix Injection -) 40 mg IVPUSH DAILY [facility] Last Admin: 01/04/17 09:08 Dose: 40 mg Ceftriaxone Sodium 1 gm/ (Dextrose) 50 mls @ 100 mls/hr IVPB DAILY [facility] Last Admin: 01/04/17 12:02 Dose: 100 mls/hr Loratadine (Claritin -) 10 mg PO DAILY [facility] Last Admin: 01/04/17 09:08 Dose: 10 mg Losartan Potassium (Cozaar -) 25 mg PO DAILY [facility] Last Admin: 01/04/17 09:08 Dose: 25 mg Magnesium Oxide (Mag-Ox -) 400 mg PO DAILY [facility] Last Admin: 01/04/17 09:08 Dose: 400 mg Metoprolol Succinate (Toprol Xl -) 50 mg PO BID [facility] Last Admin: 01/04/17 09:08 Dose: 50 mg Tramadol HCl (Ultram -) 50 mg PO Q8H PRN PRN Reason: PAIN Last Admin: 01/01/17 11:07 Dose: 50 mg A/P Acute on Chronic Diastolic Heart Failure improving Mod-Severe Mitral Regurgitatioon Pulmonary HTN/Tricuspid Regurgitation Atrial Fibrillation HTN Hyperlipidemia UTI - antibiotics per ID - continue lasix - monitor urine output, creatinine - beta chayo, ARB - O2 to keep SpO2 >90% - inhaled bronchodilators as needed - rate controlled - continue anticoagulation Problem List - Problems (1) Acute on chronic diastolic (congestive) heart failure Code(s): I50.33 - ACUTE ON CHRONIC DIASTOLIC (CONGESTIVE) HEART FAILURE (2) Mitral regurgitation Code(s): I34.0 - NONRHEUMATIC MITRAL (VALVE) INSUFFICIENCY (3) Pulmonary hypertension Code(s): I27.2 - OTHER SECONDARY PULMONARY HYPERTENSION (4) Tricuspid regurgitation Code(s): I07.1 - RHEUMATIC TRICUSPID INSUFFICIENCY Qualifiers: Cardiac valve disease etiology: nonrheumatic Qualified Code(s): I36.1 - Nonrheumatic tricuspid (valve) insufficiency (5) Atrial fibrillation Code(s): I48.91 - UNSPECIFIED ATRIAL FIBRILLATION Qualifiers: Atrial fibrillation type: chronic Qualified Code(s): I48.2 - Chronic atrial fibrillation (6) HTN (hypertension) Code(s): I10 - ESSENTIAL (PRIMARY) HYPERTENSION Qualifiers:
--- NOTE | 2017-01-04 15:13 | PN ---
Progress Note, Physician Chief Complaint: SOB CHF dizziness History of Present Illness: NAD, in bed, resting. IV abx Seen by ID and pulmonary UC: Microbiology 01/02/17 19:00 Urine - Urine - Catheterized Urine Culture - Preliminary Lactose Fermenting Neg Bacilli - Current Medication List Current Medications: Active Medications Acetaminophen (Tylenol -) 650 mg PO Q6H PRN PRN Reason: FEVER OR PAIN Last Admin: 01/02/17 09:50 Dose: 650 mg Alprazolam (Xanax -) 0.25 mg PO ONCE ONE Stop: 01/02/17 21:01 Apixaban (Eliquis -) 5 mg PO BID [facility] Last Admin: 01/04/17 09:08 Dose: 5 mg Arformoterol Tartrate (Brovana (Restricted To Pulmonology/Resp) -) 1 amp NEB BID [facility] Last Admin: 01/04/17 10:10 Dose: 1 amp Atorvastatin Calcium (Lipitor -) 10 mg PO HS [facility] Last Admin: 01/03/17 23:12 Dose: 10 mg Digoxin (Lanoxin -) 0.125 mg PO Q2D [facility] Docusate Sodium (Colace -) 100 mg PO BID PRN PRN Reason: CONSTIPATION Last Admin: 01/01/17 09:22 Dose: 100 mg Furosemide (Lasix Injection -) 40 mg IVPUSH DAILY [facility] Last Admin: 01/04/17 09:08 Dose: 40 mg Ceftriaxone Sodium 1 gm/ (Dextrose) 50 mls @ 100 mls/hr IVPB DAILY [facility] Last Admin: 01/04/17 12:02 Dose: 100 mls/hr Loratadine (Claritin -) 10 mg PO DAILY [facility] Last Admin: 01/04/17 09:08 Dose: 10 mg Losartan Potassium (Cozaar -) 25 mg PO DAILY [facility] Last Admin: 01/04/17 09:08 Dose: 25 mg Magnesium Oxide (Mag-Ox -) 400 mg PO DAILY [facility] Last Admin: 01/04/17 09:08 Dose: 400 mg Metoprolol Succinate (Toprol Xl -) 50 mg PO BID [facility] Last Admin: 01/04/17 09:08 Dose: 50 mg Tramadol HCl (Ultram -) 50 mg PO Q8H PRN PRN Reason: PAIN Last Admin: 01/01/17 11:07 Dose: 50 mg - Objective Vital Signs: Vital Signs Temperature 98.5 F 01/04/17 10:00 Pulse Rate 86 01/04/17 10:00 Respiratory Rate 18 01/04/17 10:00 Blood Pressure 137/77 01/04/17 10:00 O2 Sat by Pulse Oximetry (%) 96 01/04/17 09:00 Constitutional: Yes: Well Nourished, No Distress, Calm Cardiovascular: Yes: Regular Rate and Rhythm Respiratory: Yes: Regular Musculoskeletal: Yes: WNL Extremities: Yes: WNL Edema: No Peripheral Pulses WNL: Yes Neurological: Yes: Alert, Oriented Labs: CBC, BMP 01/04/17 05:40 01/04/17 05:40 INR, PTT INR 2.00 (0.82-1.09) H D 12/30/16 14:12 Problem List - Problems (1) Acute on chronic diastolic (congestive) heart failure Code(s): I50.33 - ACUTE ON CHRONIC DIASTOLIC (CONGESTIVE) HEART FAILURE (2) Atrial fibrillation Code(s): I48.91 - UNSPECIFIED ATRIAL FIBRILLATION Qualifiers: Atrial fibrillation type: chronic Qualified Code(s): I48.2 - Chronic atrial fibrillation (3) Dizziness Code(s): R42 - DIZZINESS AND GIDDINESS (4) Mitral regurgitation Code(s): I34.0 - NONRHEUMATIC MITRAL (VALVE) INSUFFICIENCY (5) Tricuspid regurgitation Code(s): I07.1 - RHEUMATIC TRICUSPID INSUFFICIENCY Qualifiers: Cardiac valve disease etiology: nonrheumatic Qualified Code(s): I36.1 - Nonrheumatic tricuspid (valve) insufficiency (6) HTN (hypertension) Code(s): I10 - ESSENTIAL (PRIMARY) HYPERTENSION Qualifiers: (7) Leukocytosis Assessment/Plan: -UC pending -on IV abx Code(s): D72.829 - ELEVATED WHITE BLOOD CELL COUNT, UNSPECIFIED (8) Arthritis Assessment/Plan: -pain management -seen by rheumatology Code(s): M19.90 - UNSPECIFIED OSTEOARTHRITIS, UNSPECIFIED SITE Assessment/Plan -diruesis, still on Furosemide 40 mg IVP -monitor urine output, BUN/Cr trending up -repeat labs in AM, repeat BNP -Cardiology and pulmonary consult appreciated, on beta chayo and ARB -nasal o2 as needed -neb tx -on AC- Eliquis -seen by neurology for dizziness -MRI/MRA brain/neck negative -UC: Microbiology 01/02/17 19:00 Urine Culture - Preliminary Urine - Urine - Catheterized Lactose Fermenting Neg Bacilli -IV abx -pain management for arthritis
--- NOTE | 2017-01-04 17:27 | PN ---
Progress Note (short form) - Note Progress Note: 89 year old female, with significant past medical history of Afib, hypertension , hyperlipidemia, TIA (approximately 3 months ago), left femoral embolectomy, who presents to the emergency department via ambulance complaining of a couple of days of dyspnea on exertion, and 1 episode of chest pain that began this morning and lasted approximately half an hour. She explains that she became lightheaded in the bathroom today after urinating. She walked to her bedroom to lay down, but the pain would not resolve. She describes the chest pain as a pressure across her chest that radiates between her shoulder blades. She notes that over the past week she has been feeling more short of breath when walking. She does not have any chest pain at this moment. She notes that her left leg has been more swollen than the right leg since the femoral embolectomy on . She reports having had a 'mini-stroke' a few months ago but did not have residual signs. Ambulant with a walker since embolectomy.. FU : reviewed MRI- no new acute stroke, old left frontal encephalomalcia, white matter changes back to language baseline with nonsensical speech/confusion on 01/02/17, appeared to have had receptive aphasia, (fluent though incoherent); seen by rheum CT HD 01/02/17 Moderate atrophy and chronic microvascular ischemic changes. Interval focal lucency/encephalomalacia in the left frontal lobe, anteriorly. No mass lesion, gross acute infarct or intracranial hemorrhage are identified. - Past Medical History [employer]LEV[employer] AD[employer]: Yes: CVA, TIA, Other (Hx. of cervical laminectomy and ?? fusion a few years ago. She has urinary incontinence for past few years.) Cardio/Vascular: Yes: AFIB (new onset), HTN, Hyperlipdemia Musculoskeletal: Yes: Chronic low back pain (LAMINECTOMY), Osteoarthritis - Past Surgical History Past Surgical History: Yes: Laminectomy - Alcohol/Substance Use Hx Alcohol Use: No History of Substance Use: reports: None - Smoking History Smoking history: Never smoked Have you smoked in the past 12 months: No - Social History ADL: Family Assistance Home Medications - Allergies Allergies/Adverse Reactions: Allergies Allergy/AdvReac Type Severity Reaction Status Date / Time No Known Allergies Allergy Verified 12/30/16 13:06 - Home Medications Home Medications: Ambulatory Orders Cholecalciferol (Vitamin D3) [Vitamin D3] 50,000 unit PO WEEKLY 08/31/16 Sennosides/Docusate Sodium [Senna Plus Tablet] 1 each PO HS 08/31/16 Simvastatin [Zocor -] 40 mg PO HS 08/31/16 Acetaminophen [Tylenol] 650 mg PO PRN MDD 650 mg 09/01/16 Docusate Sodium [Colace -] 100 mg PO HS 09/01/16 Apixaban [Eliquis -] 5 mg PO BID tablet 10/21/16 Metoprolol Succinate [Toprol XL -] 50 mg PO BID tab 10/21/16 Digoxin [Lanoxin -] 0.125 mg PO DAILY #30 tablet 10/22/16 Cetirizine HCl [Zyrtec -] 10 mg PO DAILY 12/30/16 Furosemide [Lasix -] 20 mg PO DAILY 12/30/16 Physical Exam-Neuro Vital Signs: Vital Signs Temperature 98.1 F 01/04/17 14:00 Pulse Rate 71 01/04/17 14:00 Respiratory Rate 18 01/04/17 10:00 Blood Pressure 129/77 01/04/17 14:00 O2 Sat by Pulse Oximetry (%) 96 01/04/17 09:00 Labs: CBCD WBC 11.3 K/mm3 (4.0-10.0) H 01/04/17 05:40 RBC 3.97 M/mm3 (3.60-5.2) 01/04/17 05:40 Hgb 11.8 GM/dL (10.7-15.3) 01/04/17 05:40 Hct 35.9 % (32.4-45.2) 01/04/17 05:40 MCV 90.6 fl (80-96) 01/04/17 05:40 MCHC 32.7 g/dl (32.0-36.0) 01/04/17 05:40 RDW 14.6 % (11.6-15.6) 01/04/17 05:40 Plt Count 335 K/MM3 (134-434) 01/04/17 05:40 MPV 7.5 fl (7.5-11.1) 01/04/17 05:40 CMP Sodium 135 mmol/L (136-145) L 01/04/17 05:40 Potassium 3.8 mmol/L (3.5-5.1) 01/04/17 05:40 Chloride 93 mmol/L (98-107) L 01/04/17 05:40 Carbon Dioxide 32 mmol/L (21-32) 01/04/17 05:40 Anion Gap 10 (8-16) 01/04/17 05:40 BUN 32 mg/dL (7-18) H D 01/04/17 05:40 Creatinine 1.3 mg/dL (0.55-1.02) H 01/04/17 05:40 Creat Clearance w eGFR 38.57 (>60) 01/04/17 05:40 Calcium 8.8 mg/dL (8.5-10.1) 01/04/17 05:40 Total Bilirubin 1.1 mg/dL (0.2-1.0) H 01/04/17 05:40 AST 12 U/L (15-37) L D 01/04/17 05:40 ALT 18 U/L (12-78) D 01/04/17 05:40 Alkaline Phosphatase 80 U/L (45-117) 01/04/17 05:40 Total Protein 5.9 g/dl (6.4-8.2) L 01/04/17 05:40 Albumin 2.9 g/dl (3.4-5.0) L 01/04/17 05:40 - Neuro Exam Dominant Hand: Right Mini Mental Exam: fluent, oriented to place, not yr, nonsensical speech, no naming or repeat, limited following requests 01/02--see above ; now limited repetition but rest WNL DTR's: 0 Left Achilles, 0 Right Achilles, 1+ Left Brachioradialis, 1+ Right Brachioradialis, 2+ Left Bicep, 2+ Right Bicep, 2+ Left Tricep, 2+ Right Tricep Babinski: Present (bilat. upgoing toes) Motor Strength: 5/5: Left Arm, Right Arm, Left Leg, Right Leg Gait: Deferred Problem List - Problems (1) Dizziness Code(s): R42 - DIZZINESS AND GIDDINESS Assessment/Plan Pt. admitted with dizziness and light headedness due to Acute on Chronic Diastolic Heart Failure, has Mod-Severe Mitral Regurgitation, Pulmonary HTN/ Tricuspid Regurgitation, Atrial Fibrillation ,HTN, Hyperlipidemia. transient receptive aphasia--suspect new L frontal/temporal TIA vs seziure no new stroke on MRI , though old left frontal encephalomacia (? seizure focus) spoke to cardiology and family--will empirically start KEPPRA [id number] as this may have been a seizure (second event in couple months) , EEG routine would be low yield; if more events on KEppra will consider add on ASA with ELIQUIS; neuro stable and can FU as outpt Dr Baker
--- NOTE | 2017-01-04 17:44 | PN ---
Progress Note (short form) - Note Progress Note: mild azotemia ckd Current Medications Acetaminophen (Tylenol -) 650 mg PO Q6H PRN PRN Reason: FEVER OR PAIN Last Admin: 01/02/17 09:50 Dose: 650 mg Alprazolam (Xanax -) 0.25 mg PO ONCE ONE Stop: 01/02/17 21:01 Apixaban (Eliquis -) 5 mg PO BID [facility] Last Admin: 01/04/17 09:08 Dose: 5 mg Arformoterol Tartrate (Brovana (Restricted To Pulmonology/Resp) -) 1 amp NEB BID [facility] Last Admin: 01/04/17 10:10 Dose: 1 amp Atorvastatin Calcium (Lipitor -) 10 mg PO HS [facility] Last Admin: 01/03/17 23:12 Dose: 10 mg Digoxin (Lanoxin -) 0.125 mg PO Q2D [facility] Docusate Sodium (Colace -) 100 mg PO BID PRN PRN Reason: CONSTIPATION Last Admin: 01/01/17 09:22 Dose: 100 mg Furosemide (Lasix Injection -) 40 mg IVPUSH DAILY [facility] Last Admin: 01/04/17 09:08 Dose: 40 mg Ceftriaxone Sodium 1 gm/ (Dextrose) 50 mls @ 100 mls/hr IVPB DAILY [facility] Last Admin: 01/04/17 12:02 Dose: 100 mls/hr Levetiracetam (Keppra -) 250 mg PO BID [facility] Loratadine (Claritin -) 10 mg PO DAILY [facility] Last Admin: 01/04/17 09:08 Dose: 10 mg Losartan Potassium (Cozaar -) 25 mg PO DAILY [facility] Last Admin: 01/04/17 09:08 Dose: 25 mg Magnesium Oxide (Mag-Ox -) 400 mg PO DAILY [facility] Last Admin: 01/04/17 09:08 Dose: 400 mg Metoprolol Succinate (Toprol Xl -) 50 mg PO BID [facility] Last Admin: 01/04/17 09:08 Dose: 50 mg Tramadol HCl (Ultram -) 50 mg PO Q8H PRN PRN Reason: PAIN Last Admin: 01/01/17 11:07 Dose: 50 mg Last Vital Signs Temp Pulse Resp BP Pulse Ox 98.1 F 71 18 129/77 96 01/04/17 14:00 01/04/17 14:00 01/04/17 10:00 01/04/17 14:00 01/04/17 09:00 lungs clear Heart reg abd soft nontender ext no edema CBC, BMP 01/04/17 05:40 01/04/17 05:40 IMP- prerenal azotemia/ related to diuretic tx CKD/ atherosclerotic vasc disease stable creat so far Plan- continue to monitor renal function periodiacally
[2017-01-04] MEDS: ATORVASTATIN CA 10 MG TABLET (FP) PO SCH (21:35)
[2017-01-04] MEDS: levETIRAcetam 250 MG TABLET (FP) PO SCH (21:35)
[2017-01-05] MEDS ORDERED: cefTRIAXone SODIUM 1 GM VIAL ONE (08:04)
[2017-01-05] MEDS ORDERED: DEXTROSE 5%-WATER - 50 ML IVPB ONE (08:04)
--- NOTE | 2017-01-05 09:54 | PN ---
Progress Note, Physician History of Present Illness: PULMONARY ALERT,NAD,-CP,-SOB - Current Medication List Current Medications: Active Medications Acetaminophen (Tylenol -) 650 mg PO Q6H PRN PRN Reason: FEVER OR PAIN Last Admin: 01/02/17 09:50 Dose: 650 mg Alprazolam (Xanax -) 0.25 mg PO ONCE ONE Stop: 01/02/17 21:01 Apixaban (Eliquis -) 5 mg PO BID [facility] Last Admin: 01/04/17 21:35 Dose: 5 mg Arformoterol Tartrate (Brovana (Restricted To Pulmonology/Resp) -) 1 amp NEB BID [facility] Last Admin: 01/04/17 22:21 Dose: 1 amp Atorvastatin Calcium (Lipitor -) 10 mg PO HS [facility] Last Admin: 01/04/17 21:35 Dose: 10 mg Digoxin (Lanoxin -) 0.125 mg PO Q2D [facility] Docusate Sodium (Colace -) 100 mg PO BID PRN PRN Reason: CONSTIPATION Last Admin: 01/01/17 09:22 Dose: 100 mg Furosemide (Lasix Injection -) 40 mg IVPUSH DAILY [facility] Last Admin: 01/04/17 09:08 Dose: 40 mg Ceftriaxone Sodium 1 gm/ (Dextrose) 50 mls @ 100 mls/hr IVPB DAILY [facility] Last Admin: 01/04/17 12:02 Dose: 100 mls/hr Levetiracetam (Keppra -) 250 mg PO BID [facility] Last Admin: 01/04/17 21:35 Dose: 250 mg Loratadine (Claritin -) 10 mg PO DAILY [facility] Last Admin: 01/04/17 09:08 Dose: 10 mg Losartan Potassium (Cozaar -) 25 mg PO DAILY [facility] Last Admin: 01/04/17 09:08 Dose: 25 mg Magnesium Oxide (Mag-Ox -) 400 mg PO DAILY [facility] Last Admin: 01/04/17 09:08 Dose: 400 mg Metoprolol Succinate (Toprol Xl -) 50 mg PO BID [facility] Last Admin: 01/04/17 21:35 Dose: 50 mg Tramadol HCl (Ultram -) 50 mg PO Q8H PRN PRN Reason: PAIN Last Admin: 01/01/17 11:07 Dose: 50 mg - Objective Vital Signs: Vital Signs Temperature 97.4 F L 01/05/17 05:45 Pulse Rate 68 01/05/17 05:45 Respiratory Rate 20 01/05/17 05:45 Blood Pressure 128/75 01/05/17 05:45 O2 Sat by Pulse Oximetry (%) 96 01/04/17 20:51 Constitutional: Yes: Well Nourished, Calm Eyes: Yes: WNL HENT: Yes: WNL Neck: Yes: WNL Cardiovascular: Yes: Pulse Irregular, S1, S2 Respiratory: Yes: CTA Bilaterally (BIBASILAR CRACKLES), Rales Gastrointestinal: Yes: Normal Bowel Sounds, Soft Extremities: Yes: WNL Edema: No Labs: CBC, BMP 01/04/17 05:40 01/04/17 05:40 INR, PTT INR 2.00 (0.82-1.09) H D 12/30/16 14:12 Assessment/Plan Problem List - Problems (1) Acute on chronic diastolic (congestive) heart failure Code(s): I50.33 - ACUTE ON CHRONIC DIASTOLIC (CONGESTIVE) HEART FAILURE (2) Mitral regurgitation Code(s): I34.0 - NONRHEUMATIC MITRAL (VALVE) INSUFFICIENCY (3) Pulmonary hypertension Code(s): I27.2 - OTHER SECONDARY PULMONARY HYPERTENSION (4) Tricuspid regurgitation Code(s): I07.1 - RHEUMATIC TRICUSPID INSUFFICIENCY Qualifiers: Cardiac valve disease etiology: nonrheumatic Qualified Code(s): I36.1 - Nonrheumatic tricuspid (valve) insufficiency (5) Atrial fibrillation Code(s): I48.91 - UNSPECIFIED ATRIAL FIBRILLATION Qualifiers: Atrial fibrillation type: chronic Qualified Code(s): I48.2 - Chronic atrial fibrillation (6) HTN (hypertension) Code(s): I10 - ESSENTIAL (PRIMARY) HYPERTENSION Qualifiers: Assessment/Plan Acute on Chronic Diastolic Heart Failure improving Mod-Severe Mitral Regurgitatioon Pulmonary HTN/Tricuspid Regurgitation Atrial Fibrillation HTN Hyperlipidemia - IV lasix as per cardiology - monitor urine output - beta chayo - YAKELIN-I/ARB - O2 to keep SpO2 >90% - inhaled bronchodilators - rate control - anticoagulation DR CRABTREE
[2017-01-05] MEDS: levETIRAcetam 250 MG TABLET (FP) PO SCH ×2 (10:01→21:15)
[2017-01-05] MEDS: LORATADINE 10 MG TABLET PO SCH (10:01)
[2017-01-05] MEDS: METOPROLOL SUCCINATE 50 MG TAB.SR.24H (FP) PO SCH ×2 (10:03→21:15)
[2017-01-05] MEDS: LOSARTAN POTASSIUM 25 MG TABLET PO SCH (10:03)
[2017-01-05] MEDS: APIXABAN 5 MG TABLET PO SCH ×2 (10:03→21:15)
[2017-01-05] MEDS: MAGNESIUM OXIDE 400 MG TABLET (FP) PO SCH (10:04)
[2017-01-05] MEDS: FUROSEMIDE 40 MG/4 ML INJECTABLE VIAL IVPUSH SCH (10:04)
[2017-01-05] MEDS: CEFTRIAXONE 1 GM in DEXTROSE 5%-WATER - 50 ML IVPB SCH (10:06)
--- NOTE | 2017-01-05 10:20 | PN ---
Progress Note (short form) - Note Progress Note: ID Ceftriaxone day 3 Rx Selected Entries 01/05/17 05:45 Temperature 97.4 F L Pulse Rate 68 Respiratory 20 Rate Blood Pressure 128/75 Microbiology 01/02/17 19:00 Urine - Urine - Catheterized Urine Culture - Preliminary Lactose Fermenting Neg Bacilli Laboratory Tests 01/01/17 01/04/17 01/04/17 16:00 05:40 05:40 WBC 11.3 H Hgb 11.8 Hct 35.9 Plt Count 335 BUN 32 H D Ur Leukocyte Esterase 3+ H Urine RBC 4 Urine WBC 416 Assessment UTI GNR Plan Tomorrow I would switch to an oral antibiotic for few more days based on urine final result Kindly recall as needed Tariq DEVI Problem List - Problems (1) Leukocytosis Code(s): D72.829 - ELEVATED WHITE BLOOD CELL COUNT, UNSPECIFIED (2) UTI (urinary tract infection) Code(s): N39.0 - URINARY TRACT INFECTION, SITE NOT SPECIFIED
[2017-01-05] MEDS: ARFORMOTEROL TARTRATE 15 MCG/2 ML VIAL NEB SCH ×2 (10:25→22:26)
[2017-01-05] MEDS: DIGOXIN 0.125 MG TABLET (FP) PO SCH (12:07)
[2017-01-05] MEDS: ACETAMINOPHEN 325 MG TABLET (FP) PO PRN (16:09)
--- NOTE | 2017-01-05 17:05 | PN ---
Progress Note (short form) - Note Progress Note: mild azotemia ckd hf pulm htn Current Medications Acetaminophen (Tylenol -) 650 mg PO Q6H PRN PRN Reason: FEVER OR PAIN Last Admin: 01/05/17 16:09 Dose: 650 mg Alprazolam (Xanax -) 0.25 mg PO ONCE ONE Stop: 01/02/17 21:01 Apixaban (Eliquis -) 5 mg PO BID [facility] Last Admin: 01/05/17 10:03 Dose: 5 mg Arformoterol Tartrate (Brovana (Restricted To Pulmonology/Resp) -) 1 amp NEB BID [facility] Last Admin: 01/05/17 10:25 Dose: 1 amp Atorvastatin Calcium (Lipitor -) 10 mg PO HS [facility] Last Admin: 01/04/17 21:35 Dose: 10 mg Digoxin (Lanoxin -) 0.125 mg PO Q2D [facility] Last Admin: 01/05/17 12:07 Dose: 0.125 mg Docusate Sodium (Colace -) 100 mg PO BID PRN PRN Reason: CONSTIPATION Last Admin: 01/01/17 09:22 Dose: 100 mg Furosemide (Lasix Injection -) 40 mg IVPUSH DAILY [facility] Last Admin: 01/05/17 10:04 Dose: 40 mg Ceftriaxone Sodium 1 gm/ (Dextrose) 50 mls @ 100 mls/hr IVPB DAILY [facility] Last Admin: 01/05/17 10:06 Dose: 100 mls/hr Levetiracetam (Keppra -) 250 mg PO BID [facility] Last Admin: 01/05/17 10:01 Dose: 250 mg Loratadine (Claritin -) 10 mg PO DAILY [facility] Last Admin: 01/05/17 10:01 Dose: 10 mg Losartan Potassium (Cozaar -) 25 mg PO DAILY [facility] Last Admin: 01/05/17 10:03 Dose: 25 mg Magnesium Oxide (Mag-Ox -) 400 mg PO DAILY [facility] Last Admin: 01/05/17 10:04 Dose: 400 mg Metoprolol Succinate (Toprol Xl -) 50 mg PO BID [facility] Last Admin: 01/05/17 10:03 Dose: 50 mg Tramadol HCl (Ultram -) 50 mg PO Q8H PRN PRN Reason: PAIN Last Admin: 01/01/17 11:07 Dose: 50 mg Last Vital Signs Temp Pulse Resp BP Pulse Ox 98 F 79 22 128/67 96 01/05/17 13:48 01/05/17 13:48 01/05/17 13:48 01/05/17 13:48 01/05/17 10:25 lungs clear Heart reg abd soft nontender ext no edema CBC, BMP 01/04/17 05:40 01/04/17 05:40 IMP- prerenal azotemia/ related to diuretic tx CKD/ atherosclerotic vasc disease heart failure pulm htn stable creat so far Plan- continue to monitor renal function periodiacally will sign off today
--- NOTE | 2017-01-05 18:13 | PN ---
Progress Note, Physician Chief Complaint: Pt A&Ox3; denies chest pain, palpitations, dizziness, or dyspnea. Pt's is at bedside. History of Present Illness: The patient is a 89 year old white female, with significant past medical history of Afib, hypertension, hyperlipidemia, TIA (approximately 3 months ago) , left femoral embolectomy 10/17/16, who presents to the emergency department via ambulance complaining of a couple of days of dyspnea on exertion, and 1 episode of chest pain that began this morning and lasted approximately half an hour. She explains that she became lightheaded in the bathroom today after urinating. She walked to her bedroom to lay down, but the pain would not resolve. She describes the chest pain as a pressure across her chest that radiates between her shoulder blades. She notes that over the past week she has been feeling more short of breath when walking. She does not have any chest pain at this moment. She notes that her left leg has been more swollen than the right leg since the femoral embolectomy. Denies palpitations. Denies fever, chills, nausea, vomiting. Denies LOC. Allergies: none reported PCP: Dr. Durham Lead [employer]er Blasting: Dr. Fuller - Current Medication List Current Medications: Active Medications Acetaminophen (Tylenol -) 650 mg PO Q6H PRN PRN Reason: FEVER OR PAIN Last Admin: 01/05/17 16:09 Dose: 650 mg Alprazolam (Xanax -) 0.25 mg PO ONCE ONE Stop: 01/02/17 21:01 Apixaban (Eliquis -) 5 mg PO BID [facility] [place] Last Admin: 01/05/17 10:03 Dose: 5 mg Arformoterol Tartrate (Brovana (Restricted To Pulmonology/Resp) -) 1 amp NEB BID [facility] [place] Last Admin: 01/05/17 10:25 Dose: 1 amp Atorvastatin Calcium (Lipitor -) 10 mg PO HS [facility] [place] Last Admin: 01/04/17 21:35 Dose: 10 mg Digoxin (Lanoxin -) 0.125 mg PO Q2D [facility] [place] Last Admin: 01/05/17 12:07 Dose: 0.125 mg Docusate Sodium (Colace -) 100 mg PO BID PRN PRN Reason: CONSTIPATION Last Admin: 01/01/17 09:22 Dose: 100 mg Furosemide (Lasix Injection -) 40 mg IVPUSH DAILY [facility] [place] Last Admin: 01/05/17 10:04 Dose: 40 mg Ceftriaxone Sodium 1 gm/ (Dextrose) 50 mls @ 100 mls/hr IVPB DAILY [facility] [place] Last Admin: 01/05/17 10:06 Dose: 100 mls/hr Levetiracetam (Keppra -) 250 mg PO BID [facility] [place] Last Admin: 01/05/17 10:01 Dose: 250 mg Loratadine (Claritin -) 10 mg PO DAILY [facility] [place] Last Admin: 01/05/17 10:01 Dose: 10 mg Losartan Potassium (Cozaar -) 25 mg PO DAILY [facility] [place] Last Admin: 01/05/17 10:03 Dose: 25 mg Magnesium Oxide (Mag-Ox -) 400 mg PO DAILY [facility] [place] Last Admin: 01/05/17 10:04 Dose: 400 mg Metoprolol Succinate (Toprol Xl -) 50 mg PO BID [facility] [place] Last Admin: 01/05/17 10:03 Dose: 50 mg Tramadol HCl (Ultram -) 50 mg PO Q8H PRN PRN Reason: PAIN Last Admin: 01/01/17 11:07 Dose: 50 mg - Objective Vital Signs: Vital Signs Temperature 98 F 01/05/17 13:48 Pulse Rate 79 01/05/17 13:48 Respiratory Rate 22 01/05/17 13:48 Blood Pressure 128/67 01/05/17 13:48 O2 Sat by Pulse Oximetry (%) 96 01/05/17 10:25 Constitutional: Yes: Calm Eyes: Yes: WNL HENT: Yes: WNL Neck: Yes: WNL Cardiovascular: Yes: Pulse Irregular, S1 (varies in intensity) Respiratory: Yes: Regular Gastrointestinal: Yes: Soft ...Rectal Exam: Yes: Deferred Genitourinary: No: Anuria Breast(s): Yes: WNL Musculoskeletal: Yes: Muscle Weakness Extremities: Yes: WNL Edema: No Peripheral Pulses WNL: Yes Neurological: Yes: Alert, Oriented, Weakness Psychiatric: Yes: WNL Labs: CBC, BMP 01/04/17 05:40 01/04/17 05:40 INR, PTT INR 2.00 (0.82-1.09) H D 12/30/16 14:12 - ....Imaging MRI: Report Reviewed (small Lt anterior meningioma; mild-moderate microvascular ischemia) Other: Image Reviewed (telemetry: AF with controlled VR) Problem List - Problems (1) Acute on chronic diastolic (congestive) heart failure Code(s): I50.33 - ACUTE ON CHRONIC DIASTOLIC (CONGESTIVE) HEART FAILURE (2) Aphasia Assessment/Plan: brain/neck MRI/MRA results noted: small anterior meningioma; chronic microvascular ischemia; Code(s): R47.01 - APHASIA (3) Arthritis Code(s): M19.90 - UNSPECIFIED OSTEOARTHRITIS, UNSPECIFIED SITE (4) Atrial fibrillation Assessment/Plan: On metoprolol and digoxin for HR control. If digoxin is to be continued, recommend keeping level 0.5-1.0 (level was 1.2--> now on every other day). On apixaban for anticoagulation. Code(s): I48.91 - UNSPECIFIED ATRIAL FIBRILLATION Qualifiers: Qualified Code(s): I48.2 - Chronic atrial fibrillation (5) Dizziness Code(s): R42 - DIZZINESS AND GIDDINESS (6) HTN (hypertension) Assessment/Plan: on metoprolol, losartan. Code(s): I10 - ESSENTIAL (PRIMARY) HYPERTENSION Qualifiers: (7) Hyperlipidemia Assessment/Plan: on statin; keep LDL < 70 mg/dL. Code(s): E78.5 - HYPERLIPIDEMIA, UNSPECIFIED
--- NOTE | 2017-01-05 18:13 | PN ---
Progress Note, Physician Chief Complaint: Pt A&Ox3; again denies chest pain, palpitations, dizziness, visual disturbances , or dyspnea; wants to go home. Pt's and son are at bedside. History of Present Illness: The patient is a 89 year old white female, with significant past medical history of Afib, hypertension, hyperlipidemia, TIA (approximately 3 months ago) , left femoral embolectomy 10/17/16, who presents to the emergency department via ambulance complaining of a couple of days of dyspnea on exertion, and 1 episode of chest pain that began this morning and lasted approximately half an hour. She explains that she became lightheaded in the bathroom today after urinating. She walked to her bedroom to lay down, but the pain would not resolve. She describes the chest pain as a pressure across her chest that radiates between her shoulder blades. She notes that over the past week she has been feeling more short of breath when walking. She does not have any chest pain at this moment. She notes that her left leg has been more swollen than the right leg since the femoral embolectomy. Denies palpitations. Denies fever, chills, nausea, vomiting. Denies LOC. Allergies: none reported PCP: Dr. Durham Patent Litigation Associate: Dr. Fuller - Current Medication List Current Medications: Active Medications Acetaminophen (Tylenol -) 650 mg PO Q6H PRN PRN Reason: FEVER OR PAIN Last Admin: 01/05/17 16:09 Dose: 650 mg Alprazolam (Xanax -) 0.25 mg PO ONCE ONE Stop: 01/02/17 21:01 Apixaban (Eliquis -) 5 mg PO BID [facility] Last Admin: 01/05/17 10:03 Dose: 5 mg Arformoterol Tartrate (Brovana (Restricted To Pulmonology/Resp) -) 1 amp NEB BID [facility] Last Admin: 01/05/17 10:25 Dose: 1 amp Atorvastatin Calcium (Lipitor -) 10 mg PO HS [facility] Last Admin: 01/04/17 21:35 Dose: 10 mg Digoxin (Lanoxin -) 0.125 mg PO Q2D [facility] Last Admin: 01/05/17 12:07 Dose: 0.125 mg Docusate Sodium (Colace -) 100 mg PO BID PRN PRN Reason: CONSTIPATION Last Admin: 08/31/17 09:22 Dose: 100 mg Furosemide (Lasix Injection -) 40 mg IVPUSH DAILY [facility] Last Admin: 01/05/17 10:04 Dose: 40 mg Ceftriaxone Sodium 1 gm/ (Dextrose) 50 mls @ 100 mls/hr IVPB DAILY [facility] Last Admin: 01/05/17 10:06 Dose: 100 mls/hr Levetiracetam (Keppra -) 250 mg PO BID [facility] Last Admin: 01/05/17 10:01 Dose: 250 mg Loratadine (Claritin -) 10 mg PO DAILY [facility] Last Admin: 01/05/17 10:01 Dose: 10 mg Losartan Potassium (Cozaar -) 25 mg PO DAILY [facility] Last Admin: 01/05/17 10:03 Dose: 25 mg Magnesium Oxide (Mag-Ox -) 400 mg PO DAILY [facility] Last Admin: 01/05/17 10:04 Dose: 400 mg Metoprolol Succinate (Toprol Xl -) 50 mg PO BID [facility] Last Admin: 01/05/17 10:03 Dose: 50 mg Tramadol HCl (Ultram -) 50 mg PO Q8H PRN PRN Reason: PAIN Last Admin: 01/01/17 11:07 Dose: 50 mg - Objective Vital Signs: Vital Signs Temperature 98 F 01/05/17 13:48 Pulse Rate 79 01/05/17 13:48 Respiratory Rate 22 01/05/17 13:48 Blood Pressure 128/67 01/05/17 13:48 O2 Sat by Pulse Oximetry (%) 96 01/05/17 10:25 Constitutional: Yes: Anxious Eyes: Yes: WNL HENT: Yes: WNL Neck: Yes: WNL Cardiovascular: Yes: Pulse Irregular Respiratory: Yes: WNL Gastrointestinal: Yes: Soft ...Rectal Exam: Yes: Deferred Genitourinary: No: Anuria Breast(s): Yes: WNL Musculoskeletal: Yes: Muscle Weakness Extremities: Yes: WNL Edema: No Peripheral Pulses WNL: Yes Neurological: Yes: Alert, Oriented, Weakness Psychiatric: Yes: Alert, Oriented Labs: CBC, BMP 01/04/17 05:40 01/04/17 05:40 INR, PTT INR 2.00 (0.82-1.09) H D 12/30/16 14:12 - ....Imaging Other: Image Reviewed (telemetry: AF; controlled VR) Problem List - Problems (1) Acute on chronic diastolic (congestive) heart failure Code(s): I50.33 - ACUTE ON CHRONIC DIASTOLIC (CONGESTIVE) HEART FAILURE (2) Aphasia Assessment/Plan: brain/neck MRI/MRA results noted: small anterior meningioma; chronic microvascular ischemia; F/u with neurologist. Physical rehabilitation to regain strength. Code(s): R47.01 - APHASIA (3) Arthritis Code(s): M19.90 - UNSPECIFIED OSTEOARTHRITIS, UNSPECIFIED SITE (4) Atrial fibrillation Assessment/Plan: On metoprolol and digoxin for HR control. If digoxin is to be continued, recommend keeping level 0.5-1.0 (level was 1.2--> now on every other day). On apixaban for anticoagulation. Code(s): I48.91 - UNSPECIFIED ATRIAL FIBRILLATION Qualifiers: Qualified Code(s): I48.2 - Chronic atrial fibrillation (5) Dizziness Code(s): R42 - DIZZINESS AND GIDDINESS (6) HTN (hypertension) Assessment/Plan: on metoprolol, losartan; BP well-controlled. Code(s): I10 - ESSENTIAL (PRIMARY) HYPERTENSION Qualifiers: (7) Hyperlipidemia Assessment/Plan: on statin; keep LDL < 70 mg/dL. Code(s): E78.5 - HYPERLIPIDEMIA, UNSPECIFIED
--- NOTE | 2017-01-05 21:01 | PN ---
Progress Note, Physician Chief Complaint: SOB CHF dizziness History of Present Illness: NAD, in bed, resting. IV abx Seen by ID and pulmonary UC: Microbiology 01/02/17 19:00 Urine - Urine - Catheterized Urine Culture - Preliminary Lactose Fermenting Neg Bacilli - Current Medication List Current Medications: Active Medications Acetaminophen (Tylenol -) 650 mg PO Q6H PRN PRN Reason: FEVER OR PAIN Last Admin: 01/05/17 16:09 Dose: 650 mg Alprazolam (Xanax -) 0.25 mg PO ONCE ONE Stop: 01/02/17 21:01 Apixaban (Eliquis -) 5 mg PO BID [facility] Last Admin: 01/05/17 10:03 Dose: 5 mg Arformoterol Tartrate (Brovana (Restricted To Pulmonology/Resp) -) 1 amp NEB BID [facility] Last Admin: 01/05/17 10:25 Dose: 1 amp Atorvastatin Calcium (Lipitor -) 10 mg PO HS [facility] Last Admin: 01/04/17 21:35 Dose: 10 mg Digoxin (Lanoxin -) 0.125 mg PO Q2D [facility] Last Admin: 01/05/17 12:07 Dose: 0.125 mg Docusate Sodium (Colace -) 100 mg PO BID PRN PRN Reason: CONSTIPATION Last Admin: 01/01/17 09:22 Dose: 100 mg Furosemide (Lasix Injection -) 40 mg IVPUSH DAILY [facility] Last Admin: 01/05/17 10:04 Dose: 40 mg Ceftriaxone Sodium 1 gm/ (Dextrose) 50 mls @ 100 mls/hr IVPB DAILY [facility] Last Admin: 01/05/17 10:06 Dose: 100 mls/hr Levetiracetam (Keppra -) 250 mg PO BID [facility] Last Admin: 01/05/17 10:01 Dose: 250 mg Loratadine (Claritin -) 10 mg PO DAILY [facility] Last Admin: 01/05/17 10:01 Dose: 10 mg Losartan Potassium (Cozaar -) 25 mg PO DAILY [facility] Last Admin: 01/05/17 10:03 Dose: 25 mg Magnesium Oxide (Mag-Ox -) 400 mg PO DAILY [facility] Last Admin: 01/05/17 10:04 Dose: 400 mg Metoprolol Succinate (Toprol Xl -) 50 mg PO BID [facility] Last Admin: 01/05/17 10:03 Dose: 50 mg Tramadol HCl (Ultram -) 50 mg PO Q8H PRN PRN Reason: PAIN Last Admin: 01/01/17 11:07 Dose: 50 mg - Objective Vital Signs: Vital Signs Temperature 98.5 F 01/05/17 18:00 Pulse Rate 72 01/05/17 18:00 Respiratory Rate 21 01/05/17 18:00 Blood Pressure 108/63 01/05/17 18:00 O2 Sat by Pulse Oximetry (%) 96 01/05/17 20:49 Constitutional: Yes: Well Nourished, No Distress, Calm Cardiovascular: Yes: Pulse Irregular Gastrointestinal: Yes: Normal Bowel Sounds Neurological: Yes: Alert, Oriented Psychiatric: Yes: Alert, Oriented Labs: CBC, BMP 01/04/17 05:40 01/04/17 05:40 INR, PTT INR 2.00 (0.82-1.09) H D 12/30/16 14:12 Problem List - Problems (1) Acute on chronic diastolic (congestive) heart failure Code(s): I50.33 - ACUTE ON CHRONIC DIASTOLIC (CONGESTIVE) HEART FAILURE (2) Atrial fibrillation Code(s): I48.91 - UNSPECIFIED ATRIAL FIBRILLATION Qualifiers: Atrial fibrillation type: chronic Qualified Code(s): I48.2 - Chronic atrial fibrillation (3) Dizziness Code(s): R42 - DIZZINESS AND GIDDINESS (4) Mitral regurgitation Code(s): I34.0 - NONRHEUMATIC MITRAL (VALVE) INSUFFICIENCY (5) Tricuspid regurgitation Code(s): I07.1 - RHEUMATIC TRICUSPID INSUFFICIENCY Qualifiers: Cardiac valve disease etiology: nonrheumatic Qualified Code(s): I36.1 - Nonrheumatic tricuspid (valve) insufficiency (6) HTN (hypertension) Code(s): I10 - ESSENTIAL (PRIMARY) HYPERTENSION Qualifiers: (7) Leukocytosis Code(s): D72.829 - ELEVATED WHITE BLOOD CELL COUNT, UNSPECIFIED (8) Arthritis Code(s): M19.90 - UNSPECIFIED OSTEOARTHRITIS, UNSPECIFIED SITE Assessment/Plan -diruesis, still on Furosemide 40 mg IVP -monitor urine output, BUN/Cr trending up -repeat labs in AM, repeat BNP -Cardiology and pulmonary consult appreciated, on beta chayo and ARB -nasal o2 as needed -neb tx -on AC- Eliquis -seen by neurology for dizziness -MRI/MRA brain/neck negative -UC: Microbiology 01/02/17 19:00 Urine Culture - Preliminary Urine - Urine - Catheterized Lactose Fermenting Neg Bacilli -IV abx -pain management for arthritis
[2017-01-05] MEDS: DOCUSATE SODIUM 100 MG CAPSULE (FP) PO PRN (21:15)
[2017-01-05] MEDS: ATORVASTATIN CA 10 MG TABLET (FP) PO SCH (21:15)
[2017-01-06 07:40] LABS: BASOPHIL 0.6 % (0-2.0); EOSINOPHIL 1.2 % (0-4.5); MCHC 33.4 g/dl (32.0-36.0); MEAN CELL VOLUME 89.7 fl (80-96); MEAN PLT VOLUME 7.1 fl (7.5-11.1); NEUTROPHILS 64.5 % (42.8-82.8); PLATELET COUNT 371 K/MM3 (134-434); RDW 14.4 % (11.6-15.6); WHITE BLOOD COUNT 7.9 K/mm3 (4.0-10.0)
[2017-01-06 07:56] LABS: ALBUMIN 2.8 g/dl (3.4-5.0); ALK PHOS 87 U/L (45-117); ANION GAP 10 (8-16); BILIRUBIN,TOTAL 0.8 mg/dL (0.2-1.0); CALCIUM 8.9 mg/dL (8.5-10.1); CO2 31 mmol/L (21-32); CREATININE 1.2 mg/dL (0.55-1.02); GLUCOSE,RANDOM 105 mg/dL (74-106); SGOT/AST 13 U/L (15-37); SGPT/ALT 21 U/L (12-78)
[2017-01-06] MEDS ORDERED: DEXTROSE 5%-WATER - 50 ML IVPB ONE (08:15)
[2017-01-06] MEDS ORDERED: cefTRIAXone SODIUM 1 GM VIAL ONE (08:15)
[2017-01-06] MEDS: ARFORMOTEROL TARTRATE 15 MCG/2 ML VIAL NEB SCH ×2 (09:35→22:03)
[2017-01-06] MEDS: CEFTRIAXONE 1 GM in DEXTROSE 5%-WATER - 50 ML IVPB SCH ×2 (09:38→09:39)
[2017-01-06] MEDS: LORATADINE 10 MG TABLET PO SCH (09:39)
[2017-01-06] MEDS: LOSARTAN POTASSIUM 25 MG TABLET PO SCH (09:39)
[2017-01-06] MEDS: APIXABAN 5 MG TABLET PO SCH ×2 (09:39→21:14)
[2017-01-06] MEDS: levETIRAcetam 250 MG TABLET (FP) PO SCH ×2 (09:40→21:14)
[2017-01-06] MEDS: FUROSEMIDE 40 MG/4 ML INJECTABLE VIAL IVPUSH SCH (09:40)
[2017-01-06] MEDS: MAGNESIUM OXIDE 400 MG TABLET (FP) PO SCH (09:41)
[2017-01-06] MEDS: METOPROLOL SUCCINATE 50 MG TAB.SR.24H (FP) PO SCH ×2 (09:42→21:14)
--- NOTE | 2017-01-06 09:44 | PN ---
Progress Note, Physician Chief Complaint: feels better TELE: rate controlled AF - Current Medication List Current Medications: Active Medications Acetaminophen (Tylenol -) 650 mg PO Q6H PRN PRN Reason: FEVER OR PAIN Last Admin: 01/05/17 16:09 Dose: 650 mg Alprazolam (Xanax -) 0.25 mg PO ONCE ONE Stop: 01/02/17 21:01 Apixaban (Eliquis -) 5 mg PO BID [facility] Last Admin: 01/05/17 21:15 Dose: 5 mg Arformoterol Tartrate (Brovana (Restricted To Pulmonology/Resp) -) 1 amp NEB BID [facility] Last Admin: 01/05/17 22:26 Dose: 1 amp Atorvastatin Calcium (Lipitor -) 10 mg PO HS [facility] Last Admin: 01/05/17 21:15 Dose: 10 mg Digoxin (Lanoxin -) 0.125 mg PO Q2D [facility] Last Admin: 01/05/17 12:07 Dose: 0.125 mg Docusate Sodium (Colace -) 100 mg PO BID PRN PRN Reason: CONSTIPATION Last Admin: 01/05/17 21:15 Dose: 100 mg Furosemide (Lasix Injection -) 40 mg IVPUSH DAILY [facility] Last Admin: 01/05/17 10:04 Dose: 40 mg Ceftriaxone Sodium 1 gm/ (Dextrose) 50 mls @ 100 mls/hr IVPB DAILY [facility] Last Admin: 01/05/17 10:06 Dose: 100 mls/hr Levetiracetam (Keppra -) 250 mg PO BID [facility] Last Admin: 01/05/17 21:15 Dose: 250 mg Loratadine (Claritin -) 10 mg PO DAILY [facility] Last Admin: 01/05/17 10:01 Dose: 10 mg Losartan Potassium (Cozaar -) 25 mg PO DAILY [facility] Last Admin: 01/05/17 10:03 Dose: 25 mg Magnesium Oxide (Mag-Ox -) 400 mg PO DAILY [facility] Last Admin: 01/05/17 10:04 Dose: 400 mg Metoprolol Succinate (Toprol Xl -) 50 mg PO BID [facility] Last Admin: 01/05/17 21:15 Dose: 50 mg Tramadol HCl (Ultram -) 50 mg PO Q8H PRN PRN Reason: PAIN Last Admin: 01/01/17 11:07 Dose: 50 mg - Objective Vital Signs: Vital Signs Temperature 98.4 F 01/06/17 05:31 Pulse Rate 75 01/06/17 05:31 Respiratory Rate 20 01/06/17 05:31 Blood Pressure 123/73 01/06/17 05:31 O2 Sat by Pulse Oximetry (%) 96 01/05/17 20:49 Constitutional: Yes: No Distress Cardiovascular: Yes: Pulse Irregular Respiratory: Yes: Other (improved rales at bases) Gastrointestinal: Yes: Soft Edema: No Neurological: Yes: Alert Labs: CBC, BMP 01/06/17 05:35 01/06/17 05:35 INR, PTT INR 2.00 (0.82-1.09) H D 12/30/16 14:12 Assessment/Plan Acute on chronic diastolic CHF Permanent AF PAD s/p LE embolectomy 1. CHF: -Likely due to chronic HTN with concomitant moderate to severe MR, BP now improved. -Continue Losartan 25mg daily for BP control and afterload reduction- creatinine stable. -BNP is more elevated, but clinically she appears improved. -Check PA and Lateral CXR today 2. Permanent AF: -Continue Eliquis -Rates are well controlled on Toprol and Dig
--- NOTE | 2017-01-06 10:44 | PN ---
Progress Note, Physician History of Present Illness: pulmonary alert,nad,-dyspnea - Current Medication List Current Medications: Active Medications Acetaminophen (Tylenol -) 650 mg PO Q6H PRN PRN Reason: FEVER OR PAIN Last Admin: 01/05/17 16:09 Dose: 650 mg Alprazolam (Xanax -) 0.25 mg PO ONCE ONE Stop: 01/02/17 21:01 Apixaban (Eliquis -) 5 mg PO BID [facility] Last Admin: 01/06/17 09:39 Dose: 5 mg Arformoterol Tartrate (Brovana (Restricted To Pulmonology/Resp) -) 1 amp NEB BID [facility] Last Admin: 01/06/17 09:35 Dose: 1 amp Atorvastatin Calcium (Lipitor -) 10 mg PO HS [facility] Last Admin: 01/05/17 21:15 Dose: 10 mg Digoxin (Lanoxin -) 0.125 mg PO Q2D [facility] Last Admin: 01/05/17 12:07 Dose: 0.125 mg Docusate Sodium (Colace -) 100 mg PO BID PRN PRN Reason: CONSTIPATION Last Admin: 01/05/17 21:15 Dose: 100 mg Furosemide (Lasix Injection -) 40 mg IVPUSH DAILY [facility] Last Admin: 01/06/17 09:40 Dose: 40 mg Ceftriaxone Sodium 1 gm/ (Dextrose) 50 mls @ 100 mls/hr IVPB DAILY [facility] Last Admin: 01/06/17 09:39 Dose: 100 mls/hr Levetiracetam (Keppra -) 250 mg PO BID [facility] Last Admin: 01/06/17 09:40 Dose: 250 mg Loratadine (Claritin -) 10 mg PO DAILY [facility] Last Admin: 01/06/17 09:39 Dose: 10 mg Losartan Potassium (Cozaar -) 25 mg PO DAILY [facility] Last Admin: 01/06/17 09:39 Dose: 25 mg Magnesium Oxide (Mag-Ox -) 400 mg PO DAILY [facility] Last Admin: 01/06/17 09:41 Dose: 400 mg Metoprolol Succinate (Toprol Xl -) 50 mg PO BID [facility] Last Admin: 01/06/17 09:42 Dose: 50 mg Tramadol HCl (Ultram -) 50 mg PO Q8H PRN PRN Reason: PAIN Last Admin: 01/01/17 11:07 Dose: 50 mg - Objective Vital Signs: Vital Signs Temperature 98.4 F 01/06/17 05:31 Pulse Rate 75 01/06/17 05:31 Respiratory Rate 20 01/06/17 05:31 Blood Pressure 123/73 01/06/17 05:31 O2 Sat by Pulse Oximetry (%) 96 01/05/17 20:49 Constitutional: Yes: Well Nourished, Calm Eyes: Yes: WNL HENT: Yes: WNL Neck: Yes: WNL Cardiovascular: Yes: Pulse Irregular, S1, S2 Respiratory: Yes: Diminished Gastrointestinal: Yes: Normal Bowel Sounds, Soft Extremities: Yes: WNL Edema: No Labs: CBC, BMP 01/06/17 05:35 01/06/17 05:35 INR, PTT INR 2.00 (0.82-1.09) H D 12/30/16 14:12 Assessment/Plan Problem List - Problems (1) Acute on chronic diastolic (congestive) heart failure Code(s): I50.33 - ACUTE ON CHRONIC DIASTOLIC (CONGESTIVE) HEART FAILURE (2) Mitral regurgitation Code(s): I34.0 - NONRHEUMATIC MITRAL (VALVE) INSUFFICIENCY (3) Pulmonary hypertension Code(s): I27.2 - OTHER SECONDARY PULMONARY HYPERTENSION (4) Tricuspid regurgitation Code(s): I07.1 - RHEUMATIC TRICUSPID INSUFFICIENCY Qualifiers: Cardiac valve disease etiology: nonrheumatic Qualified Code(s): I36.1 - Nonrheumatic tricuspid (valve) insufficiency (5) Atrial fibrillation Code(s): I48.91 - UNSPECIFIED ATRIAL FIBRILLATION Qualifiers: Atrial fibrillation type: chronic Qualified Code(s): I48.2 - Chronic atrial fibrillation (6) HTN (hypertension) Code(s): I10 - ESSENTIAL (PRIMARY) HYPERTENSION Qualifiers: Assessment/Plan Acute on Chronic Diastolic Heart Failure improving Mod-Severe Mitral Regurgitatioon Pulmonary HTN/Tricuspid Regurgitation Atrial Fibrillation HTN Hyperlipidemia - IV lasix as per cardiology - monitor urine output - beta chayo - O2 to keep SpO2 >90% - inhaled bronchodilators - rate control - anticoagulation DR CRABTREE
--- NOTE | 2017-01-06 16:38 | PN ---
Progress Note, Physician Chief Complaint: AWAKE C/O JOINT PAIN STILL HAS SOME SOB NO CP - Current Medication List Current Medications: Active Medications Acetaminophen (Tylenol -) 650 mg PO Q6H PRN PRN Reason: FEVER OR PAIN Last Admin: 01/05/17 16:09 Dose: 650 mg Alprazolam (Xanax -) 0.25 mg PO ONCE ONE Stop: 01/02/17 21:01 Apixaban (Eliquis -) 5 mg PO BID [facility] Last Admin: 01/06/17 09:39 Dose: 5 mg Arformoterol Tartrate (Brovana (Restricted To Pulmonology/Resp) -) 1 amp NEB BID [facility] Last Admin: 01/06/17 09:35 Dose: 1 amp Atorvastatin Calcium (Lipitor -) 10 mg PO HS [facility] Last Admin: 01/05/17 21:15 Dose: 10 mg Digoxin (Lanoxin -) 0.125 mg PO Q2D [facility] Last Admin: 01/05/17 12:07 Dose: 0.125 mg Docusate Sodium (Colace -) 100 mg PO BID PRN PRN Reason: CONSTIPATION Last Admin: 01/05/17 21:15 Dose: 100 mg Furosemide (Lasix Injection -) 40 mg IVPUSH DAILY [facility] Last Admin: 01/06/17 09:40 Dose: 40 mg Ceftriaxone Sodium 1 gm/ (Dextrose) 50 mls @ 100 mls/hr IVPB DAILY [facility] Last Admin: 01/06/17 09:39 Dose: 100 mls/hr Levetiracetam (Keppra -) 250 mg PO BID [facility] Last Admin: 01/06/17 09:40 Dose: 250 mg Loratadine (Claritin -) 10 mg PO DAILY [facility] Last Admin: 01/06/17 09:39 Dose: 10 mg Losartan Potassium (Cozaar -) 25 mg PO DAILY [facility] Last Admin: 01/06/17 09:39 Dose: 25 mg Magnesium Oxide (Mag-Ox -) 400 mg PO DAILY [facility] Last Admin: 01/06/17 09:41 Dose: 400 mg Metoprolol Succinate (Toprol Xl -) 50 mg PO BID [facility] Last Admin: 01/06/17 09:42 Dose: 50 mg Tramadol HCl (Ultram -) 50 mg PO Q8H PRN PRN Reason: PAIN Last Admin: 01/01/17 11:07 Dose: 50 mg - Objective Vital Signs: Vital Signs Temperature 98.6 F 01/06/17 14:00 Pulse Rate 57 L 01/06/17 14:00 Respiratory Rate 18 01/06/17 14:00 Blood Pressure 105/61 01/06/17 14:00 O2 Sat by Pulse Oximetry (%) 99 01/06/17 10:42 Constitutional: Yes: Mild Distress Eyes: Yes: WNL HENT: Yes: WNL Neck: Yes: WNL Cardiovascular: Yes: Pulse Irregular Respiratory: Yes: Diminished, On Nasal O2 Gastrointestinal: Yes: WNL Genitourinary: Yes: Incontinence Musculoskeletal: Yes: Joint Stiffness, Muscle Pain, Muscle Weakness Extremities: Yes: Deformity Edema: Yes Edema: LLE: Trace, RLE: Trace Peripheral Pulses WNL: Yes Integumentary: Yes: WNL Wound/Incision: Yes: Clean/Dry Neurological: Yes: Pre-Existing Deficit ...Motor Strength: LLE, RLE Psychiatric: Yes: Other Labs: CBC, BMP 01/06/17 05:35 01/06/17 05:35 INR, PTT INR 2.00 (0.82-1.09) H D 12/30/16 14:12 Problem List - Problems (1) Arthritis Code(s): M19.90 - UNSPECIFIED OSTEOARTHRITIS, UNSPECIFIED SITE (2) Atrial fibrillation Code(s): I48.91 - UNSPECIFIED ATRIAL FIBRILLATION Qualifiers: Atrial fibrillation type: chronic Qualified Code(s): I48.2 - Chronic atrial fibrillation (3) CVA (cerebral vascular accident) Code(s): I63.9 - CEREBRAL INFARCTION, UNSPECIFIED (4) HTN (hypertension) Code(s): I10 - ESSENTIAL (PRIMARY) HYPERTENSION Qualifiers: (5) TIA (transient ischemic attack) Code(s): G45.9 - TRANSIENT CEREBRAL ISCHEMIC ATTACK, UNSPECIFIED (6) Edema Code(s): R60.9 - EDEMA, UNSPECIFIED (7) Syncope Code(s): R55 - SYNCOPE AND COLLAPSE (8) Acute on chronic diastolic (congestive) heart failure Code(s): I50.33 - ACUTE ON CHRONIC DIASTOLIC (CONGESTIVE) HEART FAILURE Assessment/Plan DIURESIS PER CARDIOLOGY CHANGE TO PO PREDNISONE 10MG DAILY STARTED FOR RA OUTPATIENT FOLLOW UP WITH RHEUMATOLOGY OOB TO CHAIR PT HOME WITH NURSING CARE
[2017-01-06] MEDS: predniSONE 10 MG TABLET (UD) PO SCH (17:08)
[2017-01-06] MEDS: ATORVASTATIN CA 10 MG TABLET (FP) PO SCH (21:14)
[2017-01-06] MEDS: DOCUSATE SODIUM 100 MG CAPSULE (FP) PO PRN (21:14)
[2017-01-07] MEDS ORDERED: cefTRIAXone SODIUM 1 GM VIAL ONE (08:08)
[2017-01-07] MEDS ORDERED: DEXTROSE 5%-WATER - 50 ML IVPB ONE (08:08)
--- NOTE | 2017-01-07 08:56 | PN ---
Progress Note, Physician Chief Complaint: feels better CXR reviewed, no sig CHF. TELE: rate controlled AF with some pauses all < 3 seconds and occurring during sleep. - Current Medication List Current Medications: Active Medications Acetaminophen (Tylenol -) 650 mg PO Q6H PRN PRN Reason: FEVER OR PAIN Last Admin: 01/05/17 16:09 Dose: 650 mg Alprazolam (Xanax -) 0.25 mg PO ONCE ONE Stop: 01/02/17 21:01 Apixaban (Eliquis -) 5 mg PO BID [facility] Last Admin: 01/06/17 21:14 Dose: 5 mg Arformoterol Tartrate (Brovana (Restricted To Pulmonology/Resp) -) 1 amp NEB BID [facility] Last Admin: 01/06/17 22:03 Dose: 1 amp Atorvastatin Calcium (Lipitor -) 10 mg PO HS [facility] Last Admin: 01/06/17 21:14 Dose: 10 mg Digoxin (Lanoxin -) 0.125 mg PO Q2D [facility] Last Admin: 01/05/17 12:07 Dose: 0.125 mg Docusate Sodium (Colace -) 100 mg PO BID PRN PRN Reason: CONSTIPATION Last Admin: 01/06/17 21:14 Dose: 100 mg Furosemide (Lasix Injection -) 40 mg IVPUSH DAILY [facility] Last Admin: 01/06/17 09:40 Dose: 40 mg Ceftriaxone Sodium 1 gm/ (Dextrose) 50 mls @ 100 mls/hr IVPB DAILY [facility] Last Admin: 01/06/17 09:39 Dose: 100 mls/hr Levetiracetam (Keppra -) 250 mg PO BID [facility] Last Admin: 01/06/17 21:14 Dose: 250 mg Loratadine (Claritin -) 10 mg PO DAILY [facility] Last Admin: 01/06/17 09:39 Dose: 10 mg Losartan Potassium (Cozaar -) 25 mg PO DAILY [facility] Last Admin: 01/06/17 09:39 Dose: 25 mg Magnesium Oxide (Mag-Ox -) 400 mg PO DAILY [facility] Last Admin: 01/06/17 09:41 Dose: 400 mg Metoprolol Succinate (Toprol Xl -) 50 mg PO BID [facility] Last Admin: 01/06/17 21:14 Dose: 50 mg Prednisone (Deltasone -) 10 mg PO DAILY [facility] Last Admin: 01/06/17 17:08 Dose: 10 mg Tramadol HCl (Ultram -) 50 mg PO Q8H PRN PRN Reason: PAIN Last Admin: 01/01/17 11:07 Dose: 50 mg - Objective Vital Signs: Vital Signs Temperature 97.3 F L 01/07/17 05:00 Pulse Rate 82 01/07/17 05:00 Respiratory Rate 17 01/07/17 05:00 Blood Pressure 125/84 01/07/17 05:00 O2 Sat by Pulse Oximetry (%) 95 01/06/17 21:00 Constitutional: Yes: No Distress Eyes: Yes: Conjunctiva Clear Cardiovascular: Yes: Regular Rate and Rhythm Respiratory: Yes: CTA Bilaterally, Other (no rales or wheezing) Gastrointestinal: Yes: Soft Neurological: Yes: Alert, Oriented Labs: CBC, BMP 01/06/17 05:35 01/06/17 05:35 INR, PTT INR 2.00 (0.82-1.09) H D 12/30/16 14:12 - ....Imaging Chest X-ray: Report Reviewed EKG: Image Reviewed Assessment/Plan Assessment/Plan Acute on chronic diastolic CHF Permanent AF PAD s/p LE embolectomy 1. CHF: -Likely due to chronic HTN with concomitant moderate to severe MR, BP now improved. -Continue Losartan 25mg daily for BP control and afterload reduction- creatinine stable. -BNP is more elevated, but clinically she is improved and yesterday's CXR is ok. -Would switch to PO Lasix 2. Permanent AF: -Continue Eliquis -Rates are well controlled on Toprol and Dig
[2017-01-07] MEDS: ARFORMOTEROL TARTRATE 15 MCG/2 ML VIAL NEB SCH (09:49)
--- NOTE | 2017-01-07 11:02 | DS ---
Physical Examination Vital Signs: Vital Signs Temperature 97.3 F L 01/07/17 05:00 Pulse Rate 82 01/07/17 09:49 Respiratory Rate 17 01/07/17 05:00 Blood Pressure 125/84 01/07/17 05:00 O2 Sat by Pulse Oximetry (%) 96 01/07/17 09:49 Constitutional: Yes: Mild Distress Eyes: Yes: WNL HENT: Yes: WNL Neck: Yes: WNL Cardiovascular: Yes: Pulse Irregular Respiratory: Yes: On Nasal O2 Gastrointestinal: Yes: WNL Musculoskeletal: Yes: Muscle Weakness Extremities: Yes: Other Edema: No Peripheral Pulses WNL: Yes Integumentary: Yes: WNL Wound/Incision: Yes: Clean/Dry Neurological: Yes: Facial Droop, Unsteady Gait ...Motor Strength: LLE, RLE Psychiatric: Yes: WNL Labs: CBC, BMP 01/06/17 05:35 01/06/17 05:35 Discharge Summary Reason For Visit: PRECORDIAL PAIN Current Active Problems Acute on chronic diastolic (congestive) heart failure (Acute) Aphasia (Acute) Arthritis (Acute) Atrial fibrillation (Acute) CKD (chronic kidney disease) (Acute) CVA (cerebral vascular accident) (Acute) Dizziness (Acute) Hyperlipidemia (Acute) Leukocytosis (Acute) Mitral regurgitation (Acute) Precordial chest pain (Acute) Pulmonary hypertension (Acute) Rheumatoid arthritis (Acute) Syncope (Acute) Tricuspid regurgitation (Acute) UTI (urinary tract infection) (Acute) HTN (hypertension) (Chronic) Procedures: Principal: acute on chronic chf iv lasix Other Procedures: resp distress/ct head with ams Hospital Course: patient admitted with acute on chronic chf, altered emntal status with toxic encephalopathy, treated with iv lasix/antibiotics, 02 therapy, will dc home on medications and home care Condition: Fair - Instructions Diet, Activity, Other Instructions: see dr august in 2 weeks low salt diet Referrals: Al Durham MD [Primary Care Provider] - Disposition: VNS/HOME HEALTH CARE - Home Medications Comprehensive Discharge Medication List: Ambulatory Orders Cholecalciferol (Vitamin D3) [Vitamin D3] 50,000 unit PO WEEKLY 08/31/16 Sennosides/Docusate Sodium [Senna Plus Tablet] 1 each PO HS 08/31/16 Simvastatin [Zocor -] 40 mg PO HS 08/31/16 Acetaminophen [Tylenol] 650 mg PO PRN MDD 650 mg 09/01/16 Docusate Sodium [Colace -] 100 mg PO HS 09/01/16 Apixaban [Eliquis -] 5 mg PO BID tablet 10/21/16 Metoprolol Succinate [Toprol XL -] 50 mg PO BID tab 10/21/16 Digoxin [Lanoxin -] 0.125 mg PO DAILY #30 tablet 10/22/16 Cetirizine HCl [Zyrtec -] 10 mg PO DAILY 12/30/16 Furosemide [Lasix -] 20 mg PO DAILY 12/30/16
[2017-01-07] MEDS: LORATADINE 10 MG TABLET PO SCH (11:05)
[2017-01-07] MEDS: levETIRAcetam 250 MG TABLET (FP) PO SCH (11:05)
[2017-01-07] MEDS: LOSARTAN POTASSIUM 25 MG TABLET PO SCH (11:05)
[2017-01-07] MEDS: APIXABAN 5 MG TABLET PO SCH (11:05)
[2017-01-07] MEDS: predniSONE 10 MG TABLET (UD) PO SCH (11:05)
[2017-01-07] MEDS: DOCUSATE SODIUM 100 MG CAPSULE (FP) PO PRN (11:05)
[2017-01-07] MEDS: MAGNESIUM OXIDE 400 MG TABLET (FP) PO SCH (11:05)
[2017-01-07] MEDS: METOPROLOL SUCCINATE 50 MG TAB.SR.24H (FP) PO SCH (11:05)
[2017-01-07] MEDS: CEFTRIAXONE 1 GM in DEXTROSE 5%-WATER - 50 ML IVPB SCH (11:06)
[2017-01-07] MEDS: DIGOXIN 0.125 MG TABLET (FP) PO SCH (11:06)
[2017-01-07 11:07] VITALS: PULSE 60
--- NOTE | 2017-01-07 11:16 | PN ---
Progress Note, Physician History of Present Illness: pulmonary alert,nad,oob-chair,-sob,-cp,-cough - Current Medication List Current Medications: Active Medications Acetaminophen (Tylenol -) 650 mg PO Q6H PRN PRN Reason: FEVER OR PAIN Last Admin: 01/05/17 16:09 Dose: 650 mg Alprazolam (Xanax -) 0.25 mg PO ONCE ONE Stop: 01/02/17 21:01 Apixaban (Eliquis -) 5 mg PO BID [facility] Last Admin: 01/07/17 11:05 Dose: 5 mg Arformoterol Tartrate (Brovana (Restricted To Pulmonology/Resp) -) 1 amp NEB BID [facility] Last Admin: 01/07/17 09:49 Dose: 1 amp Atorvastatin Calcium (Lipitor -) 10 mg PO HS [facility] Last Admin: 01/06/17 21:14 Dose: 10 mg Digoxin (Lanoxin -) 0.125 mg PO Q2D [facility] Last Admin: 01/07/17 11:06 Dose: 0.125 mg Docusate Sodium (Colace -) 100 mg PO BID PRN PRN Reason: CONSTIPATION Last Admin: 01/07/17 11:05 Dose: 100 mg Furosemide (Lasix -) 40 mg PO BID@0600,1400 [facility] Ceftriaxone Sodium 1 gm/ (Dextrose) 50 mls @ 100 mls/hr IVPB DAILY [facility] Last Admin: 01/07/17 11:06 Dose: 100 mls/hr Levetiracetam (Keppra -) 250 mg PO BID [facility] Last Admin: 01/07/17 11:05 Dose: 250 mg Loratadine (Claritin -) 10 mg PO DAILY [facility] Last Admin: 01/07/17 11:05 Dose: 10 mg Losartan Potassium (Cozaar -) 25 mg PO DAILY [facility] Last Admin: 01/07/17 11:05 Dose: 25 mg Magnesium Oxide (Mag-Ox -) 400 mg PO DAILY [facility] Last Admin: 01/07/17 11:05 Dose: 400 mg Metoprolol Succinate (Toprol Xl -) 50 mg PO BID [facility] Last Admin: 01/07/17 11:05 Dose: 50 mg Prednisone (Deltasone -) 10 mg PO DAILY [facility] Last Admin: 01/07/17 11:05 Dose: 10 mg Tramadol HCl (Ultram -) 50 mg PO Q8H PRN PRN Reason: PAIN Last Admin: 01/01/17 11:07 Dose: 50 mg - Objective Vital Signs: Vital Signs Temperature 97.3 F L 01/07/17 05:00 Pulse Rate 60 01/07/17 11:06 Respiratory Rate 17 01/07/17 05:00 Blood Pressure 125/84 01/07/17 05:00 O2 Sat by Pulse Oximetry (%) 96 01/07/17 09:49 Constitutional: Yes: Calm, Thin Eyes: Yes: WNL HENT: Yes: WNL Neck: Yes: WNL Cardiovascular: Yes: Pulse Irregular, S1, S2 Respiratory: Yes: Rales (few bibasilar crackles) Gastrointestinal: Yes: Normal Bowel Sounds, Soft Extremities: Yes: WNL Edema: No Labs: CBC, BMP 01/06/17 05:35 01/06/17 05:35 INR, PTT INR 2.00 (0.82-1.09) H D 12/30/16 14:12 Assessment/Plan Problem List - Problems (1) Acute on chronic diastolic (congestive) heart failure Code(s): I50.33 - ACUTE ON CHRONIC DIASTOLIC (CONGESTIVE) HEART FAILURE (2) Mitral regurgitation Code(s): I34.0 - NONRHEUMATIC MITRAL (VALVE) INSUFFICIENCY (3) Pulmonary hypertension Code(s): I27.2 - OTHER SECONDARY PULMONARY HYPERTENSION (4) Tricuspid regurgitation Code(s): I07.1 - RHEUMATIC TRICUSPID INSUFFICIENCY Qualifiers: Cardiac valve disease etiology: nonrheumatic Qualified Code(s): I36.1 - Nonrheumatic tricuspid (valve) insufficiency (5) Atrial fibrillation Code(s): I48.91 - UNSPECIFIED ATRIAL FIBRILLATION Qualifiers: Atrial fibrillation type: chronic Qualified Code(s): I48.2 - Chronic atrial fibrillation (6) HTN (hypertension) Code(s): I10 - ESSENTIAL (PRIMARY) HYPERTENSION Qualifiers: Assessment/Plan Acute on Chronic Diastolic Heart Failure improved Mod-Severe Mitral Regurgitatioon Pulmonary HTN/Tricuspid Regurgitation Atrial Fibrillation HTN Hyperlipidemia - lasix po - monitor urine output - beta chayo - YAKELIN-I/ARB - inhaled bronchodilators as needed - anticoagulation Dr Bowen
[2017-01-07 13:11] VITALS: BP 127/54; TEMP 97.6
[2017-01-07] MEDS ORDERED: FUROSEMIDE 40 MG TABLET (FP) PO SCH (14:00)
== END 2017-01-07 13:10 | disposition home health service (06) | DRG 291 ==
LOC: JER 13:01 → INTOOBSV 15:04 → JERBED 15:04 → OBSVTOIN 17:22 → J2W 21:43 → J4W 01-03 21:21
PROVIDERS: ADMIT Family Medicine; ATTEND Family Medicine
DX: I13.0 Hypertensive heart and chronic kidney disease with heart failure and stage 1 through stage 4 chronic kidney disease, or unspecified chronic kidney disease (principal); I50.23 Acute on chronic systolic (congestive) heart failure; I50.33 Acute on chronic diastolic (congestive) heart failure; N39.0 Urinary tract infection, site not specified; N18.9 Chronic kidney disease, unspecified; I36.1 Nonrheumatic tricuspid (valve) insufficiency; E78.5 Hyperlipidemia, unspecified; Z86.73 Personal history of transient ischemic attack (TIA), and cerebral infarction without residual deficits; I34.0 Nonrheumatic mitral (valve) insufficiency; M06.9 Rheumatoid arthritis, unspecified; Z86.718 Personal history of other venous thrombosis and embolism; I48.2 Chronic atrial fibrillation; M19.90 Unspecified osteoarthritis, unspecified site; Z79.01 Long term (current) use of anticoagulants; E87.6 Hypokalemia; E78.00 Pure hypercholesterolemia, unspecified; F80.2 Mixed receptive-expressive language disorder; I25.10 Atherosclerotic heart disease of native coronary artery without angina pectoris; I27.2 Other secondary pulmonary hypertension
CPT/HCPCS: 36415; 70450-TC; 70544-TC; 70547-TC; 70551-TC; 71010-TC; 71020-TC; 73130-TC-LT; 73130-TC-RT; 76775-TC; 76856-TC; 80048; 80053; 80162; 81003; 81015; 82570; 83735; 83880; 84156; 84484; 85025; 85610; 85651; 86200; 86431; 87086; 87186; 93005; 93010; 93306-TC; 93971-TC; 94640; 97116-GP; 97161-GP; 99285-25; G0378

== ENCOUNTER 2017-09-24 13:39 | Emergency (ER) | payer OTHER ==
[2017-09-24 13:48] VITALS: TEMP 97.8; BMI 27.2
--- NOTE | 2017-09-24 14:20 | PDOC ---
History of Present Illness - General Chief Complaint: Lethargy Stated Complaint: Shortness of Breath Time Seen by Provider: 09/24/17 13:49 History Source: Patient Exam Limitations: No Limitations - History of Present Illness Initial Comments: 09/24/17 14:14 The patient is an 89F with a PMH of Afib on eliquis, hypertension, hyperlipidemia, TIA (approximately 3 months ago), left femoral embolectomy who presents to the ER with complaints of lethargy. The patient states she feels "different" and more tired of recent (the past 2-3 weeks). She states that she has fallen asleep more than usual and been more tired. She denies CP, SOB, fever , chills, nausea, vomiting, abdominal pain, dyuria, hematuria, hematochezia, dark/tarry stools. Past History - Past Medical History Allergies/Adverse Reactions: Allergies Allergy/AdvReac Type Severity Reaction Status Date / Time No Known Allergies Allergy Verified 09/24/17 13:45 Home Medications: Ambulatory Orders Sennosides/Docusate Sodium [Senna Plus Tablet] 1 each PO HS 08/31/16 Simvastatin [Zocor -] 40 mg PO HS 08/31/16 Acetaminophen [Tylenol] 500 mg PO PRN MDD 650 mg 09/01/16 Metoprolol Succinate [Toprol XL -] 50 mg PO BID tab 10/21/16 Digoxin [Lanoxin -] 0.125 mg PO DAILY #30 tablet 10/22/16 Losartan Potassium [Cozaar -] 25 mg PO DAILY #30 tablet 01/07/17 Magnesium Oxide [Mag-Ox -] 400 mg PO DAILY #30 tablet 01/07/17 levETIRAcetam [Keppra -] 250 mg PO BID #60 tablet 01/07/17 Apixaban [Eliquis -] 2.5 mg PO BID 09/24/17 Furosemide [Lasix -] 20 mg PO DAILY 09/24/17 Sulfamethoxazole/Trimethoprim [Bactrim Ds -] 1 tab PO BID #6 tablet 09/24/17 predniSONE [Deltasone -] 5 mg PO DAILY 09/24/17 Cardiac Disorders: Yes (DVT: 12/2016) COPD: No HTN: Yes Hypercholesterolemia: Yes - Surgical History Orthopedic Surgery: (laminectomy) - Suicide/Smoking/Psychosocial Hx Smoking History: Never smoked Have you smoked in the past 12 months: No Information on smoking cessation initiated: No Hx Alcohol Use: No Drug/Substance Use Hx: No Substance Use Type: None Hx Substance Use Treatment: No Review of Systems - Review of Systems Able to Perform ROS?: Yes Comments:: 09/24/17 14:18 GENERAL/CONSTITUTIONAL: Positive for lethargy and weakness. No fever or chills. HEAD, EYES, EARS, NOSE AND THROAT: No change in vision. No ear pain or discharge. No sore throat. CARDIOVASCULAR: No chest pain, palpitations, or lightheadedness. RESPIRATORY: No cough, wheezing, shortness of breath, or hemoptysis. GASTROINTESTINAL: No nausea, vomiting, diarrhea, constipation, or abdominal pain. GENITOURINARY: No dysuria, frequency, hematuria, or change in urination. MUSCULOSKELETAL: No joint or muscle swelling or pain. No neck or back pain. SKIN: No rash or lesions. NEUROLOGIC: No headache, numbness, tingling, weakness, loss of consciousness, or change in strength/sensation. ENDOCRINE: No increased thirst. No abnormal weight change. HEMATOLOGIC/LYMPHATIC: No anemia, easy bleeding, or history of blood clots. ALLERGIC/IMMUNOLOGIC: No hives or skin allergy. Is the patient limited Georgian proficient: No *Physical Exam - Vital Signs Last Vital Signs Temp Pulse Resp BP Pulse Ox 97.8 F 56 L 20 182/93 96 09/24/17 13:46 09/24/17 13:46 09/24/17 13:46 09/24/17 13:46 09/24/17 13:46 - Physical Exam Comments: 09/24/17 14:20 GENERAL: Well developed, well nourished. Awake and alert. No acute distress. HEENT: Normocephalic, atraumatic. Hearing grossly normal. Moist mucous membranes. PERRLA, EOMI. No conjunctival pallor. Sclera are non-icteric. NECK: Supple. Full ROM. CARDIOVASCULAR: Regular rate and rhythm. No murmurs, rubs, or gallops. PULMONARY: No evidence of respiratory distress. Lungs clear to auscultation bilaterally. No wheezing, rales or rhonchi. ABDOMINAL: Soft. Non-tender. Distended. No rebound or guarding. GENITOURINARY: No CVA tenderness bilaterally. MUSCULOSKELETAL: Normal range of motion at all joints. No bony deformities or tenderness. EXTREMITIES: No cyanosis. No clubbing. No edema. No calf tenderness or swelling. SKIN: Warm and dry. Normal capillary refill. No rashes. No jaundice. NEUROLOGICAL: Alert, awake, appropriate. Cranial nerves 2-12 intact. Normal speech. Gait is normal without ataxia. PSYCHIATRIC: Cooperative. Good eye contact. Appropriate mood and affect. ED Treatment Course - LABORATORY CBC & Chemistry Diagram: 09/24/17 14:50 09/24/17 14:50 - RADIOLOGY Radiology Studies Ordered: Category Date Time Status CHEST X-RAY PORTABLE* [RAD] Stat Radiology 09/24/17 14:05 Ordered Medical Decision Making - Medical Decision Making 09/24/17 15:28 The patient is an 89F with an extensive PMH who presents to the ER with weakness and lethargy. Will order basic labs, UA, and EKG to r/o ACS, UTI, and CXR for PNA. Pending labs/imaging. 09/24/17 15:54 UA indicates UTI. BNP at baseline, Cr at baseline. Will give bactrim and cancel keflex order. *DC/Admit/Observation/Transfer Diagnosis at time of Disposition: UTI (urinary tract infection) Qualifiers: Urinary tract infection type: site unspecified Hematuria presence: without hematuria Qualified Code(s): N39.0 - Urinary tract infection, site not specified - Discharge Dispostion Disposition: HOME Condition at time of disposition: Stable Decision to Admit order: No - Prescriptions Prescriptions: Sulfamethoxazole/Trimethoprim [Bactrim Ds -] 1 tab PO BID #6 tablet - Referrals Referrals: Al Durham MD [Primary Care Provider] - - Patient Instructions Printed Discharge Instructions: Urinary Tract Infection Additional Instructions: You were found to have a urinary tract infection. I have prescribed antibiotics for that - please take them as prescribed for 3 days. Please follow up with Dr. Durham on Thursday at 12noon. Please return to the ER if you have any signs or symptoms of chest pain, shortness of breath, uncontrollable fever, chills, nausea, vomiting, numbness, tingling, or weakness in any part of your body, changes in vision, or slurred speech. Please return to the ER if symptoms persist, worsen, or new symptoms arise. - Post Discharge Activity
[2017-09-24 15:02] LABS: BASO % 0.6 % (0-2.0); EOS % 0.5 % (0-4.5); HEMATOCRIT 42.7 % (32.4-45.2); HEMOGLOBIN 14.1 GM/dL (10.7-15.3); LYMPH % 18.5 % (8-40); MCH 31.2 pg (25.7-33.7); MEAN CELL VOLUME 94.5 fl (80-96); MEAN PLT VOLUME 7.7 fl (7.5-11.1); MONO % 4.5 % (3.8-10.2); NEUT % 75.9 % (42.8-82.8); PLATELET COUNT 253 K/MM3 (134-434); RBC 4.52 M/mm3 (3.60-5.2); RDW 14.3 % (11.6-15.6); WHITE BLOOD COUNT 8.9 K/mm3 (4.0-10.0)
[2017-09-24 15:24] LABS: ALBUMIN 3.8 g/dl (3.4-5.0); ANION GAP 8 (8-16); BILIRUBIN,TOTAL 0.8 mg/dL (0.2-1.0); BLOOD UREA NITROGEN 31 mg/dL (7-18); CALCIUM 8.7 mg/dL (8.5-10.1); CHLORIDE 107 mmol/L (98-107); CO2 27 mmol/L (21-32); CREATININE 1.4 mg/dL (0.55-1.02); GLUCOSE,RANDOM 126 mg/dL (74-106); POTASSIUM 4.3 mmol/L (3.5-5.1); SGOT/AST 22 U/L (15-37); SODIUM 142 mmol/L (136-145); TOT PROT 6.9 g/dl (6.4-8.2)
[2017-09-24 15:28] LABS: URINE APPEARANCE SLCLOUDY; URINE BILIRUBIN NEGATIVE (<2.0 mg/dL); URINE COLOR STRAW; URINE GLUCOSE (UA) NEGATIVE (NEGATIVE); URINE KETONE NEGATIVE (NEGATIVE); URINE NITRITE NEGATIVE (NEGATIVE); URINE PROTEIN NEGATIVE (NEGATIVE); URINE UROBILINOGEN NEGATIVE mg/dL (0.2-1.0)
[2017-09-24 15:30] LABS: ALK PHOS 63 U/L (45-117); N-TERMINAL BNP 6088.45 pg/ml (5-450); SGPT/ALT 31 U/L (12-78)
[2017-09-24 15:36] LABS: URINE LEUK ESTERASE 2+ (NEGATIVE)
[2017-09-24 15:40] LABS: EPI CELLS RARE /HPF (FEW); URINE BACTERIA RARE /hpf (NONE SEEN)
[2017-09-24] MEDS ORDERED: CEPHALEXIN MONOHYDRATE 500 MG CAPSULE (UD) PO ONE (15:47)
[2017-09-24] MEDS ORDERED: SULFAMETHOXAZOLE/TRIMETHOPRIM 800MG/160MG D.S. TABLET PO ONE (15:55)
--- NOTE | 2017-09-24 16:09 | PDOC ---
Attending Attestation - Resident Resident Name: JosetasiaarsalanJulian - ED Attending Attestation I have performed the following: I have examined & evaluated the patient, The case was reviewed & discussed with the resident, I agree w/resident's findings & plan - HPI HPI: 09/24/17 16:06 89y/o F p/w nonspecific generalized weakness. no f/c/syncope. no cardiopulmonary complaints. no injuries. - Physicial Exam PE: 09/24/17 16:07 slightly elevated bp, otherwise well appearing. nad irreg normal rate abd soft/nt. no guarding/rebound no cvat - Medical Decision Making 09/24/17 16:07 89y/o F with generalized weakness. normal VS, no cardiopulmonary complaints or findings. normal wbc, normal diff chem wnl, trop negative UA with UTI. urine cx sent Discussed with Dr. Durham, agrees with d/c plan on abx and f/u in office Thursday. Understands return criteria. Heart Score/ECG Review #1 ECG reviewed & interpreted by me at: 15:50 09/24/17 16:09 afib at 60. qtc 406. chronic T wave flattening laterally
[2017-09-24] MEDS ORDERED: SULFAMETHOXAZOLE/TRIMETHOPRIM 800MG/160MG D.S. TABLET ONE (16:15)
[2017-09-24 16:52] VITALS: BP 179/92; PULSE 55
--- NOTE | 2017-09-25 10:50 | EKG ---
Test Reason : Blood Pressure : / mmHG Vent. Rate : 058 BPM Atrial Rate : 234 BPM P-R Int : 000 ms QRS Dur : 082 ms QT Int : 414 ms P-R-T Axes : 000 -17 266 degrees QTc Int : 406 ms ATRIAL FIBRILLATION LOW VOLTAGE QRS CANNOT RULE OUT ANTERIOR INFARCT , AGE UNDETERMINED ABNORMAL ECG WHEN COMPARED WITH ECG OF 30-DEC-2016 13:49, NO SIGNIFICANT CHANGE WAS FOUND Confirmed by MIGUEL A WALLACE MD ([id number]) on 09/25/2017 10:49:57 AM Referred By: Confirmed By:MIGUEL A WALLACE MD
--- NOTE | 2017-09-27 07:28 | PDOC ---
Patient Follow-up (Call Back) - Post ED Follow - Up Condition at time of discharge: Stable Disposition at time of original discharge: HOME Reason for Call Back: Abnwl. Microbiology (Urine culture shows on preliminary report non-lactose fermenting GNB> 100,000 CFU per mL. Patient currently on Bactrim will await final report.)
== END 2017-09-24 16:52 | disposition home or self-care (01) ==
LOC: JER 13:39
DX: N39.0 Urinary tract infection, site not specified (principal); I48.91 Unspecified atrial fibrillation; Z79.01 Long term (current) use of anticoagulants; I10 Essential (primary) hypertension; E78.5 Hyperlipidemia, unspecified; Z86.73 Personal history of transient ischemic attack (TIA), and cerebral infarction without residual deficits; Z86.718 Personal history of other venous thrombosis and embolism
CPT/HCPCS: 36415; 71045-TC-FY; 80053; 81003; 81015; 82550; 83880; 84484; 85025; 87086; 87186; 93005; 93010; 99283-25